=== PATIENT | female | born 1940 | race Hispanic/Latino ===

== ENCOUNTER 2021-12-09 07:25 | Emergency (ER) | payer OTHER ==
[2021-12-09 09:13] LABS: Albumin 2.7 g/dL (3.4-5.0); Protein, Total 9.6 g/dL (6.4-8.2)
[2021-12-09 09:14] LABS: Potassium 3.8 mmol/L (3.5-5.1)
[2021-12-09 09:22] LABS: Absolute Lymphocytes (CBC) 1.1 K/uL (0.7-4.9); Hematocrit 37.1 % (36.0-45.0); Lymphocytes % 20.7 % (15.3-44.8); MCV 85.8 fL (80-100); MPV 8.2 fL (7.6-11.3); RBC Red Blood Cell Count 4.32 M/uL (3.86-4.86)
--- NOTE | 2021-12-09 10:00 | RAD REPORT ---
EXAM DESCRIPTION: CT - Abdomen Angio - 12/09/2021 9:50 am CLINICAL HISTORY: Abdominal pain radiating to the back. Rectal bleeding COMPARISON: Pelvis Angio dated 12/09/2021 TECHNIQUE: CT angiography of the abdominal aorta was performed with MIPs. All CT scans are performed using dose optimization technique as appropriate and may include automated exposure control or mA/KV adjustment according to patient size. FINDINGS: The inferior lung lew are emphysematous. Small hiatal hernia noted. There is mild atheromatous plaquing seen involving the abdominal aorta as well as the origins of the major visceral arteries. Both iliac arteries also demonstrate mild multifocal atherosclerosis. There is no high-grade stenosis or occlusion seen.Cholelithiasis. Postsurgical changes involve the colon with a large right-sided paramidline hernia. No bowel obstruction, free fluid or abscess.No bulky lymphadenopathy. Degenerative changes are present in the spine with diffuse osteopenia. IMPRESSION: Mild to moderate multifocal multisegmental vascular atherosclerosis present.No areas of active extravasation contrast seen. Cholelithiasis. Large right-sided hernias are present.
--- NOTE | 2021-12-09 10:36 | EDPHYS ---
Physician Documentation [facility] Name: Gayla Greene Age: 80 yrs Sex: Female : 1940 Arrival Date: 12/09/2021 Time: 07:26 Bed 17 Private MD: ED Physician Manny Roman HPI: 12/09 07:46 This 80 yrs old Female presents to ER via EMS with complaints of Rectal Bleeding. ms3 07:46 The patient presents to the emergency department with bleeding from the rectum/anus, ms3 that is moderate. Onset: The symptoms/episode began/occurred yesterday. Context: the patient history of colon cancer. Modifying factors: The symptoms are alleviated by nothing, The symptoms are aggravated by nothing. Associate signs and symptoms: Pertinent positives: lower GI bleeding, clots, Pertinent negatives: abdominal pain, vomiting. Historical: - Allergies: 07:45 Aspirin; jl7 - Home Meds: 07:45 furosemide Oral [Active]; Simvastatin Oral [Active]; losartan oral [Active]; jl7 - PMHx: 07:45 Hypertensive disorder; Hypercholesterolemia; Congestive heart failure; jl7 - Immunization history:: Client reports receiving the 2nd dose of the Covid vaccine. - Social history:: Smoking status: Patient denies any tobacco usage or history of. ROS: 07:46 Constitutional: Negative for fever, and chills. Neck: Negative for injury, pain, and ms3 swelling, Cardiovascular: Negative for chest pain, and palpitations. Respiratory: Negative for shortness of breath, cough, wheezing, and pleuritic chest pain, MS/Extremity: Negative for injury and deformity, Skin: Negative for injury, rash, and discoloration, Neuro: Negative for headache, weakness, numbness, tingling. Psych: Negative for depression, anxiety, suicide ideation, homicidal ideation, and hallucinations. 07:46 Abdomen/GI: Positive for rectal bleeding. 07:46 All other systems are negative. Exam: 07:46 Constitutional: This is a well developed, well nourished patient who is awake, alert, ms3 and in no acute distress. Head/Face: Normocephalic, atraumatic. Neck: Trachea midline, no cervical lymphadenopathy. Supple, full range of motion without nuchal rigidity, or vertebral point tenderness. No Meningismus. Chest/axilla: Normal chest wall appearance and motion. Nontender with no deformity. Cardiovascular: Regular rate and rhythm with a normal S1 and S2. No gallops, murmurs, or rubs. Normal PMI, no JVD. No pulse deficits. Respiratory: Lungs have equal breath sounds bilaterally, clear to auscultation and percussion. No rales, rhonchi or wheezes noted. No increased work of breathing, no retractions or nasal flaring. 07:46 Abdomen/GI: Inspection: abdomen appears normal, Right sided ventral hernia, Bowel sounds: normal, Palpation: abdomen is soft and non-tender. Vital Signs: 07:43 BP 158 / 69; Pulse 80; Resp 15; Temp 97.9; Pulse Ox 99% ; Weight 49.9 kg; jl7 08:45 BP 150 / 68; Pulse 76; Pulse Ox 95% on R/A; em6 10:32 BP 145 / 84; Pulse 62; Resp 16; Pulse Ox 98% on R/A; em6 11:55 Pulse 68; Resp 16; Pulse Ox 98% on R/A; em6 13:28 BP 102 / 66; Pulse 52; Resp 18 S; Pulse Ox 98% on R/A; jd3 MDM: 07:34 Patient medically screened. ms3 07:46 Differential diagnosis: Colon cancer vs AVM vs Hemorrhoid. ms3 12:13 Data reviewed: vital signs, nurses notes, lab test result(s), radiologic studies, and ms3 as a result, I will transfer. Counseling: I had a detailed discussion with the patient and/or guardian regarding: the historical points, exam findings, and any diagnostic results supporting the discharge/admit diagnosis, lab results, radiology results, the need to transfer to another facility, for higher level of care, [facility] does not immediately have the required specialist. ED course: Discussed case with Dr Gaona and he accepts patient at [facility]. 12/09 07:45 Order name: CBC with Diff; Complete Time: 10:09 ms3 12/09 07:45 Order name: CMP; Complete Time: 10:09 ms3 12/09 07:45 Order name: CT Abdomen - Angio; Complete Time: 10:09 ms3 12/09 07:45 Order name: CT Pelvis Angio ms3 12/09 10:42 Order name: SARS-COV-2 RT PCR (Document "Date of Onset" if Symptomatic) em1 12/09 07:45 Order name: IV Saline Lock; Complete Time: 08:59 ms3 12/09 07:45 Order name: Labs collected and sent; Complete Time: 08:29 ms3 12/09 09:04 Order name: Labs - recollect needed: blue top and purple top please; Complete Time: em1 09:14 Administered Medications: No medications were administered Disposition Summary: 12/09/21 10:36 Transfer Ordered Reason: Higher level of care ms3 Condition: Stable ms3 Problem: new ms3 Symptoms: are unchanged ms3 Transfer Location: Other Acute Care Facility(12/09/21 12:15) ms3 Accepting Physician: Dr Gaona(12/09/21 14:46) kathleen Diagnosis - rectal bleeding ms3 - transaminitis ms3 - Essential (primary) hypertension ms3 Forms: - Medication Reconciliation Form ms3 - SBAR form ms3 Signatures: Dispatcher [employer] EDJose Nolan em1 Cristina Maria RN RN carrie7 Rey Reynoso RN RN jd3 Manny Roman DO DO ms3 Corrections: (The following items were deleted from the chart) 07:47 07:45 Allergies: No Known Allergies; jl7 jl7 12:15 10:36 . ms3 ms3 12:15 10:36 [facility] ms3 ms3 14:46 12:15 Dr Gaona ms3 jd3
--- NOTE | 2021-12-09 10:36 | ER ---
Nurse's Notes [facility] Name: Gayla Greene Age: 80 yrs Sex: Female : 1940 Arrival Date: 12/09/2021 Time: 07:26 Bed 17 Private MD: Diagnosis: rectal bleeding;transaminitis;Essential (primary) hypertension Presentation: 12/09 07:43 Chief complaint: EMS states: Toned out for rectal bleeding/clots x 1 day, history of jl7 colon cancer, right sided hernia post colostomy, [place] speaking only. Coronavirus screen: At this time, the client does not indicate any symptoms associated with coronavirus-19. Ebola Screen: No symptoms or risks identified at this time. Initial Sepsis Screen: Does the patient meet any 2 criteria? No. Patient's initial sepsis screen is negative. Does the patient have a suspected source of infection? No. Patient's initial sepsis screen is negative. Risk Assessment: Do you want to hurt yourself or someone else? Patient reports no desire to harm self or others. Onset of symptoms was December 08, 2021. Care prior to arrival: None. 07:43 Method Of Arrival: EMS: [facility] 7 07:43 Acuity: TMOY 3 jl7 Triage Assessment: 07:45 General: Appears in no apparent distress. uncomfortable, Behavior is calm, cooperative, jl7 appropriate for age. Pain: Denies pain. Historical: - Allergies: 07:45 Aspirin; jl7 - Home Meds: 07:45 furosemide Oral [Active]; Simvastatin Oral [Active]; losartan oral [Active]; jl7 - PMHx: 07:45 Hypertensive disorder; Hypercholesterolemia; Congestive heart failure; jl7 - Immunization history:: Client reports receiving the 2nd dose of the Covid vaccine. - Social history:: Smoking status: Patient denies any tobacco usage or history of. Screenin:41 Abuse screen: Denies threats or abuse. Nutritional screening: No deficits noted. em6 Tuberculosis screening: No symptoms or risk factors identified. Fall Risk IV access (20 points). Ambulatory Aid- None/Bed Rest/Nurse Assist (0 pts). Gait- Normal/Bed Rest/Wheelchair (0 pts) Mental Status- Oriented to own ability (0 pts). Total Cooper Fall Scale indicates No Risk (0-24 pts). Assessment: 08:30 General: Appears in no apparent distress. comfortable, Behavior is calm, cooperative, em6 appropriate for age. Pain: Complains of pain in right lower quadrant. Neuro: Mejia Agitation-Sedation Scale (RASS): 0 - Alert and Calm Level of Consciousness is awake, alert, obeys commands, Oriented to person, place, time, situation. Cardiovascular: Capillary refill < 3 seconds Patient's skin is warm and dry. Respiratory: Airway is patent Respiratory effort is even, unlabored, Respiratory pattern is regular, symmetrical. GI: Abdomen is round patient reports history of double hernia to the lower right abdomen. large soft bulge noted to the lower right abdomen. Bowel sounds present X 4 quads. Abd is soft X 4 quads Abdomen is tender to palpation in right lower quadrant Reports rectal bleeding, bloody stool. : No signs and/or symptoms were reported regarding the genitourinary system. EENT: No signs and/or symptoms were reported regarding the EENT system. Derm: No signs and/or symptoms reported regarding the dermatologic system. Musculoskeletal: No signs and/or symptoms reported regarding the musculoskeletal system. 10:31 Reassessment: No changes from previously documented assessment. Patient and/or family em6 updated on plan of care and expected duration. Pain level reassessed. Patient is alert, oriented x 3, equal unlabored respirations, skin warm/dry/pink. provider at bed side discussing plan of care. 11:52 Reassessment: No changes from previously documented assessment. Patient and/or family em6 updated on plan of care and expected duration. Pain level reassessed. Patient is alert, oriented x 3, equal unlabored respirations, skin warm/dry/pink. provider notify of family and patient dissatisfaction of rectal exam. Provider at bed side to discuss and re-explain the need of the rectal exam. family/patient reported understanding of the rectal exam. 13:28 Reassessment: Patient appears in no apparent distress at this time. Patient and/or jd3 family updated on plan of care and expected duration. Pain level reassessed. Patient is alert, oriented x 3, equal unlabored respirations, skin warm/dry/pink. resting in bed comfortably. call aguirre in reach. awaiting transfer. 14:45 Reassessment: report given to EMS for transfer. j 15:23 Reassessment: report given to [facility]. jd3 Vital Signs: 07:43 BP 158 / 69; Pulse 80; Resp 15; Temp 97.9; Pulse Ox 99% ; Weight 49.9 kg; jl7 08:45 BP 150 / 68; Pulse 76; Pulse Ox 95% on R/A; em6 10:32 BP 145 / 84; Pulse 62; Resp 16; Pulse Ox 98% on R/A; em6 11:55 Pulse 68; Resp 16; Pulse Ox 98% on R/A; em6 13:28 BP 102 / 66; Pulse 52; Resp 18 S; Pulse Ox 98% on R/A; jd3 ED Course: 07:26 Patient arrived in ED. em1 07:34 Manny Roman DO is Attending Physician. ms3 07:37 Rey Reynoso, RN is Primary Nurse. jd3 07:45 Triage completed. jl7 07:45 Patient has correct armband on for positive identification. Placed in gown. Bed in low mb7 position. Call light in reach. Side rails up X 1. Door closed. Noise minimized. Warm blanket given. 07:45 Arm band placed on right wrist. jl7 08:40 Inserted saline lock: 22 gauge in left forearm, using aseptic technique. placed by em6 ina MILLER. 09:51 CT Abdomen - Angio In Process Unspecified. EDMS 09:51 CT Pelvis Angio In Process Unspecified. 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 jd3 14:46 Patient transferred, IV remains in place. jd3 Administered Medications: No medications were administered Medication: 08:44 VIS not applicable for this client. em6 Outcome: 10:36 ER care complete, transfer ordered by . ms3 14:45 Transferred by ground EMS to other acute care facility: [facility]. Transfer jd3 form completed. X-rays sent w/ patient. 14:45 Condition: stable 14:45 Instructed on the need for transfer. 14:46 Patient left the ED. jd3 Signatures: Dispatcher [employer] Jose Boyce em1 Ina Maria RN RN jl7 Rey Reynoso RN RN jd3 Manny Roman DO DO ms3 Izabel Jean mb7 Emiliana Cervantes RN RN em6 Corrections: (The following items were deleted from the chart) 07:47 07:45 Allergies: No Known Allergies; jl7 jl7 12/10 09:05 12/09 15:10 Reassessment: report given to AHSAN AZUL for transfer jd3 jd3
[2021-12-09 15:05] VITALS: TEMP 97.9
[2021-12-09 15:09] VITALS: O2SAT 98
[2021-12-09 15:11] VITALS: BP 102/66
--- NOTE | 2021-12-12 11:22 | RAD REPORT ---
EXAM DESCRIPTION: CT - Pelvis Angio - 12/09/2021 9:50 am CLINICAL HISTORY: Abdominal pain radiating to the back. Rectal bleeding COMPARISON: Pelvis Angio dated 12/09/2021 TECHNIQUE: CT angiography of the abdominal aorta was performed with MIPs. All CT scans are performed using dose optimization technique as appropriate and may include automated exposure control or mA/KV adjustment according to patient size. FINDINGS: The inferior lung lew are emphysematous. Small hiatal hernia noted. There is mild atheromatous plaquing seen involving the abdominal aorta as well as the origins of the major visceral arteries. Both iliac arteries also demonstrate mild multifocal atherosclerosis. There is no high-grade stenosis or occlusion seen. Cholelithiasis. Postsurgical changes involve the colon with a large right-sided paramidline hernia. No bowel obstruction, free fluid or abscess. No bulky lymphadenopathy. Degenerative changes are present in the spine with diffuse osteopenia. IMPRESSION: Mild to moderate multifocal multisegmental vascular atherosclerosis present. No areas of active extravasation contrast seen. Cholelithiasis. Large right-sided hernias are present.
== END 2021-12-09 14:46 ==
LOC: ER 07:25
DX: K62.5 Hemorrhage of anus and rectum (principal); R74.01 Elevation of levels of liver transaminase levels; I10 Essential (primary) hypertension; I50.9 Heart failure, unspecified; E78.00 Pure hypercholesterolemia, unspecified; Z88.6 Allergy status to analgesic agent; Z20.822 Contact with and (suspected) exposure to COVID-19
CPT/HCPCS: 85025; 36415; 80053; 72191; 74175; U0003; Q9967

== ENCOUNTER 2022-03-02 02:06 | Inpatient (IN) | payer OTHER ==
--- OUTSIDE RECORDS SUMMARY | 2022-03-02 02:11 | XMS REPORT | Continuity of Care Document ---
:1940 Author Organization [facility] t Address [facility] [place] [address] Care Team Providers Name Role Phone No, Pcp [facility] Primary Care Physician Unavailable Jeffry Washburn MD Attending Clinician Keily Anderson MD Attending Clinician KEILY ANDERSON Attending Clinician Unavailable Gerardo Arambula MD Attending Clinician Manny Doran MD Attending Clinician Ruperto Doll CRNA Attending Clinician [phone] JEFFRY WASHBURN Attending Clinician Unavailable Zuleika Hernandez Attending Clinician KEILY ANDERSON Admitting Clinician Unavailable Payers Payer Name Policy Type Policy Number Effective Date Expiration Date S ource Problems Condition Condition Condition Status Onset Resolution Last Treating Co mments Source Name Details Category Date Date Treatment Clinician Date Hematochez Hematochez Disease Active [facility] Gastrointe Gastrointe Disease Active Overview [facility] hemorrhage hemorrhage 00:00: g of this Medical , , 00 note Center unspecifie unspecifie might be d d different gastrointe gastrointe from the stinal stinal original. hemorrhage hemorrhage Added type type automatic ally from request for surgery [id number] FX LUMBAR FX LUMBAR Diagnosis Active 2022-02-16 Memoria SPINE SPINE 09-23 06:42:00 l Active 08:00: Gurwinder 09/23/2021 00 [facility] Allergies, Adverse Reactions, Alerts Allergy Allergy Status Severity Reaction(s) Onset Inactive Treating Comm ents Source Name Type Date Date Clinician Aspirin Propensi Active [facility] adverse 00:00: Medical reaction 00 Center s ASPIRIN Allergy Active [facility] Social History Social Habit Start Date Stop Date Quantity Comments Source History [facility] Non-Med Medical Center History [facility] Housing 2021-12-09 2021-12-[address] [facility] Places Lived 00:00:00 00:00:00 Medical Cent er History [facility] Housing 2021-12-09 2021-12-[address] [facility] Homeless Last Year 00:00:00 00:00:00 Medica l Center History [facility] 2021-12-09 2021-12-[address] [facility] Transport Med 00:00:00 00:00:[address] History [facility] 2021-12-09 2021-12-[address] [facility] Unable to Pay 00:00:00 00:00:[address] Sex Assigned At [address] [facility] 00:[facility]00 00:00:00 Medical Center Medications Ordered Filled Start Stop Current Ordering Indication Dosage Frequency Signature Comments Components Source Medication Medication Date Date Medication? Clinician (SIG) Name Name furosemide Yes 20mg QD Take [address] (LASIX) 20 7-10 by mouth [facility] tablet 14:24: daily. Medica l [address] [place] [address] losartan Yes 100mg QD Take [address] (COZAAR) 7-10 mg by [facility] 100 MG 14:24: mouth Medical tablet 09 daily. Center atorvastati Yes 20mg QD Take [address] [facility] (LIPITOR) 7-10 by mouth Luke s 20 MG 14:24: daily. Medical tablet 09 Center Vital Signs Vital Name Observation Time Observation Value Comments Source Systolic blood 2021-12-11 12:00:00 147 mm[Hg] [facility] Diastolic blood 2021-12-11 12:00:00 68 mm[Hg] [facility] Heart rate 2021-12-11 12:00:00 81 /min [facility] Body temperature 2021-12-11 12:00:00 36.22 Marilee [facility] Respiratory rate 2021-12-11 12:00:00 16 /min [facility] Oxygen saturation in 2021-12-11 12:00:00 97 /min [facility] Arterial blood by Medical Ce nter Pulse oximetry Procedures Procedure Date / Time Performed Performing Clinician Sourc e COLONOSCOPY 2021-12-11 08:31:00 Gerardo Arambula [facility] CBC W/PLT COUNT & AUTO 2021-12-11 04:33:00 [facility] COMPREHENSIVE METABOLIC 2021-12-11 04:33:00 [facility] MAGNESIUM 2021-12-11 04:33:00 [facility] CBC W/PLT COUNT & AUTO 2021-12-11 04:33:00 [facility] CBC W/PLT COUNT & AUTO 2021-12-10 04:39:00 [facility] COMPREHENSIVE METABOLIC 2021-12-10 04:39:00 [facility] MAGNESIUM 2021-12-10 04:39:00 [facility] CBC W/PLT COUNT & AUTO 2021-12-10 04:39:00 [facility] 2021-12-09 20:23[facility]O 2021-12-09 18:52:00 [facility] CBC W/PLT COUNT & AUTO 2021-12-09 18:52:00 [facility] Plan of Care Planned Activity Planned Date Details Comments Source Future Scheduled 2022-02-02 INFLUENZA VACCINE (#1) [facility] 00:00[facility]00 [code = INFLUENZA Medical Ce nter VACCINE (#1)] Future Scheduled 2006-12-[address] [facility] Test 00:00:00 WELLNESS (YEAR 2 or Medical Center FIRST YEAR if no IPPE) [code = MEDICARE ANNUAL WELLNESS (YEAR 2 or FIRST YEAR if no IPPE)] Future Scheduled 2005 PNEUMOCOCCAL 65+ YRS [facility] Test 00:00:00 (1 - PCV) [code = Medical Ce nter PNEUMOCOCCAL 65+ YRS (1 - PCV)] Future Scheduled 1990 SHINGLES VACCINES ([address] [facility] Test 00:00:00 of 2) [code = SHINGLES Medic al Center VACCINES (1 of 2)] Future Scheduled 1959-12-27 DTAP/TDAP/TD VACCINES [facility] 00:00:00 (1 - Tdap) [code = Medical C enter DTAP/TDAP/TD VACCINES (1 - Tdap)] Future Scheduled 1941-06-28 COVID-19 VACCINE (#1) [facility] 00:00:00 [code = COVID-[address] VACCINE (#1)] Future Scheduled 1940 DXA SCAN [code = DXA [facility] Test 00:00:00 SCAN] [facility] Encounters Start End Encounter Admission Attending Care Care Encounter Source Date/Time Date/Time Type Type Clinicians Facility Department ID 2021-12-09 2021-12-11 [facility] Jeffry Washburn [facility] [id number] [facility] 16:04:00 14:24:00 Encounter Keily Anderson [facility] 2021-12-09 2021-12-11 [facility] [id number] [facility] 16:04:00 14:24:00 KEILY 2021-12-11 2021-12-11 Surgery Tyesha [facility] [id number] 08:30:00 09:00:00 [facility] 2021-12-11 2021-12-11 Anesthesia Manny Doran [facility] [id number] 08:31:00 08:49:00 Event Ruperto Doll [facility] 2021-12-09 2021-12-09 Travel [facility] [id number] [facility] 00:[facility] 00:00:00 [facility] 2021-09-28 2021-10-28 OP Therapy nullFlavo [facility] Roger [id number] [facility] 19:37:00 04:59:00 Patients r [facility] 00 l Gurwinder 2021-09-28 2021-10-27 Outpatient Hernandez [id number] 14:37:00 23:59:00 [place]e [id number] Francine [id number] 5.38 Results Test Description Test Time Test Comments Results Result Comments Source COMPREHENSIVE METABOLIC PANEL 2021-12-11 05:48:05 Test Item Value Reference Range Interpretation Comme nts TOTAL PROTEIN (BEAKER) 7.1 gm/dL 6.0-8.5 (test code = 770) ALBUMIN (BEAKER) (test code 2.4 g/dL 3.5-5.0 L = 1145) ALKALINE PHOSPHATASE 469 U/L 30-115 H (BEAKER) (test code = 346) BILIRUBIN TOTAL (BEAKER) 0.8 mg/dL 0.1-1.2 (test code = 377) SODIUM (BEAKER) (test code 142 meq/L 135-148 = 381) POTASSIUM (BEAKER) (test 4.2 meq/L 3.6-5.5 code = 379) CHLORIDE (BEAKER) (test 115 meq/L 98-106 H code = 382) CO2 (BEAKER) (test code = 21 meq/L 20-29 355) BLOOD UREA NITROGEN 8 mg/dL 10-26 L (BEAKER) (test code = 354) CREATININE (BEAKER) (test 0.70 mg/dL 0.50-1.20 code = 358) GLUCOSE RANDOM (BEAKER) 89 mg/dL 70-110 (test code = 652) CALCIUM (BEAKER) (test code 7.9 mg/dL 8.5-10.5 L = 697) AST (SGOT) (BEAKER) (test 72 U/L 5-40 H code = 353) ALT (SGPT) (BEAKER) (test 54 U/L 5-50 H code = 347) EGFR (BEAKER) (test code = 81 mL/min/1.73 sq m ESTIMATED GFR IS NOT 1092) ACCURATE CRE ATININE CLEARANCE IN CT EDICTING GLOMERULAR FILT RATION RATE. ESTIMATED GFR IS NOT APPLICABLE FOR DIALYSIS PATIENTS. Metal Cabinet Finisher ID - [id number] ID - [id number] ID - [id number] ID - [id number] ID - [id number] ID - [id number] ID - [id number] ID - [id number] ID - [id number] ID - [id number] ID - [id number] ID - [id number] ID - [id number] ID - [id number] ID - [id number] ID -[id number] 05:25:43 Test Item Value Reference Range Interpretation Comments MAGNESIUM (BEAKER) (test code = 1.7 mg/dL 1.5-3.0 627) Metal Cabinet Finisher ID - [id number] ID - [id number] ID - [id number] ID - [id number] W/PLT COUNT & AUTO DIFFERENTIAL 2021-12-11 04:58:06 Test Item Value Reference Range Interpretation Comments WHITE BLOOD CELL COUNT (BEAKER) 5.0 K/ L 4.0-10.0 (test code = 775) RED BLOOD CELL COUNT (BEAKER) 3.69 M/ L 4.00-5.00 L (test code = 761) HEMOGLOBIN (BEAKER) (test code = 10.6 GM/DL 12.0-15.5 L 410) HEMATOCRIT (BEAKER) (test code = 33.0 % 36.0-46.0 L 411) MEAN CORPUSCULAR VOLUME (BEAKER) 89.4 fL 82.0-99.0 (test code = 753) MEAN CORPUSCULAR HEMOGLOBIN 28.7 pg 27.0-33.0 (BEAKER) (test code = 751) MEAN CORPUSCULAR HEMOGLOBIN CONC 32.1 GM/DL 32.0-36.0 (BEAKER) (test code = 752) RED CELL DISTRIBUTION WIDTH 16.5 % 12.0-15.0 H (BEAKER) (test code = 412) PLATELET COUNT (BEAKER) (test 148 K/CU MM 150-430 L code = 756) MEAN PLATELET VOLUME (BEAKER) 10.4 fL 6.0-11.5 (test code = 754) NUCLEATED RED BLOOD CELLS 0 /100 WBC 0-0 (BEAKER) (test code = 413) NEUTROPHILS RELATIVE PERCENT 63 % (BEAKER) (test code = 429) LYMPHOCYTES RELATIVE PERCENT 26 % (BEAKER) (test code = 430) MONOCYTES RELATIVE PERCENT 7 % (BEAKER) (test code = 431) EOSINOPHILS RELATIVE PERCENT 3 % (BEAKER) (test code = 432) BASOPHILS RELATIVE PERCENT 0 % (BEAKER) (test code = 437) NEUTROPHILS ABSOLUTE COUNT 3.14 K/ L 1.80-8.00 (BEAKER) (test code = 670) LYMPHOCYTES ABSOLUTE COUNT 1.31 K/ L 1.48-4.50 L (BEAKER) (test code = 414) MONOCYTES ABSOLUTE COUNT (BEAKER) 0.34 K/ L 0.00-1.30 (test code = 415) EOSINOPHILS ABSOLUTE COUNT 0.14 K/ L 0.00-0.50 (BEAKER) (test code = 416) BASOPHILS ABSOLUTE COUNT (BEAKER) 0.02 K/ L 0.00-0.20 (test code = 417) IMMATURE GRANULOCYTES-RELATIVE 0 % 0-0 PERCENT (BEAKER) (test code = 2801) COMPREHENSIVE METABOLIC [id number] 05:12:51 Test Item Value Reference Range Interpretation Comments TOTAL PROTEIN 8.4 gm/dL 6.0-8.5 (BEAKER) (test code = 770) ALBUMIN (BEAKER) 2.8 g/dL 3.5-5.0 L (test code = 1145) ALKALINE PHOSPHATASE 612 U/L 30-115 H (BEAKER) (test code = 346) BILIRUBIN TOTAL 1.0 mg/dL 0.1-1.2 (BEAKER) (test code = 377) SODIUM (BEAKER) (test 139 meq/L 135-148 code = 381) POTASSIUM (BEAKER) 4.1 meq/L 3.6-5.5 (test code = 379) CHLORIDE (BEAKER) 107 meq/L 98-106 H (test code = 382) CO2 (BEAKER) (test 24 meq/L 20-29 code = 355) BLOOD UREA NITROGEN 11 mg/dL 10-26 (BEAKER) (test code = 354) CREATININE (BEAKER) 0.75 mg/dL 0.50-1.20 (test code = 358) GLUCOSE RANDOM 88 mg/dL 70-110 (BEAKER) (test code = 652) CALCIUM (BEAKER) 9.2 mg/dL 8.5-10.5 (test code = 697) AST (SGOT) (BEAKER) 98 U/L 5-40 H (test code = 353) ALT (SGPT) (BEAKER) 74 U/L 5-50 H (test code = 347) EGFR (BEAKER) (test 74 mL/min/1.73 ESTIMA MONY GFR IS code = 1092) sq m NOT ACCURATE CREATININE CLEARANCE IN PREDICTING GLOMERULAR FILTRATION RATE . ESTIMATED GFR I S NOT APPLICABLE FOR DIALYSIS PATIEN TS. Metal Cabinet Finisher ID - LITOOperator ID - LITOOperator ID - LITOOperator ID - LITOOperator ID - LITOOperator ID - LITOOperator ID - LITOOperator ID - LITOOperator ID - LITOOperator ID - LITOOperator ID - LITOOperator ID - LITOOperator ID - LITOOperator ID - LITOOperator ID - LITOOperator ID - [id number] 05:08:47 Test Item Value Reference Range Interpretation Comments MAGNESIUM (BEAKER) (test code = 1.9 mg/dL 1.5-3.0 627) Metal Cabinet Finisher ID - LITOOperator ID - LITOOperator ID - LITOOperator ID - LITOCBC W/PLT COUNT & AUTO [id number] 05:02:13 Test Item Value Reference Range Interpretation Comments WHITE BLOOD CELL COUNT (BEAKER) 4.7 K/ L 4.0-10.0 (test code = 775) RED BLOOD CELL COUNT (BEAKER) 3.81 M/ L 4.00-5.00 L (test code = 761) HEMOGLOBIN (BEAKER) (test code = 11.0 GM/DL 12.0-15.5 L 410) HEMATOCRIT (BEAKER) (test code = 33.2 % 36.0-46.0 L 411) MEAN CORPUSCULAR VOLUME (BEAKER) 87.1 fL 82.0-99.0 (test code = 753) MEAN CORPUSCULAR HEMOGLOBIN 28.9 pg 27.0-33.0 (BEAKER) (test code = 751) MEAN CORPUSCULAR HEMOGLOBIN CONC 33.1 GM/DL 32.0-36.0 (BEAKER) (test code = 752) RED CELL DISTRIBUTION WIDTH 16.5 % 12.0-15.0 H (BEAKER) (test code = 412) PLATELET COUNT (BEAKER) (test 152 K/CU MM 150-430 code = 756) MEAN PLATELET VOLUME (BEAKER) 11.0 fL 6.0-11.5 (test code = 754) NUCLEATED RED BLOOD CELLS 0 /100 WBC 0-0 (BEAKER) (test code = 413) NEUTROPHILS RELATIVE PERCENT 58 % (BEAKER) (test code = 429) LYMPHOCYTES RELATIVE PERCENT 31 % (BEAKER) (test code = 430) MONOCYTES RELATIVE PERCENT 8 % (BEAKER) (test code = 431) EOSINOPHILS RELATIVE PERCENT 3 % (BEAKER) (test code = 432) BASOPHILS RELATIVE PERCENT 1 % (BEAKER) (test code = 437) NEUTROPHILS ABSOLUTE COUNT 2.68 K/ L 1.80-8.00 (BEAKER) (test code = 670) LYMPHOCYTES ABSOLUTE COUNT 1.45 K/ L 1.48-4.50 L (BEAKER) (test code = 414) MONOCYTES ABSOLUTE COUNT (BEAKER) 0.35 K/ L 0.00-1.30 (test code = 415) EOSINOPHILS ABSOLUTE COUNT 0.14 K/ L 0.00-0.50 (BEAKER) (test code = 416) BASOPHILS ABSOLUTE COUNT (BEAKER) 0.03 K/ L 0.00-0.20 (test code = 417) IMMATURE GRANULOCYTES-RELATIVE 0 % 0-0 PERCENT (BEAKER) (test code = 2801) U/S, ABDOMINAL, [id number] 04:42:00Abdomen limited area? Add comment if clarification is needed.->Right upper quadrantReason for exam:->elevated LFTsCHI HEMET [facility]LOBAL [facility]A SP[facility]KS : 1940 Sex: FFINAL REPORT TECHNIQUE: Grayscale ultrasound of the right abdomen. INDICATION: elevated LFTs. COMPARISON: None. FINDINGS: MIDLINE VASCULATURE: The visualized inferior vena cava is patent. Portal vein is patent. Aorta not seen secondary to bowel gas. LIVER: Smooth liver contour. No focal lesions. The main portal vein measures 0.7 cm. BILIARY:Gallbladder: No gallstones or sludge. No gallbladder wall thickening, pericholecystic fluid, or distention. Negative sonographic Almonte sign.Common bile duct measures 0.3 cm, within normal limits. No intrahepatic biliary ductal dilatation. PANCREAS: Incompletely visualized due to overlying bowel gas. PERITONEUM: No free fluid. RIGHT KIDNEY: Normal in size. Mild hydronephrosis. No sonographically evident solid mass lesion. IMPRESSION: 1. Unremarkable appearance of the liver and biliary system. 2. Mild right hydronephrosis. Signed: Flor CedenoMDReport Verified Date/Time: 12/10/2021 04:42:57 CBC W/PLT COUNT & AUTO [id number] 19:03:01 Test Item Value Reference Range Interpretation Comments WHITE BLOOD CELL COUNT (BEAKER) 4.9 K/ L 4.0-10.0 (test code = 775) RED BLOOD CELL COUNT (BEAKER) 4.30 M/ L 4.00-5.00 (test code = 761) HEMOGLOBIN (BEAKER) (test code = 12.2 GM/DL 12.0-15.5 410) HEMATOCRIT (BEAKER) (test code = 37.6 % 36.0-46.0 411) MEAN CORPUSCULAR VOLUME (BEAKER) 87.4 fL 82.0-99.0 (test code = 753) MEAN CORPUSCULAR HEMOGLOBIN 28.4 pg 27.0-33.0 (BEAKER) (test code = 751) MEAN CORPUSCULAR HEMOGLOBIN CONC 32.4 GM/DL 32.0-36.0 (BEAKER) (test code = 752) RED CELL DISTRIBUTION WIDTH 16.4 % 12.0-15.0 H (BEAKER) (test code = 412) PLATELET COUNT (BEAKER) (test 158 K/CU MM 150-430 code = 756) MEAN PLATELET VOLUME (BEAKER) 10.4 fL 6.0-11.5 (test code = 754) NUCLEATED RED BLOOD CELLS 0 /100 WBC 0-0 (BEAKER) (test code = 413) NEUTROPHILS RELATIVE PERCENT 61 % (BEAKER) (test code = 429) LYMPHOCYTES RELATIVE PERCENT 29 % (BEAKER) (test code = 430) MONOCYTES RELATIVE PERCENT 8 % (BEAKER) (test code = 431) EOSINOPHILS RELATIVE PERCENT 2 % (BEAKER) (test code = 432) BASOPHILS RELATIVE PERCENT 1 % (BEAKER) (test code = 437) NEUTROPHILS ABSOLUTE COUNT 3.00 K/ L 1.80-8.00 (BEAKER) (test code = 670) LYMPHOCYTES ABSOLUTE COUNT 1.40 K/ L 1.48-4.50 L (BEAKER) (test code = 414) MONOCYTES ABSOLUTE COUNT (BEAKER) 0.37 K/ L 0.00-1.30 (test code = 415) EOSINOPHILS ABSOLUTE COUNT 0.11 K/ L 0.00-0.50 (BEAKER) (test code = 416) BASOPHILS ABSOLUTE COUNT (BEAKER) 0.03 K/ L 0.00-0.20 (test code = 417) IMMATURE GRANULOCYTES-RELATIVE 0 % 0-0 PERCENT (BEAKER) (test code = 2757)
[2022-03-02 04:41] LABS: Absolute Lymphocytes (CBC) 2.5 K/uL (0.7-4.9); Hematocrit 35.3 % (36.0-45.0); Lymphocytes % 27.6 % (15.3-44.8); MCV 87.6 fL (80-100); RBC Red Blood Cell Count 4.04 M/uL (3.86-4.86)
[2022-03-02 04:59] LABS: ALT/SGPT 91 U/L (12-78); Albumin 2.3 g/dL (3.4-5.0); Alkaline Phosphatase 859 U/L (45-117); BUN Blood Urea Nitrogen 20 mg/dL (7-18); Bicarbonate 25 mmol/L (21-32); Bilirubin Total 1.2 mg/dL (0.2-1.0); Glomerular Filtration Rate 59 ml/min (=/>90); Glucose Level 118 mg/dL (74-106); Lipase 405 U/L (73-393); Sodium Level 134 mmol/L (136-145)
[2022-03-02 05:00] LABS: AST/SGOT ND U/L (15-37); Potassium ND mmol/L (3.5-5.1)
[2022-03-02 05:24] LABS: Protime INR 1.1
--- NOTE | 2022-03-02 06:00 | ER ---
Nurse's Notes [facility] Name: Gayla Greene Age: 81 yrs Sex: Female : 1940 Arrival Date: 03/02/2022 Time: 02:08 Bed 2 Private MD: Diagnosis: Acute blood loss anemia;GI Bleed/ Gastrointestinal hemorrhage, unspecified Presentation: 03/02 02:09 Chief complaint: EMS states: toned out for rectal bleeding. Pt reports having a kd3 colonoscopy recently that just shows unspecified GI hemorrhage. PT daughter says that she has Hemoriod that are aggravated when she eats meat. Coronavirus screen:. Ebola Screen: No symptoms or risks identified at this time. Initial Sepsis Screen: Does the patient meet any 2 criteria? No. Patient's initial sepsis screen is negative. Does the patient have a suspected source of infection? No. Patient's initial sepsis screen is negative. Risk Assessment: Do you want to hurt yourself or someone else? Patient reports no desire to harm self or others. Onset of symptoms was March 02, 2022. 02:09 Method Of Arrival: EMS: [facility] kd3 02:09 Acuity: TOMY 3 kd3 02:29 Coronavirus screen: Vaccine status: Patient reports receiving the 2nd dose of the covid kd3 vaccine. Triage Assessment: 02:14 General: Appears in no apparent distress. Behavior is calm, cooperative. kd3 02:29 Pain: Denies pain. kd3 Historical: - Allergies: 02:12 Aspirin; kd3 - Home Meds: 02:12 Simvastatin Oral [Active]; losartan Oral [Active]; Furosemide Oral [Active]; kd3 - PMHx: 02:12 Congestive heart failure; Hypercholesterolemia; Hypertensive disorder; kd3 - Immunization history:: Adult Immunizations up to date. - Social history:: Smoking status: unknown. Screenin:13 Abuse screen: Denies threats or abuse. Denies injuries from another. Nutritional kd3 screening: No deficits noted. Tuberculosis screening: No symptoms or risk factors identified. Fall Risk None identified. Assessment: 02:08 General: Appears in no apparent distress. Behavior is calm, cooperative. Pain: ha1 Complains of pain in chronic back pain. Neuro: Level of Consciousness is awake, alert, obeys commands, Oriented to person, place, time, situation. Cardiovascular: Patient's skin is warm and dry. Respiratory: Airway is patent Trachea midline Respiratory effort is even, unlabored, Respiratory pattern is regular, symmetrical. GI: Abdomen is round non-distended. GI: Reports rectal bleeding, history of hemorrhoids. also, hernia right lower quadrant of abdomen. : No signs and/or symptoms were reported regarding the genitourinary system. EENT: No deficits noted. No signs and/or symptoms were reported regarding the EENT system. Derm:. 03:14 Reassessment: Patient and/or family updated on plan of care and expected duration. Pain ha1 level reassessed. Patient is alert, oriented x 3, equal unlabored respirations, skin warm/dry/pink. 04:10 Reassessment: Patient and/or family updated on plan of care and expected duration. Pain ha1 level reassessed. Patient is alert, oriented x 3, equal unlabored respirations, skin warm/dry/pink. 05:03 Reassessment: Pt.'s daughter cell phone number ([phone]). ha1 05:05 Reassessment: Patient and/or family updated on plan of care and expected duration. Pain ha1 level reassessed. Patient is alert, oriented x 3, equal unlabored respirations, skin warm/dry/pink. pt. reports having a lot of rectal bleeding. up on assessment one pad with red blood and blood clots. 05:45 Reassessment: Patient and/or family updated on plan of care and expected duration. Pain ha1 level reassessed. going to CT. 07:00 Reassessment: No changes from previously documented assessment. report received from ll1 carry out clerk RN. 07:45 Reassessment: No changes from previously documented assessment. Patient and/or family ll1 updated on plan of care and expected duration. Pain level reassessed. Used Language line receiving associate to inform patient she is being admitted for GI bleed and that I'm starting her on two IV antibiotics. Patient verbalized understanding and is happy she is being admitted. 08:45 Reassessment: No changes from previously documented assessment. Patient and/or family kr3 updated on plan of care and expected duration. Pain level reassessed. 09:45 Reassessment: No changes from previously documented assessment. Patient and/or family kr3 updated on plan of care and expected duration. Pain level reassessed. reported another large blood clot from rectum to ER 10:43 Reassessment: No changes from previously documented assessment. Patient and/or family kr3 updated on plan of care and expected duration. Pain level reassessed. PAUL Quezada at bedside starting midline. 11:29 Reassessment: No changes from previously documented assessment. Patient and/or family kr3 updated on plan of care and expected duration. Pain level reassessed. Vital Signs: 02:08 BP 108 / 63; Pulse 81; Resp 19; Temp 98.3(O); Pulse Ox 98% on R/A; kd3 02:30 Weight 49.9 kg; Height 5 ft. 3 in. (160.02 cm); kd3 03:35 BP 105 / 53; Pulse 64; Resp 15 S; Pulse Ox 100% on R/A; ha1 04:26 BP 114 / 54; Pulse 63; Resp 18 S; Pulse Ox 99% on R/A; ha1 05:45 Pulse 65; Resp 18 S; Pulse Ox 99% on R/A; ha1 06:17 BP 135 / 76; Pulse 72; Resp 18 S; Pulse Ox 99% on R/A; ha1 07:00 BP 105 / 54; Pulse 56; Pulse Ox 99% ; ll1 08:00 BP 92 / 52; Pulse 65; Resp 18; Pulse Ox 99% on R/A; kr3 09:00 BP 103 / 47; Pulse 56; Resp 18; Pulse Ox 100% on R/A; kr3 10:00 BP 107 / 75; Pulse 79; Resp 18; Pulse Ox 98% on R/A; kr3 11:28 BP 117 / 67; Pulse 73; Resp 18; Pulse Ox 100% on R/A; kr3 02:30 Body Mass Index 19.49 (49.90 kg, 160.02 cm) kd3 ED Course: 02:08 Patient arrived in ED. kd3 02:09 Mirna Brown, PAUL is Primary Nurse. kd3 02:12 Triage completed. kd3 02:12 Arm band placed on right wrist. kd3 02:15 Sharad Araiza MD is Attending Physician. sp3 02:30 Patient has correct armband on for positive identification. Bed in low position. Call kd3 light in reach. Side rails up X 1. 02:53 CBC with Diff Sent. kd3 02:53 CMP Sent. kd3 02:53 Lipase Sent. kd3 02:53 PT-INR Sent. kd3 02:54 Inserted saline lock: 24 gauge in left forearm, using aseptic technique. ,using aseptic kl technique. 24 gauge diffusic Blood collected. 05:46 Missed attempt(s): 22 gauge in right antecubital area. US guided . kd3 05:57 CT Abd/Pelvis - IV Contrast Only In Process Unspecified. EDMS 05:58 Bob Pedro MD is Hospitalizing Provider. sophia 06:15 Door closed. Noise minimized. Lights dimmed. Warm blanket given. Repositioned patient. ha1 06:49 Attending Physician role handed off by Sharad Araiza MD sophia 06:49 Favian Swann MD is Attending Physician. sophia 09:05 Cleaned of incontinence. bloody liquid output, no stool seen. 1 small clot. Cleaned, ll1 new brief applied. 09:22 Cleaned of incontinence. bloody liquid output with small clots, cleaned again. New ll1 diaper applied, tolerated well. 09:28 Attending Physician role handed off by Favian Swann MD jr11 09:28 Manny Bryant MD is Attending Physician. jr11 09:30 Juan Blackman MD is Referral Physician. jr11 10:18 Bob Pedro MD is Hospitalizing Provider. jr11 10:47 Inserted saline lock: 20 gauge in right antecubital area, using aseptic technique. ss upper arm, using aseptic technique. ,using aseptic technique. US guided. 11:30 Report given to PAUL Thomas. kr3 11:44 Type and Screen Sent. kr3 11:49 No provider procedures requiring assistance completed. Patient admitted, IV remains in ll1 place. Administered Medications: 09:08 Discontinued: Ciprofloxacin 400 mg 200 ml IVPB once over 60 mins kr3 07:52 Drug: Flagyl (metroNIDAZOLE) 500 mg Volume: 100 ml; Route: IVPB; Rate: 200 ml/hr; ll1 Infused Over: 30 mins; Site: left forearm; 09:04 Drug: Ciprofloxacin 400 mg Volume: 200 ml; Route: IVPB; Infused Over: 60 mins; Site: kr3 left antecubital; Medication: 02:14 VIS not applicable for this client. kd3 Outcome: 05:59 Decision to Hospitalize by Provider. sophia 09:30 Discharge ordered by . gordon 10:18 Decision to Hospitalize by Provider. jr11 10:47 Instructed on the need for admit. ss 11:50 Admitted to Med/surg accompanied by tech, via stretcher, room Rm [id number], with chart. ll1 11:50 Condition: stable 11:56 Patient left the ED. kr3 Signatures: Dispatcher [employer] EDIL Dipti Mandel RN RN Favian Lees MD MD cha Smirch, Shelby RN RN Stephanie Hutchinson RN RN ll1 Sharad Araiza MD MD sp3 Mirna Brown RN RN kd3 Manny Bryant MD MD jr11 Shelbie Gonzales RN RN haLila Sharif RN RN kr3 Corrections: (The following items were deleted from the chart) 10:46 09:45 Reassessment: No changes from previously documented assessment. Patient and/or kr3 family updated on plan of care and expected duration. Pain level reassessed. kr3
--- NOTE | 2022-03-02 06:00 | EDPHYS ---
Physician Documentation [facility] Name: Gayla Greene Age: 81 yrs Sex: Female : 1940 Arrival Date: 03/02/2022 Time: 02:08 Bed 2 Private MD: ED Physician Manny Bryant HPI: 03/02 02:42 This 81 yrs old Female presents to ER via EMS with complaints of BLOOD FROM sp3 RECTUM. 02:42 81-year-old female with a history of prior colon cancer status post partial colectomy, sp3 hemorrhoids in the past, CHF, hyperlipidemia, hypertension presents to the ED with bright red blood per rectum x2 days episodic in nature. Patient is accompanied by daughter who is concerned about the bleeding. There is no reports of melena or dark stools or coffee-ground emesis or emesis in general. Patient has no abdominal pain, nausea, vomiting, diarrhea. On review of systems, there is no headache, fever, neck pain, shortness of breath, chest pain, rash, neuro symptoms, syncope, near syncope, travel history, no sick contacts, any other ROS at this time.. Historical: - Allergies: 02:12 Aspirin; kd3 - Home Meds: 02:12 Simvastatin Oral [Active]; losartan Oral [Active]; Furosemide Oral [Active]; kd3 - PMHx: 02:12 Congestive heart failure; Hypercholesterolemia; Hypertensive disorder; kd3 - Immunization history:: Adult Immunizations up to date. - Social history:: Smoking status: unknown. ROS: 02:44 Constitutional: Negative for fever, chills, and weight loss, Eyes: Negative for injury, sp3 pain, redness, and discharge, ENT: Negative for injury, pain, and discharge, Neck: Negative for injury, pain, and swelling, Cardiovascular: Negative for chest pain, palpitations, and edema, Respiratory: Negative for shortness of breath, cough, wheezing, and pleuritic chest pain, Back: Negative for injury and pain, MS/Extremity: Negative for injury and deformity, Skin: Negative for injury, rash, and discoloration, Neuro: Negative for headache, weakness, numbness, tingling, and seizure, Psych: Negative for depression, anxiety, suicide ideation, homicidal ideation, and hallucinations, Allergy/Immunology: Negative for hives, rash, and allergies, Endocrine: Negative for neck swelling, polydipsia, polyuria, polyphagia, and marked weight changes, Hematologic/Lymphatic: Negative for swollen nodes, abnormal bleeding, and unusual bruising. Exam: 02:44 Constitutional: This is a well developed, well nourished patient who is awake, alert, sp3 and in no acute distress. Head/Face: Normocephalic, atraumatic. Eyes: Pupils equal round and reactive to light, extra-ocular motions intact. Lids and lashes normal. Conjunctiva and sclera are non-icteric and not injected. Cornea within normal limits. Periorbital areas with no swelling, redness, or edema. ENT: Nares patent. No nasal discharge, no septal abnormalities noted. External auditory canals are clear. Oropharynx with no redness, swelling, or masses, exudates, or evidence of obstruction, uvula midline. Mucous membranes moist. Neck: Trachea midline, no thyromegaly or masses palpated, and no cervical lymphadenopathy. Supple, full range of motion without nuchal rigidity, or vertebral point tenderness. No Meningismus. Chest/axilla: Normal chest wall appearance and motion. Nontender with no deformity. No lesions are appreciated. Cardiovascular: Regular rate and rhythm with a normal S1 and S2. No gallops, murmurs, or rubs. Normal PMI, no JVD. No pulse deficits. Respiratory: Lungs have equal breath sounds bilaterally, clear to auscultation and percussion. No rales, rhonchi or wheezes noted. No increased work of breathing, no retractions or nasal flaring. Abdomen/GI: Soft, non-tender, with normal bowel sounds. No distension or tympany. No guarding or rebound. No evidence of tenderness throughout. Skin: Warm, dry with normal turgor. Normal color with no rashes, no lesions, and no evidence of cellulitis. MS/ Extremity: Pulses equal, no cyanosis. Neurovascular intact. Full, normal range of motion. Neuro: Awake and alert, GCS 15, oriented to person, place, time, and situation. Cranial nerves II-XII grossly intact. Motor strength 5/5 in all extremities. Sensory grossly intact. Cerebellar exam normal. Normal gait. Psych: Awake, alert, with orientation to person, place and time. Behavior, mood, and affect are within normal limits. 02:44 : Internal hemorrhoids are present around the rectum with none thrombosed in nature. There is dry bright red blood approximately 3 cc on the toilet paper/pad that was placed there by patient. Abdominal exam is benign. There is no other bleeding sites identified including mouth/gums and nose.. Vital Signs: 02:08 BP 108 / 63; Pulse 81; Resp 19; Temp 98.3(O); Pulse Ox 98% on R/A; kd3 02:30 Weight 49.9 kg; Height 5 ft. 3 in. (160.02 cm); kd3 03:35 BP 105 / 53; Pulse 64; Resp 15 S; Pulse Ox 100% on R/A; ha1 04:26 BP 114 / 54; Pulse 63; Resp 18 S; Pulse Ox 99% on R/A; ha1 05:45 Pulse 65; Resp 18 S; Pulse Ox 99% on R/A; ha1 06:17 BP 135 / 76; Pulse 72; Resp 18 S; Pulse Ox 99% on R/A; ha1 07:00 BP 105 / 54; Pulse 56; Pulse Ox 99% ; ll1 08:00 BP 92 / 52; Pulse 65; Resp 18; Pulse Ox 99% on R/A; kr3 09:00 BP 103 / 47; Pulse 56; Resp 18; Pulse Ox 100% on R/A; kr3 10:00 BP 107 / 75; Pulse 79; Resp 18; Pulse Ox 98% on R/A; kr3 11:28 BP 117 / 67; Pulse 73; Resp 18; Pulse Ox 100% on R/A; kr3 02:30 Body Mass Index 19.49 (49.90 kg, 160.02 cm) kd3 MDM: 02:41 Patient medically screened. sp3 02:45 Data reviewed: vital signs, nurses notes. ED course: 81-year-old female with a sp3 complicated history including colon cancer presents with bright red blood per rectum now resolved and likely from hemorrhoidal source. Patient had a CT scan of the abdomen and pelvis 4 months ago which demonstrated no return of cancer and no other abnormalities. Patient's vital signs are normal and I do not anticipate significant hemoglobin deficits and/or any other laboratory abnormalities. If work-up is negative will discharge patient to PCP and general surgery for hemorrhoidectomy planning and further hemorrhoid management. She is in no acute distress and resting comfortably. I do not believe this is the return of cancer, sepsis, severe anemia requiring transfusion infectious etiology, or any other critical findings at this time.. 05:01 ED course: Pt is having more BRBPR in ED with entire pad soaked with blood. Hgb=11. sp3 Will obs and have GI see pt for possible sigmoid scope vs colonoscopy. . 09:28 ED course: H/H is stable, results of colonoscopy internal hemorrhoid . jr11 09:31 ED course: per both gi and int med, stable for OP follow up, recent colonoscopy results jr11 obtained.. 10:18 ED course: H/H with significant drop, will admit . jr11 03/02 02:18 Order name: CBC with Diff; Complete Time: 04:57 sp3 03/02 02:18 Order name: CMP; Complete Time: 05:05 sp3 03/02 02:18 Order name: Lipase; Complete Time: 05:05 sp3 03/02 02:18 Order name: PT-INR; Complete Time: 05:25 3 03/02 06:46 Order name: SARS RAPID; Complete Time: 09:36 ha1 03/02 09:43 Order name: Hemoglobin; Complete Time: 10:16 ll1 03/02 09:43 Order name: Hematocrit; Complete Time: 10:16 1 03/02 10:32 Order name: Basic Metabolic Panel EDMS 03/02 10:32 Order name: Basic Metabolic Panel EDMS 03/02 10:32 Order name: Basic Metabolic Panel EDMS 03/02 10:32 Order name: Basic Metabolic Panel EDMS 03/02 10:32 Order name: CBC with Automated Diff EDMS 03/02 10:32 Order name: CBC with Automated Diff EDMS 03/02 10:32 Order name: CBC with Automated Diff EDMS 03/02 05:00 Order name: CT Abd/Pelvis - IV Contrast Only sp3 03/02 10:32 Order name: CBC with Automated Diff EDMS 03/02 10:32 Order name: Magnesium EDMS 03/02 10:32 Order name: Magnesium EDMS 03/02 10:32 Order name: Phosphorus EDMS 03/02 10:32 Order name: Phosphorus EDMS 03/02 10:38 Order name: Hematocrit EDMS 03/02 10:38 Order name: Hematocrit EDMS 03/02 10:38 Order name: Hematocrit EDMS 03/02 10:39 Order name: Hemoglobin EDDE 03/02 10:39 Order name: Hemoglobin EDDE 03/02 10:39 Order name: Hemoglobin EDDE 03/02 10:39 Order name: Type and Screen EDDE 03/02 02:18 Order name: IV Saline Lock; Complete Time: 02:53 sp3 03/02 02:18 Order name: Labs collected and sent; Complete Time: 02:53 sp3 03/02 10:32 Order name: CONS Physician Consult EDDE 03/02 10:32 Order name: NPO; Complete Time: 10:46 EDMS Administered Medications: 09:08 Discontinued: Ciprofloxacin 400 mg 200 ml IVPB once over 60 mins kr3 07:52 Drug: Flagyl (metroNIDAZOLE) 500 mg Volume: 100 ml; Route: IVPB; Rate: 200 ml/hr; ll1 Infused Over: 30 mins; Site: left forearm; 09:04 Drug: Ciprofloxacin 400 mg Volume: 200 ml; Route: IVPB; Infused Over: 60 mins; Site: kr3 left antecubital; Disposition Summary: 03/02/22 10:18 Hospitalization Ordered Hospitalization Status: Inpatient Admission(03/02/22 10:18) jr11 Provider: Bob Pedro(03/02/22 10:18) jr11 Location: Telemetry/MedSurg (Inpatient)(03/02/22 10:18) jr11 Condition: Stable(03/02/22 10:18) jr11 Problem: new(03/02/22 10:18) jr11 Symptoms: are unchanged(03/02/22 10:18) jr11 Bed/Room Type: Standard(03/02/22 10:18) 11 Room Assignment: 430(03/02/22 10:49) em1 Diagnosis - Acute blood loss anemia jr11 - GI Bleed/ Gastrointestinal hemorrhage, unspecified(03/02/22 10:18) jr11 Forms: - Medication Reconciliation Form jr11 - SBAR form jr11 Signatures: Dispatcher [employer] [facility] Favian Swann MD MD cha Martinez, Eric em1 Steffen Bowling, VP PRODUCT MARKETING-C VP [employer] MARKET[employer]-Cla1 Stephanie Mandel, RN RN ll1 Sharad Araiza MD MD sp3 Mirna Brown RN RN kd3 Manny Bryant MD MD jr11 Lila Coe, RN RN kr3 Corrections: (The following items were deleted from the chart) 09: 05:59 Observation sophia jr11 09:29 05:59 [facility] jr11 09:29 05:59 Telemetry/MedSurg (observation) sophia jr11 09:29 05:59 [facility] jr11 09:29 05:59 [facility] jr11 09:29 05:59 [facility] jr11 09:29 05:59 [facility] jr11 09: 05:59 [facility] jr11 09:29 05:59 GI Bleed/ Gastrointestinal hemorrhage, unspecified - [facility] jr11 09:29 05:59 Anemia, unspecified [facility] 10:17 09:30 [place] [id number] 10:17 09:30 [address] 10:17 09:30 Anemia, unspecified [address] 10:17 09:30 Unspecified hemorrhoids [place] [id number] 10:17 09:30 GI Bleed/ Gastrointestinal hemorrhage, unspecified [place] [id number] 10:43 10:38 Hemoglobin ordered. EDMS EDMS 10:49 10:18 jr11 em1
[2022-03-02] MEDS ORDERED: METRONIDAZOLE 500mg IVPB 500 MG/100 ML BAG IV ONE (07:30)
[2022-03-02] MEDS ORDERED: CIPROFLOXACIN 400mg IV 400 MG/200 ML BAG IV ONE (07:30)
[2022-03-02 07:57] LABS: SARS-CoV-2 Antigen Rapid Res Negative (Negative)
--- NOTE | 2022-03-02 09:31 | P.CNS ---
Physical Examination Laboratory Data (last 24 hrs) 03/02/22 05:02: PT 12.1, INR 1.10 03/02/22 02:50: Sodium 134 L, Potassium ND, BUN 20 H, Creatinine 0.97, Glucose 118 H, Total Bilirubin 1.2 H, AST ND, ALT 91 H, Alkaline Phosphatase 859 H, Lipase 405 H 03/02/22 02:50: WBC 9.00, Hgb 11.4 L, Hct 35.3 L, Plt Count 161
[2022-03-02 10:05] LABS: Hematocrit 27.9 % (36.0-45.0)
--- NOTE | 2022-03-02 10:33 | P.HP ---
Certification for Inpatient Patient admitted to: Inpatient With expected LOS: >2 Midnights Patient will require the following post-hospital care: None Practitioner: I am a practitioner with admitting privileges, knowledge of patient current condition, hospital course, and medical plan of care. Services: Services provided to patient in accordance with Admission requirements found in Title 42 Section 412.3 of the Code of Federal Regulations Patient History Date of Service: 03/02/22 Reason for admission: Acute GI Bleed History of Present Illness: Ms. Gayla Nash is Serbian-speaking only. The following history was obtained with the assistance of [employer] certified Serbian-Tajik mechanical applications engineer, Ms. Price, (ID# [id number]). Ms. Gayla Nash is a pleasant 81 year old female who has a past medical history of colon cancer s/p partial colectomy, chronic congestive heart failure, hypertension, and hyperlipidemia who presents to the [facility] Emergency Department for hematochezia. She reports that, since 23:00 yesterday evening, she has been experiencing bright red blood per rectum. She denies any abdominal pain, nausea, or vomiting. She denies any obvious inciting or alleviating factors, but she mentions that she believes that red meat may have caused her symptoms. She grades her symptoms as severe. She denies any NSAID or anticoagulant use. She had a previous episode of hematochezia for which she was hospitalized at [facility] from 12/09/2021-12/11/2021. I called the on-call hospitalist and spoke with her. She was able to review her hospital course with me. It appears that she had a colonoscopy on 12/11/2021, which was positive only for internal hemorrhoids. She states that her hemoglobin on discharge was 10.6. On review of systems, she denies any fevers, chills, headaches, dizziness, syncope, weakness, chest pain, palpitations, shortness of breath, wheezing, cough, diarrhea, hematochezia, dysuria, hematuria, myalgia, or any other symptoms. She presented to the Emergency Department for further evaluation. Upon presentation, her vital signs were stable. Her laboratory studies were notable for a hemoglobin trend from 11.[address] abdomen/pelvis is pending. She was admitted to the General Internal Medicine service for further evaluation. Allergies aspirin Adverse Reaction (Verified 03/02/22 10:31) Home medications list reviewed: Yes Home Medications: Atorvastatin Calcium [Lipitor] 20 mg PO BEDTIME 03/02/22 Furosemide [Lasix] 20 mg PO DAILY 03/02/22 Losartan Potassium [Cozaar] 100 mg PO DAILY 03/02/22 - Past Medical/Surgical History -: Colon Cancer -: CHF -: HTN -: HLD -: Partial Colectomy -: Colonoscopy (12/11/2021) - Family History Family History: Reviewed- Non-Contributory - Social History Smoking Status: Never smoker Alcohol use: No CD- Drugs: No Caffeine use: No Review of Systems 10-point ROS is otherwise unremarkable General: Unremarkable Eyes: Unremarkable ENT: Unremarkable Respiratory: Unremarkable Cardiovascular: Unremarkable Gastrointestinal: Constipation, Hematochezia Genitourinary: Unremarkable Musculoskeletal: Unremarkable Integumentary: Unremarkable Neurological: Unremarkable Lymphatics: Unremarkable Physical Examination - Vital Signs Temperature: 98.3 F Blood Pressure: 114/54 Pulse: 65 Respirations: 18 Pulse Ox (%): 99 - Physical Exam General: Alert, In no apparent distress, Oriented x3 HEENT: Atraumatic, PERRLA, Mucous membr. moist/pink, EOMI, Sclerae nonicteric Neck: Supple, JVD not distended Respiratory: Clear to auscultation bilaterally, Normal air movement Cardiovascular: No edema, Regular rate/rhythm, Normal S1 S2, No gallops, No rubs, No murmurs Gastrointestinal: Normal bowel sounds, Soft and benign, Non-distended, No tenderness, No rebound, No guarding, Other (bright red blood noted in stool) Musculoskeletal: No clubbing Integumentary: No rashes Neurological: Normal speech, Cranial nerves 3-12 intact, Normal affect - Studies Laboratory Data (last 24 hrs) 03/02/22 09:56: Hgb 9.4 L D, Hct 27.9 L 03/02/22 05:02: PT 12.1, INR 1.10 03/02/22 02:50: Sodium 134 L, Potassium ND, BUN 20 H, Creatinine 0.97, Glucose 118 H, Total Bilirubin 1.2 H, AST ND, ALT 91 H, Alkaline Phosphatase 859 H, Lipase 405 H 03/02/22 02:50: WBC 9.00, Hgb 11.4 L, Hct 35.3 L, Plt Count 161 Assessment and Plan - Plan # Acute Blood Loss Anemia suspect due to Acute Lower Gastrointestinal Bleed # Recently Diagnosed Internal Hemorrhodids (12/11/2021) # History of Colon Cancer s/p Partial Colectomy Based on history, it appears that she is most likely having a lower gastrointestinal tract bleed. Differential diagnoses include, but are not limited to, malignancy, diverticulosis, and hemorrhoidal. - S/P Colonoscopy at [facility] with Dr. Arambula on 12/11/2021 - revealed internal hemorrhoids - Consulted Gastroenterology and spoke with Dr. Blackman - recommendations appreciated - Type & Screen - q6hr H&H - Was 10.6 on 12/11/2021 @ [place] - Trend here: 11.4 -> 9.4 - Transfuse for Hgb < 7.0 - 2 large bore IVs - Pantoprazole 40 mg IV BID - IV fluids with Lactated Ringers' at 75 mL/hr - NPO # Chronic Compensated Congestive Heart Failure with Unknown Ejection Fraction # Hypertension # Hyperlipidemia - Does not appear to be in acute CHF exacerbation - Hold home meds while NPO # Elevated LFTs - Ordered basic hepatic evaluation with lipid panel, HCV, and RUQ ultrasound - Follow-up with PCP for further evaluation Bob Pedro M.D. Discharge Plan: Home Plan to discharge in: Greater than 2 days - Advance Directives Does patient have a Living Will: No Does patient have a Durable POA for Healthcare: No
[2022-03-02] MEDS ORDERED: SODIUM CHLORIDE 0.9% 10ML INJ IV PRN (10:34)
[2022-03-02] MEDS: Ringers Lactate 1,000 ML IV SCH (12:38)
--- NOTE | 2022-03-02 13:53 | RAD REPORT ---
EXAM DESCRIPTION: US - Liver Only - 03/02/2022 1:44 pm CLINICAL HISTORY: elevated LFTs COMPARISON: Abdomen Pelvis W Contrast dated 03/02/2022 TECHNIQUE: Sonographic evaluation of the right upper quadrant was performed as a dedicated liver ult rasound study. FINDINGS: Liver shows a coarsened, increased echogenicity typically seen with a mild diffuse fatty i nfiltration no focal lesion of the liver identified. No capsule nodularity seen. Doppler assessment s hows no portal vein abnormal flow direction, waveform or velocity value. Patient has a prominent left lobe extending to the left upper quadrant as a normal variant. Overall liver size is approximately 1 5 cm in craniocaudal dimension. IMPRESSION: Mild diffuse fatty infiltration of the liver.
--- NOTE | 2022-03-02 15:01 | RAD REPORT ---
EXAM DESCRIPTION: CT - Abdomen Pelvis W Contrast - 03/02/2022 5:55 am CLINICAL HISTORY: 81 years Female bright red blood per rectum TECHNIQUE: Axial CT imaging of the abdomen and pelvis was performed following the administration of intravenous contrast.. Oral contrast was not administered. Sagittal and coronal reconstructed image s were then performed. The CT study is performed according to ALARA (as low as reasonably achievabl e) or ALARA/IMAGE GENTLY, with automatic adjustment of mA and/or kV according to patient size. Performed on: 03/02/2022 at 6:01 AM. COMPARISON: CTA abdomen and pelvis performed on 12/09/2021 FINDINGS: Lung bases: The lung bases are clear. Liver: The liver is normal in size and configuration. No focal hepatic abnormalities are identified. There is slightly decreased attenuation of the liver which can be associated with fatty infiltration. The hepatic and portal veins are patent. Spleen: The spleen is normal in size, configuration and attenuation. Gallbladder and bile duct: The gallbladder is well-distended and contains gallstones. There is no b iliary ductal dilatation. Pancreas: The pancreas is grossly normal in size and configuration. There is a small bilobed cyst wit hin the region of the neck of the pancreas measuring approximately 1.6 x 0.8 cm in cross-sectional di ameter. This is similar when compared to the prior study. The remainder of the pancreas is grossly un remarkable. Adrenal Glands: The adrenal glands are normal in size and configuration. Kidneys: The kidneys are normal in size and configuration. There is mild stable dilatation of the rig ht renal collecting system. There is no evidence of ureterolithiasis. There is no evidence of nephrol ithiasis. There are small bilateral renal cortical cysts. No follow-up imaging is recommended. Stomach and bowel: The stomach is grossly normal. There is a very small sliding-type hiatal hernia. T here is a right paraumbilical ventral abdominal wall hernia containing portions of the gastric antrum as well as portions of the transverse colon. There are postsurgical changes of a colonic loop within the hernia sac. There is an additional smaller ventral umbilical hernia which contains nondilated sm all bowel loops. There is no evidence of proximal small bowel obstruction. Appendix: The appendix is not clearly identified and may be surgically absent. Free air: There is no evidence of free air. Free fluid: There is no evidence of free fluid. Vasculature: The aorta is normal in caliber. There is tortuosity of the abdominal aorta. There are mo derate atherosclerotic calcifications along the abdominal aorta and iliac arteries. The inferior vena cava is grossly unremarkable. Lymphadenopathy: No pathologic lymphadenopathy is identified. Bladder: The bladder is well distended and smooth in contour. Reproductive: The uterus is grossly within normal limits. Bones: There are chronic changes of the thoracolumbar spine with multiple moderate to severe compress ion fractures throughout the visualized thoracolumbar spine. Soft tissues: No acute soft tissue abnormalities are identified. IMPRESSION: 1. No evidence of acute intra-abdominal or intrapelvic pathology. There are no definit e findings on this examination to explain the patient's reported clinical symptoms. 2. Right paraumbilical ventral abdominal wall hernia containing portions of the gastric antrum as w ell as portions of the transverse colon. There are postsurgical changes of a colonic loop within the hernia sac. There is no evidence of proximal small bowel obstruction. 3. There is an additional smaller ventral umbilical hernia which contains nondilated small bowel lo ops. 4. Cholelithiasis without evidence of biliary ductal dilatation. 5. Small bilobed cyst within the region of the neck of the pancreas measuring approximately 1.6 x 0 .8 cm in cross-sectional diameter. This is similar when compared to the prior study. 6. Mild stable dilatation of the right renal collecting system. There is no evidence of ureterolith iasis. 7. Chronic changes of the thoracolumbar spine with multiple moderate to severe compression fracture s throughout the visualized thoracolumbar spine. 8. Very small sliding-type hiatal hernia. 9. Slightly decreased attenuation of the liver which can be associated with fatty infiltration. Electronically signed by: Christina Akers DO 03/02/2022 6:46 AM CDT Due to temporary technical issues with the PACS/Fluency reporting system, reports are being signed by the in house radiologists without review as a courtesy to insure prompt reporting. The interpreting radiologist is fully responsible for the content of the report.
[2022-03-02 15:13] VITALS: BMI 18.9
[2022-03-02] MEDS ORDERED: PNEUMOCOCCAL VACCINE 0.5 ML IMVAC ONE (16:00)
[2022-03-02] MEDS ORDERED: INFLUENZA VACCINE (for 6+ mo) 0.5 ML DOSE IMVAC ONE (16:00)
[2022-03-02 17:15] LABS: Hematocrit 33.8 % (36.0-45.0)
[2022-03-02] MEDS: PANTOPRAZOLE 40 MG INJ IVP SCH (20:38)
[2022-03-03] MEDS: Ringers Lactate 1,000 ML IV SCH ×2 (02:32→16:02)
[2022-03-03] MEDS ORDERED: ALPRAZOLAM 0.25 MG TABLET PO ONE (05:47)
[2022-03-03 05:53] LABS: Absolute Lymphocytes (CBC) 2.1 K/uL (0.7-4.9); Hematocrit 27.6 % (36.0-45.0); Lymphocytes % 36.3 % (15.3-44.8); MCV 86.9 fL (80-100); MPV 8.8 fL (7.6-11.3); RBC Red Blood Cell Count 3.17 M/uL (3.86-4.86)
[2022-03-03 06:19] LABS: Magnesium 1.8 mg/dL (1.8-2.4); Phosphorus 3.1 mg/dL (2.5-4.9); Potassium 3.9 mmol/L (3.5-5.1)
[2022-03-03] MEDS ORDERED: GOLYTELY 4000 ML PO SCH (09:00)
[2022-03-03] MEDS: PANTOPRAZOLE 40 MG INJ IVP SCH ×2 (09:49→21:03)
--- NOTE | 2022-03-03 13:35 | P.PN ---
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 Overnight, she has has bright red blood per rectum. She reports significant discomfort in the rectum. She denies any abdominal pain, nausea, or vomiting. Review of Systems 10-point ROS is otherwise unremarkable Gastrointestinal: Hematochezia Physical Examination - Vital Signs Temperature: 97.3 F Blood Pressure: 162/65 Pulse: 70 Respirations: 18 Pulse Ox (%): 98 Assessment And Plan - Plan - Physical Exam General: Alert, In no apparent distress, Oriented x3 HEENT: Atraumatic, PERRLA, Mucous membr. moist/pink, EOMI, Sclerae nonicteric Neck: Supple, JVD not distended Respiratory: Clear to auscultation bilaterally, Normal air movement Cardiovascular: No edema, Regular rate/rhythm, Normal S1 S2, No gallops, No rubs, No murmurs Gastrointestinal: Normal bowel sounds, Soft and benign, Non-distended, No tenderness, No rebound, No guarding, Other (bright red blood noted in stool) Musculoskeletal: No clubbing Integumentary: No rashes Neurological: Normal speech, Cranial nerves 3-12 intact, Normal affect # Acute Blood Loss Anemia suspect due to Acute Lower Gastrointestinal Bleed # Recently Diagnosed Internal Hemorrhodids (12/11/2021) # History of Colon Cancer s/p Partial Colectomy Based on history, it appears that she is most likely having a lower gastrointestinal tract bleed. Differential diagnoses include, but are not limited to, malignancy, diverticulosis, and hemorrhoidal. - S/P Colonoscopy at [facility] with Dr. Arambula on 12/11/2021 - revealed internal hemorrhoids - Consulted Gastroenterology and spoke with Dr. Blackman - recommendations appreciated - Plan for colonoscopy today at 14:00 - Type & Screen - q6hr H&H - Was 10.6 on 12/11/2021 @ [place] - Trend here: 11.4 -> 9.4 -> 11.0 -> 9.6 -> 9.1 - Transfuse for Hgb < 7.0 - 2 large bore IVs - Pantoprazole 40 mg IV BID - IV fluids with Lactated Ringers' at 75 mL/hr - NPO # Chronic Compensated Congestive Heart Failure with Unknown Ejection Fraction # Hypertension # Hyperlipidemia - Does not appear to be in acute CHF exacerbation - Hold home meds while NPO # Hepatic Steatosis - Follow-up with PCP for further evaluation - HCV, lipid panel # Multiple Moderate-Severe Compression Fractures - Pain control # Right Paraumbilical Ventral Abdominal Wall Hernia # Small Ventral Umbilical Hernia # Small Sliding Hiatal Hernia # Cholelithiasis # Stable Pancreatic Cyst (1.6 x 0.8 cm) - Stable, no evidence of bowel obstruction by imaging. - Follow-up with PCP/Gen Surg as an outpatient Bob Pedro M.D.
[2022-03-03] MEDS ORDERED: Ringers Lactate 1,000 ML IV ONE (13:49)
[2022-03-03] MEDS ORDERED: LIDOCAINE 1% MPF 2 ML AMPULE ONE (14:14)
[2022-03-03] MEDS ORDERED: propofoL 200 MG/20 ML VIAL IV ONE ×2 (14:14→14:47)
[2022-03-03] MEDS ORDERED: EPINEPHRINE/PF 1 MG/ML AMP ONE (14:28)
[2022-03-03] MEDS ORDERED: EPHEDRINE SULF 50 MG/ML VIAL ONE (14:48)
[2022-03-03 17:38] LABS: Hematocrit 24.1 % (36.0-45.0)
[2022-03-03] MEDS: SUCRALFATE 1GM/10ML UCUP PO SCH (21:05)
[2022-03-03 22:18] LABS: Hematocrit 24.3 % (36.0-45.0)
[2022-03-04 01:27] VITALS: O2SAT 96
[2022-03-04] MEDS: Ringers Lactate 1,000 ML IV SCH ×2 (02:58→21:30)
[2022-03-04 06:35] LABS: Potassium 4.4 mmol/L (3.5-5.1)
[2022-03-04 07:15] LABS: Absolute Lymphocytes (CBC) 1.7 K/uL (0.7-4.9); Hematocrit 22.8 % (36.0-45.0); MCV 87.2 fL (80-100); MPV 8.4 fL (7.6-11.3); RBC Red Blood Cell Count 2.61 M/uL (3.86-4.86)
[2022-03-04] MEDS: SUCRALFATE 1GM/10ML UCUP PO SCH ×2 (09:00→21:24)
[2022-03-04] MEDS: PANTOPRAZOLE 40 MG INJ IVP SCH ×2 (10:01→21:24)
[2022-03-04] MEDS ORDERED: MORPHINE 2 MG/ML SYR IV PRN (10:47)
--- NOTE | 2022-03-04 10:54 | P.PN ---
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 Royal (ID # [id number]), was used for interview. Yesterday, she underwent a colonoscopy and did well. Since the procedure, she has been doing well and has had no recurrent episodes of hematochezia. We di scussed the possibility of a blood transfusion, and she refused blood. Her daughter, Ms. Gomez, was at bedside during this interview. All questions were answered to the best of my ability. Review of Systems 10-point ROS is otherwise unremarkable Gastrointestinal: Hematochezia Musculoskeletal: Back Pain (chronic) Physical Examination - Vital Signs Temperature: 97.6 F Blood Pressure: 158/70 Pulse: 82 Respirations: 18 Pulse Ox (%): 100 Assessment And Plan - Plan - Physical Exam General: Alert, In no apparent distress, Oriented x3 HEENT: Atraumatic, PERRLA, Mucous membr. moist/pink, EOMI, Sclerae nonicteric Neck: Supple, JVD not distended Respiratory: Clear to auscultation bilaterally, Normal air movement Cardiovascular: No edema, Regular rate/rhythm, Normal S1 S2, No gallops, No rub s, No murmurs Gastrointestinal: Normal bowel sounds, Soft and benign, Non-distended, No tenderness, No rebound, No guarding, Other (bright red blood noted in stool) Musculoskeletal: No clubbing Integumentary: No rashes Neurological: Normal speech, Cranial nerves 3-12 intact, Normal affect # Acute Blood Loss Anemia suspect due to Acute Lower Gastrointestinal Bleed # Recently Diagnosed Internal Hemorrhoids (12/11/2021) # History of Colon Cancer s/p Partial Colectomy Based on history, it appears that she is most likely having a lower gastrointestinal tract bleed. Differential diagnoses include, but are not limited to, malignancy, diverticulosis, and hemorrhoidal. - S/P Colonoscopy at [facility] with Dr. Arambula on 12/11/2021 - revealed internal hemorrhoids - Consulted Gastroenterology and spoke with Dr. Blackman - recommendations appreciated - Underwent colonoscopy on 03/03/2022 - per Dr. Blackman, significant rectal vascular malformation, which he was able to cauterize - Recommended colorectal surgery evaluation as an outpatient if hemoglobin remains stable - Will require transfer if H&H continues to drop. - Type & Screen - q6hr H&H - Was 10.6 on 12/11/2021 @ [place] - Trend here: 11.4 -> 9.4 -> 11.0 -> 9.6 -> 9.1 -> 8.3 -> 7.9 -> 7.8 - Transfuse for Hgb < 7.0 - 2 large bore IVs - Pantoprazole 40 mg IV BID - IV fluids with Lactated Ringers' at 75 mL/hr - CLD - advance as tolerated # Chronic Compensated Congestive Heart Failure with Unknown Ejection Fraction # Hypertension # Hyperlipidemia - Does not appear to be in acute CHF exacerbation - Continue home meds # Hepatic Steatosis - Follow-up with PCP for further evaluation - HCV pending - Lipid panel: TC 201 TG 62 LDL 137 HDL 52 # Multiple Moderate-Severe Compression Fractures - Pain control # Right Paraumbilical Ventral Abdominal Wall Hernia # Small Ventral Umbilical Hernia # Small Sliding Hiatal Hernia # Cholelithiasis # Stable Pancreatic Cyst (1.6 x 0.8 cm) - Stable, no evidence of bowel obstruction by imaging. - Follow-up with PCP/Gen Surg as an outpatient Bob Pedro M.D.
[2022-03-04] MEDS ORDERED: INFLUENZA VACCINE (for 6+ mo) 0.5 ML DOSE IMVAC ONE (17:00)
[2022-03-04 17:12] LABS: Hematocrit 24.3 % (36.0-45.0)
[2022-03-05 00:31] LABS: Hematocrit 25.1 % (36.0-45.0)
[2022-03-05] MEDS: Ringers Lactate 1,000 ML IV SCH (05:40)
[2022-03-05 06:35] LABS: Potassium 3.7 mmol/L (3.5-5.1)
[2022-03-05 06:54] LABS: Absolute Lymphocytes (CBC) 1.6 K/uL (0.7-4.9); Hematocrit 22.4 % (36.0-45.0); Lymphocytes % 38.2 % (15.3-44.8); MPV 8.7 fL (7.6-11.3); RBC Red Blood Cell Count 2.55 M/uL (3.86-4.86)
[2022-03-05] MEDS: SUCRALFATE 1GM/10ML UCUP PO SCH ×2 (09:00→21:16)
[2022-03-05] MEDS: PANTOPRAZOLE 40 MG INJ IVP SCH ×2 (10:07→21:16)
[2022-03-05] MEDS ORDERED: INFLUENZA VACCINE (for 6+ mo) 0.5 ML DOSE IMVAC ONE (12:00)
[2022-03-05 16:03] LABS: Hematocrit 22.7 % (36.0-45.0)
--- NOTE | 2022-03-05 19:02 | P.PN ---
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 Mayen (ID # [id number]), was used for interview. No acute events overnight. She reports no recurrent bloody bowel movements and states that she feels well this morning. However, her hemoglobin has dropped to 7.4 on her morning labs. Review of Systems 10-point ROS is otherwise unremarkable Gastrointestinal: Hematochezia (resolved) Physical Examination - Vital Signs Temperature: 97.6 F Blood Pressure: 136/71 Pulse: 65 Respirations: 16 Pulse Ox (%): 98 Assessment And Plan - Plan - Physical Exam General: Alert, In no apparent distress, Oriented x3 HEENT: Atraumatic, PERRLA, Mucous membr. moist/pink, EOMI, Sclerae nonicteric Neck: Supple, JVD not distended Respiratory: Clear to auscultation bilaterally, Normal air movement Cardiovascular: No edema, Regular rate/rhythm, Normal S1 S2, No gallops, No rubs, No murmurs Gastrointestinal: Normal bowel sounds, Soft and benign, Non-distended, No tenderness, No rebound, No guarding, Other (bright red blood noted in stool) Musculoskeletal: No clubbing Integumentary: No rashes Neurological: Normal speech, Cranial nerves 3-12 intact, Normal affect # Acute Blood Loss Anemia suspect due to Acute Lower Gastrointestinal Bleed # Recently Diagnosed Internal Hemorrhoids (12/11/2021) # History of Colon Cancer s/p Partial Colectomy Based on history, it appears that she is most likely having a lower gastrointestinal tract bleed. Differential diagnoses include, but are not limited to, malignancy, diverticulosis, and hemorrhoidal. - S/P Colonoscopy at [facility] with Dr. Arambula on 12/11/2021 - revealed internal hemorrhoids - Consulted Gastroenterology and spoke with Dr. Blackman - recommendations appreciated - Underwent colonoscopy on 03/03/2022 - per Dr. Blackman, significant rectal vascular malformation, which he was able to cauterize - Recommended colorectal surgery evaluation as an outpatient if hemoglobin remains stable - Will require transfer if H&H continues to drop. - Type & Screen - q6hr H&H - Was 10.6 on 12/11/2021 @ [place] - Trend here: 11.4 -> 9.4 -> 11.0 -> 9.6 -> 9.1 -> 8.3 -> 7.9 -> 7.8 -> 8.0 - > 8.2 -> 7.4 - Transfuse for Hgb < 7.0 - 2 large bore IVs - Pantoprazole 40 mg IV BID - LA sucralfate - IV fluids with Lactated Ringers' at 75 mL/hr - CLD - advance as tolerated # Chronic Compensated Congestive Heart Failure with Unknown Ejection Fraction # Hypertension # Hyperlipidemia - Does not appear to be in acute CHF exacerbation - Continue home meds # Hepatic Steatosis - Follow-up with PCP for further evaluation - HCV pending - Lipid panel: TC 201 TG 62 LDL 137 HDL 52 # Multiple Moderate-Severe Compression Fractures - Pain control # Right Paraumbilical Ventral Abdominal Wall Hernia # Small Ventral Umbilical Hernia # Small Sliding Hiatal Hernia # Cholelithiasis # Stable Pancreatic Cyst (1.6 x 0.8 cm) - Stable, no evidence of bowel obstruction by imaging. - Follow-up with PCP/Gen Surg as an outpatient Updates: 03/05/2022 - Spoke with Dr. Blackman - given that Hgb has dropped some compared to yesterday, will monitor in the hospital one more day with serial H&H and transfuse for Hgb <7.0. Bob Pedro M.D.
[2022-03-05 20:41] LABS: Hematocrit 23.9 % (36.0-45.0)
[2022-03-05] MEDS ORDERED: Ringers Lactate 1,000 ML IV SCH (22:51)
[2022-03-06] MEDS: SUCRALFATE 1GM/10ML UCUP PO SCH (08:47)
[2022-03-06] MEDS: PANTOPRAZOLE 40 MG INJ IVP SCH (08:48)
--- NOTE | 2022-03-06 14:07 | P.DS ---
Discharge Date: 03/06/22 Disposition: ROUTINE DISCHARGE Discharge Condition: GOOD Reason for Admission: Acute GI Bleed Brief History of Present Illness: Ms. Gayla Nash is [place]-speaking only. The following history was obtained with the assistance of [employer] certified [place] cable armorer operator, Ms. Ramosa, (ID# [id number]). Ms. Gayla Nash is a pleasant 81 year old female who has a past medical history of colon cancer s/p partial colectomy, chronic congestive heart failure, hypertension, and hyperlipidemia who presents to the [facility] Emergency Department for hematochezia. She reports that, since 23:00 yesterday evening, she has been experiencing bright red blood per rectum. She denies any abdominal pain, nausea, or vomiting. She denies any obvious inciting or alleviating factors, but she mentions that she believes that red meat may have caused her symptoms. She grades her symptoms as severe. She denies any NSAID or anticoagulant use. She had a previous episode of hematochezia for which she was hospitalized at [facility] from 12/09/2021-12/11/2021. I called the on-call hospitalist and spoke with her. She was able to review her hospital course with me. It appears that she had a col onoscopy on 12/11/2021, which was positive only for internal hemorrhoids. She states that her hemoglobin on discharge was 10.6. On review of systems, she denies any fevers, chills, headaches, dizziness, syncope, weakness, chest pain, palpitations, shortness of breath, wheezing, cough, diarrhea, hematochezia, dysuria, hematuria, myalgia, or any other symptoms. She presented to the Emergency Department for further evaluation. Upon presentation, her vital signs were stable. Her laboratory studies were notable for a hemoglobin trend from 11.[address] abdomen/pelvis is pending. She was admitted to the General Internal Medicine service for further evaluation. Hospital Course: Patient has done well during hospitalization. Patient's hemoglobin is stable. This morning patient hemoglobin is greater than 8. Patient will follow-up as an outpatient with colorectal surgery as well as gastroenterology. Outpatient home health with physical therapy and nursing care and repeat hemoglobin in 1 week. At this time, patient is stable for discharge with outpatient follow-up. Vital Signs/Physical Exam: Temp Pulse Resp BP Pulse Ox 97.0 F 64 16 146/74 H 96 03/06/22 12:00 03/06/22 12:00 03/06/22 12:00 03/06/22 12:00 03/06/22 12:00 General: Alert, In no apparent distress, Oriented x3 Laboratory Data at Discharge: WBC 4.20 K/uL (4.3-10.9) L 03/05/22 06:03 Hgb 8.2 g/dL (12.0-15.0) L D 03/05/22 20:23 Hct Cancelled 03/05/22 20:27 Plt Count 152 K/uL (152-406) 03/05/22 06:03 PT 12.1 SECONDS (9.5-12.5) 03/02/22 05:02 INR 1.10 03/02/22 05:02 Sodium 140 mmol/L (136-145) 03/05/22 06:03 Potassium 3.7 mmol/L (3.5-5.1) D 03/05/22 06:03 BUN 8 mg/dL (7-18) 03/05/22 06:03 Creatinine 0.73 mg/dL (0.55-1.3) 03/05/22 06:03 Glucose 94 mg/dL (74-106) 03/05/22 06:03 Phosphorus 3.1 mg/dL (2.5-4.9) 03/03/22 05:41 Magnesium 1.8 mg/dL (1.8-2.4) 03/03/22 05:41 Total Bilirubin 1.2 mg/dL (0.2-1.0) H 03/02/22 02:50 AST ND 03/02/22 02:50 ALT 91 U/L (12-78) H 03/02/22 02:50 Alkaline Phosphatase 859 U/L (45-117) H 03/02/22 02:50 Triglycerides 62 mg/dL (<150) 03/03/22 05:41 Cholesterol 201 mg/dL (<200) H 03/03/22 05:41 HDL Cholesterol 52 mg/dL (40-60) 03/03/22 05:41 Cholesterol/HDL Ratio 3.87 03/03/22 05:41 Lipase 405 U/L (73-393) H 03/02/22 02:50 Home Medications: Atorvastatin Calcium [Lipitor*] 20 mg PO BEDTIME 03/02/22 Furosemide [Lasix] 20 mg PO DAILY 03/02/22 Losartan Potassium [Cozaar] 100 mg PO DAILY 03/02/22 Ensure Clear 200 ml PO BID #60 can 03/06/22 Lactose-Reduced Food [Ensure Clear] 296 ml PO BID #60 bot 03/06/22 Pantoprazole [Protonix Tab] 40 mg PO BID #60 tab 03/06/22 Sucralfate [Carafate*] 20 ml PO BID #1000 ml 03/06/22 New Medications: Sucralfate [Carafate*] 20 ml PO BID #1000 ml Ensure Clear 200 ml PO BID #60 can Lactose-Reduced Food [Ensure Clear] 296 ml PO BID #60 bot Pantoprazole [Protonix Tab] 40 mg PO BID #60 tab Physician Discharge Instructions: -DC IV and DC home -Follow-up with PCP in 1 to 2 weeks -Follow-up with director of strategic partnerships in 1 to 2 weeks -Follow-up with colorectal surgeon in 1 to 2 weeks -Please call Dr. Winkler at [phone] if any questions regarding hospital stay -Please call nursing station at [phone] if any nursing or medication questions -Return to the emergency room if symptoms worsen Diet: Soft diet Activity: Fall precautions Followup: NONE,NONE [Primary Care Provider] - Time spent managing pt's care (in minutes): 35
[2022-03-06 16:58] VITALS: BP 136/77; TEMP 96.8
[2022-03-06] MEDS ORDERED: ENSURE CLEAR 200 ML CAN PO SCH (21:00)
== END 2022-03-06 17:48 | disposition home or self-care (01) | DRG 378 ==
LOC: ER 02:06 → ERHOLD 10:28 → 4TH 11:28
PROVIDERS: ADMIT Internal Medicine; ATTEND Hospitalist
PROC: 0W3P8ZZ Control Bleeding in Gastrointestinal Tract, Via Natural or Artificial Opening Endoscopic (ICD-10-PCS; principal; 2022-03-03 14:00)
DX: K62.5 Hemorrhage of anus and rectum (principal); D62 Acute posthemorrhagic anemia; K86.3 Pseudocyst of pancreas; E78.5 Hyperlipidemia, unspecified; I11.0 Hypertensive heart disease with heart failure; I50.9 Heart failure, unspecified; K43.9 Ventral hernia without obstruction or gangrene; K42.9 Umbilical hernia without obstruction or gangrene; K80.20 Calculus of gallbladder without cholecystitis without obstruction; K44.9 Diaphragmatic hernia without obstruction or gangrene; K76.0 Fatty (change of) liver, not elsewhere classified; T14.8XXD Other injury of unspecified body region, subsequent encounter; R94.5 Abnormal results of liver function studies; Z88.6 Allergy status to analgesic agent; Z90.49 Acquired absence of other specified parts of digestive tract; Z79.899 Other long term (current) drug therapy; Z85.038 Personal history of other malignant neoplasm of large intestine; Z20.822 Contact with and (suspected) exposure to COVID-19
CPT/HCPCS: 36415; 74177; 76705; 80048; 80053; 80061; 83690; 83735; 84100; 85014; 85018; 85025; 85610; 86803; 86850; 86900; 86901; 87811; 99285; C9113; J0171; J0744; J2270; J2704; J7120; Q2035; Q9967

== ENCOUNTER 2022-06-27 19:26 | Inpatient (IN) | payer OTHER ==
--- OUTSIDE RECORDS SUMMARY | 2022-06-27 19:31 | XMS REPORT | Continuity of Care Document ---
:1940 Author Organization [facility] t Address [address] [place] [address] Care Team Providers Name Role Phone No, Pcp [facility] Primary Care Physician Unavailable KEILY ANDERSON Attending Clinician Unavailable Jeffry Gaona MD Attending Clinician Keily Anderson MD Attending Clinician Gerardo Arambula MD Attending Clinician Manny Doran MD Attending Clinician Ruperto Doll CRNA Attending Clinician [phone] Zuleika Hernandez Attending Clinician KEILY ANDERSON Admitting [...] Active Overview [facility] hemorrhage hemorrhage 00:00: g of this Medical , , 00 note Center unspecifie unspecifie might be d d different gastrointe gastrointe from the stinal stinal original. hemorrhage hemorrhage Added type type automatic ally from request for surgery [id number] FX LUMBAR FX LUMBAR Diagnosis Active 2022-02-16 Memoria SPINE SPINE 4-22 06:42:00 l Active 08:00: [place] 09/23/2021 00 [facility] Allergies, Adverse Reactions, Alerts Allergy Allergy Status Severity Reaction(s) Onset Inactive Treating Comm ents Source Name Type Date Date Clinician ASPIRIN [facility]ergy [facility] 00 Center Aspirin Propensi Active [facility] adverse 00:00: Medical reaction 00 Center s Social History Social Habit Start Date Stop Date Quantity Comments Source History [facility] Transport Non-Med Medical Center History [facility] Housing 2021-12-09 2021-12-[address] [facility] Unable to Pay 00:00:00 00:00:[address] History [facility] Housing 2021-12-09 2021-12-[address] [facility] Places Lived 00:00:00 00:00:00 Medical Cent er History [facility] Housing 2021-12-09 2021-12-[address] [facility] Homeless Last Year 00:00:00 00:00:00 Medica l Center History [facility] 2021-12-09 2021-12-[address] [facility] Transport Med 00:00:00 00:00:[address] Sex Assigned At [address] [facility] 00:00:00 00:00:00 Medical Center Medications Ordered Filled Start Stop Current Ordering Indication Dosage Frequency Signature Comments Components Source Medication Medication Date Date Medication? Clinician (SIG) Name Name furosemide Yes 20mg QD Take [address] (LASIX) 20 7-10 by mouth [facility] MG tablet 14:24: daily. Medica l 09 [place] losartan Yes 100mg QD Take [address] (COZAAR) 7-10 mg by [facility] 100 MG 14:24: mouth Medical tablet 09 daily. [place] atorvastati Yes 20mg QD Take [address] [facility] (LIPITOR) 7-10 by mouth Luke s 20 MG 14:24: daily. Medical tablet 09 [place] furosemide Yes 20mg QD Take [address] (LASIX) 20 7-10 by mouth [facility] MG tablet 14:24: daily. Medica l 09 [place] losartan Yes 100mg QD Take [address] (COZAAR) 7-10 mg by [facility] 100 MG 14:24: mouth Medical tablet 09 daily. Center atorvastati Yes 20mg QD Take [address] [facility] (LIPITOR) 7-10 by mouth Luke s 20 MG 14:24: daily. Medical tablet 09 Center Vital Signs Vital Name Observation Time Observation Value Comments Source Systolic blood 2021-12-11 12:00:00 147 mm[Hg] [facility] Diastolic blood 2021-12-11 12:00:00 68 mm[Hg] [facility] Heart rate 2021-12-11 12:00:00 81 /min [facility] Body temperature 2021-12-11 12:00:00 36.22 Marilee [facility] Respiratory rate 2021-12-11 12:00:00 16 /min [facility] Oxygen saturation in 2021-12-11 12:00:00 97 /min [facility] Arterial blood by Medical Ce nter Pulse oximetry Procedures Procedure Date / Time Performed Performing Clinician [facility] e HEPATITIS C ANTIBODY 2022-03-03 05:41:00 [facility] COLONOSCOPY 2021-12-11 08:31:00 Gerardo Arambula [facility] CBC W/PLT COUNT & AUTO 2021-12-11 04:33:00 [facility] COMPREHENSIVE METABOLIC 2021-12-11 04:33:00 [facility] MAGNESIUM 2021-12-11 04:33:00 [facility] AUTO 2021-12-11 04:33:00 [facility] CBC W/PLT COUNT & AUTO 2021-12-10 04:39:00 [facility] COMPREHENSIVE METABOLIC 2021-12-10 04:39:00 [facility] MAGNESIUM 2021-12-10 04:39:00 [facility] CBC W/PLT COUNT & AUTO 2021-12-10 04:39:00 Jorge [facility] US ABDOMEN LIMITED 2021-12-09 20:23:00 Keily Anderson [facility] CBC W/PLT COUNT & AUTO 2021-12-09 18:52:00 Keily Anderson [facility] CBC W/PLT COUNT & AUTO 2021-12-09 18:52:00 Keily Anderson [facility] Plan of Care Planned Activity Planned Date Details Comments Source Future Scheduled 2022-06-[address] [facility] Test 00:00:00 (12+) [code = Medical Center DEPRESSION SCREENING (12+)] Future Scheduled 2022-06-04 FALLS RISK SCREENING [facility] Test 00:00:00 [code = FALLS RISK Medical C enter SCREENING] Future Scheduled 2022-02-02 INFLUENZA VACCINE (#1) [facility] 00:00:00 [code = INFLUENZA Medical Ce nter VACCINE (#1)] Future Scheduled 2022-02-02 INFLUENZA VACCINE (#1) [facility] 00:00:00 [code = INFLUENZA Medical Ce nter VACCINE (#1)] Future Scheduled 2006-12-[address] [facility] Test 00:00:00 WELLNESS (YEAR 2 or Medical Center FIRST YEAR if no IPPE) [code = MEDICARE ANNUAL WELLNESS (YEAR 2 or FIRST YEAR if no IPPE)] Future Scheduled 2006-12-[address] [facility] Test 00:00:00 WELLNESS (YEAR 2 or Medical Center FIRST YEAR if no IPPE) [code = MEDICARE ANNUAL WELLNESS (YEAR 2 or FIRST YEAR if no IPPE)] Future Scheduled 2005 PNEUMOCOCCAL 65+ YRS [facility] Test 00:00:00 (1 - PCV) [code = Medical Ce nter PNEUMOCOCCAL 65+ YRS (1 - PCV)] Future Scheduled 2005 PNEUMOCOCCAL 65+ YRS [facility] Test 00:00:00 (1 - PCV) [code = Medical Ce nter PNEUMOCOCCAL 65+ YRS (1 - PCV)] Future Scheduled 1990 SHINGLES VACCINES ([address] [facility] Test 00:00:00 of 2) [code = SHINGLES Medic al Center VACCINES (1 of 2)] Future Scheduled 1990 SHINGLES VACCINES ([address] [facility] Test 00:00:00 of 2) [code = SHINGLES Medic al Center VACCINES (1 of 2)] Future Scheduled 1959-12-27 DTAP/TDAP/TD VACCINES [facility] Test 00:00:00 (1 - Tdap) [code = Medical C enter DTAP/TDAP/TD VACCINES (1 - Tdap)] Future Scheduled 1959-12-27 DTAP/TDAP/TD VACCINES [facility] Test 00:00:00 (1 - Tdap) [code = Medical C enter DTAP/TDAP/TD VACCINES (1 - Tdap)] Future Scheduled [address] [facility] Test 00:00:00 Counseling and Medical Cente r Screening (12+) [code = Tobacco Cessation Counseling and Screening (12+)] Future Scheduled 1941-06-28 COVID-19 VACCINE (#1) [facility] 00:00:00 [code = COVID-[address] VACCINE (#1)] Future Scheduled 1941-06-28 COVID-19 VACCINE (#1) [facility] Test 00:00:00 [code = COVID-[address] VACCINE (#1)] Future Scheduled 1940 DXA SCAN [code = DXA [facility] Test 00:00:00 SCAN] [facility] Future Scheduled 1940 DXA SCAN [code = DXA [facility] Test 00:00:00 SCAN] [facility] Encounters Start End Encounter Admission Attending Care Care Encounter Source Date/Time Date/Time Type Type Clinicians Facility Department ID 2022-06-21 2022-06-21 Outpatient SFA SFA [id number] [place] 10:01:14 10:01:14 [id number] F Vahe 2022-06-20 2022-06-20 Outpatient SFA SFA [id number] [place] 12:58:59 12:58:59 [id number] F Vahe 2022-06-14 2022-06-14 Outpatient SFA SFA [id number] [place] 15:32:38 15:32:38 [id number] F Vahe 2022-06-08 2022-06-08 Outpatient SFA SFA [id number] [place] 10:03:00 10:03:00 [id number] F Vahe 2022-06-07 2022-06-07 Outpatient SFA SFA [id number] [place] 16:14:24 16:14:24 [id number] F Vahe 2022-04-07 2022-04-07 Outpatient SFA [facility] [id number] Clint 15:10:41 15:10:41 [id number] F Vahe 2022-03-03 2022-03-03 Lab [facility] [id number] 00:00:00 00:00:00 [facility] 2021-12-09 2021-12-11 Inpatient UR JORGE, [facility] [id number] [facility] 16:04:00 14:24:00 [facility] 2021-12-09 2021-12-11 [facility] [id number] [facility]:24[facility]00 [facility]-12[facility]09 2021-12-11 [facility] [id number] [facility] 16[facility]04[facility]00 14:24:00 [facility] 2021-12-11 2021-12-11 Surgery [facility], [facility] [id number] 08:30:00 09:00:00 [facility] 2021-12-11 2021-12-11 Surgery [facility], [facility] [id number] 08:30:00 09:00:00 [facility] 2021-12-11 2021-12-11 [facility] [id number] 08:31:00 08:49:00 Event [facility] 2021-12-11 2021-12-11 [facility] [id number] 08:31:00 08:49:00 Event [facility] 2021-12-09 2021-12-09 Travel [facility] [id number] [facility] 00[facility]00 00:00:00 [facility] 2021-12-09 2021-12-09 Travel [facility] [id number] [facility] 00:[facility] 00:00:00 [facility] 2021-09-28 2021-10-28 OP Therapy nullFlavo SMR Roger [id number] Memoria 19:37:00 04:59:00 [facility] 00 l Gurwinder 2021-09-28 2021-10-28 OP Therapy nullFlavo SMR Roger [id number] Memoria 19:37:00 04:59:00 [facility] 00 l Gurwinder 2021-09-28 2021-10-27 Outpatient Hernandez, [id number] 14:37:00 23:59:00 Destanee [id number] Francine [id number] 5.38 Results Test Description Test Time Test Comments Results Result Comments Source ULLA (ANTI-NUCLEAR AB) WITH REFLEX TITER 2022-06-27 04:22:46 Test Item Value Reference Range Interpretation Comme nts ANTI-NUCLEAR ANTIBODIES POSITIVE NEGATIVE A (test code = 3506) LULA PATTERN (REPORTED SEE BELOW TITER) (test code = 47481) HOMOGENEOUS (test code = 1:320 TITER NEGATIVE H 55792) SPECKLED (test code = NEGATIVE TITER NEGATIVE 876354) DENSE FINE SPECKLED (test NEGATIVE TITER NEGATIVE code = 60098) CENTROMERE (test code = 1:1280 TITER NEGATIVE H 384927) COARSE SPECKLED (test code = NEGATIVE TITER NEGATIVE 837993) DISCRETE NUCLEAR DOTS (test NEGATIVE TITER NEGATIVE code = 343662) NUCLEOLAR (test code = NEGATIVE TITER NEGATIVE 460706) NUCLEAR MEMBRANE (test code NEGATIVE TITER NEGATIVE = 594941) CYTO. RETICULAR (ROHITH) (test PRESENT NEGATIVE A Cytoplasmic mitochondrial code = 626494) fluorescent p attern seen. For appropriate pat ients, consider confirmation wi th mitochondrial M2 antibody EIA . COMMENTS (test code = NONE 927190) METHOD (test code = 34869) (NOTE) NOTE: EFFECTIVE 01/09/2022, METHOD IS TRANS ITIONED TO THE Tactilize S The RoundsA Pongr IFA PLATFORM. THE M ETHOD INCLUDES A SCREENTHRESHOLD OF 1:80, DIGITIZED AND C OMPUTER ALGORITHM-ROULA TEDINTERPRETATIO N OF TITERS AND DIGITAL PATTERNS, AND H Ep-2 CELLLINE SUBSTRATE. DIDIER TIONAL UNUSUAL PATTERNS WILL B E GIVEN ASCOMMENTS. FOR MORE INFORMATION, SE Cristobal [email or web address] INTACT [id number] 12:04:35 Test Item Value Reference Range Interpretation Comments INTACT PTH (test code = 5005) 19 PG/ML 15-65 HEPATITIS PANEL, [id number] 04:03:37 Test Item Value Reference Range Interpretation Comments HEPATITIS A IgM (test NON-REACTIVE NON-REACTIVE code = 05836) HEPATITIS B CORE IgM NON-REACTIVE NON-REACTIVE (test code = 4644) HEPATITIS B SURF AG NON-REACTIVE NON-REACTIVE (test code = 2739) HEPATITIS C ANTIBODY NON-REACTIVE NON-REACTIVE (test code = 4675) INTERPRETATION (NOTE) Hepatitis A HEPATITIS A: (test code sero logy shows no = 2552) evidence of acu te hepatitis A. INTERPRETATION (NOTE) Hepatitis B HEPATITIS B: (test code sero logy shows no = 87173) evidence of acu te hepatitis B and no indication of exposure to hepatitis B vir us in the previous nubia eight months. INTERPRETATION (NOTE) Hepatitis C HEPATITIS C: (test code sero logy shows no = 91425) evidence of exposure to hepatitisC viru s at this time. I t can take up to 12 months after exposure tothe hepatitis C vir us for antibodies to become detectab le in the blood in certain patient s. MITOCHONDRIAL M2 [id number] 14:58:40 Test Item Value Reference Range Interpretation Comments MITOCHONDRIAL M2 AB 141.3 UNITS See_Comment H I NTERPRETIVE (test code = 4634) DATA * Negative . . . . . . . . . . . . . UNITS <=2 0.0 Equivocal . . . . . . . . . . . . U NITS 20.1-24.9 Posit edgardo . . . . . . . . . . . . . UNITS >=25. 0 [Automated mess age] The system [employer] generated this result transmit mony reference range : <=20.0. The reference range was not used to interpret this result as normal/abnormal . VITAMIN D, 25 [id number] 06:59:19 Test Item Value Reference Range Interpretation Comments VITAMIN D, 25 30 NG/ML SEE BELOW EFFECTIVE 06/12/2022, [place] (test code PLEASE NOTE NE W METHODOLOGY = 4958) IS ELECTROCH EMILUMINESCENCE BINDING ASSAY. NOTE: 25-HYDROXYVITAM IN D ASSAY INCLUDES 25-HYD ROXYVITAMIN D2 AND D3. I NTERPRETIVE RANGES PED IATRIC (<17 YEARS) . . . . . . . . . . . NG/ML 20-100ADU LT: INSUFFICIENT . . . . . . . . . . . . . . NG/ML <20 SUBOP TIMAL . . . . . . . . . . . . . . . NG/ML 20-29 OPTIMAL . . . . . . . . . . . . . . . . . NG/ML 30-100 [id number] 03:06:54 Test Item Value Reference Range Interpretation Comments PHOSPHORUS (test code = 2227) 3.1 MG/DL 2.5-4.5 LIPID [id number] 03:04:01 Test Item Value Reference Range Interpretation Comments CHOLESTEROL (test 208 MG/DL <200 H code = 2210) TRIGLYCERIDES (test 57 MG/DL <150 code = 2232) HDL CHOLESTEROL (test 67 MG/DL >39 code = 2220) CALC LDL CHOL (test 127 MG/DL <100 H NOTE: C ALCULATED LDL code = 2237) IS BASED ON KATHLEEN-TEMPLE METHOD WHICHINCLUDES ADJUSTABLE TRIGLYCERIDE:VL DL CHOLESTEROL RAT IO.THIS FACTOR VARIES B Y MEASURED TRIGLY CERIDE AND NON-HDLCHOL ESTEROL CONCENTRATIONS WITH INCREASED CALCU LATED LDL SEENIN HIGH ER TRIGLYCERIDE OR LOWER NON-HDL SPECIME NS. FOR MOREINFORMATION , SEE CLIENT ANNOUNCE MENT AT [email or web address] RATIO LDL/HDL 1.90 RATIO <3.22 UNLESS O THERWISE (test code = 2238) INDICATED , ALL TESTING PERFORMED [facility], [place]. [address] [place] [address] [facility] DIRECTOR: JO LYNCH M.D. CLIA NUMBER [id number] CAP ACCREDITATION N O. [id number] ALKALINE PHOSPHATASE [id number] 14:24:06 Test Item Value Reference Range Interpretation Comments ALKALINE PHOSPHATASE 817 U/L 40-120 H (test code = 35767) ALK PHOS, LIVER 1% 66.6 % 27.8-76.3 (test code = 35278) ALK PHOS, LIVER 1 ABS 544.1 U/L 10.9-91.6 H (test code = 06634) ALK PHOS, LIVER 2% 23.1 % 0.0-8.0 H (test code = 23096) ALK PHOS, LIVER 2 ABS 188.7 U/L 0.0-9.6 H (test code = 84803) ALK PHOS, BONE % (test 10.3 % 19.1-67.7 L code = 66205) ALK PHOS, BONE ABS 84.2 U/L 7.6-81.2 H (test code = 94058) ALK PHOS, INTESTINE % 0.0 % 0.0-20.6 (test code = 44298) ALK PHOS, INTESTINE 0.0 U/L 0.0-24.7 ABS (test code = 670708) ALK PHOS, PLACENTAL % 0.0 % See_Comment [Auto mated message] (test code = 350045) The sys tem which generated this result transmitted ref erence range: 0.0 . Th e reference range was not used to int erpret this result as normal/abnormal . ALK PHOS, PLACENTAL 0.0 U/L See_Comment TESTING PERFORMED AT [facility] (test code = SONIC REFER ENCE 912449) [employer], [employer] . [address] [place] [address], [address], [place] [address] CLIA NO: [id number] [Automated mess age] The system [employer] h generated this result transmitted ref erence range: 0.0. The reference range was not used to int erpret this result as normal/abnormal . [id number] 06:32:46 Test Item Value Reference Range Interpretation Comments FERRITIN (test code = 2075) 73 NG/ML 13-200 VITAMIN B 12 AND FOLIC [id number] 06:32:46 Test Item Value Reference Range Interpretation Comments VITAMIN B-12 (test 666 PG/ML 200-950 code = 2840) FOLIC ACID (test 19.8 UG/L SEE BELOW INTE RPRETIVE code = 2695) RANGES DE FICIENCY . . . . . . . . . . . . . . . UG/L <4.0 PO SSIBLE DEFICIENCY. . . . . . . . . . . UG/L 4.0- 5.9 SUFFICIENT . . . . . . . . . . . . . . . UG/L >=6.0 UNLESS OT HERWISE INDICATED, ALL TESTING PERFORMED [facility], [employer]. [address] [place], [place] [address] [place] [address] DIRECTOR: JO LYNCH M.D. CLIA NUMBER [id number] CAP ACCREDITATION N O. [id number] COMPREHENSIVE METABOLIC [id number] 02:55:00 Test Item Value Reference Range Interpretation Comments GLUCOSE (test code = 82 MG/DL 70-99 2216) BUN (test code = 18 MG/DL 8-23 2207) CREATININE (test 0.74 MG/DL 0.60-1.30 code = 2214) eGFR (2020 CKD-EPI) 81 ML/MIN/1.73 >60 (test code = 66155) CALC BUN/CREAT (test 24 RATIO 6-28 code = 2235) SODIUM (test code = 134 MEQ/L 486-675 8500) POTASSIUM (test code 4.2 MEQ/L 3.5-5.4 = 8) CHLORIDE (test code 97 MEQ/L 95-107 = 2215) CARBON DIOXIDE (test 22 MEQ/L 19-31 code = 2206) CALCIUM (test code = 9.0 MG/DL 8.5-10.5 2208) PROTEIN, TOTAL (test 8.7 G/DL 6.1-8.3 H code = 2229) ALBUMIN (test code = 3.2 G/DL 3.5-5.2 L 2200) CALC GLOBULIN (test 5.5 G/DL 1.9-3.7 H code = 2240) CALC A/G RATIO (test 0.6 RATIO 1.0-2.6 L code = 2234) BILIRUBIN, TOTAL 0.9 MG/DL See_Comment [Automated message] (test code = 2207) The syste m which generated this result transmit mony reference range : <=1.2. The refe rence range was not u sed to interpret th is result as normal/abnormal . ALKALINE PHOSPHATASE 819 U/L 40-142 H (test code = 2203) AST (test code = 170 U/L 9-40 H 2217) ALT (test code = 84 U/L 5-40 H 2218) IRON BINDING CAPACITY AND IRON AND % [id number] 02:55:00 Test Item Value Reference Range Interpretation Comments IRON, SERUM (test code = 2222) 45 UG/DL 37-145 UNSATURATED IBC (test code = 98312) 309 UG/DL 112-347 CALC TOTAL IBC (test code = 2076) 354 UG/DL 250-450 CALC % IRON SAT (test code = 2078) 13 % 20-50 L [id number] 02:54:33 Test Item Value Reference Range Interpretation Comments TRANSFERRIN (test code = 4936) 294 MG/DL 200-360 [id number] 02:54:33 Test Item Value Reference Range Interpretation Comments GGT (test code = 221) 1117 U/L <40 H CBC W/AUTO DIFF WITH [id number] 02:35:50 Test Item Value Reference Range Interpretation Comments WBC (test code = 5.7 K/UL 3.5-11.0 1001) RBC (test code = 4.07 M/UL 3.80-5.40 1002) HEMOGLOBIN (test code 11.0 G/DL 11.5-15.5 L = 1003) HEMATOCRIT (test code 34.7 % 34.0-45.0 = 1004) MCV (test code = 85.3 fL 80.0-99.0 1005) MCH (test code = 27.0 PG 25.0-33.0 1006) MCHC (test code = 31.7 G/DL 31.0-36.0 1007) RDW (test code = 22.2 % 11.5-15.0 H 1038) NEUTROPHILS (test 64.8 % code = 1008) LYMPHOCYTES (test 26.1 % code = 1010) MONOCYTES (test code 7.5 % = 1011) EOSINOPHILS (test 0.9 % code = 1012) BASOPHILS (test code 0.5 % = 1013) IMMATURE GRANULOCYTES 0.2 % (test code = 1036) NUCLEATED RBCS (test 0.0 /100 WBC'S See_Comment [Aut omated code = 1065) message] The sy stem which generated this result transmitted reference range : 0.0. The refere nce range was not u sed to interpret th is result as normal/abnormal . PLATELET COUNT (test 146 K/UL 130-400 code = 1015) ABSOLUTE NEUTROPHILS 3.69 K/UL 1.50-7.50 (test code = 1066) ABSOLUTE LYMPHOCYTES 1.49 K/UL 1.00-4.00 (test code = 1067) ABSOLUTE MONOCYTES 0.43 K/UL 0.20-1.00 (test code = 1068) ABSOLUTE EOSINOPHILS 0.05 K/UL 0.00-0.50 (test code = 1040) ABSOLUTE BASOPHILS 0.03 K/UL 0.00-0.20 (test code = 1069) ABS IMMATURE 0.01 K/UL 0.00-0.10 GRANULOCYTES (test code = 1020) ABS NUCLEATED RBCS 0.00 K/UL 0.00-0.11 (test code = 78043) Hepatitis C [id number] 14:46:10 Test Item Value Reference Range Interpretation Comments Hepatitis C Ab (test code Nonreactive Nonreactive = 18064-4) JADEN (test code = JADEN) Vegetable Farmer ID - TOM Lab Interpretation (test Normal code = 82182-8) [facility] [id number] 14:46:10 Test Item Value Reference Range Interpretation Comments HEPATITIS C ANTIBODY (BEAKER) Nonreactive Nonreactive (test code = 367) Vegetable Farmer [facility] [id number] 05:48:05 Test Item Value Reference Range Interpretation Comments TOTAL PROTEIN 7.1 gm/dL 6.0-8.5 (BEAKER) (test code = 770) ALBUMIN (BEAKER) 2.4 g/dL 3.5-5.0 L (test code = 1145) ALKALINE PHOSPHATASE 469 U/L 30-115 H (BEAKER) (test code = 346) BILIRUBIN TOTAL 0.8 mg/dL 0.1-1.2 (BEAKER) (test code = 377) SODIUM (BEAKER) (test 142 meq/L 135-148 code = 381) POTASSIUM (BEAKER) 4.2 meq/L 3.6-5.5 (test code = 379) CHLORIDE (BEAKER) 115 meq/L 98-106 H (test code = 382) CO2 (BEAKER) (test 21 meq/L 20-29 code = 355) BLOOD UREA NITROGEN 8 mg/dL 10-26 L (BEAKER) (test code = 354) CREATININE (BEAKER) 0.70 mg/dL 0.50-1.20 (test code = 358) GLUCOSE RANDOM 89 mg/dL 70-110 (BEAKER) (test code = 652) CALCIUM (BEAKER) 7.9 mg/dL 8.5-10.5 L (test code = 697) AST (SGOT) (BEAKER) 72 U/L 5-40 H (test code = 353) ALT (SGPT) (BEAKER) 54 U/L 5-50 H (test code = 347) EGFR (BEAKER) (test 81 mL/min/1.73 ESTIMA MONY GFR IS code = 1092) sq m NOT ACCURATE CREATININE CLEARANCE IN PREDICTING GLOMERULAR FILTRATION RATE . ESTIMATED GFR I S NOT APPLICABLE FOR DIALYSIS PATIEN TS. Vegetable Farmer ID - [id number] ID - [id number] ID - [id number] ID - [id number] ID - [id number] ID - [id number] ID - [id number] ID - [id number] ID - [id number] ID - [id number] ID - [id number] ID - [id number] ID - [id number] ID - [id number] ID - [id number] ID -[id number] 05:25:43 Test Item Value Reference Range Interpretation Comments MAGNESIUM (BEAKER) (test code = 1.7 mg/dL 1.5-3.0 627) Vegetable Farmer ID - [id number] ID - [id number] ID - [id number] ID - [id number] W/PLT COUNT & AUTO DIFFERENTIAL 2021-12-11 04:58:06 [...] (BEAKER) (test code = 2801) COMPREHENSIVE METABOLIC [id number] 05:12:51 Test Item Value Reference Range Interpretation [...] S NOT APPLICABLE FOR DIALYSIS PATIEN TS. Vegetable Farmer ID - LITOOperator ID - LITOOperator ID - LITOOperator ID - LITOOperator ID - LITOOperator ID - LITOOperator ID - LITOOperator ID - LITOOperator ID - LITOOperator ID - LITOOperator ID - LITOOperator ID - LITOOperator ID - LITOOperator ID - LITOOperator ID - LITOOperator ID - [id number] 05:08:47 Test Item Value Reference Range Interpretation Comments MAGNESIUM (BEAKER) (test code = 1.9 mg/dL 1.5-3.0 627) Vegetable Farmer ID - LITOOperator ID - LITOOperator ID - LITOOperator ID - LITOCBC W/PLT COUNT & AUTO [id number] 05:02:13 Test Item Value Reference Range Interpretation [...] (BEAKER) (test code = 2801) U/S, ABDOMINAL, [id number] 04:42:00Abdomen limited area? Add comment if clarification is needed.->Right upper quadrantReason for exam:->elevated LFTsCHI [facility]AKERS[facility] : 1940 Sex: FFINAL REPORT [...] 12/10/2021 04:42:57 CBC W/PLT COUNT & AUTO [id number] 19:03:01 Test Item Value Reference Range Interpretation [...] 417) IMMATURE GRANULOCYTES-RELATIVE 0 % 0-0 PERCENT (SUZETTE) (test code = 2801)
[2022-06-27] MEDS ORDERED: MORPHINE 2 MG/ML SYR ONE (23:08)
[2022-06-27] MEDS ORDERED: NA CHLORIDE 0.9% 1,000 ML ONE (23:08)
[2022-06-27] MEDS ORDERED: ONDANSETRON 4 MG/2 ML VIAL ONE (23:08)
[2022-06-27 23:11] LABS: Absolute Lymphocytes (CBC) 1.2 K/uL (0.7-4.9); Hematocrit 38.4 % (36.0-45.0); Lymphocytes % 13.1 % (15.3-44.8); MPV 9.2 fL (7.6-11.3); RBC Red Blood Cell Count 4.41 M/uL (3.86-4.86)
[2022-06-27 23:27] LABS: Albumin 3.1 g/dL (3.4-5.0); Bilirubin Total 0.9 mg/dL (0.2-1.0); Potassium 3.8 mmol/L (3.5-5.1); Protein, Total 9.8 g/dL (6.4-8.2)
[2022-06-28 00:10] LABS: Anisocytosis 1+; Blood Morphology Comment NOTED (NOT SEEN); Platelet Estimate ADEQ; White Blood Cell Scan OK (OK)
--- NOTE | 2022-06-28 00:36 | EDPHYS ---
Physician Documentation [facility] Name: Gayla Greene Age: 81 yrs Sex: Female : 1940 Arrival Date: 06/27/2022 Time: 19:31 Bed 23 Private MD: ED Physician Livan Kline HPI: 06/27 21:04 This 81 yrs old Female presents to ER via Wheelchair with complaints of rn Abdominal Pain, Constipation, Nausea, Diarrhea. 21:04 The patient presents to the emergency department with nausea, vomiting, diarrhea, rn abdominal pain. Onset: The symptoms/episode began/occurred 2 day(s) ago. Possible causes: unknown. The symptoms are aggravated by nothing. The symptoms are alleviated by nothing. Associated signs and symptoms: Pertinent positives: abdominal pain, diarrhea, nausea, vomiting, Pertinent negatives: fever, GI bleeding. Severity of symptoms: At their worst the symptoms were moderate in the emergency department the symptoms are unchanged. The patient has experienced similar episodes in the past. The patient has not recently seen a physician. Historical: - Allergies: 20:26 Aspirin; pf1 - PMHx: 20:26 Congestive heart failure; Hypercholesterolemia; Hypertensive disorder; pf1 06/28 01:53 colon cancer; bb - Immunization history:: Adult Immunizations unknown. - Family history:: not pertinent. - Social history:: Smoking status: Patient denies any tobacco usage or history of. ROS: 06/27 21:04 Constitutional: Negative for fever, chills, and weight loss, Eyes: Negative for injury, rn pain, redness, and discharge, Cardiovascular: Negative for chest pain, palpitations, and edema, Respiratory: Negative for shortness of breath, cough, wheezing, and pleuritic chest pain, Abdomen/GI: + abd pain and vomiting/diarrhea MS/Extremity: Negative for injury and deformity, Skin: Negative for injury, rash, and discoloration, Neuro: Negative for headache, numbness, tingling, and seizure. Exam: 21:04 Constitutional: This is a well developed, well nourished patient who is awake, alert, rn actively vomiting into emesis bag Head/Face: Normocephalic, atraumatic. Cardiovascular: Regular rate and rhythm. No pulse deficits. Respiratory: No increased work of breathing, no retractions or nasal flaring. Abdomen/GI: soft, + mild lower abd tenderness, no rebound, + lower abd hernia x 2 without focal tenderness or skin changes Skin: Warm, dry MS/ Extremity: Pulses equal, no cyanosis. Neuro: Awake and alert, GCS 15 Vital Signs: 20:15 BP 173 / 79; Pulse 78; Resp 18; Temp 97.7; Pulse Ox 99% ; Weight 49.44 kg; Height 5 ft. pf1 3 in. (160.02 cm); Pain 7/10; 23:25 BP 163 / 73; Pulse 69; Resp 20; Temp 97.5; Pulse Ox 98% ; bb 06/28 01:17 BP 143 / 68; Pulse 60; Resp 16 S; Temp 97.5(O); Pulse Ox 100% on R/A; bb 06/27 20:15 Body Mass Index 19.31 (49.44 kg, 160.02 cm) pf1 MDM: 06/27 19:44 Patient medically screened. rn 06/28 00:30 Differential diagnosis: Nonspecific abd pain, cholecystitis, pancreatitis, rn diverticulitis, viral gastroenteritis, gastroenteritis, incarcerated hernia. Counseling: I had a detailed discussion with the patient and/or guardian regarding: the historical points, exam findings, and any diagnostic results supporting the discharge/admit diagnosis, lab results, radiology results, the need for further work-up and treatment in the hospital. ED course: Pt with incarcerated hernia and resultant SBO, after morphine and zofran, was able to temporarily reduce hernia, but comes back out, no peritoneal signs, no vomiting. Paged Dr. Okeefe for discussion and consultation. Will admit to hospitalist service for further care. . 00:33 Data reviewed: vital signs, nurses notes, lab test result(s), radiologic studies, CT rn scan, ultrasound, and as a result, I will admit patient. Management of patient was discussed with the following: Hospitalist: Discussed case with hospitalist, passed on information from Dr. Okeefe regarding empiric abx, NPO, pain medication, fluids, repeat abd xray in morning, and NG tube if continues to vomit.. 00:36 ED course: [facility] physician in [place] has been trending abnormal LFTs, rn thought to be secondary to statin and changed medication. Notified Dr. Okeefe of cholelithiasis and slightly elevated lipase. 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 06/27 20:22 Order name: CBC with Diff; Complete Time: 00:13 rn 06/27 20:22 Order name: CMP; Complete Time: 23:31 rn 06/27 20:22 Order name: Lipase; Complete Time: 23:31 rn 06/27 23:16 Order name: CBC Smear Scan; Complete Time: 00:13 EDMS 06/28 00:18 Order name: CREATININE WHOLE BLOOD; Complete Time: 00:32 EDMS 06/28 01:12 Order name: SARS RAPID sb4 06/27 20:22 Order name: CT Abd/Pelvis - IV Contrast Only rn 06/27 20:22 Order name: IV Saline Lock; Complete Time: 23:01 rn 06/27 23:32 Order name: US Abdomen Limited rn 06/28 01:40 Order name: SARS-COV-2 Antigen Rapid EDMS 06/27 20:22 Order name: Labs collected and sent; Complete Time: 23:01 rn 06/28 00:36 Order name: NPO; Complete Time: 00:55 rn Administered Medications: 06/27 23:05 Drug: NS 0.9% 1000 ml Route: IV; Rate: 1 bolus; Site: right upper arm; 06/28 00:00 Follow up: IV Status: Completed infusion; IV Intake: 950ml 06/27 23:05 Drug: Zofran (Ondansetron) 4 mg Route: IVP; Site: right upper arm; 06/28 00:00 Follow up: Response: No adverse reaction 00:55 Follow up: Response: No adverse reaction 06/27 23:05 Drug: morphine 2 mg Route: IVP; Infused Over: 4 mins; Site: right upper arm; 06/28 00:00 Follow up: Response: No adverse reaction; Pain is decreased 01:16 Drug: Zosyn (piperacillin-tazobactam) 3.375 grams Route: IVPB; Infused Over: 60 mins; Site: right upper arm; :45 Follow up: IV Status: Completed infusion; IV Intake: 100ml Disposition Summary: 06/28/22 00:35 Hospitalization Ordered Hospitalization Status: Inpatient Admission rn Provider: Radha Winkler rn [facility] rn Condition: Stable rn Problem: new rn Symptoms: have improved rn Bed/Room Type: Standard rn Room Assignment: 413(06/28/22 01:42) cg Diagnosis - Other and unspecified ventral hernia with obstruction, without gangrene rn - Other intestinal obstruction rn Forms: - Medication Reconciliation Form rn - SBAR form rn Signatures: Dispatcher [employer] EDAlessandra Azul RN RN bb Nieto, Roman, MD MD rn Garcia, Cindy, RN RN cg finley, Pamala, RN RN pf1 Corrections: (The following items were deleted from the chart) 06/27 23:57 21:04 Constitutional: This is a well developed, well nourished patient who is awake, rn alert, actively vomiting into emesis bag Head/Face: Normocephalic, atraumatic. Cardiovascular: Regular rate and rhythm. No pulse deficits. Respiratory: No increased work of breathing, no retractions or nasal flaring. Abdomen/GI: soft, + mild lower abd tenderness, no rebound, + lower abd hernia Skin: Warm, dry MS/ Extremity: Pulses equal, no cyanosis. Neuro: Awake and alert, GCS 15 rn 06/28 01:42 00:35 rn cg
--- NOTE | 2022-06-28 00:36 | ER ---
Nurse's Notes [facility] Name: Gayla Greene Age: 81 yrs Sex: Female : 1940 Arrival Date: 06/27/2022 Time: 19:31 Bed 23 Private MD: Diagnosis: Other and unspecified ventral hernia with obstruction, without gangrene;Other intestinal obstruction Presentation: 06/27 20:15 Chief complaint: Patient states: abdominal pain of with nausea, vomiting and pf1 constipation,onset 1600 today. Patient stated vomited x 3 episodes and constipation. patient stated LBM was today. Patient has hx of colon CA and has completed chemo therapy. Coronavirus screen: Vaccine status: Patient reports being unvaccinated. Client denies travel out of the [place] in the last 14 days. Client presents with at least one sign or symptom that may indicate coronavirus-19. Standard/surgical mask placed on the client. Ebola Screen: Patient negative for fever greater than or equal to 101.5 degrees Fahrenheit, and additional compatible Ebola Virus Disease symptoms. Initial Sepsis Screen: Does the patient meet any 2 criteria? No. Patient's initial sepsis screen is negative. Does the patient have a suspected source of infection? No. Patient's initial sepsis screen is negative. Risk Assessment: Do you want to hurt yourself or someone else? Patient reports no desire to harm self or others. Onset of symptoms was June 27, 2022. 20:15 Method Of Arrival: Wheelchair pf1 20:15 Acuity: TOMY 3 pf1 Historical: - Allergies: 20:26 Aspirin; pf1 - PMHx: 20:26 Congestive heart failure; Hypercholesterolemia; Hypertensive disorder; pf1 06/28 01:53 colon cancer; bb - Immunization history:: Adult Immunizations unknown. - Family history:: not pertinent. - Social history:: Smoking status: Patient denies any tobacco usage or history of. Screenin/24 20:30 [facility] ED Fall Risk Assessment (Adult) History of falling in the last 3 months, bb including since admission No falls in past 3 months (0 pts). Abuse screen: Denies threats or abuse. Nutritional screening: No deficits noted. Tuberculosis screening: No symptoms or risk factors identified. Assessment: 20:30 General: Appears in no apparent distress. slender, Behavior is listless. Pain: bb Complains of pain in abdomen. Neuro: Level of Consciousness is awake, obeys commands, listless, Oriented to person, place, situation. Cardiovascular: Capillary refill < 3 seconds Patient's skin is warm and dry. Respiratory: Respiratory effort is unlabored. GI: Abdomen is distended, Abd is soft X 4 quads. Derm: Skin is pink, warm \T\ dry. Musculoskeletal: Circulation, motion, and sensation intact. 22:50 Reassessment: pt resting quietly awaiting ultrasound placement of IV, family at bedside.bb 23:04 Reassessment: CT notified pt ready for exam. bb 06/28 01:16 Reassessment: Patient is alert, oriented x 3, equal unlabored respirations, skin bb warm/dry/pink. pt resting quietly awaiting admission IV site intact, patent, fluids infusing. 01:54 Reassessment: report called to Jose D MILLER for room 413. bb Vital Signs: 06/27 20:15 BP 173 / 79; Pulse 78; Resp 18; Temp 97.7; Pulse Ox 99% ; Weight 49.44 kg; Height 5 ft. pf1 3 in. (160.02 cm); Pain 7/10; 23:25 BP 163 / 73; Pulse 69; Resp 20; Temp 97.5; Pulse Ox 98% ; bb 06/28 01:17 BP 143 / 68; Pulse 60; Resp 16 S; Temp 97.5(O); Pulse Ox 100% on R/A; bb 06/27 20:15 Body Mass Index 19.31 (49.44 kg, 160.02 cm) pf1 ED Course: 06/27 19:31 Patient arrived in ED. ja2 19:44 Livan Kline MD is Attending Physician. rn 20:26 Triage completed. pf1 20:30 Patient has correct armband on for positive identification. Bed in low position. Call bb light in reach. Side rails up X 1. Adult w/ patient. Warm blanket given. 23:00 Initial lab(s) drawn, by me, sent to lab. Accessed peripheral vein via ultrasound, bb utilizing dynamic ultrasound technique Powerglide midline 20g 8cm to right upper arm using hospital protocol with good blood return and flushes easily pt tolerated well. 23:03 Alessandra Sexton, PAUL is Primary Nurse. bb 23:56 CT Abd/Pelvis - IV Contrast Only In Process Unspecified. EDMS 06/28 00:02 US Abdomen Limited In Process Unspecified. EDMS 00:35 Radha Winkler MD is Hospitalizing Provider. rn 01:17 No provider procedures requiring assistance completed. Patient admitted, IV remains in bb place. 01:17 COVID swab sent to lab. bb 01:18 SARS RAPID Sent. bb Administered Medications: 06/27 23:05 Drug: NS 0.9% 1000 ml Route: IV; Rate: 1 bolus; Site: right upper arm; bb 06/28 00:00 Follow up: IV Status: Completed infusion; IV Intake: 950ml bb 06/27 23:05 Drug: Zofran (Ondansetron) 4 mg Route: IVP; Site: right upper arm; bb 06/28 00:00 Follow up: Response: No adverse reaction bb 00:55 Follow up: Response: No adverse reaction bb 06/27 23:05 Drug: morphine 2 mg Route: IVP; Infused Over: 4 mins; Site: right upper arm; bb 06/28 00:00 Follow up: Response: No adverse reaction; Pain is decreased bb 01:16 Drug: Zosyn (piperacillin-tazobactam) 3.375 grams Route: IVPB; Infused Over: 60 mins; bb Site: right upper arm; 01:45 Follow up: IV Status: Completed infusion; IV Intake: 100ml bb Medication: 06/27 20:30 VIS not applicable for this client. bb Intake: 06/28 00:00 IV: 950ml; Total: 950ml. bb :45 IV: 100ml; Total: 1050ml. bb Outcome: 00:35 Decision to Hospitalize by Provider. rn 01:17 Instructed on the need for admit. bb 01:54 Admitted to Tele accompanied by tech, via stretcher, room 413. bb 01:54 Condition: stable 02:21 Patient left the ED. jb4 Signatures: Dispatcher [employer] EDMS Alessandra Sexton RN RN bb Livan Kline MD MD rn Bryson, James, RN RN jb4 [place] Pamala, RN RN pf1
[2022-06-28] MEDS ORDERED: NA CHLORIDE 0.9% 100 ML ONE (00:54)
[2022-06-28] MEDS ORDERED: PIPERACIL/TAZO 3.375 GM VIAL IV ONE (00:55)
--- NOTE | 2022-06-28 01:12 | P.HP ---
Certification for Inpatient Patient admitted to: Inpatient With expected LOS: >2 Midnights Patient will require the following post-hospital care: None Practitioner: I am a practitioner with admitting privileges, knowledge of patient current condition, hospital course, and medical plan of care. Services: Services provided to patient in accordance with Admission requirements found in Title 42 Section 412.3 of the Code of Federal Regulations Patient History Date of Service: 06/28/22 Reason for admission: SBO History of Present Illness: Patient is an 81 year old female with past medical history of colon cancer s/p chemotherapy and partial colectomy, colostomy & reversal, chronic CHF, hypertension, and hyperlipidemia who presented to the emergency department with complaints of abdominal pain, nausea, vomiting, and constipation. Labs were significant for AST 102, ALT 83, alk phos 729, lipase 471. CT showed "Mid-distal small bowel obstruction with suspected transition point within a right lateral ventral hernia, at a small bowel anastomosis site, just proximal to the ileocecal valve. Associated mesenteric edema and free fluid suggests early veno us/vascular compromise. No findings to suggest overt bowel ischemia at this time." Hernia was temporarily reduced by ER provider but it came back out. Dr. Okeefe was contacted and has agreed to consult. She was given zosyn, IV fluids, pain medications, and antiemetics in the emergency department. Patient is admitted for further management. Allergies aspirin Adverse Reaction (Verified 03/02/22 10:31) Home medications list reviewed: Yes Home Medications: Atorvastatin Calcium [Lipitor*] 20 mg PO BEDTIME 03/02/22 Furosemide [Lasix] 20 mg PO DAILY 03/02/22 Losartan Potassium [Cozaar] 100 mg PO DAILY 03/02/22 Ensure Clear 200 ml PO BID #60 can 03/06/22 Lactose-Reduced Food [Ensure Clear] 296 ml PO BID #60 bot 03/06/22 Pantoprazole [Protonix Tab] 40 mg PO BID #60 tab 03/06/22 Sucralfate [Carafate*] 20 ml PO BID #1000 ml 03/06/22 - Past Medical/Surgical History Diabetic: No -: Colon Cancer -: CHF -: HTN -: HLD -: Partial Colectomy -: Colostomy and reversal Psychosocial/ Personal History: Patient is from [place]. - Family History Family History: Reviewed- Non-Contributory - Social History Smoking Status: Never smoker Alcohol use: No CD- Drugs: No Caffeine use: No Place of Residence: Home Review of Systems Gastrointestinal: Nausea, Vomiting, Abdominal Pain, Constipation Physical Examination - Vital Signs Temperature: 97.5 F Blood Pressure: 163/73 Pulse: 69 Respirations: 20 Pulse Ox (%): 98 - Physical Exam General: Alert, In no apparent distress HEENT: Atraumatic, PERRLA, EOMI, Sclerae nonicteric Neck: Supple, 2+ carotid pulse no bruit, No LAD, Without JVD or thyroid abnormality Respiratory: Clear to auscultation bilaterally, Normal air movement Cardiovascular: Regular rate/rhythm, Normal S1 S2 Gastrointestinal: Non-distended, Tenderness Musculoskeletal: No tenderness Integumentary: No rashes Neurological: Normal speech, Normal strength at 5/5 x4 extr, Normal tone, Normal affect - Studies Laboratory Data (last 24 hrs) 06/27/22 23:02: Sodium 137, Potassium 3.8, BUN 21 H, Creatinine 0.88, Glucose 179 H, Total Bilirubin 0.9, AST 102 H, ALT 83 H, Alkaline Phosphatase 729 H, Lipase 471 H 06/27/22 23:02: WBC 9.20, Hgb 12.7, Hct 38.4, Plt Count 153 Assessment and Plan - Problems (Diagnosis) (1) Ventral hernia with obstruction and without gangrene Current Visit: Yes Status: Acute (2) Hypertension Current Visit: Yes Status: Chronic Qualifiers: Hypertension type: primary hypertension Qualified Code(s): I10 - Essential (primary) hypertension (3) Congestive heart failure Current Visit: Yes Status: Chronic Qualifiers: Heart failure type: diastolic Heart failure chronicity: chronic Qualified Code(s): I50.32 - Chronic diastolic (congestive) heart failure (4) Cholelithiasis Current Visit: Yes Status: Acute Qualifiers: Cholelithiasis location: gallbladder Cholecystitis presence: without cholecystitis Biliary obstruction: without biliary obstruction Qualified Code(s): K80.20 - Calculus of gallbladder without cholecystitis without obstruction - Plan SBO secondary to incarcerated ventral hernia: NPO, IV fluids, zosyn, PRN pain meds/antiemetics, and general surgery consult. Vomiting controlled with zofran, will hold off on NG tube for now. Repeat KUB ordered for later in the day. Cholelithiasis with elevated LFTs: Abdominal US showed Equivocal small stones versus sludge noted within the gallbladder neck with no sonographic findings to suggest acute cholecystitis. No RUQ tenderness. Daughter states patient has known elevation in LFTs that are being followed by PCP. They believe it is secondary to statin use. Will continue to trend here. Elevated lipase: Pancreatitis unlikely. Lipase was elevated on prior admission. CT reads " Bilobed pancreatic body cyst measuring up to 2 cm in size, not significantly changed compared to prior exams. Unchanged dilatation of the extrahepatic and central pancreatic ducts." Will check daily lipase. Chronic CHF: unknown EF. no signs of exacerbation at this time. Will continue with gentle IV hydration and monitor for signs of fluid overload. Hypertension/Hyperlipidemia: Stable. Reconcile and continue home medications once patient is tolerating PO. Discharge Plan: Home Plan to discharge in: Greater than 2 days - Advance Directives Does patient have a Living Will: No Does patient have a Durable POA for Healthcare: No - Code Status/Comfort Care Code Status Assessed: Yes Code Status: Full Code Physician Review: Patient Assessed, Agree with Above Assessment and Plan Critical Care: No Time Spent Managing Pts Care (In Minutes): 50
[2022-06-28 01:40] LABS: SARS-CoV-2 Antigen Rapid Res Negative (Negative)
[2022-06-28] MEDS ORDERED: MORPHINE 2 MG/ML SYR IV PRN (02:02)
[2022-06-28] MEDS ORDERED: ONDANSETRON 4 MG/2 ML VIAL IV PRN (02:02)
[2022-06-28] MEDS: Ringers Lactate 1,000 ML IV SCH ×2 (03:49→18:15)
[2022-06-28 04:24] VITALS: O2SAT 98; BMI 19.3
[2022-06-28] MEDS ORDERED: INFLUENZA VACCINE (for 6+ mo) 0.5 ML DOSE IMVAC ONE (08:00)
[2022-06-28] MEDS ORDERED: PNEUMOCOCCAL VACCINE 0.5 ML IMVAC ONE (08:00)
--- NOTE | 2022-06-28 09:32 | P.CNS ---
Date of Consult: 06/28/22 Reason for consult: Small bowel obstruction History of present illness: Patient is a 81-year-old female who presents to the emergency room with acute onset of abdominal pain, nausea and vomiting yesterday evening. Patient's last bowel movement was yesterday afternoon. Patient's last flatus was after CAT scan done last night. Patient states that she has colon cancer and underwent a colectomy approximately 12 to 13 years ago followed by a colostomy. Patient was treated with chemotherapy. Patient underwent reversal of colostomy as well. Patient is from [place]. Patient denies any sore throat, runny nose, cough, headaches, dizziness, chest pain, fever or chills. Patient denies any abdominal pain currently. Patient denies any nausea or vomiting currently. Review of systems: Unremarkable Past medical history: Colon cancer, CHF, hypertension and hyperlipidemia Past surgical history: Colectomy with colostomy and reversal of colostomy Allergies: Aspirin Social history: Patient does not smoke or drink alcohol Family history: Noncontributory Vital signs: Stable, afebrile Physical exam: Awake, alert and oriented x3 Head and neck exam: No neck masses, no JVD, throat clear neck supple Chest: Clear Heart: S1-S2 Abdomen: Soft, nondistended, positive bowel sound, nontender. Patient has a large incarcerated hernia right of midline that is easily reducible. Hernia is not tense, distended or tender. There is no erythema in this area. Extremity: Neurovascularly intact, nontender Neuro: Nonfocal Diagnostic data: CT of the abdomen pelvis showed a small bowel obstruction with transition point in the fascial defect with evidence of congestion. No evidence of free air, pneumatosis and direct evidence of vascular compromise. Laboratory data reviewed. White count was normal with slight left shift. There is no evidence of acidosis. There was however, elevation of the BUN indicating probable dehydration. Patient also has elevated liver function testsAST, ALT, alk phos as well as lipase. Family states that patient is being worked up for statin as an outpatient as etiology of elevated liver function test. Ultrasound shows sludge or very small stone with no another biliary tree abnormality. Assessment: Small bowel obstructionlikely incomplete as patient is passing gas. Cholelithiasis with elevated liver function testpatient is asymptomatic in the right upper quadrant. Elevation may be due to statin drugs. I will discussed with the hospitalist regarding whether we need to have a MRCP ordered. Plan/recommendation: N.p.o., NG tube if the patient vomits, IV fluids, empiric IV antibiotics and we will repeat abdominal x-ray this morning. Should this be equivocal small bowel series may be needed to rule out small bowel obstruction. I will discussed the case with the hospitalist. At this time, patient does not require acute surgical intervention. We will follow the patient closely. CC:
--- NOTE | 2022-06-28 09:42 | RAD REPORT ---
EXAM DESCRIPTION: RAD - Abdomen W Erect - 06/28/2022 9:31 am CLINICAL HISTORY: Abdominal pain FINDINGS: Free air is not seen beneath the diaphragm. Mild to moderate right and mild left hydronephrosis with hydroureter. Bladder is mildly distended wit h contrast. Overall no significant change in the small bowel obstruction. Right lateral abdominal hernia again de monstrated containing bowel
[2022-06-28] MEDS: PIPER TAZO 3.375 GM in NA CHLORIDE 0.9% 100 ML IV SCH ×2 (10:44→18:15)
--- NOTE | 2022-06-28 13:47 | RAD REPORT ---
EXAM DESCRIPTION: MRICholangiogram06/28/2022 10:35 am CLINICAL HISTORY: Abdominal pain elevated liver function test enzymes COMPARISON: June 27 CT and ultrasound TECHNIQUE: Magnetic resonance cholangiogram was performed.3D MIP reconstruction performed. Additiona l axial and coronal magnetic resonance imaging of abdomen obtained. FINDINGS: Examination is suboptimal secondary to respiratory motion artifact. A tiny gallstone is present. Gallbladder wall is not thickened. Intrahepatic biliary tree normal caliber. The evaluation of the common bile duct and pancreatic duct is suboptimal. Pancreatic cystic mass is again demonstrated. IMPRESSION: Cholelithiasis without evidence of cholecystitis Pancreatic cystic mass is unchanged. When the patient's condition permits either a followup MRCP or MRI abdomen contrast could be obtained for further evaluation
--- NOTE | 2022-06-28 14:51 | RAD REPORT ---
EXAM DESCRIPTION: CT - Abdomen Pelvis W Contrast - 06/28/2022 6:39 am CLINICAL HISTORY: The patient is 81 years old and is Female; abd pain, possible impaction BR MAIN TECHNIQUE: Axial computed tomography images of the abdomen and pelvis with intravenous contrast. S agittal and coronal reformatted images were created and reviewed. This CT exam was performed using one or more of the following dose reduction techniques: automated exposure control, adjustment of t he mA and/or kV according to patient size, and/or use of iterative reconstruction technique. COMPARISON: 03/02/2022 CT abdomen pelvis with contrast FINDINGS: LUNG BASES: Unremarkable. No mass. No consolidation. MEDIASTINUM: Small hiatal hernia with circumferential thickening in the distal esophagus, nonspeci fic but possibly reflecting esophagitis. ABDOMEN: LIVER: No focal hepatic parenchymal abnormality. GALLBLADDER AND BILE DUCTS: Focal calcification noted within the gallbladder wall, unchanged from reference exam, with no CT findings to suggest acute cholecystitis. Unchanged dilatation of the extrahepatic and central pancreatic ducts. PANCREAS: Bilobed pancreatic body cyst measuring up to 2 cm in size, not significantly changed com pared to prior exams. SPLEEN: Unremarkable. No splenomegaly. ADRENALS: Unremarkable. No mass. KIDNEYS AND URETERS: Redemonstrated prominence of the right renal pelvis and bilateral ureters, no t definitely changed from reference exam, without other findings to suggest urinary bladder outlet ob struction. Simple bilateral renal cysts. No dedicated imaging follow-up recommended for this particular finding. STOMACH AND BOWEL: Mid-distal small bowel obstruction with suspected transition point within a rig ht lateral ventral hernia (axial images 42-45; coronal images 36-48), at a small bowel anastomosis si te, just proximal to the ileocecal valve. Associated mesenteric edema and free fluid suggests early v enous/vascular compromise. Redemonstrated large right-sided and midline ventral wall hernias containing multiple loops of bowel as well as the gastric antrum and pylorus. Multiple bowel anastomoses noted in the most lateral rightward ventral wall hernia. No overt pneumatosis identified on this time. No portal or mesenteric venous gas. No other o vert findings to suggest bowel ischemia. PELVIS: APPENDIX: No findings to suggest acute appendicitis. BLADDER: See above. REPRODUCTIVE: Unremarkable as visualized. ABDOMEN and PELVIS: INTRAPERITONEAL SPACE: See above. BONES/JOINTS: Extensive multilevel spondylosis with vertebra plana compression deformities of the T11, L1, and L4 vertebra, with severe canal narrowing at the L3-4 level, unchanged from prior exams. No acute osseous abnormality SOFT TISSUES: See above. VASCULATURE: Densely calcified atherosclerosis of the tortuous abdominal aorta and bilateral iliof emoral vasculature without aneurysmal dilatation. LYMPH NODES: Multiple prominent periceliac and portacaval lymph nodes, nonspecific but unchanged fro m prior exams. IMPRESSION: 1. Mid-distal small bowel obstruction with suspected transition point within a right l ateral ventral hernia (axial images 42-45; coronal images 36-48), at a small bowel anastomosis site, just proximal to the ileocecal valve. Associated mesenteric edema and free fluid suggests early venou s/vascular compromise. Dr. Burns discussed these critical findings with Dr. Kline via telephone at approximately 01:16 hours EST on 06/28/2022. 2. No findings to suggest overt bowel ischemia at this time. 3. Small hiatal hernia with circumferential thickening in the distal esophagus, nonspecific but pos sibly reflecting esophagitis. 4. Redemonstrated right-sided and midline ventral wall hernias containing multiple loops of bowel a s well as the gastric antrum and pylorus, as described above. 5. Extensive multilevel spondylosis with vertebra plana compression deformities of the T11, L1, and L4 vertebra, with severe canal narrowing at the L3-4 level, unchanged from prior exams. 6. Redemonstrated prominence of the right renal pelvis and bilateral ureters, not significantly sophia nged from reference exam, without other findings to suggest urinary bladder outlet obstruction. Consi david further characterization of the lumbar spine with lumbar spine MRI to evaluate for nerve root imp ingement given multilevel canal and neuroforaminal narrowing and vertebral fractures. 7. Bilobed pancreatic body cyst measuring up to 2 cm in size, not significantly changed compared to prior exams. Unchanged dilatation of the extrahepatic and central pancreatic ducts. Consider furth er characterization with MRCP and pancreatic mass protocol MRI. Otherwise, recommend pancreas-protoco l abdominal CT or MR in 2 years to evaluate for stability. Electronically signed by: Frantz Burns MD 06/28/2022 12:37 AM COARSE WIRE DRAWER Due to temporary technical issues with the PACS/Fluency reporting system, reports are being signed by the in house radiologists without review as a courtesy to insure prompt reporting. The interpreting radiologist is fully responsible for the content of the report.
--- NOTE | 2022-06-28 14:53 | RAD REPORT ---
EXAM DESCRIPTION: US - Abdomen Exam Limited - 06/28/2022 12:01 am CLINICAL HISTORY: The patient is 81 years old and is Female; ABD PAIN REPORTEDLY NEGATIVE SONOG RAPHIC HERNANDEZ SIGN TECHNIQUE: Real-time ultrasound of the right upper quadrant with image documentation. COMPARISON: 06/27/2022 and 12/09/2021 CT abdomen pelvis with contrast FINDINGS: LIVER: Unremarkable as visualized. GALLBLADDER: Possible small stones versus sludge noted within the gallbladder neck with no pericho lecystic free fluid. No significant gallbladder wall thickening. 0.5 cm polyp noted along the gallbladder wall, nonspecific. No dedicated imaging follow-up r ecommended for this particular finding. COMMON BILE DUCT: Common bile duct measures up to 0.6 cm in diameter. IMPRESSION: Equivocal small stones versus sludge noted within the gallbladder neck with no sonograph ic findings to suggest acute cholecystitis. Electronically signed by: Frantz Burns MD 06/28/2022 12:41 AM SLEEP SCIENTIST Due to temporary technical issues with the PACS/Fluency reporting system, reports are being signed by the in house radiologists without review as a courtesy to insure prompt reporting. The interpreting radiologist is fully responsible for the content of the report.
[2022-06-28] MEDS ORDERED: POTASSIUM 25 MEQ EFFERV TAB PO ONE (21:00)
[2022-06-28] MEDS ORDERED: LOPERAMIDE HCL 2 MG CAPSULE PO STA (21:41)
[2022-06-29] MEDS: PIPER TAZO 3.375 GM in NA CHLORIDE 0.9% 100 ML IV SCH ×3 (00:56→16:55)
--- NOTE | 2022-06-29 01:44 | P.PN ---
Subjective Date of Service: 06/28/22 chart has been reviewed. spoke with surgery and Gastroenterology. GI recommended MRCP. This has been completed. Pancreatic cystic mass noted. Possible malignancy. No obstructive lesion noted. Repeat abdominal film shows improvement of small bowel obstruction. Patient is clinically feeling better. She is Citizen Of [place]-speaking only. Will continue with current treatment plan and started on clear liquid diet. Advance as tolerated in the morning if no nausea or vomiting. Hopefully, we can plan to discharge over the next 48 hours. Review of Systems 10-point ROS is otherwise unremarkable Physical Examination - Vital Signs Temperature: 97.1 F Blood Pressure: 142/65 Pulse: 57 Respirations: 20 Pulse Ox (%): 96 - Physical Exam General: Alert, In no apparent distress, Oriented x3 Respiratory: Clear to auscultation bilaterally, Normal air movement Cardiovascular: Regular rate/rhythm, Normal S1 S2, No murmurs Gastrointestinal: Normal bowel sounds, Soft and benign, Non-distended, No tenderness, No rebound, No guarding Musculoskeletal: No clubbing, No swelling, No tenderness Neurological: Sensation intact, Cranial nerves 3-12 intact - Studies Medications List Reviewed: Yes Assessment & Plan - Problems (Diagnosis) (1) Ventral hernia Current Visit: Yes Status: Acute (2) Cystic mass of pancreas Current Visit: Yes Status: Acute (3) Cholelithiasis Current Visit: Yes Status: Acute Qualifiers: Cholelithiasis location: gallbladder Cholecystitis presence: without cholecystitis Biliary obstruction: without biliary obstruction Qualified Code(s): K80.20 - Calculus of gallbladder without cholecystitis without obstruction (4) Congestive heart failure Current Visit: Yes Status: Chronic Qualifiers: Heart failure type: diastolic Heart failure chronicity: chronic Qualified Code(s): I50.32 - Chronic diastolic (congestive) heart failure (5) Hypertension Current Visit: Yes Status: Chronic Qualifiers: Hypertension type: primary hypertension Qualified Code(s): I10 - Essential (primary) hypertension - Plan -management per surgery -Started on clear liquid diet and advance as tolerated -IV hydration and IV antibiotics -strict blood pressure and blood sugar control -monitor electrolytes and blood count closely -will discuss with surgery and GI regarding management of pancreatic mass; outpatient follow-up for further evaluation -pain control Discharge Plan: Home Plan to discharge in: Greater than 2 days - Advance Directives Does patient have a Living Will: No Does patient have a Durable POA for Healthcare: No - Code Status/Comfort Care Code Status: Full Code Physician Review: Patient Assessed, Agree with Above Assessment and Plan Critical Care: No Time Spent Managing PTS Care (In Minutes): 35
[2022-06-29 05:31] LABS: Absolute Lymphocytes (CBC) 1.7 K/uL (0.7-4.9); Hematocrit 34.2 % (36.0-45.0); Lymphocytes % 33.6 % (15.3-44.8); MCV 88.2 fL (80-100); MPV 8.9 fL (7.6-11.3); RBC Red Blood Cell Count 3.88 M/uL (3.86-4.86)
[2022-06-29 05:47] LABS: Albumin 2.3 g/dL (3.4-5.0); Bilirubin Total 0.6 mg/dL (0.2-1.0); Phosphorus 3.1 mg/dL (2.5-4.9); Potassium 4.6 mmol/L (3.5-5.1); Protein, Total 7.7 g/dL (6.4-8.2)
[2022-06-29] MEDS: Ringers Lactate 1,000 ML IV SCH ×2 (06:20→17:03)
[2022-06-29 11:46] LABS: C.diff Antigen/Toxin Ag neg : Tox neg (NEG : NEG)
--- NOTE | 2022-06-29 12:04 | PN ---
Date of Progress Note: 06/29/2022 Subjective: Patient is awake, alert. No complaint. Tolerating clear liquids. Had multiple bowel m ovements yesterday and passing gas. There was diarrhea present and C diff is pending. Objective: Vital Signs: Stable. Afebrile. Abdomen: Soft, nondistended. Positive bowel sounds. Nontender. Laboratory Data: White count is normal. There is no left shift. Chemistry reviewed. Please note, patient had an MRCP, which did not show any duct problem, but it was a limited study. There is a nunes creatic cyst; however, that does not explain the elevated LFTs, probably may be secondary to statins and can be worked up as an outpatient. Assessment: Small-bowel obstruction, resolving. Cholelithiasis is asymptomatic. Elevated liver fun ction tests, likely secondary to medication. Pancreatic cyst has not changed since the previous scan in January. Recommendations: Advance diet as tolerated. Check C diff. Test once patient tolerates diet and ruddy rrhea slows down. Patient is cleared from surgery for discharge. /MODL Voice ID: [id number] Report ID: [id number]
[2022-06-29] MEDS ORDERED: LOPERAMIDE HCL 2 MG CAPSULE PO ONE ×2 (15:05→15:10)
[2022-06-29] MEDS ORDERED: METHYLPREDNISOLONE 125 MG INJ IV ONE (17:27)
[2022-06-30] MEDS: PIPER TAZO 3.375 GM in NA CHLORIDE 0.9% 100 ML IV SCH ×2 (00:46→08:55)
[2022-06-30] MEDS: Ringers Lactate 1,000 ML IV SCH (05:33)
[2022-06-30 07:53] LABS: Albumin 2.3 g/dL (3.4-5.0); Bilirubin Total 0.6 mg/dL (0.2-1.0); Potassium 4.4 mmol/L (3.5-5.1); Protein, Total 8.2 g/dL (6.4-8.2)
[2022-06-30] MEDS ORDERED: NA CHLORIDE 0.9% 0 ML ONE (07:57)
[2022-06-30] MEDS ORDERED: PIPERACIL/TAZO 3.375 GM VIAL IV ONE (07:58)
[2022-06-30 09:00] LABS: Hematocrit 38.1 % (36.0-45.0); Lymphocytes % 19.7 % (15.3-44.8); MCV 88.1 fL (80-100); MPV 8.9 fL (7.6-11.3); RBC Red Blood Cell Count 4.32 M/uL (3.86-4.86)
[2022-06-30 13:04] LABS: Platelet Estimate DECR; White Blood Cell Scan OK (OK)
[2022-06-30 13:05] LABS: ACANTHOCYTE FEW; Anisocytosis 2+; Blood Morphology Comment NOTED (NOT SEEN); Poikilocytosis 1+
--- NOTE | 2022-06-30 13:51 | P.PN ---
Subjective Patient doing better; symptoms are improved. Still with some diarrhea but better; Cdiff negative Review of Systems 10-point ROS is otherwise unremarkable Physical Examination - Vital Signs reviewed - Physical Exam General: Alert, In no apparent distress, Oriented x3 Respiratory: Clear to auscultation bilaterally, Normal air movement Cardiovascular: Regular rate/rhythm, Normal S1 S2, No murmurs Gastrointestinal: Normal bowel sounds, Soft and benign, Non-distended, No tenderness, No rebound, No guarding Musculoskeletal: No clubbing, No swelling, No tenderness Neurological: Sensation intact, Cranial nerves 3-12 intact Assessment & Plan - Problems (Diagnosis) (1) Ventral hernia Current Visit: Yes Status: Acute (2) Cystic mass of pancreas Current Visit: Yes Status: Acute (3) Cholelithiasis Current Visit: Yes Status: Acute Qualifiers: Cholelithiasis location: gallbladder Cholecystitis presence: without cholecystitis Biliary obstruction: without biliary obstruction Qualified Code(s): K80.20 - Calculus of gallbladder without cholecystitis without obstruction (4) Congestive heart failure Current Visit: Yes Status: Chronic Qualifiers: Heart failure type: diastolic Heart failure chronicity: chronic Qualified Code(s): I50.32 - Chronic diastolic (congestive) heart failure (5) Hypertension Current Visit: Yes Status: Chronic Qualifiers: Hypertension type: primary hypertension Qualified Code(s): I10 - Essential (primary) hypertension - Plan -Continue with advancing diet -management per surgery -Started on clear liquid diet -Continue with IV hydration and IV antibiotics -strict blood pressure and blood sugar control -monitor electrolytes and blood count closely -will discuss with surgery and GI regarding management of pancreatic mass; outpatient follow-up for further evaluation -pain control Discharge Plan: Home Plan to discharge in: Greater than 2 days - Advance Directives Does patient have a Living Will: No Does patient have a Durable POA for Healthcare: No - Code Status/Comfort Care Code Status: Full Code Physician Review: Patient Assessed, Agree with Above Assessment and Plan Critical Care: No Time Spent Managing PTS Care (In Minutes): 35
[2022-06-30 16:17] VITALS: BP 153/67; TEMP 96.8
== END 2022-06-30 16:51 | disposition home or self-care (01) | DRG 394 ==
LOC: ER 19:26 → ERHOLD 06-28 01:02 → 4TH 06-28 01:54
PROVIDERS: ADMIT Hospitalist; ATTEND Hospitalist
DX: K43.6 Other and unspecified ventral hernia with obstruction, without gangrene (principal); I50.32 Chronic diastolic (congestive) heart failure; K86.2 Cyst of pancreas; I11.0 Hypertensive heart disease with heart failure; E78.5 Hyperlipidemia, unspecified; K59.00 Constipation, unspecified; K80.20 Calculus of gallbladder without cholecystitis without obstruction; R79.89 Other specified abnormal findings of blood chemistry; Z88.6 Allergy status to analgesic agent; Z79.82 Long term (current) use of aspirin; Z90.49 Acquired absence of other specified parts of digestive tract; Z79.899 Other long term (current) drug therapy; Z85.038 Personal history of other malignant neoplasm of large intestine; Z20.822 Contact with and (suspected) exposure to COVID-19
CPT/HCPCS: 36415; 74019; 74177; 74181; 76705; 80053; 82565; 83690; 83735; 84100; 85025; 86255; 86301; 87324; 87811; 96361; 96365; 96375; 99285; J2270; J2405; J2543; J2930; J7030; J7120; Q9967

== ENCOUNTER → 2023-07-18 | Emergency (ER) | payer OTHER ==
[~2023-07-18] MED LIST: MORPHINE 2 MG/ML SYR ONE; NA CHLORIDE 0.9% 100 ML ONE; PIPERACIL/TAZO 3.375 GM VIAL IV ONE
[2023-07-18 11:12] LABS: Absolute Lymphocytes (CBC) 0.8 K/uL (0.7-4.9); Hematocrit 43.3 % (36.0-45.0); Lymphocytes % 21.8 % (15.3-44.8); MCV 93.7 fL (80-100); Platelets 130 thou/uL (152-406); RBC Red Blood Cell Count 4.62 M/uL (3.86-4.86)
[2023-07-18 11:15] LABS: Protime INR 1.04
[2023-07-18 11:30] LABS: Bilirubin Total 0.6 mg/dL (0.2-1.0); Protein, Total 8.8 g/dL (6.4-8.2)
--- NOTE | 2023-07-18 12:42 | RAD REPORT ---
EXAM DESCRIPTION: CT - Abdomen Pelvis W Contrast - 07/18/2023 11:18 am CLINICAL HISTORY: rectal bleeding COMPARISON: Abdomen Pelvis W Contrast dated 06/27/2022; Abdomen Pelvis W Contrast dated 03/02/2022 ; Abdomen W/Wo Contrast dated 03/22/2023; Cholangiogram dated 06/28/2022 TECHNIQUE: Thin cut axial CT imaging of the abdomen and pelvis was performed following intravenous a dministration of 100 mL Isovue 300. Multiplanar reformats were generated and reviewed. All CT scans are performed using dose optimization technique as appropriate and may include automated exposure control or mA/KV adjustment according to patient size. FINDINGS: No suspicious findings in the lung bases. The liver, spleen, and adrenal glands show no suspicious findings. Small cystic lesions in the region of the pancreatic head, stable. Gallbladder and biliary tree are also without suspicious finding. Symmetric renal function is seen with no hydronephrosis or suspicious renal mass. No dilated bowel loops. Segment of luminal narrowing and mucosal thickening and hyperenhancement invo lving small bowel of in the pelvis, with a more proximal dilated segment of small bowel with fecaliza tion. Mucosal hyperenhancement in the region of the anal canal as well. . No free air, free fluid or inflammatory stranding. Large right paramidline hernia and a smaller umbilical hernia, containing seg ments of large bowel. No suspicious mass or bulky lymphadenopathy. The urinary bladder is without sig nificant finding. No suspicious bony findings. Stable multiple compression fracture deformities of the lumbar spine. IMPRESSION: Segment of luminal narrowing and mucosal thickening, involving small bowel in the pelvis , with a more proximal dilated segment. This raises concern for a segment of stricture, possibly in t he setting of inflammatory bowel disease. Nonspecific mucosal hyperenhancement in the region of the anal canal, may reflect inflammatory change s as well. Other stable findings as above.
--- NOTE | 2023-07-18 13:20 | EDPHYS ---
Physician Documentation [facility] Name: Gayla Greene Age: 82 yrs Sex: Female : 1940 Arrival Date: 07/18/2023 Time: 10:41 Bed 8 Private MD: ED Physician Livan Kline HPI: 07/18 10:47 This 82 yrs old Female presents to ER via EMS with complaints of rectal rn bleeding. 10:47 The patient presents to the emergency department with rectal bleeding, a moderate rn amount, bright red blood with bowel movement, in a single episode. Onset: The symptoms/episode began/occurred this morning. Abdominal pain: none is appreciated. Modifying factors: The symptoms are alleviated by nothing, the symptoms are aggravated by nothing. Severity of symptoms: At their worst the symptoms were moderate in the emergency department the symptoms are unchanged. The patient has experienced a previous episode. The patient has not recently seen a physician. Patient reports moderate amount of bright red blood per rectum this morning. Denies focal abdominal pain. States this happened once before, seen Dr. Blackman, colonoscopy was performed 2 years ago and showed polyp which was removed at that time. No recent procedure or surgery. Patient with history of cirrhosis as well as chronic abdominal hernia that she has been evaluated for and deemed too high risk for repair. Daughter reports chills for the last 3 days but no fever. No vomiting. Decreased appetite. Daughter also reports history of colitis.. Historical: - Allergies: 10:45 Aspirin; mb9 - PMHx: 10:45 abdominal hernia (Unknown); cirrhosis of liver; Congestive heart failure; colon cancer; mb9 Hypercholesterolemia; Osteopenia; Hypertensive disorder; - Immunization history:: Adult Immunizations up to date. - Social history:: Smoking status: Patient denies any tobacco usage or history of. - Family history:: not pertinent. - Hospitalizations: : No recent hospitalization is reported. ROS: 10:47 Constitutional: Negative for fever, chills, and weight loss, Cardiovascular: Negative rn for chest pain, palpitations, and edema, Respiratory: Negative for shortness of breath, cough, wheezing, and pleuritic chest pain, Abdomen/GI: Positive for decreased appetite, constipation recently and rectal bleeding Back: Negative for injury and pain, MS/Extremity: Negative for injury and deformity, Skin: Negative for injury, rash, and discoloration, Neuro: Negative for headache, numbness, tingling, and seizure, Exam: 10:47 Constitutional: Thin female, no acute distress, hard of hearing Head/Face: rn Normocephalic, atraumatic. ENT: Dry mucous membranes Cardiovascular: Regular rate and rhythm. No pulse deficits. Respiratory: No increased work of breathing, no retractions or nasal flaring. Abdomen/GI: Soft, nontender. Large ventral hernia without focal tenderness or skin changes MS/ Extremity: Pulses equal, no cyanosis. Neuro: Awake and alert, GCS 15 Vital Signs: 10:45 BP 181 / 80; Pulse 62; Resp 18; Temp 98; Pulse Ox 100% ; Weight 63.5 kg; Height 4 ft. mb9 11 in. ; Pain 0/10; 11:23 BP 171 / 66; Pulse 61; Resp 16; Pulse Ox 100% on R/A; mb9 12:11 BP 151 / 65; Pulse 55; Resp 16; Pulse Ox 100% ; mb9 14:21 BP 160 / 65; Pulse 64; Resp 18; Pulse Ox 100% on R/A; mb9 15:26 BP 169 / 74; Pulse 57; Resp 16; Pulse Ox 99% on R/A; mb9 16:13 BP 160 / 91; Pulse 60; Resp 17; Pulse Ox 99% on R/A; mb9 10:45 Body Mass Index 28.28 (63.50 kg, 149.86 cm) mb9 10:45 Pain Scale: Adult mb9 MDM: 10:44 Patient medically screened. rn 13:17 Differential diagnosis: hemorrhoids, Internal hemorrhoids, proctitis, colitis, rn enteritis. Data reviewed: vital signs, nurses notes, lab test result(s), radiologic studies, CT scan, and as a result, I will admit patient. Consideration of Admission/Observation Patient was admitted/placed on observation. Escalation of care including admission/observation considered. Care significantly affected by the following chronic conditions: Liver Disease. Counseling: I had a detailed discussion with the patient and/or guardian regarding the historical points, exam findings, and any diagnostic results supporting the discharge/admit diagnosis, lab results, radiology results, the need for further work-up and treatment in the hospital. 14:29 ED course: Hospitalist service consulted with Dr. Blackman who in turn consulted with rn Dr. Okeefe. They have determined that this is a complicated case or has the potential of becoming complicated and requires transfer for higher level of care and colorectal consultation. 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 Transfer initiated. 15:05 ED course: Consulting physician, Dr. Simmons, requests more information and to find out rn where original surgery took place. Spoke with another family member, was in [place].. 15:23 ED course: I have been on the phone multiple times now with [facility] rn and Dr. Simmons, she is requesting more information which was supplied, wants even more information regarding previous procedure done more than a year ago. I spoke with Dr. Blackman and he is willing to discuss case with colorectal surgeon for more specific details regarding most recent colonoscopy and his concern and reason for transfer. I will have them discussed case instead of me being the middle man once again. 15:40 ED course: Dr. Blackman spoke with colorectal surgeon who now states need to speak with rn general surgery. . 15:42 ED course: Spoke with general surgeon, who states will accept patient since our doctors rn are not comfortable with patient, but will have to speak with hospitalist now. Awaiting call back from hospitalist. . 17:39 ED course: Pt accepted for transfer by hospitalist, Dr. Palm. . rn 07/18 10:45 Order name: CBC with Diff; Complete Time: 12:30 rn 07/18 10:45 Order name: CMP; Complete Time: 12:30 rn 07/18 10:45 Order name: Lipase; Complete Time: 12:30 rn 07/18 10:45 Order name: Protime (+inr); Complete Time: 12:30 rn 07/18 10:45 Order name: Ptt, Activated; Complete Time: 12:30 rn 07/18 10:45 Order name: Type And Screen; Complete Time: 12:30 rn 07/18 10:45 Order name: CT Abd/Pelvis - IV Contrast Only; Complete Time: 12:47 rn 07/18 10:45 Order name: IV Saline Lock; Complete Time: 11:00 rn 07/18 10:45 Order name: Labs collected and sent; Complete Time: 11:00 rn Administered Medications: 13:30 Drug: Piperacillin-Tazobactam IVPB 3.375 grams IVPB once over 60 mins; (mix in NS 100 mb9 mL) Route: IVPB; Infused Over: 60 mins; Site: right forearm; 14:55 Follow up: Response: No adverse reaction; IV Status: Completed infusion mb9 17:23 Drug: morphine IVP or IV 1 mg IVP once over 2 mins Route: IVP; Infused Over: 2 mins; mb9 Site: right forearm; 17:23 Follow up: Response: No adverse reaction mb9 Disposition Summary: 07/18/23 13:20 Hospitalization Ordered Notes: Hospitalization Status: Observation rn Provider: Licha Cunningham [facility]n [facility] rn Condition: Stable rn Problem: new rn Symptoms: are unchanged rn Bed/Room Type: Standard rn Room Assignment: rn Diagnosis - Rectal bleeding rn - Proctitis rn Forms: - Medication Reconciliation Form rn - SBAR form rn - Leadership Thank You Letter rn Signatures: Dispatcher [employer] Livan Espinal MD MD rn Breneman, Mary Beth, RN RN 9
--- NOTE | 2023-07-18 13:20 | ER ---
Nurse's Notes [facility] Name: Gayla Greene Age: 82 yrs Sex: Female : 1940 Arrival Date: 07/18/2023 Time: 10:41 Bed 8 Private MD: Diagnosis: Rectal bleeding;Proctitis Presentation: 07/18 10:45 Chief complaint: EMS states: "Pt started having bright red blood from rectum, mb9 approximately 250 cc, that started this morning. Pt states she also has back pain.". Coronavirus screen: Vaccine status: Patient reports receiving the 2nd dose of the covid vaccine. Ebola Screen: No symptoms or risks identified at this time. Initial Sepsis Screen: Does the patient meet any 2 criteria? No. Patient's initial sepsis screen is negative. Does the patient have a suspected source of infection? No. Patient's initial sepsis screen is negative. Risk Assessment: Do you want to hurt yourself or someone else? Patient reports no desire to harm self or others. Onset of symptoms was July 18, 2023. 10:45 Method Of Arrival: EMS: [facility] mb9 10:45 Acuity: TOMY 2 mb9 Triage Assessment: 10:47 General: Appears in no apparent distress. Behavior is calm, cooperative. Pain: mb9 Complains of pain in back. EENT: No signs and/or symptoms were reported regarding the EENT system. Neuro: Mejia Agitation-Sedation Scale (RASS): 0 - Alert and Calm Level of Consciousness is awake, alert, obeys commands, Oriented to person, place, time, situation, Appropriate for age. Cardiovascular: Heart tones S1 S2 present Patient's skin is warm and dry. Rhythm is regular. Respiratory: Airway is patent Respiratory effort is even, unlabored, Respiratory pattern is regular, symmetrical, Breath sounds are clear bilaterally. GI: Abdomen is round distended, Bowel sounds present X 4 quads. Abd is non tender X 4 quads. GI: Reports rectal bleeding. : No signs and/or symptoms were reported regarding the genitourinary system. Derm: Skin is pink, warm \\T\\ dry. Musculoskeletal: Range of motion: intact in all extremities. Historical: - Allergies: 10:45 Aspirin; mb9 - PMHx: 10:45 abdominal hernia (Unknown); cirrhosis of liver; Congestive heart failure; colon cancer; mb9 Hypercholesterolemia; Osteopenia; Hypertensive disorder; - Immunization history:: Adult Immunizations up to date. - Social history:: Smoking status: Patient denies any tobacco usage or history of. - Family history:: not pertinent. - Hospitalizations: : No recent hospitalization is reported. Screenin:48 [facility] ED Fall Risk Assessment (Adult) History of falling in the last 3 months, mb9 including since admission No falls in past 3 months (0 pts) Confusion or Disorientation No (0 pts) Intoxicated or Sedated No (0 pts) Impaired Gait No (0 pts) Mobility Assist Device Used No (0 pt) Altered Elimination No (0 pt) Score/Fall Risk Level 0 - 2 = Low Risk Oriented to surroundings, Maintained a safe environment, Educated pt \\T\\ family on fall prevention, incl call for assistance when getting out of bed. Abuse screen: Denies threats or abuse. Nutritional screening: No deficits noted. Tuberculosis screening: No symptoms or risk factors identified. Assessment: 10:49 Reassessment: see triage assessment. mb9 12:12 Reassessment: No changes from previously documented assessment. Patient and/or family mb9 updated on plan of care and expected duration. Pain level reassessed. Patient is alert, oriented x 3, equal unlabored respirations, skin warm/dry/pink. 12:59 Reassessment: pts brief changed. Pt stool is loose and has bright red blood. mb9 13:25 Reassessment: No changes from previously documented assessment. Patient and/or family mb9 updated on plan of care and expected duration. Pain level reassessed. Patient is alert, oriented x 3, equal unlabored respirations, skin warm/dry/pink. 14:21 Reassessment: No changes from previously documented assessment. Patient and/or family mb9 updated on plan of care and expected duration. Pain level reassessed. Patient is alert, oriented x 3, equal unlabored respirations, skin warm/dry/pink. 15:26 Reassessment: No changes from previously documented assessment. Patient and/or family mb9 updated on plan of care and expected duration. Pain level reassessed. Patient is alert, oriented x 3, equal unlabored respirations, skin warm/dry/pink. Vital Signs: 10:45 BP 181 / 80; Pulse 62; Resp 18; Temp 98; Pulse Ox 100% ; Weight 63.5 kg; Height 4 ft. mb9 11 in. ; Pain 0/10; 11:23 BP 171 / 66; Pulse 61; Resp 16; Pulse Ox 100% on R/A; mb9 12:11 BP 151 / 65; Pulse 55; Resp 16; Pulse Ox 100% ; mb9 14:21 BP 160 / 65; Pulse 64; Resp 18; Pulse Ox 100% on R/A; mb9 15:26 BP 169 / 74; Pulse 57; Resp 16; Pulse Ox 99% on R/A; mb9 16:13 BP 160 / 91; Pulse 60; Resp 17; Pulse Ox 99% on R/A; mb9 10:45 Body Mass Index 28.28 (63.50 kg, 149.86 cm) mb9 10:45 Pain Scale: Adult mb9 ED Course: 10:44 Patient arrived in ED. rn 10:44 Livan Kline MD is Attending Physician. rn 10:45 Arm band placed on. mb9 10:47 Triage completed. mb9 10:47 Izabel Jean, PAUL is Primary Nurse. mb9 10:48 Placed in gown. Bed in low position. Call light in reach. Side rails up X 1. Client mb9 placed on continuous cardiac and pulse oximetry monitoring. NIBP monitoring applied. monitoring analyst on. 11:00 CBC with Diff Sent. mb9 11:00 CMP Sent. mb9 11:00 Lipase Sent. mb9 11:00 Type And Screen Sent. mb9 11:00 Protime (+inr) Sent. mb9 11:00 Ptt, Activated Sent. mb9 11:00 Inserted saline lock: 22 gauge in right forearm, using aseptic technique. mb9 11:00 No provider procedures requiring assistance completed. mb9 11:20 CT Abd/Pelvis - IV Contrast Only In Process Unspecified. EDMS 13:19 Licha Cunningham MD is Hospitalizing Provider. rn 16:12 Patient transferred, IV remains in place. mb9 Administered Medications: 13:30 Drug: Piperacillin-Tazobactam IVPB 3.375 grams IVPB once over 60 mins; (mix in NS 100 mb9 mL) Route: IVPB; Infused Over: 60 mins; Site: right forearm; 14:55 Follow up: Response: No adverse reaction; IV Status: Completed infusion mb9 17:23 Drug: morphine IVP or IV 1 mg IVP once over 2 mins Route: IVP; Infused Over: 2 mins; mb9 Site: right forearm; 17:23 Follow up: Response: No adverse reaction mb9 Medication: 11:24 VIS not applicable for this client. mb9 Outcome: 13:20 Decision to Hospitalize by Provider. rn 16:17 Transferred to [facility], Transfer form completed. mb9 16:17 Transferred Note: Report given to transferring nurse PAUL Powell 16:17 Condition: stable 16:17 Instructed on the need for transfer, 17:23 Patient left the ED. mb9 Signatures: Dispatcher [employer] EDLivan Mota MD MD rn Breneman, Mary Beth, RN RN mb9
[2023-07-18 17:41] VITALS: BP 160/91; TEMP 98; O2SAT 99
== END ==
LOC: ER 10:41
DX: K62.89 Other specified diseases of anus and rectum (principal); I10 Essential (primary) hypertension; K74.60 Unspecified cirrhosis of liver; I50.9 Heart failure, unspecified; E78.00 Pure hypercholesterolemia, unspecified; Z85.038 Personal history of other malignant neoplasm of large intestine; Z88.6 Allergy status to analgesic agent
CPT/HCPCS: 85025; 36415; 86900; 86850; 85610; 86901; 85730; 83690; 80053; 74177; Q9967; J2543; J2270

== ENCOUNTER 2024-03-10 22:44 | Inpatient (IN) | payer OTHER ==
[2024-03-10] MEDS ORDERED: PANTOPRAZOLE 40 MG INJ ONE (23:12)
[2024-03-10] MEDS ORDERED: NA CHLORIDE 0.9% 1,000 ML ONE (23:13)
[2024-03-10 23:39] LABS: Absolute Eosinophils 0.1 K/uL (0-0.5); Absolute Lymphocytes (CBC) 0.8 K/uL (0.7-4.9); Absolute Monocytes 0.2 K/uL (0.1-1.3); Absolute Neutrophil 3.5 K/uL (1.8-8.0); Basophils % 0.8 % (0-1.3); Eosinophils % 2.2 % (0-4.4); Hematocrit 40.5 % (36.0-45.0); Hemoglobin 13.8 g/dL (12.0-15.0); MCH 32.8 pg (27.0-35.0); MCHC 34.1 g/dL (32.0-36.0); MCV 96.1 fL (80-100); MPV 9.2 fL (7.6-11.3); Platelets 122 thou/uL (152-406); RBC Red Blood Cell Count 4.22 M/uL (3.86-4.86); Red Cell Distribution Width 16.7 % (12.1-15.2)
[2024-03-10 23:54] LABS: Albumin/Globulin Ratio 0.6 (1.1-1.8); Anion Gap 8.5 mEq/L (5.0-15.0); Globulin 4.8 g/dL (2.3-3.5); Protein, Total 7.8 g/dL (6.4-8.2)
[2024-03-10 23:55] LABS: Potassium 3.5 mEq/L (3.5-5.1)
[2024-03-11 01:06] LABS: Specific Gravity 1.008 (1.005-1.030); Sqamous Epithelial None Seen /HPF (None Seen); Urine Bacteria <20 /HPF (<20); Urine Bilirubin NEGATIVE (Negative); Urine Blood 1+ (Negative); Urine Clarity Clear (Clear); Urine Color Colorless (Yellow); Urine Culture Reflex Order NOT NEEDED; Urine Glucose NEGATIVE (Negative); Urine Ketones NEGATIVE (Negative); Urine Microscopic Reflex YN ORDER UMIC; Urine Mucus Slight /HPF (None Seen); Urine Nitrite NEGATIVE (Negative); Urine Protein NEGATIVE (Negative); Urine RBC None Seen /HPF (None Seen); Urine Urobilinogen Normal (Normal); Urine WBC <5 /HPF (<5)
--- NOTE | 2024-03-11 02:02 | RAD REPORT ---
EXAM: CT Abdomen and Pelvis With Intravenous Contrast CLINICAL HISTORY: Abd pain. TECHNIQUE: Axial computed tomography images of the abdomen and pelvis with intravenous contrast. Sagittal and coronal reformatted images were created and reviewed. This CT exam was performed using one or more of the following dose reduction techniques: automated exposure control, adjustment of the mA a nd/or kV according to patient size, and/or use of iterative reconstruction technique. COMPARISON: CT Abdomen Pelvis 11/05/2023. FINDINGS: Lung bases: Unremarkable. No mass. No consolidation. Heart: Coronary artery calcification. ABDOMEN: Liver: Unremarkable. No mass. Gallbladder and bile ducts: Unremarkable. No calcified stones. No ductal dilation. Pancreas: Mild to moderate pancreatic parenchymal atrophy. Proximal to mid pancreatic ductal dilati on with small scattered cysts which may be related to side branch ductal IPMN again demonstrated. Spleen: Unremarkable. No splenomegaly. Adrenals: Unremarkable. No mass. Kidneys and ureters: Unremarkable. Normal renal cortical enhancement. Mild to moderate bilateral hydroureteronephrosis, right greater than left slightly more pronounced on the current study. Stomach and bowel: Large widemouthed right ventral abdominal wall hernia containing the proximal la rge bowel and a small bowel anastomosis. The herniated large bowel appears moderately thickened. There is an additional small right paracentral infraumbilical hernia containing small bowel. Anasto mosis at the descending transverse colon junction. No bowel obstruction. PELVIS: Appendix: The appendix is not definitively visualized. No findings to suggest acute appendicitis. Bladder: The urinary bladder is distended. Reproductive: Atrophic uterus. ABDOMEN and PELVIS: Intraperitoneal space: Unremarkable. No free air. No significant fluid collection. Bones/joints: Osseous structures are osteopenic. Remote T11, L1, L3, L4 and L5 compression fracture s with near vertebra plana at T11 and L1 again demonstrated. No acute fracture. No dislocation. Soft tissues: See above. Vasculature: Severe atherosclerotic disease. No abdominal aortic aneurysm. Lymph nodes: Unremarkable. No enlarged lymph nodes. IMPRESSION: 1. Large widemouthed right ventral abdominal wall hernia containing the proximal large bowel and a small bowel anastomosis. The herniated large bowel appears moderately thickened suggestive of nonspecific colitis. The possibility of incarceration cannot be entirely excluded on the basis of thi s examination. No bowel obstruction. 2. Mild to moderate bilateral hydroureteronephrosis, right greater than left slightly more pronounc ed on the current study, which may be related to urinary bladder distention, vesicoureteral reflux or distal ureteral stricture. 3. Other findings as above. Electronically signed by: Мария Galvan MD 03/11/2024 01:50 AM CDT Due to temporary technical issues with the PACS/[employer] reporting system, reports are being nadiya d by the in-house radiologist without review as a courtesy to ensure prompt reporting the interpreting radiologist is fully responsible for the content of the report. Transcribed Date/Time: 03/11/2024 6:48 AM
--- NOTE | 2024-03-11 02:03 | EDPHYS ---
Physician Documentation [facility] Name: Gayla Greene Age: 83 yrs Sex: Female : 1940 Arrival Date: 03/10/2024 Time: 22:44 Bed 5 Private MD: ED Physician Buzz Hernandez HPI: 03/10 22:53 This 83 yrs old Female presents to ER via Unassigned with complaints of kb Abdominal Cramping, Rectal Bleeding. 03/11 00:02 Pt is an 83 year old female who presents for abd pain and rectal bleeding that started kb this afternoon. Daughter states this has happened several times in the past and she normally waits for a couple of days before bringing her in, but then her hemoglobin is low so she wanted to bring her in for evaluation earlier this time. Denies nausea, vomiting, fever. Historical: - Allergies: 03/10 23:47 Aspirin; br2 - PMHx: 23:47 abdominal hernia (Unknown); colon cancer; Hypercholesterolemia; Hypertensive disorder; br2 - Immunization history:: Adult Immunizations not up to date. - Infectious Disease History:: Denies. - Social history:: Smoking status: Patient denies any tobacco usage or history of. ROS: 03/11 00:02 Constitutional: As per HPI kb Exam: 00:02 Constitutional: This is a well developed, well nourished patient who is awake, alert, kb and in no acute distress. Head/Face: Normocephalic, atraumatic. ENT: Moist Mucous membranes Cardiovascular: Regular rate Respiratory: Respirations even and unlabored. No increased work of breathing. Talking in full sentences Skin: Warm, dry with normal turgor. Normal color. MS/ Extremity: Pulses equal, no cyanosis. Neurovascular intact. Full, normal range of motion. Neuro: Awake and alert, GCS 15, oriented to person, place, time, and situation. Moves all extremities. Normal gait. 00:02 Abdomen/GI: Inspection: large hernia, daughter states this is normal for patient. States she has been seen by a surgeon but told she should not have surgery due to her age. No skin discoloration or localized tenderness, Bowel sounds: normal, Palpation: soft, in all quadrants, mild abdominal tenderness, in all quadrants, Vital Signs: 03/10 23:00 BP 134 / 59; Pulse 48; Resp 18; Temp 97.2(TE); Pulse Ox 92% on R/A; Weight 42.64 kg; br2 Height 5 ft. 2 in. ; 03/11 00:06 BP 129 / 67; Pulse 46; Resp 18 S; Pulse Ox 100% on R/A; br2 01:00 BP 130 / 68; Pulse 54; Resp 18 S; Pulse Ox 100% on R/A; br2 01:00 BP 123 / 98; Pulse 63; Resp 18; Pulse Ox 94% ; br2 02:00 BP 132 / 63; Pulse 47; Resp 18 S; Pulse Ox 98% on R/A; br2 03:00 BP 143 / 62; Pulse 47; Resp 20 S; Pulse Ox 94% on R/A; br2 04:49 BP 116 / 82; Pulse 90; Resp 18 S; Pulse Ox 100% on R/A; br2 03/10 23:00 Body Mass Index 17.19 (42.64 kg, 157.48 cm) br2 MDM: 03/10 23:00 Patient medically screened. kb 03/11 00:05 Data reviewed: vital signs, nurses notes. kb 02:01 Differential diagnosis: bowel obstruction, GI Bleed, non-specific abd pain. kb Consideration of Admission/Observation Patient was admitted/placed on observation. Escalation of care including admission/observation considered. Management of patient was discussed with the following: Hospitalist: Dr Roland accepts pt for admission. Historians other than the Patient: Daughter/Son: daughter. Counseling: I had a detailed discussion with the patient and/or guardian regarding the historical points, exam findings, and any diagnostic results supporting the discharge/admit diagnosis, lab results, radiology results, the need for further work-up and treatment in the hospital. 03/10 23:01 Order name: CBC with Diff; Complete Time: 23:48 kb 03/10 23:01 Order name: CMP; Complete Time: 23:55 kb 03/10 23:01 Order name: Lipase; Complete Time: 23:55 kb 03/10 23:01 Order name: Urinalysis w/ reflexes; Complete Time: 01:19 kb 03/10 23:09 Order name: Type And Screen; Complete Time: 01:04 kb 03/11 04:11 Order name: CBC with Automated Diff EDMS 03/11 04:11 Order name: CBC with Automated Diff EDMS 03/11 04:11 Order name: Comprehensive Metabolic Panel EDMS 03/11 04:11 Order name: Comprehensive Metabolic Panel EDMS 03/11 04:12 Order name: Lactate w/ 2H reflex if indic. EDMS 03/11 04:15 Order name: CBC with Automated Diff EDMS 03/10 23:01 Order name: CT Abd/Pelvis - IV Contrast Only kb 03/10 23:01 Order name: IV Saline Lock; Complete Time: 23:24 kb 03/10 23:01 Order name: Labs collected and sent; Complete Time: 23:24 kb Administered Medications: 03/10 23:54 Drug: NS 0.9% IV 1000 ml IV at 1 bolus Per protocol; 1000 mL bolus Route: IV; Rate: 1 br2 bolus; Site: right forearm; 03/11 05:16 Follow up: IV Status: Completed infusion; IV Intake: 1000ml br2 03/10 23:54 Drug: Pantoprazole IVP 40 mg IVP once Route: IVP; Site: right forearm; br2 03/11 00:06 Follow up: Response: No adverse reaction br2 02:16 Follow up: Response: No adverse reaction br2 02:00 Drug: Geodon IM 10 mg IM once Route: IM; Site: right vastus lateralis; br2 05:41 Follow up: Response: No adverse reaction br2 02:30 Drug: Haloperidol IVP 5 mg IVP once Route: IVP; Site: right forearm; br2 05:41 Follow up: Response: No adverse reaction br2 Disposition: 02:45 Co-signature as Attending Physician, Buzz Hernandez MD I reviewed the patient's care rt provided by Advanced Practice Provider \T\ agree w/ the diagnosis \T\ care plan. I personally saw the pt \T\ performed a substantive portion of the visit, incldng all aspects of the (History/Exam/Medical Decision Making). Patient became agitated, Roberto Steiner ordered. Disposition Summary: 03/11/24 02:02 Hospitalization Ordered Notes: Hospitalization Status: Observation kb Provider: Volodymyr Roland Location: Telemetry/MedSurg (observation) kb Condition: Stable kb Problem: new kb Symptoms: are unchanged kb Bed/Room Type: Standard Room Assignment: 228(03/11/24 04:22) rv1 Diagnosis - GI Bleed/ Gastrointestinal hemorrhage, unspecified kb - Ventral hernia without obstruction or gangrene kb Forms: - Medication Reconciliation Form kb - SBAR form kb - Leadership Thank You Letter kb Signatures: Dispatcher [employer] EDMS Brianne Forrester, HAND SIZER-C HAND SIZER-Buzz Marte MD MD rt Villegas, Rebecca rv1 Susana Bob, RN RN br2 Corrections: (The following items were deleted from the chart) 03/10 23: 23:01 CBC+H.LAB.BRZ ordered. EDMS EDMS : 23:01 COMPREHENSIVE METABOLIC PANEL+C.LAB.BRZ ordered. EDMS EDMS 23: 23:01 LIPASE+C.LAB.BRZ ordered. EDMS EDMS : 23:01 Urinalysis+U.LAB.BRZ ordered. EDMS EDMS 03/11 04:22 02:02 kb rv1
--- NOTE | 2024-03-11 02:03 | ER ---
Nurse's Notes [facility] Name: Gayla Greene Age: 83 yrs Sex: Female : 1940 Arrival Date: 03/10/2024 Time: 22:44 Bed 5 Private MD: Diagnosis: GI Bleed/ Gastrointestinal hemorrhage, unspecified;Ventral hernia without obstruction or gangrene Presentation: 03/10 23:00 Chief complaint: Patient states: PT BROUGHT TO ER BY HER DAUGHTER DUE TO RECTAL br2 BLEEDING, BRIGHT RED BLOOD. PT HAD 2 EPISODES TODAY. Coronavirus screen: Vaccine status: Patient reports being unvaccinated. Ebola Screen: Patient negative for fever greater than or equal to 101.5 degrees Fahrenheit, and additional compatible Ebola Virus Disease symptoms Patient denies exposure to infectious person. Patient denies travel to an Ebola-affected area in the 21 days before illness onset. Initial Sepsis Screen: Does the patient meet any 2 criteria? No. Patient's initial sepsis screen is negative. Does the patient have a suspected source of infection? No. Patient's initial sepsis screen is negative. Risk Assessment: Do you want to hurt yourself or someone else? Patient reports no desire to harm self or others. Onset of symptoms was March 10, 2024. 23:00 Method Of Arrival: Wheelchair br2 23:00 Method Of Arrival: Wheelchair br2 23:00 Acuity: TOMY 3 br2 Triage Assessment: 23:00 General: Appears in no apparent distress. slender, Behavior is calm, quiet. Pain: br2 Denies pain. GI: Abdomen is distended, Rectal exam: Bleeding noted, Abd is soft Abd is non tender Reports rectal bleeding. Historical: - Allergies: 23:47 Aspirin; br2 - PMHx: 23:47 abdominal hernia (Unknown); colon cancer; Hypercholesterolemia; Hypertensive disorder; br2 - Immunization history:: Adult Immunizations not up to date. - Infectious Disease History:: Denies. - Social history:: Smoking status: Patient denies any tobacco usage or history of. Screenin:00 [facility] ED Fall Risk Assessment (Adult) History of falling in the last 3 months, br2 including since admission No falls in past 3 months (0 pts) Confusion or Disorientation No (0 pts) Intoxicated or Sedated No (0 pts) Impaired Gait No (0 pts) Mobility Assist Device Used No (0 pt) Altered Elimination No (0 pt) Score/Fall Risk Level 0 - 2 = Low Risk Oriented to surroundings, Maintained a safe environment. Abuse screen: Denies threats or abuse. Denies injuries from another. Nutritional screening: No deficits noted. Tuberculosis screening: No symptoms or risk factors identified. Assessment: 23:00 Reassessment: SEE TRIAGE ASSESSMENT. br2 23:00 GI: Bowel sounds present X 4 quads. br2 03/11 01:30 Reassessment: Patient and/or family updated on plan of care and expected duration. Pain br2 level reassessed. Patient is alert, oriented x 3, equal unlabored respirations, skin warm/dry/pink. 01:30 Reassessment: PT DOESN'T WANT TO STAY IN THE BED. PT KEEPS TRYING TO GET OUT OF BED. br2 02:00 Reassessment: PT OUT OF BED..HOLDING ON TO THE SINK AND DOESN'T WANT TO GET BACK INTO br2 THE BED. PT SWINGING AT NURSING STAFF TO LEAVE HER ALONE. PT CONTINUES TO PULL ON IV. PT'S DAUGHTER NOTIFIED AND STATES SHE IS ON HER WAY [phone]. 02:30 Reassessment: PT'S DAUGHTER HAS ARRIVED AND IS AT BEDSIDE. SHE STATES THAT SHE WILL br2 STAY WITH PATIENT. PT STILL WANTING TO GET OUT OF THE BED. 04:51 Reassessment: Patient and/or family updated on plan of care and expected duration. Pain br2 level reassessed. Patient is alert, oriented x 3, equal unlabored respirations, skin warm/dry/pink. DAUGTER AT BEDSIDE. PATIENT STILL TRYING TO GET OUT OF BED. Vital Signs: 03/10 23:00 BP 134 / 59; Pulse 48; Resp 18; Temp 97.2(TE); Pulse Ox 92% on R/A; Weight 42.64 kg; br2 Height 5 ft. 2 in. ; 03/11 00:06 BP 129 / 67; Pulse 46; Resp 18 S; Pulse Ox 100% on R/A; br2 01:00 BP 130 / 68; Pulse 54; Resp 18 S; Pulse Ox 100% on R/A; br2 01:00 BP 123 / 98; Pulse 63; Resp 18; Pulse Ox 94% ; br2 02:00 BP 132 / 63; Pulse 47; Resp 18 S; Pulse Ox 98% on R/A; br2 03:00 BP 143 / 62; Pulse 47; Resp 20 S; Pulse Ox 94% on R/A; br2 04:49 BP 116 / 82; Pulse 90; Resp 18 S; Pulse Ox 100% on R/A; br2 03/10 23:00 Body Mass Index 17.19 (42.64 kg, 157.48 cm) br2 ED Course: 03/10 22:48 Patient arrived in ED. gm2 22:53 Brianne Forrester FNP-C is PHCP. kb 22:53 Buzz Hernandez MD is Attending Physician. kb 23:00 Arm band placed on right wrist. br2 23:00 Patient has correct armband on for positive identification. Placed in gown. Bed in low br2 position. Call light in reach. Side rails up X 1. Adult w/ patient. Provided Education on: PLAN OF CARE. 23:15 Inserted saline lock: 20 gauge in right forearm, using aseptic technique. br2 23:24 Lipase Sent. al5 23:24 CMP Sent. al5 23:24 CBC with Diff Sent. al5 23:24 Type And Screen Sent. al5 23:42 Susana Bob, RN is Primary Nurse. br2 23:46 Triage completed. br2 23:54 Type And Screen Sent. br2 23:54 CMP Sent. br2 23:54 Lipase Sent. br2 03/11 00:36 CT Abd/Pelvis - IV Contrast Only In Process Unspecified. EDMS 02:02 Volodymyr Roland MD is Hospitalizing Provider. kb 05:16 No provider procedures requiring assistance completed. Patient admitted, IV remains in br2 place. Administered Medications: 03/10 23:54 Drug: NS 0.9% IV 1000 ml IV at 1 bolus Per protocol; 1000 mL bolus Route: IV; Rate: 1 br2 bolus; Site: right forearm; 03/11 05:16 Follow up: IV Status: Completed infusion; IV Intake: 1000ml br2 03/10 23:54 Drug: Pantoprazole IVP 40 mg IVP once Route: IVP; Site: right forearm; br2 03/11 00:06 Follow up: Response: No adverse reaction br2 02:16 Follow up: Response: No adverse reaction br2 02:00 Drug: Geodon IM 10 mg IM once Route: IM; Site: right vastus lateralis; br2 05:41 Follow up: Response: No adverse reaction br2 02:30 Drug: Haloperidol IVP 5 mg IVP once Route: IVP; Site: right forearm; br2 05:41 Follow up: Response: No adverse reaction br2 Medication: 05:17 VIS not applicable for this client. br2 Intake: 05:16 IV: 1000ml; Total: 1000ml. br2 Outcome: 02:02 Decision to Hospitalize by Provider. kb 05:16 Admitted to Med/surg accompanied by nurse, family with patient, via stretcher, br2 05:16 Condition: stable 05:16 Instructed on the need for admit, 05:40 Patient left the ED. br2 Signatures: Dispatcher [employer] EDMS Brianne Forrester, TELEGRAPH MESSENGER-C TELEGRAPH MESSENGER-Amanda Olguin gm2 Kat Espinosa RN RN al5 Susana Bob RN RN br2 Corrections: (The following items were deleted from the chart) 04:30 03:00 Geodon IM 10 mg IM in right vastus lateralis br2 br2 04:30 03:01 Response: No adverse reaction br2 br2
[2024-03-11] MEDS ORDERED: ZIPRASIDONE MESYLA 20 MG/VIAL IM ONE ×2 (02:04→02:08)
[2024-03-11] MEDS ORDERED: WATER FOR INJ,STERILE 10 ML ONE ×2 (02:05→02:09)
[2024-03-11] MEDS ORDERED: HALOPERIDOL LACT 5 MG/ML INJ ONE (02:19)
--- NOTE | 2024-03-11 04:06 | P.HP ---
Certification for Inpatient Patient admitted to: Inpatient With expected LOS: >2 Midnights Practitioner: I am a practitioner with admitting privileges, knowledge of patient current condition, hospital course, and medical plan of care. Services: Services provided to patient in accordance with Admission requirements found in Title 42 Section 412.3 of the Code of Federal Regulations Patient History Date of Service: 03/11/24 Reason for admission: rectal bleeding History of Present Illness: 83-year-old female with past medical history of colitis, colon cancer, hypertension presented to the ER with complaints of rectal bleeding. Onset was this afternoon. Family reported that she has history of GI bleeding and reports that she does get colitis. She stated in 2009 she had a colostomy in [place] and reported history of colon cancer. When evaluated in the ER the mother was noted to have some delirium. Much of the history was from family. But denied abdominal pain nausea or diarrhea. And states that she has regular bowel movements usually Large widemouth right ventral abdominal wall hernia containing proximal large bowel and small bowel anastomosis appears moderately thickened suggestive of nonspecific colitis, mild to moderate bilateral hydroureteronephrosis Allergies aspirin Adverse Reaction (Verified 03/02/22 10:31) Home Medications: Atorvastatin Calcium [Lipitor*] 20 mg PO BEDTIME 03/02/22 Furosemide [Lasix] 20 mg PO DAILY 03/02/22 Losartan Potassium [Cozaar] 100 mg PO DAILY 03/02/22 Ensure Clear 200 ml PO BID #60 can 03/06/22 Lactose-Reduced Food [Ensure Clear] 296 ml PO BID #60 bot 03/06/22 Pantoprazole [Protonix Tab*] 40 mg PO BID #60 tab 03/06/22 Sucralfate [Carafate*] 20 ml PO BID #1000 ml 03/06/22 Ondansetron [Zofran] 4 mg PO Q4H PRN #30 tab 07/02/22 - Past Medical/Surgical History Diabetic: No -: Colon Cancer -: CHF -: HTN -: HLD -: Partial Colectomy -: Colostomy and reversal Psychosocial/ Personal History: Patient is from [place]. - Social History Alcohol use: No CD- Drugs: No Caffeine use: No Review of Systems 10-point ROS is otherwise unremarkable Gastrointestinal: Other Physical Examination - Physical Exam General: Alert, Confused HEENT: Atraumatic, Normocephalic Respiratory: Clear to auscultation bilaterally, Normal air movement Cardiovascular: Regular rate/rhythm, Normal S1 S2 Gastrointestinal: Soft and benign, Other (ventral hernia, midline scar) Musculoskeletal: Other - Studies Laboratory Data (last 24 hrs) 03/10/24 03/10/24 23:20 23:20 WBC 4.70 Hgb 13.8 Hct 40.5 Plt Count 122 L Sodium 136 Potassium 3.5 BUN 13 Creatinine 0.70 Glucose 108 H Total Bilirubin 1.0 AST 122 H ALT 72 H Alkaline Phosphatase 318 H Lipase 73 Assessment and Plan - Problems (Diagnosis) (1) Rectal bleeding Current Visit: Yes Status: Acute (2) Altered mental status Current Visit: Yes Status: Acute (3) Ventral hernia Current Visit: No Status: Acute - Plan 83-year-old female with past medical history of colitis, colon cancer, hypertension presented to the ER with complaints of rectal bleeding. #rectal bleeding #history of colon ca #abnormal CT abdomen pelvis #ventral hernia --admit to med surg with telemetry --IVF, serial H/H --check lactic acid --surgery consult in AM --defer starting antibiotics pending evaluation #hydronephrosis --nunn placed in ED, good urine output #Delerium --? --daughter at bedside, she is redirectable #HTN --hold oral antihypertensives for now DVT:SCDs - Advance Directives Does patient have a Living Will: No Does patient have a Durable POA for Healthcare: No
[2024-03-11] MEDS: NA CHLORIDE 0.9% 1,000 ML IV SCH (05:00)
[2024-03-11 06:24] LABS: Absolute Eosinophils 0.1 K/uL (0-0.5); Absolute Lymphocytes (CBC) 0.8 K/uL (0.7-4.9); Absolute Monocytes 0.3 K/uL (0.1-1.3); Basophils % 0.6 % (0-1.3); Eosinophils % 2.5 % (0-4.4); Hematocrit 36.8 % (36.0-45.0); Hemoglobin 12.7 g/dL (12.0-15.0); Lymphocytes % 19.6 % (15.3-44.8); MCH 33.3 pg (27.0-35.0); MCHC 34.6 g/dL (32.0-36.0); MCV 96.3 fL (80-100); MPV 9.4 fL (7.6-11.3); Monocytes % 6.3 % (3.3-12.3); Nucleated Red Blood Cells % 0.2 % (0-0); Platelets 78 thou/uL (152-406); RBC Red Blood Cell Count 3.82 M/uL (3.86-4.86); Red Cell Distribution Width 16.5 % (12.1-15.2)
[2024-03-11 06:41] VITALS: BMI 15.1
[2024-03-11 07:07] LABS: Blood Morphology Comment NOT SEEN (NOT SEEN); Platelet Estimate DECR; White Blood Cell Scan OK (OK)
[2024-03-11] MEDS: CIPROFLOXACIN 400mg IV 400 MG/200 ML BAG IV SCH (11:00)
[2024-03-11 11:33] LABS: Hematocrit 34.9 % (36.0-45.0); Hemoglobin 11.7 g/dL (12.0-15.0); MCH 32.2 pg (27.0-35.0); MCHC 33.4 g/dL (32.0-36.0); MCV 96.2 fL (80-100); MPV 9.7 fL (7.6-11.3); Platelets 78 thou/uL (152-406); RBC Red Blood Cell Count 3.62 M/uL (3.86-4.86); Red Cell Distribution Width 16.3 % (12.1-15.2)
[2024-03-11 11:51] LABS: Albumin 2.7 g/dL (3.4-5.0); Albumin/Globulin Ratio 0.7 (1.1-1.8); Anion Gap 8.2 mEq/L (5.0-15.0); Bilirubin Total 0.6 mg/dL (0.2-1.0); Potassium 3.2 mEq/L (3.5-5.1); Protein, Total 6.7 g/dL (6.4-8.2)
[2024-03-11] MEDS: METRONIDAZOLE 500mg IVPB 500 MG/100 ML BAG IV SCH (12:23)
[2024-03-11] MEDS: LEVOFLOXACIN 750MG/D5W 150 ML IV SCH (14:12)
--- NOTE | 2024-03-11 15:59 | P.PN ---
Date of Service: 03/11/24 Patient seen and examined on rounds this morning. Cachectic appearance Remain somewhat somnolent this morning, received Haldol and Geodon overnight She was arousable, denies any pain, but is confused Per documentation and patient; she has had transient self resolving bloody stool CT with colitis GI and general surgery consulted
--- NOTE | 2024-03-11 16:03 | CON ---
Reason: Rectal bleeding. History Of Present Illness: The patient is an -vdxy-jhz female who is unable to provide re view of systems because she had delirium, was given medications, which has made her not respond to ve rbal commands. However, she came to the emergency room with rectal bleeding that started yesterday. Family reported that she had history of GI bleeding and she has a history of colitis. She reportedl y had a colostomy with reversal for colon cancer approximately 14 years ago in [place]. There is no history of any nausea or vomiting. No abdominal pain. Regular bowel movements, just blood noted yesterday and she was brought to the ER. No history of chest pain, fever, or chills, sore throat, r unny nose, cough, headaches, or dizziness. Review of Systems: Otherwise unremarkable. Past Medical History: Significant for CHF, colon cancer, hypertension, hyperlipidemia. Past Surgical History: Colectomy with colostomy and reversal. Allergies: ASPIRIN. THE PATIENT DOES NOT SMOKE OR DRINK. Family History: Noncontributory. Physical Examination: Vital Signs: At this point, stable. She is afebrile. General: She is lying in bed, in no distress, not responding. Head and Neck: No masses. Chest: Clear. Heart: S1, S2. Abdomen: A very large ventral hernia with bowel palpable. Soft, nondistended. Positive bowel sound s. Nontender. No peritonitis. Extremities: Adequately perfused, nontender. Neuro: Nonfocal. Rectal: The patient had maroon bloody stool. No bright red blood per rectum was seen. No masses. No external hemorrhoids were seen. Hard stool was noted in the rectal vault. Laboratory Data: Reviewed. H and H are 12.7 and 36.8, white count is 4.2. Electrolytes reviewed. AST and ALT are slightly elevated as is the alkaline phosphatase. Total bilirubin is normal. CT of the abdomen and pelvis reviewed with the radiologist. CT of the abdomen and pelvis shows a large wid e-mouth right ventral abdominal wall hernia containing large bowel and small bowel anastomosis. Ther e is no bowel obstruction. However, there is some thickening of the large bowel, which suggests nons pecific colitis. Fkfi-bv-sdmxujsq bilateral hydroureternephrosis right greater the left, more pronou nced on the current study, which may be related to urinary bladder distention and the flow in the SMA and the YULIYA were somewhat compromised, 70% in the YULIYA and 50% in the SMA, but there was flow beyond the stenosis. No evidence of ischemic colitis. Assessment: An -hfsk-ayg female with multiple medical problems with history of rectal blee ding and colitis. Recommendations: At this time, treatment should be symptomatic with fluids, monitoring the blood cou nt, getting a GI consultation, antibiotics for the colitis. When she is able to tolerate diet and GI sees the patient and she does not need any endoscopy, the patient can be discharged home. With rega rd to the hernia, patient is very high risk for surgical repair. She has no abdominal wall. She wou ld need a team of surgeons and the risks at this time outweigh the benefits in my opinion plus given the colitis, I would address that situation first before even entertaining the thought of any surgica l intervention on this very complex patient. Plan of care was discussed with Dr. Kline. JUAN/MICHELLE Voice ID: [id number] Report ID: [id number]
[2024-03-11 17:54] VITALS: O2SAT 99
[2024-03-11 21:19] LABS: Hematocrit 37.2 % (36.0-45.0); Hemoglobin 12.7 g/dL (12.0-15.0); MCH 32.9 pg (27.0-35.0); MCHC 34.1 g/dL (32.0-36.0); MCV 96.6 fL (80-100); MPV 9.1 fL (7.6-11.3); Platelets 74 thou/uL (152-406); RBC Red Blood Cell Count 3.85 M/uL (3.86-4.86); Red Cell Distribution Width 16.5 % (12.1-15.2)
[2024-03-11] MEDS: QUETIAPINE 25 MG TAB PO SCH (22:33)
[2024-03-12 07:56] LABS: Absolute Eosinophils 0.1 K/uL (0-0.5); Absolute Lymphocytes (CBC) 0.9 K/uL (0.7-4.9); Absolute Monocytes 0.5 K/uL (0.1-1.3); Absolute Neutrophil 2.3 K/uL (1.8-8.0); Basophils % 0.8 % (0-1.3); Eosinophils % 2.4 % (0-4.4); Hematocrit 34.9 % (36.0-45.0); Hemoglobin 11.7 g/dL (12.0-15.0); Lymphocytes % 24.3 % (15.3-44.8); MCH 32.3 pg (27.0-35.0); MCHC 33.5 g/dL (32.0-36.0); MCV 96.5 fL (80-100); MPV 9.9 fL (7.6-11.3); Monocytes % 11.9 % (3.3-12.3); Neutrophils % 60.6 % (41.7-73.7); Nucleated Red Blood Cells % 0.4 % (0-0); Platelets 78 thou/uL (152-406); RBC Red Blood Cell Count 3.62 M/uL (3.86-4.86); Red Cell Distribution Width 17.1 % (12.1-15.2)
[2024-03-12 08:13] LABS: Albumin 2.3 g/dL (3.4-5.0); Albumin/Globulin Ratio 0.6 (1.1-1.8); Bilirubin Total 0.4 mg/dL (0.2-1.0); Globulin 3.8 g/dL (2.3-3.5); Protein, Total 6.1 g/dL (6.4-8.2)
[2024-03-12 09:04] LABS: Blood Morphology Comment NOT SEEN (NOT SEEN); Platelet Estimate ADEQ; White Blood Cell Scan DIFF (OK)
--- NOTE | 2024-03-12 11:53 | P.DS ---
Admission Date: 03/11/24 Discharge Date: 03/12/24 Disposition: ROUTINE DISCHARGE Discharge Condition: GOOD Reason for Admission: rectal bleeding Consultations: GI - Dr. Blackman General surgery - Dr. Okeefe Brief History of Present Illness: 83yo F, PMH: colitis, colon cancer, hypertension Patient presented to the ER with complaints of rectal bleeding. Onset was this afternoon. Family reported that she has history of GI bleeding and reports that she does get colitis. She stated in 2009 she had a colostomy in [place] and reported history of colon cancer. When evaluated in the ER the mother was noted to have some delirium. Much of the history was from family. But denied abdominal pain nausea or diarrhea. And states that she has regular bowel movements usually. CT noted Large widemouth right ventral abdominal wall hernia containing proximal large bowel and small bowel anastomosis appears moderately thickened suggestive of nonspecific colitis, mild to moderate bilateral hydroureteronephrosis Hospital Course: Problem List: Rectal bleeding Large ventral Hernia Hypertension Hyperlipidemia Chronic CHF Hx colon cancer s/p partial colectomy Hx colitis Physician discharge instructions: Patient presented to ED after transient episode of bloody stool. CT abdomen on admission noted a large widemouthed right ventral abdominal wall hernia in addition to nonspecific colitis within the herniated bowel. She reported history of GI bleeds/colitis in the past; Had colonoscopy done in 2021 after presenting with rectal bleeding that noted significant rectal vascular malformations, internal hemorrhoids. Dr. Blackman, GI was consulted and recommended medical management. Patient received empiric levaquin/flagyl in addition to IV fluids and had improvement of her symptoms. Patient is to complete 6 more days of Ciprofloxacin and flagyl on discharge. Patient was feeling better, bloody stool was minimal/resolved, and was deemed stable for discharge. Hgb remained stable in 11.7-12s throughout hospitalization. She was able to tolerate soft food diet on day of discharge without issues. Bleeding source is most likely internal hemorrhoid vs the vascular malformations/ulcers previously seen. Recommend following up with GI for further discussion and repea colonoscopy to further evaluate. Daughter reported having an appointment scheduled tomorrow with Dr. Blackman. Avoid foods high in fiber for next 5-7 days. In regards to the large hernia seen on initial CT, Dr. Okeefe felt patient would be too high of a risk for surgical repair here and felt risks outweighed the benefits at this time. Recommended to re-evaluate hernia once this acute episode resolves. Medications: Ciprofloxacin and Flagyl for 6 more days. Miralax daily to help maintain soft stools. Stool softener (docusate) daily Follow up: PCP 3-5 days GI in 2-4 weeks Please call to schedule / confirm appointments Physical Exam: GEN: Alert, NAD HEENT: Normal conjunctiva, sclera anicteric, CV: Regular rate and rhythm, no edema Pulm: Nonlabored respirations on room air, clear bilaterally ABD: soft, nontender, nondistended Integumentary: No rashes Neuro: Normal speech, normal affect Vital Signs/Physical Exam: Temp Pulse Resp BP Pulse Ox 96.8 F 49 L 16 152/68 H 94 03/12/24 08:00 03/12/24 08:00 03/12/24 08:00 03/12/24 08:00 03/12/24 08:00 Laboratory Data at Discharge: WBC 3.80 thou/uL (4.3-10.9) L 03/12/24 07:47 Hgb 11.7 g/dL (12.0-15.0) L 03/12/24 07:47 Hct 34.9 % (36.0-45.0) L 03/12/24 07:47 Plt Count 78 thou/uL (152-406) L 03/12/24 07:47 Sodium 143 mEq/L (136-145) 03/12/24 07:47 Potassium 4.0 mEq/L (3.5-5.1) D 03/12/24 07:47 BUN 8 mg/dL (7-18) 03/12/24 07:47 Creatinine 0.58 mg/dL (0.55-1.02) 03/12/24 07:47 Glucose 77 mg/dL (74-106) 03/12/24 07:47 Total Bilirubin 0.4 mg/dL (0.2-1.0) 03/12/24 07:47 AST 64 U/L (15-37) H 03/12/24 07:47 ALT 51 U/L (13-56) 03/12/24 07:47 Alkaline Phosphatase 227 U/L (45-117) H 03/12/24 07:47 Lipase 73 U/L (13-75) 03/10/24 23:20 Home Medications: Furosemide [Lasix] 20 mg PO DAILY 03/02/22 Amlodipine Besylate 1 tab PO DAILY 03/11/24 Ezetimibe [Zetia*] 10 mg PO DAILY 03/11/24 Ciprofloxacin HCl [Cipro 500 MG Tablet] 500 mg PO BID 6 Days #12 tab 03/12/24 Docusate [Colace Cap] 100 mg PO DAILY 30 Days #30 cap 03/12/24 Metronidazole 500 mg PO Q8H 6 Days #24 tab 03/12/24 Polyethylene Glycol 3350 [Miralax] 17 gm PO DAILY 30 Days #30 packet 03/12/24 New Medications: Ciprofloxacin HCl [Cipro 500 MG Tablet] 500 mg PO BID 6 Days #12 tab Docusate [Colace Cap] 100 mg PO DAILY 30 Days #30 cap Metronidazole 500 mg PO Q8H 6 Days #24 tab Polyethylene Glycol 3350 [Miralax] 17 gm PO DAILY 30 Days #30 packet Physician Discharge Instructions: Physician discharge instructions: Patient presented to ED after transient episode of bloody stool. CT abdomen on admission noted a large widemouthed right ventral abdominal wall hernia in addition to nonspecific colitis within the herniated bowel. She reported history of GI bleeds/colitis in the past; Had colonoscopy done in 2021 after presenting with rectal bleeding that noted significant rectal vascular malformations, internal hemorrhoids. Dr. Blackman, GI was consulted and recommended medical management. Patient received empiric levaquin/flagyl in addition to IV fluids and had improvement of her symptoms. Patient is to complete 6 more days of Ciprofloxacin and flagyl on discharge. Patient was feeling better, bloody stool was minimal/resolved, and was deemed stable for discharge. Hgb remained stable in 11.7-12s throughout hospitalizat ion. She was able to tolerate soft food diet on day of discharge without issues. Bleeding source is most likely internal hemorrhoid vs the vascular malformations/ulcers previously seen. Recommend following up with GI for further discussion and repea colonoscopy to further evaluate. Daughter reported having an appointment scheduled tomorrow with Dr. Blackman. Avoid foods high in fiber for next 5-7 days. In regards to the large hernia seen on initial CT, Dr. Okeefe felt patient would be too high of a risk for surgical repair here and felt risks outweighed the benefits at this time. Recommended to re-evaluate hernia once this acute episode resolves. Medications: Ciprofloxacin and Flagyl for 6 more days. Miralax daily to help maintain soft stools. Stool softener (docusate) daily Follow up: PCP 3-5 days GI in 2-4 weeks Please call to schedule / confirm appointments Followup: Adore WYLIEOT [Primary Care Provider] -
[2024-03-12 16:06] VITALS: BP 120/77; TEMP 97.6
== END 2024-03-12 19:55 | disposition home or self-care (01) | DRG 378 ==
LOC: ER 22:44 → ERHOLD 03-11 04:06 → 2ND 03-11 05:13
PROVIDERS: ADMIT Nurse Practitioner; ATTEND Hospitalist
DX: K62.5 Hemorrhage of anus and rectum (principal); F05 Delirium due to known physiological condition; N13.30 Unspecified hydronephrosis; Z68.1 Body mass index [BMI] 19.9 or less, adult; R64 Cachexia; K43.9 Ventral hernia without obstruction or gangrene; K52.9 Noninfective gastroenteritis and colitis, unspecified; E78.00 Pure hypercholesterolemia, unspecified; I11.0 Hypertensive heart disease with heart failure; I50.9 Heart failure, unspecified; Z88.6 Allergy status to analgesic agent; Z90.49 Acquired absence of other specified parts of digestive tract; Z85.038 Personal history of other malignant neoplasm of large intestine
CPT/HCPCS: 36415; 74177; 80053; 81001; 83605; 83690; 85025; 85027; 86850; 86900; 86901; 96361; 96372; 96374; 96375; 99285; J1630; J2470; J3486; J7030; Q9967

== ENCOUNTER 2024-05-11 12:06 | Inpatient (IN) | payer OTHER ==
[2024-05-11 13:33] LABS: Absolute Basophils 0.1 K/uL (0-0.5); Absolute Eosinophils 0.2 K/uL (0-0.5); Absolute Lymphocytes (CBC) 0.6 K/uL (0.7-4.9); Absolute Monocytes 0.5 K/uL (0.1-1.3); Absolute Neutrophil 5.2 K/uL (1.8-8.0); Basophils % 1.1 % (0-1.3); Eosinophils % 2.3 % (0-4.4); Hematocrit 26.3 % (36.0-45.0); Hemoglobin 8.1 g/dL (12.0-15.0); Lymphocytes % 9.3 % (15.3-44.8); MCH 30.2 pg (27.0-35.0); MCHC 30.9 g/dL (32.0-36.0); MCV 97.7 fL (80-100); MPV 7.3 fL (7.6-11.3); Monocytes % 7.6 % (3.3-12.3); Neutrophils % 79.7 % (41.7-73.7); Platelets 318 thou/uL (152-406); RBC Red Blood Cell Count 2.69 M/uL (3.86-4.86); Red Cell Distribution Width 22.8 % (12.1-15.2)
[2024-05-11 13:35] LABS: Blood Morphology Comment NOTED (NOT SEEN); Platelet Estimate ADEQ; White Blood Cell Scan OK (OK)
[2024-05-11 13:36] LABS: Anisocytosis 2+
[2024-05-11 13:56] LABS: Specific Gravity 1.024 (1.005-1.030); Sqamous Epithelial <5 /HPF (None Seen); Transitional Epithelial <5 /HPF (None Seen); Urine Bacteria >50 /HPF (<20); Urine Bilirubin NEGATIVE (Negative); Urine Blood 2+ (Negative); Urine Clarity Extremely Turbid (Clear); Urine Color Yellow (Yellow); Urine Culture Reflex Order REFLEXED; Urine Glucose NEGATIVE (Negative); Urine Ketones NEGATIVE (Negative); Urine Microscopic Reflex YN ORDER UMIC; Urine Mucus Slight /HPF (None Seen); Urine Nitrite 2+ (Negative); Urine Protein 1+ (Negative); Urine RBC 21-50 /HPF (None Seen); Urine Urobilinogen Normal (Normal); Urine WBC >50 /HPF (<5); Urine WBC Clump Many /HPF (None Seen); Urine Yeast (Budding) Moderate /HPF (None Seen); Urine pH 5.5 (5.0-7.0)
[2024-05-11 14:01] LABS: ALT/SGPT 57 U/L (13-56); AST/SGOT 100 U/L (15-37); Albumin 1.4 g/dL (3.4-5.0); Albumin/Globulin Ratio 0.3 (1.1-1.8); BUN Blood Urea Nitrogen 15 mg/dL (7-18); Bicarbonate 24 mEq/L (21-32); Bilirubin Total 0.8 mg/dL (0.2-1.0); Globulin 4.4 g/dL (2.3-3.5); Glomerular Filtration Rate 90 ml/min (=/>90); Glucose Level 129 mg/dL (74-106); Lipase 30 U/L (13-75); Protein, Total 5.8 g/dL (6.4-8.2); Sodium Level 140 mEq/L (136-145)
[2024-05-11 14:04] LABS: Alkaline Phosphatase > 1000 U/L (45-117); Troponin High Sensitivity 85.2 pg/mL (<58.9)
--- NOTE | 2024-05-11 14:49 | RAD REPORT ---
EXAMINATION: CT ABDOMEN AND PELVIS WITH CONTRAST CLINICAL INDICATION: Female, 83 years old.ABD PAIN TECHNIQUE: CT abdomen and pelvis was performed, after the administration of IV contrast, [facility]. Axial, sagittal and coronal reconstructions were obtained. One or more of the following dose reduction techniques were used: Automated exposure control, adjustment of the mA and/o r kV according to patient size, and/or iterative reconstruction. Unless otherwise specified, incidental findings do not require dedicated imaging follow-up. [id number]. COMPARISON: 03/23/2024, 2023 FINDINGS: LOWER CHEST: Moderate to large right and moderate left pleural effusion with underlying atelectasis. Coronary artery calcifications. LIVER: Nodular liver contour. No focal mass. GALLBLADDER/BILE DUCT: Cholelithiasis?. No evidence of acute cholecystitis. PANCREAS: Atrophic. Small cystic pancreatic head and neck lesions are unchanged. SPLEEN: Normal size. No focal lesion. ADRENALS: Normal; no mass. KIDNEYS AND URETERS: Bilateral renal lesions which are either benign in appearance or too small to ac curately characterize but statistically benign. Chronic right-sided hydronephrosis. GASTROINTESTINAL TRACT: Stomach is non-dilated. Small bowel has normal course and caliber. No colonic wall thickening or pericolonic inflammatory changes. PERITONEUM: Large volume of ascites. Right lateral abdominal wall hernias containing bowel. There is one which is a large widemouth. A second hernia has a narrower mouth. Large colonic stool burden, particularly at the ascending and proximal transverse colon. Portions of the small bowel are moderate ly distended. No high-grade bowel disruption identified. There may be partial obstructions as a result of the hernias. LYMPH NODES: No lymphadenopathy. ABDOMINAL AORTA AND OTHER VESSELS: Normal caliber aorta and IVC. Severe atherosclerosis URINARY BLADDER: Decompressed from a Suero catheter. REPRODUCTIVE ORGANS: No pathologic process MUSCULOSKELETAL: Intramedullary marcia and cephalomedullary screw for a left intertrochanteric hip fract ure. Remote appearing lower thoracic and lumbar compression fractures. ADDITIONAL FINDINGS: None. IMPRESSION: 1. Pronounced anasarca with new moderate right greater than left pleural effusions, moderate ascites, and pronounced body wall edema. 2. Several bowel containing right lateral ventral hernias without high-grade obstruction however ther e could be a partial obstruction as some of the small bowel is borderline dilated upstream from the hernias. 3. Large volume of stool in the proximal colon. 4. Unchanged moderate right hydronephrosis. Left hydronephrosis has improved.
--- NOTE | 2024-05-11 15:11 | ER ---
Nurse's Notes [facility] Name: Gayla Greene Age: 83 yrs Sex: Female : 1940 Arrival Date: 05/11/2024 Time: 12:06 Bed 15 Private MD: Diagnosis: Partial small bowel obstruction, NSTEMI, ascites, liver cirrhosis, UTI Presentation: 05/11 12:21 Chief complaint: EMS states: [facility] toned out EMS for abdominal pain and rs5 nausea that started this morning. Pt has history of hernias, staff at [facility] instructed to send pt to ER per MD orders for abdominal pain. Recently diagnosed with Cdiff, is currently taking abx. Coronavirus screen: At this time, the client does not indicate any symptoms associated with coronavirus-19. Ebola Screen: No symptoms or risks identified at this time. Initial Sepsis Screen: Does the patient meet any 2 criteria? Temp <36.0*C (96.8*F)) or > 38.3*C (100.9*F). Yes Does the patient have a suspected source of infection? No. Patient's initial sepsis screen is negative. Risk Assessment: Do you want to hurt yourself or someone else? Patient reports no desire to harm self or others. Onset of symptoms was May 11, 2024. 12:21 Method Of Arrival: EMS: [facility] rs5 12:21 Acuity: TOMY 3 rs5 Historical: - Allergies: 12:25 Aspirin; rs5 - PMHx: 12:25 abdominal hernia (Unknown); cirrhosis of liver; colon cancer; Congestive heart failure; rs5 Hypercholesterolemia; Hypertensive disorder; Osteopenia; - PSHx: 12:25 hernia repair (Osteopenia); rs5 - Immunization history:: Adult Immunizations up to date. - Infectious Disease History:: CDIFF, . - Social history:: Smoking status: Patient denies any tobacco usage or history of. Screenin:25 [facility] ED Fall Risk Assessment (Adult) History of falling in the last 3 months, rs5 including since admission Yes- single mechanical fall (1 pt) Confusion or Disorientation No (0 pts) Intoxicated or Sedated No (0 pts) Impaired Gait Yes (1 pt) Mobility Assist Device Used Yes (1 pt) Altered Elimination Yes (1 pt) Score/Fall Risk Level 3 or more points = High Risk Oriented to surroundings, Maintained a safe environment, Educated pt \\T\\ family on fall prevention, incl call for assistance when getting out of bed, Assessed \\T\\ reinforced patient's understanding of fall precautions, Provided non-skid footwear. Abuse screen: Denies threats or abuse. Nutritional screening: No deficits noted. Tuberculosis screening: No symptoms or risk factors identified. Assessment: 12:22 General: Appears uncomfortable, Behavior is calm, cooperative. Pain: Complains of pain rs5 in abdomen Pain currently is 7 out of 10 on a pain scale. Quality of pain is described as aching, Is continuous. Neuro: Level of Consciousness is awake, alert, obeys commands, Oriented to person, place, time, situation. Cardiovascular: Patient's skin is warm and dry. Respiratory: Airway is patent Respiratory effort is even, unlabored, Respiratory pattern is regular, symmetrical. GI: Abdomen is round distended, : to gravity drainage Urine is cloudy. EENT: No signs and/or symptoms were reported regarding the EENT system. Derm: Skin is intact, Skin is pink, warm \\T\\ dry. Musculoskeletal: Range of motion: limited in left arm. 12:22 Reassessment: pt states "I fell and broke my left arm a few weeks ago, that's why I rs5 have this sling" left arm in sling. 12:38 Reassessment: Patient and/or family updated on plan of care and expected duration. Pain rs5 level reassessed. Patient is alert, oriented x 3, equal unlabored respirations, skin warm/dry/pink. 14:55 Reassessment: to bedside, pt states "I think I soiled myself". rs5 15:01 Reassessment: to bedside with tech for brief change, brief removed, pt cleansed. Stage rs5 2 pressure injury noted to sacrum, provider notified. to bedside for wound care \\T\\[id number], and new brief applied, pt tolerated well. 16:10 Reassessment: Patient and/or family updated on plan of care and expected duration. Pain rs5 level reassessed. Patient is alert, oriented x 3, equal unlabored respirations, skin warm/dry/pink. 17:10 Reassessment:. Reassessment: to bedside, pt states "I think my diaper is dirty again". rs5 17:15 Reassessment: to bedside, brief removed, pt cleansed, new brief applied, pt tolerated rs5 well. Vital Signs: 12:21 BP 107 / 61; Pulse 84; Resp 19; Temp 99.9(O); Pulse Ox 95% on R/A; rs5 14:10 BP 117 / 61; Pulse 71; Resp 16; Pulse Ox 98% on R/A; rs5 15:01 BP 127 / 66; Pulse 80; Resp 17; Temp 98(O); Pulse Ox 97% on R/A; rs5 17:22 BP 131 / 75; Pulse 81; Resp 16; Pulse Ox 97% on R/A; rs5 18:01 BP 122 / 71; Pulse 77; Resp 17; Temp 98(O); Pulse Ox 98% ; rs5 ED Course: 12:20 Patient arrived in ED. rs5 12:20 Sharad Araiza MD is Attending Physician. sp3 12:25 Triage completed. rs5 12:25 Patient has correct armband on for positive identification. Placed in gown. Bed in low rs5 position. Call light in reach. Side rails up X2. 12:25 No provider procedures requiring assistance completed. rs5 12:35 Jose Francisco Nunez, RN is Primary Nurse. rs5 14:33 CT Abd/Pelvis - IV Contrast Only In Process Unspecified. EDMS 15:10 Monico Bush is Hospitalizing Provider. sp3 16:45 Provided Education on: need for admit. rs5 17:22 Patient admitted, IV remains in place. rs5 Administered Medications: 15:20 Drug: Cefepime IVPB 1 grams IVPB at 200 ml/hr once over 30 mins; (mix in NS 100 mL) rs5 Route: IVPB; Rate: 200 ml/hr; Infused Over: 30 mins; Site: right upper arm; 15:51 Follow up: Response: No adverse reaction; IV Status: Completed infusion; IV Intake: rs5 100ml Medication: 19:46 VIS not applicable for this client. rs5 Intake: 15:51 IV: 100ml; Total: 100ml. rs5 Outcome: 15:10 Decision to Hospitalize by Provider. sp3 17:20 Admitted to ER Hold. Please see [facility] for further documentation. rs5 17:20 Condition: stable 17:20 Instructed on the need for admit, Demonstrated understanding of instructions, 20:12 Patient left the ED. bm8 Signatures: Dispatcher [employer] Sahrad Royal MD MD sp3 Jose Francisco Nunez, RN RN rs5 Chi Mahajan RN RN bm8 Corrections: (The following items were deleted from the chart) 12:35 12:21 BP 107 / 61; Pulse 84bpm; Resp 79bpm; Pulse Ox 95% RA; Temp 99.9F Oral; rs5 rs5 19:42 18:22 Reassessment: Patient and/or family updated on plan of care and expected rs5 duration. Pain level reassessed. Patient is alert, oriented x 3, equal unlabored respirations, skin warm/dry/pink. rs5 19:44 15:01 Reassessment: to bedside with tech for brief change, brief removed, pt cleansed rs5 and new brief applied, pt tolerated well. rs5 19:47 16:45 Patient admitted, IV remains in place. rs5 rs5 19:47 16:45 Admitted to ER Hold. [facility]. rs5 rs5 19:47 16:45 Condition: stable rs5 rs5 19:47 16:45 Instructed on the need for admit, Demonstrated understanding of instructions, rs5 rs5 19:48 18:40 BP 122 / 71; Pulse 77bpm; Resp 17bpm; Pulse Ox 98%; Temp 98F Oral; rs5 rs5
--- NOTE | 2024-05-11 15:11 | EDPHYS ---
Physician Documentation [facility] Name: Gayla Greene Age: 83 yrs Sex: Female : 1940 Arrival Date: 05/11/2024 Time: 12:06 Bed 15 Private MD: ED Physician Sharad Araiza HPI: 05/11 12:58 This 83 yrs old Female presents to ER via EMS with complaints of Doctor sp3 Referral, Abdominal Pain. 12:58 83-year-old female sent from [place] for chief complaint abdominal pain and "possible sp3 hernia". Patient was seen by physical physician and referred here for workup. Patient is at nursing facility after recovery from [facility] for orthopedic surgery on shoulder and right hip. Patient also has C. difficile colitis and is on appropriate medication. Patient denies headache, chest pain, shortness of breath, fever or any other signs or symptoms on ROS at this time.. Historical: - Allergies: 12:25 Aspirin; rs5 - PMHx: 12:25 abdominal hernia (Unknown); cirrhosis of liver; colon cancer; Congestive heart failure; rs5 Hypercholesterolemia; Hypertensive disorder; Osteopenia; - PSHx: 12:25 hernia repair (Osteopenia); rs5 - Immunization history:: Adult Immunizations up to date. - Infectious Disease History:: CDIFF, . - Social history:: Smoking status: Patient denies any tobacco usage or history of. ROS: 12:59 Constitutional: Negative for fever, chills, and weight loss, Eyes: Negative for injury, sp3 pain, redness, and discharge, ENT: Negative for injury, pain, and discharge, Neck: Negative for injury, pain, and swelling, Cardiovascular: Negative for chest pain, palpitations, and edema, Respiratory: Negative for shortness of breath, cough, wheezing, and pleuritic chest pain, Back: Negative for injury and pain, MS/Extremity: Negative for injury and deformity, Skin: Negative for injury, rash, and discoloration, Neuro: Negative for headache, weakness, numbness, tingling, and seizure, Psych: Negative for depression, anxiety, suicide ideation, homicidal ideation, and hallucinations, Allergy/Immunology: Negative for hives, rash, and allergies, Endocrine: Negative for neck swelling, polydipsia, polyuria, polyphagia, and marked weight changes, Hematologic/Lymphatic: Negative for swollen nodes, abnormal bleeding, and unusual bruising, 12:59 All other systems are negative, Exam: 13:00 Constitutional: This is a well developed, well nourished patient who is awake, alert, sp3 and in no acute distress. Head/Face: Normocephalic, atraumatic. Eyes: Pupils equal round and reactive to light, extra-ocular motions intact. Lids and lashes normal. Conjunctiva and sclera are non-icteric and not injected. Cornea within normal limits. Periorbital areas with no swelling, redness, or edema. Neck: Trachea midline, no thyromegaly or masses palpated, and no cervical lymphadenopathy. Supple, full range of motion without nuchal rigidity, or vertebral point tenderness. No Meningismus. Chest/axilla: Normal chest wall appearance and motion. Nontender with no deformity. No lesions are appreciated. Cardiovascular: Regular rate and rhythm with a normal S1 and S2. No gallops, murmurs, or rubs. Normal PMI, no JVD. No pulse deficits. Respiratory: Lungs have equal breath sounds bilaterally, clear to auscultation and percussion. No rales, rhonchi or wheezes noted. No increased work of breathing, no retractions or nasal flaring. Back: No spinal tenderness. No costovertebral tenderness. Full range of motion. 13:00 Abdomen/GI: Mild abdominal distention and pain to palpation entire lower abdominal region. No peritoneal signs. Vital signs are normal., 14:28 ECG was reviewed by the Attending Physician. EKG demonstrates normal sinus rhythm at 82 sp3 bpm with normal intervals, normal QRS, normal axis, nonspecific diffuse ST/T changes without evidence of acute ischemia. Vital Signs: 12:21 BP 107 / 61; Pulse 84; Resp 19; Temp 99.9(O); Pulse Ox 95% on R/A; rs5 14:10 BP 117 / 61; Pulse 71; Resp 16; Pulse Ox 98% on R/A; rs5 15:01 BP 127 / 66; Pulse 80; Resp 17; Temp 98(O); Pulse Ox 97% on R/A; rs5 17:22 BP 131 / 75; Pulse 81; Resp 16; Pulse Ox 97% on R/A; rs5 18:01 BP 122 / 71; Pulse 77; Resp 17; Temp 98(O); Pulse Ox 98% ; rs5 MDM: 12:22 Medical Screening Exam initiated sp3 13:01 Data reviewed: vital signs, nurses notes, lab test result(s), EKG, radiologic studies. [facility] ED course: 83-year-old female with PMH above now with abdominal pain [facility] visiting [facility]. Differential diagnosis includes bowel obstruction, other colitis or appendicitis, UTI/pyelonephritis spectrum, ileus, ventral hernia, other hernia, among others. Workup include CT scan of the abdomen pelvis with IV contrast, general labs, UA and general supportive care. Disposition pending workup and patient course.. 15:09 ED course: Patient with partial SBO, ascites, UTI and elevated Trope. Will admit to [facility] hospitalist medicine.. 05/11 12:37 Order name: CBC with Diff; Complete Time: 14:50 sp3 05/11 12:37 Order name: CMP; Complete Time: 14:50 3 05/11 12:37 Order name: Lipase; Complete Time: 14:50 3 05/11 12:37 Order name: Urinalysis w/ reflexes; Complete Time: 14:50 sp3 05/11 12:37 Order name: Troponin High Sensitivity; Complete Time: 14:50 sp3 05/11 12:37 Order name: Lactate w/ 2H reflex if indic.; Complete Time: 14:50 sp3 05/11 13:36 Order name: CBC Smear Scan; Complete Time: 14:50 EDMS 05/11 14:01 Order name: Urine Culture EDKS 05/11 15:11 Order name: PT-INR 4 05/11 15:11 Order name: Ptt, Activated mb4 05/11 16:00 Order name: CBC with Automated Diff EDKS 05/11 16:00 Order name: CBC with Automated Diff EDKS 05/11 16:00 Order name: Comprehensive Metabolic Panel EDKS 05/11 16:00 Order name: Comprehensive Metabolic Panel EDKS 05/11 12:37 Order name: CT Abd/Pelvis - IV Contrast Only; Complete Time: 14:50 sp3 05/11 16:16 Order name: Social Service Consult EDKS 05/11 12:37 Order name: IV Saline Lock; Complete Time: 13:48 sp3 05/11 12:37 Order name: Labs collected and sent; Complete Time: 13:48 sp3 05/11 12:37 Order name: EKG - Nurse/Tech; Complete Time: 13:48 sp3 Administered Medications: 15:20 Drug: Cefepime IVPB 1 grams IVPB at 200 ml/hr once over 30 mins; (mix in NS 100 mL) rs5 Route: IVPB; Rate: 200 ml/hr; Infused Over: 30 mins; Site: right upper arm; 15:51 Follow up: Response: No adverse reaction; IV Status: Completed infusion; IV Intake: rs5 100ml Disposition Summary: 05/11/24 15:10 Hospitalization Ordered Notes: Hospitalization Status: Inpatient Admission sp3 Provider: Monico Bush sp3 Location: Telemetry/MedSurg (Inpatient) sp3 Condition: Stable sp3 Problem: an acute exacerbation sp3 Symptoms: have worsened sp3 Bed/Room Type: Standard sp3 Room Assignment: 229(05/11/24 19:08) sp Diagnosis - Partial small bowel obstruction, NSTEMI, ascites, liver cirrhosis, UTI sp3 Forms: - Medication Reconciliation Form sp3 - SBAR form sp3 - Leadership Thank You Letter sp3 Signatures: Dispatcher [employer] EDMS Evie Barnes Setul, MD MD sp3 Jose Francisco Nunez, RN RN rs5 Corrections: (The following items were deleted from the chart) 12:38 12:38 Abdomen Pelvis W Con+CT.RAD.BRZ ordered. EDMS EDMS 19:08 15:10 sp3 sp
[2024-05-11] MEDS ORDERED: CEFAZOLIN SODIUM 1 GM/VIAL ONE (15:21)
[2024-05-11] MEDS ORDERED: NA CHLORIDE 0.9% 100 ML ONE (15:21)
[2024-05-11] MEDS ORDERED: ALBUTEROL 2.5 MG/3 ML NEB SOL NEB PRN (15:47)
[2024-05-11 15:55] LABS: PT Prothrombin Time 12.7 SECONDS (9.4-12.5); PTT, Activated Partial Thromb 28.8 SECONDS (24.3-36.9); Protime INR 1.14
[2024-05-11] MEDS: D5 0.45 NS 1,000 ML IV SCH (16:00)
--- NOTE | 2024-05-11 16:01 | P.HP ---
Certification for Inpatient Patient admitted to: Inpatient With expected LOS: >2 Midnights Patient will require the following post-hospital care: Hospice Practitioner: I am a practitioner with admitting privileges, knowledge of patient current condition, hospital course, and medical plan of care. Services: Services provided to patient in accordance with Admission requirements found in Title 42 Section 412.3 of the Code of Federal Regulations Patient History Date of Service: 05/11/24 Reason for admission: abdominal pain History of Present Illness: Ms. Negin Greene is an 83-year-old female who was seen at this facility in March of this year with a past medical history of CVA, colitis, colon cancer, colectomy with reanastomosis, hypertension, congestive heart failure, moderate bilateral hydroureteronephrosis, . In the interim, at some point, she fell and has a left femur fracture and a left 2 part humeral fracture and was admitted to [facility] on 05/09/2024 with an additional diagnosis of C. difficile colitis. She was sent per EMS to the ED for complaint of abdominal pain. Labs in ED significant for a hemoglobin hematocrit of 8.1/26.3, platelets 318. Creatinine and electrolytes essentially normal, AST 100, ALT 57, alk phos greater than thousand, T. bili 0.8. Second significant hypoalbuminemia at 1.4, troponin 85.2, lactate negative at 1.7, urine with greater than 50 urine white blood cells, 2+ nitrites, and greater than [address] abdomen and pelvis with contrast impression "1. Pronounced anasarca with new moderate right greater than left pleural effusions, moderate ascites, and pronounced body wall edema. 2. Several bowel containing right lateral ventral hernias without high-grade obstruction however there could be a partial obstruction as some of the small bowel is borderline dilated upstream from the hernias. 3. Large volume of stool in the proximal colon. 4. Unchanged moderate right hydronephrosis. Left hydronephrosis has improved." At bedside patient is obtunded, jaundiced, with anasarca, tenderness to the abdomen which is generalized. Left arm in sling, pillows beneath bilateral knees, ecchymosis to chin. She is poorly responsive but opens her eyes to gentle palpation, oriented to name. [facility] contacted for more patient information and infor xavier on daughter listed as patient's contact. They have no record of her name or number. There is a consult to [facility] hospice but it is unclear whether this has been discussed with family. We will admit her for serial assessments and continued treatment of C. difficile with contact isolations while awaiting family. Of note on the 03/2024 admission, a surgical consult was obtained for hernia repair and the patient's advanced age and condition precluded any surgery as the risks are higher than the benefit. Allergies ibuprofen [From Advil] Allergy (Verified 03/11/24 07:31) unknown aspirin Adverse Reaction (Verified 03/11/24 07:31) unknown Home medications list reviewed: Yes Home Medications: Furosemide [Lasix] 20 mg PO DAILY 03/02/22 Amlodipine Besylate 1 tab PO DAILY 03/11/24 Ezetimibe [Zetia*] 10 mg PO DAILY 03/11/24 Ciprofloxacin HCl [Cipro 500 MG Tablet] 500 mg PO BID 6 Days #12 tab 03/12/24 Docusate [Colace Cap] 100 mg PO DAILY 30 Days #30 cap 03/12/24 Metronidazole 500 mg PO Q8H 6 Days #24 tab 03/12/24 Polyethylene Glycol 3350 [Miralax] 17 gm PO DAILY 30 Days #30 packet 03/12/24 - Past Medical/Surgical History Has patient received pneumonia vaccine in the past: No Diabetic: No -: Colon Cancer -: CHF -: HTN -: HLD -: Colitis -: CVA -: Partial Colectomy -: Colostomy and reversal Psychosocial/ Personal History: Patient is from [place]. - Social History Smoking Status: Unknown if ever smoked Alcohol use: No CD- Drugs: No Caffeine use: No Place of Residence: [facility] (Admitted 05/09/2024) Review of Systems 10-point ROS is otherwise unremarkable General: Weakness, Malaise Eyes: Unremarkable ENT: Unremarkable Respiratory: Unremarkable Cardiovascular: Unremarkable Gastrointestinal: Abdominal Pain Genitourinary: Other (Chronic Suero) Musculoskeletal: Other (Fracture to left humerus and left femur) Integumentary: Unremarkable Neurological: Confusion, Other (Poorly responsive) Lymphatics: As per HPI Physical Examination - Vital Signs Temperature: 99.9 F Blood Pressure: 119/56 Pulse: 74 Respirations: 16 Pulse Ox (%): 98 - Physical Exam General: Mild distress, Other (Obtunded) HEENT: Other (Ecchymosis to chin) Neck: Supple Respiratory: Diminished, Crackles/rales Cardiovascular: No edema, Other (Anasarca) Capillary refill: <2 Seconds Gastrointestinal: Distended, Ascites, Tenderness, Guarding Musculoskeletal: Other (Left upper and lower extremity fracture) Integumentary: Other (Jaundiced, thin, edematous) Neurological: Other (Bedbound), Abnormal tone, Abnormal affect Lymphatics: No axilla or inguinal lymphadenopathy Urinary: Suero catheter External genitalia: Deferred Rectal: Deferred - Studies Laboratory Data (last 24 hrs) 05/11/24 05/11/24 13:21 13:21 WBC 6.50 Hgb 8.1 L Hct 26.3 L Plt Count 318 Sodium 140 Potassium 4.0 BUN 15 Creatinine 0.58 Glucose 129 H Total Bilirubin 0.8 AST 100 H ALT 57 H Alkaline Phosphatase > 1000 H Lipase 30 Assessment and Plan - Plan Obtunded/AMS Patient with lactulose on her med list but unable to verify if patient has been taking Ammonia level Ascites with pleural effusion with hydronephrosis Thoracentesis as needed for diagnostic and therapeutic evaluation Ventral hernias with abdominal pain Paracentesis as needed Surgical consult 2 months ago revealed greater risk than benefit Will discuss with family C. difficile colitis Continue oral vancomycin contact precaution Chronic Suero placement May need to replace Intake and output Skin protection measures Please document pressure sores Keep clean and well protected Frequent turning Fracture of left humerus and left femur status post fall Maintain splint Pain control SCDs for prophylaxis Terminal condition Discussed hospice with family If hospice declines, Thora and paracentesis for diagnostic and therapeutic evaluation VTE/GI prophylaxis - Advance Directives Does patient have a Living Will: No Does patient have a Durable POA for Healthcare: No
[2024-05-11] MEDS: VANCOMYCIN HCL 125 MG CAPSULE PO SCH (17:00)
[2024-05-11] MEDS: FENTANYL CITR 100 MCG/2 ML IV PRN (18:40)
[2024-05-11] MEDS: ONDANSETRON 4 MG/2 ML VIAL IV PRN (18:40)
[2024-05-11] MEDS ORDERED: D5 0.45 NS 1,000 ML IV ONE (18:43)
[2024-05-11] MEDS ORDERED: FENTANYL CITR 100 MCG/2 ML ONE (18:43)
[2024-05-11] MEDS ORDERED: ONDANSETRON 4 MG/2 ML VIAL ONE (18:44)
[2024-05-12 07:12] LABS: Albumin 1.4 g/dL (3.4-5.0); Albumin/Globulin Ratio 0.3 (1.1-1.8); Anion Gap 5.9 mEq/L (5.0-15.0); Bilirubin Total 0.9 mg/dL (0.2-1.0); Globulin 4.2 g/dL (2.3-3.5); Potassium 3.9 mEq/L (3.5-5.1); Protein, Total 5.6 g/dL (6.4-8.2)
[2024-05-12] MEDS: PNEUMOCOCCAL VACCINE 0.5 ML IMVAC ONE (08:00)
[2024-05-12] MEDS: ALBUMIN HUMAN 25% 12.5 GM, FUROSEMIDE 100 MG in NA CHLORIDE 0.9% 40 ML IV SCH (12:53)
[2024-05-13 08:06] VITALS: BMI 18.3
[2024-05-13] MEDS: ALBUMIN HUMAN 25% 12.5 GM, FUROSEMIDE 100 MG in NA CHLORIDE 0.9% 40 ML IV SCH (08:55)
[2024-05-13] MEDS ORDERED: SODIUM CHLORIDE 0.9% 10ML INJ IV PRN (13:42)
[2024-05-13] MEDS ORDERED: ALBUTEROL 2.5 MG/3 ML NEB SOL NEB PRN (13:48)
[2024-05-13] MEDS: SIMETHICONE 80 MG CHEWABLE TAB PO PRN (13:59)
[2024-05-13] MEDS: PANTOPRAZOLE 40 MG INJ IVP SCH (13:59)
[2024-05-13] MEDS ORDERED: LACTULOSE 20 GM/30 ML UCUP PO PRN (14:44)
--- NOTE | 2024-05-13 20:32 | P.PN ---
Date of Service: 05/13/24 Subjective Moderate to severe ascites, on Lasix albumin drip Review of Systems 10-point ROS is otherwise unremarkable Physical Examination - Vital Signs Reviewed - Physical Exam General: Mild distress, confused, responds to verbal, emaciated HEENT: Other (Ecchymosis to chin) Neck: Supple Respiratory: Diminished, Crackles/rales Cardiovascular: No edema, Other (Anasarca) Capillary refill: <2 Seconds Gastrointestinal: Distended, Ascites, Tenderness, Guarding Musculoskeletal: Other (Left upper and lower extremity fracture) Integumentary: Other (Jaundiced, thin, edematous) Neurological: Other (Bedbound), Abnormal tone, Abnormal affect Lymphatics: No axilla or inguinal lymphadenopathy Urinary: Suero catheter . Assessment and Plan - Plan Hepatic encephalopathy Patient with lactulose on her med list but unable to verify if patient has been taking Ammonia level Ascites with pleural effusion with hydronephrosis Thoracentesis as needed for diagnostic and therapeutic evaluation Ventral hernias with abdominal pain Paracentesis as needed Surgical consult 2 months ago revealed greater risk than benefit Will discuss with family C. difficile colitis Continue oral vancomycin contact precaution Constipation Lactulose added Chronic indwelling Suero catheter May need to replace Intake and output Skin protection measures Please document pressure sores Keep clean and well protected Frequent turning Fracture of left humerus and left femur status post fall Maintain splint Pain control SCDs for prophylaxis Terminal condition family refuses hospice request discharge planning to residential facility Discussed hospice with family If hospice declines, Thora and paracentesis for diagnostic and therapeutic evaluation VTE/GI prophylaxis - Advance Directives Does patient have a Living Will: No Does patient have a Durable POA for Healthcare: No Time with patient 35 minutes <Charleen Dickinson - Last Filed: 05/13/24 20:27> Patient was seen and examined. Events of the last 24 hours have been noted. Spoke with with ANT regarding patient's clinical picture after evaluating and examining the patient independently. I performed a substantial part of the MDM during this patient's care today. I personally made or approved the documented management plan and acknowledge its risk of complications. I agree with the findings and documentation provided in the ANT's notes. <Radha Winkler - Last Filed: 05/19/24 15:01>
[2024-05-13] MEDS: JUVEN PACKET PO SCH (21:00)
[2024-05-13] MEDS: ENSURE HIGH PROTEIN 237 ML CAN PO SCH (21:00)
[2024-05-14 06:15] LABS: Hematocrit 39.5 % (36.0-45.0); Hemoglobin 12.1 g/dL (12.0-15.0); MCH 29.6 pg (27.0-35.0); MCHC 30.6 g/dL (32.0-36.0); MCV 96.9 fL (80-100); Platelets 188 thou/uL (152-406); RBC Red Blood Cell Count 4.08 M/uL (3.86-4.86); Red Cell Distribution Width 22.9 % (12.1-15.2)
[2024-05-14 06:29] LABS: PT Prothrombin Time 13.5 SECONDS (9.4-12.5); Protime INR 1.21
[2024-05-14 06:46] LABS: Albumin 1.8 g/dL (3.4-5.0); Albumin/Globulin Ratio 0.4 (1.1-1.8); Anion Gap 7.3 mEq/L (5.0-15.0); Bilirubin Total 1.1 mg/dL (0.2-1.0); Globulin 4.1 g/dL (2.3-3.5); Potassium 3.3 mEq/L (3.5-5.1); Protein, Total 5.9 g/dL (6.4-8.2)
[2024-05-14] MEDS: POTASSIUM CL SA 10 MEQ TAB PO ONE (08:42)
--- NOTE | 2024-05-14 08:42 | P.PN ---
Date of Service: 05/14/24 Subjective family meeting today with Dr Winkler, ascites improving Review of Systems 10-point ROS is otherwise unremarkable Physical Examination - Vital Signs Reviewed - Physical Exam General: awake, alert, responds to verbal, emaciated Respiratory: Diminished, Crackles/rales Cardiovascular: No edema, Other (Anasarca) Capillary refill: <2 Seconds Gastrointestinal: Distended, Ascites, Tenderness, Guarding Musculoskeletal: Other (Left upper and lower extremity fracture) Integumentary: Other (Jaundiced, thin, edematous) Neurological: Other (Bedbound), Abnormal tone, Abnormal affect Lymphatics: No axilla or inguinal lymphadenopathy Urinary: Nunn catheter . Assessment and Plan - Plan Assessment Severe protein calorie malnutrition lasix albumin drip protein calorie supplements Skin protection measures Frequent turning Chronic indwelling Nunn catheter hydronephrosis nunn cath, replace weekly Ascites with pleural effusion Thoracentesis as needed for diagnostic and therapeutic evaluation Ventral hernias with abdominal pain Paracentesis as needed Surgical consult 2 months ago revealed greater risk than benefit Will discuss with family C. difficile colitis Continue oral vancomycin contact precaution Constipation Lactulose added Fracture of left humerus and left femur status post fall Maintain splint Pain control SCDs for prophylaxis Terminal condition family refuses hospice request discharge planning to senior care facility Discussed hospice with family If hospice declines, Thora and paracentesis for diagnostic and therapeutic evaluation VTE/GI prophylaxis - Advance Directives Does patient have a Living Will: No Does patient have a Durable POA for Healthcare: No Time with patient 35 minutes
[2024-05-14] MEDS: ALBUMIN HUMAN 25% 100 ML IV ONE (09:05)
[2024-05-15 07:36] LABS: Hematocrit 29.7 % (36.0-45.0); Hemoglobin 9.8 g/dL (12.0-15.0); MCH 32.1 pg (27.0-35.0); MCHC 32.9 g/dL (32.0-36.0); MCV 97.4 fL (80-100); MPV 6.9 fL (7.6-11.3); Platelets 206 thou/uL (152-406); RBC Red Blood Cell Count 3.05 M/uL (3.86-4.86); Red Cell Distribution Width 22.3 % (12.1-15.2)
[2024-05-15 07:37] LABS: Protime INR 1.26
[2024-05-15 07:52] LABS: Albumin 1.9 g/dL (3.4-5.0); Albumin/Globulin Ratio 0.5 (1.1-1.8); Anion Gap 5.8 mEq/L (5.0-15.0); Bilirubin Total 1.1 mg/dL (0.2-1.0); Potassium 3.8 mEq/L (3.5-5.1); Protein, Total 5.9 g/dL (6.4-8.2)
[2024-05-15 10:37] LABS: White Blood Cell Scan OK (OK)
[2024-05-15 10:38] LABS: Anisocytosis 2+; Blood Morphology Comment NOTED (NOT SEEN); Platelet Estimate ADEQ
[2024-05-15] MEDS: PANTOPRAZOLE 40MG TABLET PO ONE (18:08)
[2024-05-16 05:46] LABS: Absolute Basophils 0.1 K/uL (0-0.5); Absolute Eosinophils 0.2 K/uL (0-0.5); Absolute Lymphocytes (CBC) 0.6 K/uL (0.7-4.9); Absolute Monocytes 0.6 K/uL (0.1-1.3); Absolute Neutrophil 5.7 K/uL (1.8-8.0); Basophils % 0.8 % (0-1.3); Eosinophils % 2.9 % (0-4.4); Hematocrit 28.7 % (36.0-45.0); Hemoglobin 9.2 g/dL (12.0-15.0); Lymphocytes % 8.7 % (15.3-44.8); MCH 31.5 pg (27.0-35.0); MCHC 32.2 g/dL (32.0-36.0); MCV 97.8 fL (80-100); MPV 7.2 fL (7.6-11.3); Monocytes % 8.9 % (3.3-12.3); Neutrophils % 78.7 % (41.7-73.7); Platelets 175 thou/uL (152-406); RBC Red Blood Cell Count 2.93 M/uL (3.86-4.86); Red Cell Distribution Width 22.6 % (12.1-15.2)
[2024-05-16 06:09] LABS: Albumin 1.8 g/dL (3.4-5.0); Anion Gap 7.2 mEq/L (5.0-15.0); Phosphorus 1.9 mg/dL (2.5-4.9); Potassium 4.2 mEq/L (3.5-5.1)
[2024-05-16] MEDS: PANTOPRAZOLE 40MG TABLET PO SCH (09:21)
[2024-05-16] MEDS: ALBUMIN HUMAN 25% 12.5 GM, FUROSEMIDE 100 MG in NA CHLORIDE 0.9% 40 ML IV SCH (09:21)
[2024-05-16] MEDS: FENTANYL CITR 100 MCG/2 ML IV PRN (09:22)
[2024-05-16] MEDS: POTASS/SODIUM PHOSPHATE 1 PKT POWD.PACK PO SCH (09:23)
[2024-05-16 15:31] LABS: Anion Gap 8.8 mEq/L (5.0-15.0); Magnesium 1.7 mg/dL (1.6-2.4); Potassium 3.8 mEq/L (3.5-5.1)
--- NOTE | 2024-05-16 16:08 | EKG ---
Test Date: 2024-05-11 Test Time: 13:33:03 Core Filer: EMILY MEASUREMENT RESULTS: Intervals: Rate: 82 VA: QRSD: 70 QT: 362 QTc: 422 Bruner: P: VA: QRS: 13 T: 42 INTERPRETIVE STATEMENTS: Accelerated Junctional rhythm Low voltage QRS Nonspecific T wave abnormality Abnormal ECG No previous ECG available for comparison Electronically Signed On 05-16-24 15:57:36 CHILD CARE SPECIALIST by Brett Strickland
[2024-05-16] MEDS: PIPER TAZO 3.375 GM in NA CHLORIDE 0.9% 100 ML IV SCH (17:36)
[2024-05-16] MEDS: ACETAMINOPHEN 650MG/RECT SUPP PR PRN (20:31)
[2024-05-17] MEDS: ACETAMINOPHEN 500 MG TAB PO PRN (01:24)
[2024-05-17 06:29] LABS: Absolute Basophils 0.1 K/uL (0-0.5); Absolute Eosinophils 0.1 K/uL (0-0.5); Absolute Lymphocytes (CBC) 0.5 K/uL (0.7-4.9); Absolute Monocytes 0.8 K/uL (0.1-1.3); Basophils % 0.7 % (0-1.3); Eosinophils % 1.5 % (0-4.4); Hematocrit 25.9 % (36.0-45.0); Hemoglobin 8.3 g/dL (12.0-15.0); Lymphocytes % 6.3 % (15.3-44.8); MCH 31.3 pg (27.0-35.0); MCHC 32.2 g/dL (32.0-36.0); MCV 97.3 fL (80-100); MPV 7.5 fL (7.6-11.3); Monocytes % 9.1 % (3.3-12.3); Neutrophils % 82.4 % (41.7-73.7); Platelets 137 thou/uL (152-406); RBC Red Blood Cell Count 2.66 M/uL (3.86-4.86); Red Cell Distribution Width 22.1 % (12.1-15.2)
[2024-05-17 07:03] LABS: Albumin 1.7 g/dL (3.4-5.0); Albumin/Globulin Ratio 0.4 (1.1-1.8); Anion Gap 9.2 mEq/L (5.0-15.0); Globulin 3.8 g/dL (2.3-3.5); Magnesium 1.7 mg/dL (1.6-2.4); Phosphorus 2.5 mg/dL (2.5-4.9); Potassium 3.2 mEq/L (3.5-5.1); Protein, Total 5.5 g/dL (6.4-8.2)
[2024-05-17 07:54] LABS: Platelet Estimate DECR; White Blood Cell Scan OK (OK)
[2024-05-17 07:56] LABS: Anisocytosis 2+; Blood Morphology Comment NOTED (NOT SEEN)
[2024-05-17] MEDS ORDERED: NA CHLORIDE 0.9% 250 ML IV SCH (08:00)
[2024-05-17] MEDS: POTASS/SODIUM PHOSPHATE 1 PKT POWD.PACK PO SCH (08:02)
[2024-05-17] MEDS: MAGNESIUM SULFATE 1 gm IVPB 1 GM/100 ML BAG IV ONE (08:02)
[2024-05-17] MEDS: POTASSIUM 25 MEQ EFFERV TAB PO ONE (08:02)
[2024-05-17] MEDS: NA CHLORIDE 0.9% 100 ML ONE (09:30)
[2024-05-17] MEDS: CEFTRIAXONE 1,000 MG in NA CHLORIDE 0.9% 50 ML IVPB SCH (09:58)
--- NOTE | 2024-05-17 10:51 | RAD REPORT ---
EXAMINATION: US BILATERAL LOWER EXTREMITY VENOUS DOPPLER CLINICAL INDICATION: DVT TECHNIQUE: Complete bilateral duplex sonography of the BILATERAL lower extremity veins was performed. The examination included compression for vein patency, color Doppler imaging and flow augmentation in response to distal compression of the distal external iliac, common femoral, femoral, popliteal, t ibial, and great and small saphenous veins. COMPARISON: No prior exam. FINDINGS: Duplex sonography testing of the veins of the BILATERAL lower extremity was performed. Color flow jessica ging shows all veins to be compressible with [id number] color filling. Pulsatile and phasic flow is present within all lower extremity deep and superficial veins examined. IMPRESSION: There is no deep vein or superficial vein thrombosis.
[2024-05-17 12:10] LABS: Hematocrit 29.4 % (36.0-45.0); Hemoglobin 9.3 g/dL (12.0-15.0)
[2024-05-17] MEDS ORDERED: SIMETHICONE 80 MG CHEWABLE TAB PO PRN (22:44)
[2024-05-18] MEDS: DIPHENHYDRAMINE 50 MG/ML VIAL IV ONE (04:00)
[2024-05-18] MEDS: ACETAMINOPHEN 500 MG TAB PO ONE (05:00)
[2024-05-18 06:47] LABS: Absolute Eosinophils 0.4 K/uL (0-0.5); Absolute Lymphocytes (CBC) 0.6 K/uL (0.7-4.9); Absolute Monocytes 0.6 K/uL (0.1-1.3); Absolute Neutrophil 4.3 K/uL (1.8-8.0); Basophils % 0.8 % (0-1.3); Eosinophils % 6.1 % (0-4.4); Hematocrit 25.5 % (36.0-45.0); Hemoglobin 8.4 g/dL (12.0-15.0); Lymphocytes % 9.7 % (15.3-44.8); MCH 31.8 pg (27.0-35.0); MCHC 32.9 g/dL (32.0-36.0); MCV 96.6 fL (80-100); MPV 7.7 fL (7.6-11.3); Monocytes % 10.6 % (3.3-12.3); Neutrophils % 72.8 % (41.7-73.7); Nucleated Red Blood Cells % 0.1 % (0-0); Platelets 135 thou/uL (152-406); RBC Red Blood Cell Count 2.64 M/uL (3.86-4.86); Red Cell Distribution Width 22.2 % (12.1-15.2)
[2024-05-18 07:05] LABS: Albumin 1.7 g/dL (3.4-5.0); Anion Gap 9.1 mEq/L (5.0-15.0); Phosphorus 2.9 mg/dL (2.5-4.9)
[2024-05-18 07:06] LABS: Potassium 4.1 mEq/L (3.5-5.1)
--- NOTE | 2024-05-18 16:04 | P.PN ---
Date of Service: 05/17/24 Subjective ascites improving, daughter at bedside Review of Systems 10-point ROS is otherwise unremarkable Physical Examination - Vital Signs Reviewed - Physical Exam General: awake, alert, responds to verbal, emaciated, frail Respiratory: Diminished, unlabored Cardiovascular: No edema, Other (Anasarca) Capillary refill: <2 Seconds Gastrointestinal: Distended, Ascites, Tenderness, Guarding Musculoskeletal: Other (Left upper and lower extremity fracture) Integumentary: Other (Jaundiced, thin, edematous) Neurological: Other (Bedbound), Abnormal tone, Abnormal affect Lymphatics: No axilla or inguinal lymphadenopathy Urinary: Nunn catheter . Assessment and Plan - Plan Assessment Severe protein calorie malnutrition lasix albumin drip protein calorie supplements Skin protection measures Frequent turning Chronic indwelling Nunn catheter hydronephrosis nunn cath, replace weekly Ascites with pleural effusion Thoracentesis as needed for diagnostic and therapeutic evaluation Ventral hernias with abdominal pain Paracentesis as needed Surgical consult 2 months ago revealed greater risk than benefit Will discuss with family C. difficile colitis Continue oral vancomycin contact precaution Constipation Lactulose added Fracture of left humerus and left femur status post fall Maintain splint Pain control SCDs for prophylaxis Terminal condition family refuses hospice request discharge planning to snf facility Discussed hospice with family If hospice declines, Thora and paracentesis for diagnostic and therapeutic e valuation VTE/GI prophylaxis - Advance Directives Does patient have a Living Will: No Does patient have a Durable POA for Healthcare: No Time with patient 25 minutes <Charleen Dickinson - Last Filed: 05/18/24 15:59> Patient was seen and examined. Events of the last 24 hours have been noted. Spoke with with ANT regarding patient's clinical picture after evaluating and examining the patient independently. I performed a substantial part of the MDM during this patient's care today. I personally made or approved the documented management plan and acknowledge its risk of complications. I agree with the findings and documentation provided in the ANT's notes. <Radha Winkler - Last Filed: 05/19/24 15:21>
--- NOTE | 2024-05-18 16:09 | P.PN ---
Date of Service: 05/16/24 Subjective pain controlled with prn analgesia Review of Systems 10-point ROS is otherwise unremarkable Physical Examination - Vital Signs Reviewed - Physical Exam General: awake, alert, no acute distress noted Respiratory: Diminished, equal unlabored Cardiovascular: No edema, Other Capillary refill: <2 Seconds Gastrointestinal: Distended, Ascites, abominal Tenderness Musculoskeletal: Other (Left upper and lower extremity fracture) Integumentary: Other (Jaundiced, thin, edematous) Neurological: Other (Bedbound), Abnormal tone, Abnormal affect Lymphatics: No axilla or inguinal lymphadenopathy Urinary: Nunn catheter . Assessment and Plan - Plan Assessment Severe protein calorie malnutrition lasix albumin drip protein calorie supplements Skin protection measures Frequent turning Chronic indwelling Nunn catheter hydronephrosis nunn cath, replace weekly Ascites with pleural effusion Thoracentesis as needed for diagnostic and therapeutic evaluation Ventral hernias with abdominal pain Paracentesis as needed Surgical consult 2 months ago revealed greater risk than benefit Will discuss with family C. difficile colitis Continue oral vancomycin contact precaution Constipation Lactulose added Fracture of left humerus and left femur status post fall Maintain splint Pain control SCDs for prophylaxis Terminal condition family refuses hospice request discharge planning to intermediate facility Discussed hospice with family If hospice declines, Thora and paracentesis for diagnostic and therapeutic evaluation VTE/GI prophylaxis - Advance Directives Does patient have a Living Will: No Does patient have a Durable POA for Healthcare: No Time with patient 25 minutes <Charleen Dickinson - Last Filed: 05/18/24 16:10> Patient was seen and examined. Events of the last 24 hours have been noted. Spoke with with ANT regarding patient's clinical picture after evaluating and examining the patient independently. I performed a substantial part of the MDM during this patient's care today. I personally made or approved the documented management plan and acknowledge its risk of complications. I agree with the findings and documentation provided in the ANT's notes. <Radha Winkler - Last Filed: 05/19/24 15:01>
--- NOTE | 2024-05-18 16:15 | P.PN ---
Date of Service: 05/15/24 Subjective reports fever overnight, abdominal tenderness Review of Systems 10-point ROS is otherwise unremarkable Physical Examination - Vital Signs Reviewed - Physical Exam General: awake, alert, afebrile, cachectic Respiratory: Diminished, equal unlabored Cardiovascular: No edema, Other Gastrointestinal: Distended, Ascites, abdominal Tenderness Musculoskeletal: Other (Left upper and lower extremity fracture) Integumentary: Other, thin, edematous) Neurological: Other (Bedbound), Abnormal tone, Abnormal affect Lymphatics: No axilla or inguinal lymphadenopathy Urinary: Nunn catheter . Assessment and Plan - Plan Assessment Severe protein calorie malnutrition lasix albumin drip protein calorie supplements Skin protection measures Frequent turning Chronic indwelling Nunn catheter hydronephrosis nunn cath, replace weekly Ascites with pleural effusion Thoracentesis as needed for diagnostic and therapeutic evaluation Ventral hernias with abdominal pain Paracentesis as needed Surgical consult 2 months ago revealed greater risk than benefit Will discuss with family C. difficile colitis Continue oral vancomycin contact precaution Constipation Lactulose added Fracture of left humerus and left femur status post fall Maintain splint Pain control SCDs for prophylaxis Terminal condition family refuses hospice request discharge planning to group home facility Discussed hospice with family If hospice declines, Thora and paracentesis for diagnostic and therapeutic evaluation VTE/GI prophylaxis - Advance Directives Does patient have a Living Will: No Does patient have a Durable POA for Healthcare: No Time with patient 25 minutes
--- NOTE | 2024-05-18 16:17 | P.PN ---
Date of Service: 05/14/24 Subjective reports fever overnight, abdominal tenderness Review of Systems 10-point ROS is otherwise unremarkable Physical Examination - Vital Signs Reviewed - Physical Exam General: awake, alert, afebrile, cachectic Respiratory: Diminished, equal unlabored Cardiovascular: No edema, Other Gastrointestinal: Distended, Ascites, abdominal Tenderness Musculoskeletal: Other (Left upper and lower extremity fracture) Integumentary: Other, thin, edematous) Neurological: Other (Bedbound), Abnormal tone, Abnormal affect Lymphatics: No axilla or inguinal lymphadenopathy Urinary: Nunn catheter . Assessment and Plan - Plan Assessment Severe protein calorie malnutrition lasix albumin drip protein calorie supplements Skin protection measures Frequent turning acute cystitis Chronic indwelling Nunn catheter hydronephrosis nunn cath, replace weekly started Po bactrim Ascites with pleural effusion Thoracentesis as needed for diagnostic and therapeutic evaluation Ventral hernias with abdominal pain Paracentesis as needed Surgical consult 2 months ago revealed greater risk than benefit Will discuss with family C. difficile colitis Continue oral vancomycin contact precaution Constipation Lactulose added Fracture of left humerus and left femur status post fall Maintain splint Pain control SCDs for prophylaxis Terminal condition family refuses hospice request discharge planning to senior care facility Discussed hospice with family If hospice declines, Thora and paracentesis for diagnostic and therapeutic evaluation VTE/GI prophylaxis - Advance Directives Does patient have a Living Will: No Does patient have a Durable POA for Healthcare: No Time with patient 25 minutes <Charleen Dickinson - Last Filed: 05/18/24 16:24> Patient was seen and examined. Events of the last 24 hours have been noted. Spoke with with ANT regarding patient's clinical picture after evaluating and examining the patient independently. I performed a substantial part of the MDM during this patient's care today. I personally made or approved the documented management plan and acknowledge its risk of complications. I agree with the findings and documentation provided in the ANT's notes. <Radha Winkler - Last Filed: 05/19/24 15:01>
--- NOTE | 2024-05-18 16:30 | P.PN ---
Date of Service: 05/14/24 Subjective reports abdominal pain, has noted ascites Review of Systems 10-point ROS is otherwise unremarkable Physical Examination - Vital Signs Reviewed - Physical Exam General: awake, alert, afebrile, cachectic Respiratory: Diminished, equal unlabored Cardiovascular: No edema, Other Gastrointestinal: Distended, Ascites, abdominal Tenderness Musculoskeletal: Other (Left upper and lower extremity fracture) Integumentary: Other, thin, edematous) Neurological: Other (Bedbound), responds to verbal Urinary: Nunn catheter . Assessment and Plan - Plan Assessment Severe protein calorie malnutrition lasix albumin drip protein calorie supplements Skin protection measures Frequent turning acute cystitis Chronic indwelling Nunn catheter hydronephrosis nunn cath, replace weekly started Po bactrim Ascites with pleural effusion Thoracentesis as needed for diagnostic and therapeutic evaluation Ventral hernias with abdominal pain Paracentesis as needed Surgical consult 2 months ago revealed greater risk than benefit Will discuss with family C. difficile colitis Continue oral vancomycin contact precaution Constipation Lactulose added Fracture of left humerus and left femur status post fall Maintain splint Pain control SCDs for prophylaxis B)LE dopplers IMPRESSION: There is no deep vein or superficial vein thrombosis. Terminal condition family refuses hospice request discharge planning to [facility] Discussed hospice with family If hospice declines, Thora and paracentesis for diagnostic and therapeutic evaluation VTE/GI prophylaxis - Advance Directives Does patient have a Living Will: No Does patient have a Durable POA for Healthcare: No Time with patient 25 minutes <Charleen Dickinson - Last Filed: 05/18/24 16:30> Patient was seen and examined. Events of the last 24 hours have been noted. Spoke with with ANT regarding patient's clinical picture after evaluating and examining the patient independently. I performed a substantial part of the MDM during this patient's care today. I personally made or approved the documented management plan and acknowledge its risk of complications. I agree with the findings and documentation provided in the ANT's notes. <Radha Winkler - Last Filed: 05/19/24 15:01>
[2024-05-18] MEDS: SMZ./TMP. 800/160 MG TABLET PO SCH (21:31)
[2024-05-18] MEDS ORDERED: LORAZEPAM 0.5 MG TABLET PO PRN (22:37)
[2024-05-18] MEDS: MELATONIN 5 MG TABLET PO PRN (23:16)
[2024-05-19 05:52] LABS: Absolute Eosinophils 0.4 K/uL (0-0.5); Absolute Lymphocytes (CBC) 0.6 K/uL (0.7-4.9); Absolute Monocytes 0.6 K/uL (0.1-1.3); Absolute Neutrophil 4.8 K/uL (1.8-8.0); Basophils % 0.6 % (0-1.3); Eosinophils % 6.6 % (0-4.4); Hematocrit 26.5 % (36.0-45.0); Hemoglobin 8.4 g/dL (12.0-15.0); Lymphocytes % 8.7 % (15.3-44.8); MCH 30.8 pg (27.0-35.0); MCHC 31.6 g/dL (32.0-36.0); MCV 97.4 fL (80-100); MPV 7.5 fL (7.6-11.3); Monocytes % 9.9 % (3.3-12.3); Neutrophils % 74.2 % (41.7-73.7); Platelets 145 thou/uL (152-406); RBC Red Blood Cell Count 2.72 M/uL (3.86-4.86); Red Cell Distribution Width 21.6 % (12.1-15.2)
[2024-05-19 06:09] LABS: Albumin 1.7 g/dL (3.4-5.0); Anion Gap 8.8 mEq/L (5.0-15.0); Phosphorus 2.5 mg/dL (2.5-4.9); Potassium 3.8 mEq/L (3.5-5.1)
[2024-05-19] MEDS: POTASSIUM CL SA 10 MEQ TAB PO ONE (06:41)
--- NOTE | 2024-05-19 07:02 | RAD REPORT ---
EXAM: Chest Single View HISTORY: effusion COMPARISON: None recent FINDINGS: LUNGS/PLEURA: Hazy bilateral airspace disease. Probable layering right pleural effusion. MEDIASTINUM: Difficult to assess due to rotation. CARDIAC: Cardiomegaly. UPPER ABDOMEN: No significant abnormality. BONES: Chronic left proximal humerus fracture LINES/TUBES/OTHER: N/A IMPRESSION: Moderate layering right pleural effusion is suspected. A left pleural effusion may be present but the patient's rotation limits evaluation. There may be a background of pulmonary edema though this could also be accentuated by the patient's positioning.
--- NOTE | 2024-05-19 13:51 | P.PN ---
Date of Service: 05/19/24 Subjective Awake, eating breakfast that her daughter is feeding her Discussed hospice vs SNF Continues to perfer SNF Social work working on referral ROS 10 point ROS as noted above, otherwise negative Physical Exam General: awake and alert, conversing, emaciated Respiratory: Diminished, Crackles/rales, on RA Cardiovascular: No edema, Other (Anasarca) Capillary refill: <2 Seconds Gastrointestinal: Distended, Ascites, Tenderness, Guarding Musculoskeletal: Other (Left upper and lower extremity fracture) Integumentary: Other (Jaundiced, thin, edematous), pressure ulcer to buttock Neurological: Other (Bedbound), Abnormal tone, Abnormal affect Lymphatics: No axilla or inguinal lymphadenopathy Urinary: Nunn catheter Vitals Reviewed Problem list Assessment Severe protein calorie malnutrition Chronic indwelling Nunn catheter hydronephrosis acute cystitis with hematuria Ascites with pleural effusion Ventral hernias with abdominal pain C. difficile colitis Constipation Fracture of left humerus and left femur status post fall Assessment and Plan Assessment Severe protein calorie malnutrition lasix albumin drip protein calorie supplements Skin protection measures Frequent turning Chronic indwelling Nunn catheter hydronephrosis acute cystitis with hematuria Continue PO Bactrim nunn cath, replace weekly H/H stable Ascites Right pleural effusion Thoracentesis ordered 05/19 diagnostic and therapeutic evaluation Ventral hernias with abdominal pain Paracentesis as needed Surgical consult 2 months ago revealed greater risk than benefit Will discuss with family C. difficile colitis- Resolving Continue oral vancomycin contact precaution Constipation Lactulose added Fracture of left humerus and left femur status post fall Maintain splint Pain control SCDs for prophylaxis Terminal condition family refuses hospice, request discharge planning to care home facility VTE/GI prophylaxis DVT ppx SCD Code status LOS 2 days <Justina Dukes - Last Filed: 05/19/24 18:14> Severe hypoalbuminemia resulting in ascites and pleural effusion and anasarca can be contributed to presumed protein-losing enteropathic as patient has a minimal proteinuria and urinalysis and no evidence of nephrotic syndrome. Questionable catheter associated UTI with E. coli It could be colonization of bacteria in indwelling Nunn catheter <SHANNON Bush - Last Filed: 05/20/24 06:04>
--- NOTE | 2024-05-19 15:11 | P.PN ---
Date of Service: 05/12/24 Subjective Patient is still very lethargic. Difficult to arouse. Patient not really waking up well. She still with significant fluid overload. Started on aggressive diuresis and along with albumin and Lasix drip. Physical Examination - Vital Signs Reviewed - Physical Exam General: lethargic and difficult to arouse at times Respiratory: basilar crackles bilaterally Cardiovascular: Generalized anasarca in the upper lower extremities Gastrointestinal: Distended, Ascites, abdominal Tenderness Musculoskeletal: generalized weakness with muscular atrophy Integumentary: diffuse anasarca; stage I sacral decubitus Neurological: generalized weakness with lethargy Urinary: Suero catheter . Assessment and Plan - Assessment/Plan Assessment/Plan Severe protein calorie malnutrition Continue with albumin and Lasix drip today; significant amount of urine output; increase nutritional intake with protein supplementation Acute cystitis Chronic indwelling Suero catheter Hydronephrosis continue with oral antibiotic therapy; continue with Suero catheter and strict I's and O's Ascites with pleural effusion will readdress after aggressive diuresing Ventral hernias with abdominal pain patient not a surgical candidate at this time. Continue outpatient follow-up C. difficile colitis Continue oral vancomycin; no diarrhea noted. Continue monitoring contact precaution Fracture of left humerus and left femur status post fall continue with splint placement. -Pain control SCDs for prophylaxis BLE dopplers IMPRESSION: There is no deep vein or superficial vein thrombosis. Patient's family has decided against hospice and they want to try to change to another [facility] to see if patient will get stronger. Needs to increase nutritional input. VTE/GI prophylaxis - Advance Directives Does patient have a Living Will: No Does patient have a Durable POA for Healthcare: No Time with patient 25 minutes <Charleen Dickinson - Last Filed: 05/18/24 16:30> Patient was seen and examined. Events of the last 24 hours have been noted. Spoke with with ANT regarding patient's clinical picture after evaluating and examining the patient independently. I performed a substantial part of the MDM during this patient's care today. I personally made or approved the documented management plan and acknowledge its risk of complications. I agree with the findings and documentation provided in the ANT's notes. <Radha Winkler - Last Filed: 05/19/24 15:01>
--- NOTE | 2024-05-19 15:27 | P.PN ---
Date of Service: 05/18/24 Subjective Pt is an 83-year-old female who comes into the hospital from [facility] very debilitated and malnourished but with diffuse anasarca with ascites and pleural effusions. Patient was pretty much lethargic and not waking up much the 1st couple of days. Removed approximately 15 L of fluid- volume status is improved. She has started to eat better. Albumin is still very low of 1.7. Talk to the family about hospice care and palliative care. The son came in yesterday and wants to see if she can get better. Family does not want to go to the same group home. Working on a different group home placement. If she is strong enough may be able to do thoracentesis and paracentesis this weekIf needed. However, she has been diuresed very aggressively. Will repeat x-ray in a.m... UTI with IV antibiotics for 7 days. Changed over to oral antibiotics. Has stage 2 sacral decubitus.... Family does not want palliative care at this time and they want to try to get [facility] to [facility]. However, they should consider [facility] Physical Examination - Vital Signs Reviewed - Physical Exam General: lethargic and difficult to arouse at times Respiratory: decreased breath sounds at the bases with minimal crackles Cardiovascular: regular rate and rhythm with no murmurs Gastrointestinal: Distended, Ascites, abdominal Tenderness Musculoskeletal: generalized weakness with muscular atrophy Integumentary: diffuse anasarca; stage I sacral decubitus Neurological: generalized weakness with lethargy Urinary: Suero catheter . Assessment and Plan - Assessment/Plan Assessment/Plan Severe protein calorie malnutrition Continue with albumin and Lasix drip today; patient's extremities have decreased in size. Continue with diuresing as tolerated Acute cystitis Chronic indwelling Suero catheter Hydronephrosis continue with oral antibiotic therapy; continue with Suero catheter and strict I's and O's Ascites with pleural effusion will readdress after aggressive diuresing Ventral hernias with abdominal pain patient not a surgical candidate at this time. Continue outpatient follow-up C. difficile colitis Continue oral vancomycin; no diarrhea noted. Continue monitoring contact precaution Fracture of left humerus and left femur status post fall -continue with splint placement. -Pain control SCDs for prophylaxis Patient's family has decided against hospice and they want to try to change to another group home to see if patient will get stronger. Needs to increase nutritional intake VTE/GI prophylaxis - Advance Directives Does patient have a Living Will: No Does patient have a Durable POA for Healthcare: No Time with patient 25 minutes
[2024-05-20 06:34] LABS: Absolute Eosinophils 0.2 K/uL (0-0.5); Absolute Lymphocytes (CBC) 0.6 K/uL (0.7-4.9); Absolute Monocytes 0.7 K/uL (0.1-1.3); Absolute Neutrophil 4.4 K/uL (1.8-8.0); Basophils % 0.8 % (0-1.3); Eosinophils % 3.2 % (0-4.4); Hematocrit 26.5 % (36.0-45.0); Hemoglobin 8.9 g/dL (12.0-15.0); Lymphocytes % 9.9 % (15.3-44.8); MCH 32.4 pg (27.0-35.0); MCHC 33.6 g/dL (32.0-36.0); MCV 96.5 fL (80-100); MPV 7.6 fL (7.6-11.3); Monocytes % 11.5 % (3.3-12.3); Neutrophils % 74.6 % (41.7-73.7); Platelets 181 thou/uL (152-406); RBC Red Blood Cell Count 2.75 M/uL (3.86-4.86); Red Cell Distribution Width 21.6 % (12.1-15.2)
[2024-05-20 06:50] LABS: Phosphorus 2.4 mg/dL (2.5-4.9)
[2024-05-20 08:52] LABS: PT Prothrombin Time 13.4 SECONDS (9.4-12.5); Protime INR 1.2
[2024-05-20] MEDS ORDERED: POTASSIUM PHOS IN 0.9 % NACL 15 MMOL/250 ML BAG IV ONE (09:00)
--- NOTE | 2024-05-20 09:00 | RAD REPORT ---
EXAMINATION: Chest CLINICAL INDICATION: right sided pleural effusion COMPARISON: None. TECHNIQUE: Sonographic grayscale and color flow imaging of the chest. FINDINGS: Sonographic imaging of the right chest was performed for potential thoracentesis. There is mild fluid seen in the right pleural space, however insufficient quantity for percutaneous drainage.
[2024-05-20] MEDS: POTASS/SODIUM PHOSPHATE 1 PKT POWD.PACK PO SCH (11:23)
--- NOTE | 2024-05-20 18:10 | P.PN ---
Date of Service: 05/20/24 Subjective Sleeping, family at the bedside Thoracentesis cancelled due to not enough fluid present and patient positioning awaiting placement, sylwia dewey pending ROS 10 point ROS as noted above, otherwise negative Physical Exam General: Sleeping comfortably, emaciated Respiratory: Diminished R lower lung, on RA Cardiovascular: No edema, Other (Anasarca) Capillary refill: <2 Seconds Gastrointestinal: Distended, Ascites, mild Tenderness Musculoskeletal: Other (Left upper and lower extremity fracture) Integumentary: Other (Jaundiced, thin, edematous), pressure ulcer to buttock Neurological: Other (Bedbound), Abnormal tone, Abnormal affect Lymphatics: No axilla or inguinal lymphadenopathy Urinary: Nunn catheter Vitals Reviewed Problem list Severe hypoalbuminemia 2/2 protein calorie malnutrition Ascites and Right pleural effusion 2/2 severe hypoalbuminemia Chronic indwelling Nunn catheter hydronephrosis acute cystitis with hematuria Ventral hernias with abdominal pain C. difficile colitis-resolving Constipation Fracture of left humerus and left femur status post fall Assessment and Plan Severe hypoalbuminemia 2/2 protein calorie malnutrition Ascites with Right pleural effusion 2/2 severe hypoalbuminemia protein calorie supplements Skin protection measures Frequent turning Thoracentesis ordered 05/19 diagnostic and therapeutic evaluation Chronic indwelling Nunn catheter hydronephrosis acute cystitis with hematuria Continue PO Bactrim nunn cath, replace weekly H/H stable suspect colonization of bacteria of chronic indwelling nunn catheter Ventral hernias with abdominal pain Paracentesis as needed Surgical consult 2 months ago revealed greater risk than benefit Will discuss with family C. difficile colitis- Resolving Continue oral vancomycin contact precaution Constipation Lactulose added Fracture of left humerus and left femur status post fall Maintain splint Pain control SCDs for prophylaxis Terminal condition family refuses hospice, [facility] planning to [facility] DVT ppx SCD Code status LOS 2 days
[2024-05-21 06:02] LABS: Absolute Basophils 0.1 K/uL (0-0.5); Absolute Eosinophils 0.2 K/uL (0-0.5); Absolute Lymphocytes (CBC) 0.6 K/uL (0.7-4.9); Absolute Monocytes 0.5 K/uL (0.1-1.3); Absolute Neutrophil 4.9 K/uL (1.8-8.0); Eosinophils % 3.6 % (0-4.4); Hematocrit 25.8 % (36.0-45.0); Hemoglobin 8.5 g/dL (12.0-15.0); Lymphocytes % 8.8 % (15.3-44.8); MCH 32.1 pg (27.0-35.0); MCHC 33.1 g/dL (32.0-36.0); MPV 7.4 fL (7.6-11.3); Monocytes % 8.7 % (3.3-12.3); Neutrophils % 77.9 % (41.7-73.7); Platelets 173 thou/uL (152-406); RBC Red Blood Cell Count 2.66 M/uL (3.86-4.86); Red Cell Distribution Width 21.3 % (12.1-15.2)
[2024-05-21 07:57] LABS: Anion Gap 6.1 mEq/L (5.0-15.0); Magnesium 2.1 mg/dL (1.6-2.4); Potassium 4.1 mEq/L (3.5-5.1)
[2024-05-21 09:53] LABS: Anisocytosis 1+; Blood Morphology Comment NOTED (NOT SEEN); Platelet Estimate ADEQ; White Blood Cell Scan OK (OK)
--- NOTE | 2024-05-21 17:32 | P.PN ---
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 family at bedside with no question awaiting placement, [facility] auth pending ROS 10 point ROS as noted above, otherwise negative Physical Exam General: Sleeping comfortably, emaciated Respiratory: Diminished R lower lung, on RA Cardiovascular: No edema, Other (Anasarca) Capillary refill: <2 Seconds Gastrointestinal: Distended, Ascites, mild Tenderness Musculoskeletal: Other (Left upper and lower extremity fracture) Integumentary: Other (Jaundiced, thin, edematous), pressure ulcer to buttock Neurological: Other (Bedbound), Abnormal tone, Abnormal affect Lymphatics: No axilla or inguinal lymphadenopathy Urinary: Nunn catheter Vitals Reviewed Problem list Severe hypoalbuminemia 2/2 protein calorie malnutrition Ascites and Right pleural effusion 2/2 severe hypoalbuminemia Chronic indwelling Nunn catheter hydronephrosis acute cystitis with hematuria Ventral hernias with abdominal pain C. difficile colitis-resolving Constipation Fracture of left humerus and left femur status post fall Assessment and Plan Severe hypoalbuminemia 2/2 protein calorie malnutrition Ascites with Right pleural effusion 2/2 severe hypoalbuminemia protein calorie supplements Skin protection measures Frequent turning Thoracentesis ordered 05/19 diagnostic and therapeutic evaluation Chronic indwelling Nunn catheter hydronephrosis acute cystitis with hematuria Continue PO Bactrim nunn cath, replace weekly H/H stable suspect colonization of bacteria of chronic indwelling nunn catheter Ventral hernias with abdominal pain Paracentesis as needed Surgical consult 2 months ago revealed greater risk than benefit Will discuss with family C. difficile colitis- Resolving Continue oral vancomycin contact precaution Constipation Lactulose added Fracture of left humerus and left femur status post fall Maintain splint Pain control SCDs for prophylaxis Terminal condition family refuses hospice, request discharge planning to intermediate facility DVT ppx SCD Code status LOS 2 days
[2024-05-22] MEDS: FENTANYL CITR 100 MCG/2 ML IV PRN (17:49)
--- NOTE | 2024-05-22 19:44 | P.PN ---
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 awaiting placement, markke auth pending ROS 10 point ROS as noted above, otherwise negative Physical Exam General: Sleeping comfortably, emaciated Respiratory: Diminished R lower lung, on RA Cardiovascular: No edema, Other (Anasarca) Capillary refill: <2 Seconds Gastrointestinal: Distended, Ascites, mild Tenderness Musculoskeletal: Other (Left upper and lower extremity fracture), cries with turning Integumentary: Other (Jaundiced, thin, edematous), pressure ulcer to buttock,im proving Neurological: Other (Bedbound), Abnormal tone, Abnormal affect Lymphatics: No axilla or inguinal lymphadenopathy Urinary: Nunn catheter Vitals Reviewed Assessment: Severe hypoalbuminemia 2/2 protein calorie malnutrition Ascites and Right pleural effusion 2/2 severe hypoalbuminemia Chronic indwelling Nunn catheter hydronephrosis acute cystitis with hematuria Ventral hernias with abdominal pain C. difficile colitis-resolving Constipation Fracture of left humerus and left femur status post fall Plan Severe hypoalbuminemia 2/2 protein calorie malnutrition Ascites with Right pleural effusion 2/2 severe hypoalbuminemia protein calorie supplements Skin protection measures Frequent turning Thoracentesis ordered 05/19 diagnostic and therapeutic evaluation - cancelled secondary to lack of fluid volume Chronic indwelling Nunn catheter hydronephrosis acute cystitis with hematuria Continue PO Bactrim x 14d nunn cath, replace weekly H/H stable suspect colonization of bacteria of chronic indwelling nunn catheter Ventral hernias with abdominal pain Paracentesis as needed Surgical consult 2 months ago revealed greater risk than benefit Will discuss with family C. difficile colitis- Resolving oral vancomycin - course completed contact precaution Constipation Lactulose added, loose stools today Fracture of left humerus and left femur status post fall Maintain splint Pain control SCDs for prophylaxis Terminal condition family refuses hospice, request discharge planning to group home facility DVT ppx SCD Code status LOS 2 days
[2024-05-23 07:50] LABS: Absolute Lymphocytes (CBC) 0.3 K/uL (0.7-4.9); Absolute Neutrophil 6.8 K/uL (1.8-8.0); Basophils % 0.1 % (0-1.3); Eosinophils % 0.7 % (0-4.4); Hematocrit 35.9 % (36.0-45.0); Lymphocytes % 4.5 % (15.3-44.8); MCH 31.2 pg (27.0-35.0); MCHC 30.6 g/dL (32.0-36.0); Monocytes % 0.2 % (3.3-12.3); Neutrophils % 94.5 % (41.7-73.7); Platelets 229 thou/uL (152-406); RBC Red Blood Cell Count 3.52 M/uL (3.86-4.86); Red Cell Distribution Width 22.2 % (12.1-15.2)
[2024-05-23 08:09] LABS: Albumin/Globulin Ratio 0.4 (1.1-1.8); Anion Gap 12.1 mEq/L (5.0-15.0); Bilirubin Total 1.6 mg/dL (0.2-1.0); Globulin 5.2 g/dL (2.3-3.5); Potassium 4.1 mEq/L (3.5-5.1); Protein, Total 7.2 g/dL (6.4-8.2)
--- NOTE | 2024-05-23 09:05 | P.PN ---
Date of Service: 05/23/24 Subjective Sleeping awaiting placement - [place] auth pending ROS 10 point ROS as noted above, otherwise negative Physical Exam General: Sleeping comfortably, emaciated but edematous Respiratory: Diminished R lower lung, on RA Cardiovascular: No edema, Other (Anasarca) Capillary refill: <2 Seconds Gastrointestinal: Distended, Ascites, mild Tenderness, hepatomegaly Musculoskeletal: Other (Left upper and lower extremity fracture), cries with turning Integumentary: Other (Jaundiced, thin, edematous), pressure ulcer to buttock, improving. Pictures in chart from 05/18 and 05/22 Neurological: Other (Bedbound), Abnormal tone, Abnormal affect Lymphatics: No axilla or inguinal lymphadenopathy Urinary: Nunn catheter Vitals Reviewed Assessment: Severe hypoalbuminemia 2/2 protein calorie malnutrition Ascites and Right pleural effusion 2/2 severe hypoalbuminemia Chronic indwelling Nunn catheter hydronephrosis acute cystitis with hematuria Ventral hernias with abdominal pain C. difficile colitis-resolving Constipation Fracture of left humerus and left femur status post fall Plan Severe hypoalbuminemia 2/2 protein calorie malnutrition Ascites with Right pleural effusion 2/2 severe hypoalbuminemia protein calorie supplements Skin protection measures Frequent turning/offloading Chronic indwelling Nunn catheter hydronephrosis acute cystitis with hematuria Continue PO Bactrim x 14d nunn cath, replace weekly H/H stable suspect colonization of bacteria of chronic indwelling nunn catheter Ventral hernias with abdominal pain Paracentesis as needed Surgical consult 2 months ago revealed greater risk than benefit Discussed with family on admission and last week C. difficile colitis- Resolving oral vancomycin - course completed contact precaution Constipation Lactulose added, loose stools today 05/22/2024, fecal management system as needed secondary to sacral wound Fracture of left humerus and left femur status post fall Maintain sling Pain control SCDs for prophylaxis Terminal condition family refuses hospice, request discharge planning to [place] Awaiting auth for SNF DVT ppx SCD Code status LOS 2 days
[2024-05-23] MEDS: ACETAMINOPHEN 160 MG/5 ML UCUP PO ONE (09:08)
--- NOTE | 2024-05-23 09:15 | P.PN ---
Late entry: pt with 103 temperature today at 0830. Will order Flu, covid, rsv, blood culture, and obtain CXR. If negative will start IV Vanco and Rocephin and d/c oral bactrim.
--- NOTE | 2024-05-23 10:13 | RAD REPORT ---
EXAMINATION: ONE VIEW CHEST XR CLINICAL INDICATION: fever TECHNIQUE: Frontal chest projection is submitted. Examination is limited by patient positioning and t echnique. COMPARISON: 05/19/2024 FINDINGS: Haziness in the right lung base likely attributable to mild to moderate pleural effusion, mildly less prominent relative to prior study. Emphysematous changes are noted throughout the lung lew. The heart is normal in size. Deformity of the proximal left humerus, chronic. IMPRESSION: Mild improvement in right lung aeration suspected with persistent right pleural effusion noted.
[2024-05-23 11:19] LABS: SARS-CoV-2 Antigen CONTROL BLUE LINE VIS/BG OK
[2024-05-23 11:24] LABS: SARS-CoV-2 Antigen Rapid Res Positive (Negative)
--- NOTE | 2024-05-23 14:10 | P.PN ---
Date of Service: 05/23/24 Late entry: pt with 103 temperature today at 0830. Will order Flu, covid, rsv, blood culture, and obtain CXR. If negative will start IV Vanco and Rocephin and d/c oral bactrim. Will continue Bactrim, Pleural effusion looks decreased, RSV and Flu negative, but pt is CoVid positive. Will place on isolation precautions. Pt may be discha rged to SNF when 48 hours fever free and blood cultures preliminarily negative.
--- NOTE | 2024-05-23 16:35 | P.DS ---
Admission Date: 05/11/24 Discharge Date: 05/25/24 Disposition: TRANSFER TO CORRECTION Discharge Condition: FAIR Reason for Admission: abdominal pain Brief History of Present Illness: Ms. Negin Greene is an 83-year-old female who was seen at this facility in March of this year with a past medical history of CVA, colitis, colon cancer, colectomy with reanastomosis, hypertension, congestive heart failure, moderate bilateral hydroureteronephrosis, . In the interim, at some point, she fell and has a left femur fracture and a left 2 part humeral fracture and was admitted to [facility] on 05/09/2024 with an additional diagnosis of C. difficile colitis. She was sent per EMS to the ED for complaint of abdominal pain. Labs in ED significant for a hemoglobin/hematocrit of 8.1/26.3, platelets 318. Creatinine and electrolytes essentially normal, AST 100, ALT 57, alk phos greater than 1 thousand, T. bili 0.8, significant hypoalbuminemia at 1.4, troponin 85.2, lactate negative at 1.7, urine with greater than 50 urine white blood cells, 2+ nitrites, and greater than [address] abdomen and pelvis with contrast impression "1. Pronounced anasarca with new moderate right greater than left pleural effusions, moderate ascites, and pronounced body wall edema. 2. Several bowel containing right lateral ventral hernias without high-grade obstruction however there could be a partial obstruction as some of the small bowel is borderline dilated upstream from the hernias. 3. Large volume of stool in the proximal colon. 4. Unchanged moderate right hydronephrosis. Left hydronephrosis has improved." At bedside patient is obtunded, jaundiced, with anasarca, tenderness to the abdomen which is generalized. Left arm in sling, pillows beneath bilateral knees, ecchymosis to chin. She is poorly responsive but opens her eyes to gentle palpation, oriented to name. [facility] contacted for more patient information and information on daughter listed as patient's contact. They have no record of her name or number. There is a consult to [facility] hospice but it is unclear whether this has been discussed with family. We will admit her for serial assessments and continued treatment of C. difficile with contact isolations while awaiting family. Of note on the 03/2024 admission, a surgical consult was obtained for hernia repair and the patient's advanced age and condition precluded any surgery as the risks are higher than the benefit. Hospital Course: Ms. Negin Greene was C diff positive and completed oral vancomycin treatment. Colonization of jail indwelling catheter We have been treating the urinary infection with Bactrim. We will continue this for a course length of 14 days. Sacral wound Wound continues to improve with po antibiotics and offloading measures. CoVid Patient started with 103 fever on the morning of 05/23/24. Blood culture obtained with a negative preliminary reading 05/25/24, CXR performed that showed an improvement in the right pleural effiusion, and viral swabs positive for CoVid. Patient otherwise not symptomatic. Authorization for SNF obtained and I discussed with social work supervisor pending course. She discussed with SNF and pt is clear to be transferred to [facility], room 31. Clinical and PASSR faxed to: [address] [address] P:[phone]/F:[phone] Vital Signs/Physical Exam: Temp Pulse Resp BP Pulse Ox 98.6 F 98 H 21 H 112/55 L 97 05/23/24 12:00 05/23/24 12:00 05/23/24 12:00 05/23/24 12:00 05/23/24 12:00 General: Alert, In no apparent distress, Cachectic HEENT: Atraumatic, Normocephalic Neck: Supple Respiratory: Normal air movement Capillary refill: <2 Seconds Gastrointestinal: Other (large ventral hernia), Distended, Hepatosplenomegaly Musculoskeletal: No clubbing Integumentary: Pressure ulcer, Other (sacral) Neurological: Normal speech, Abnormal tone, Abnormal affect Lymphatics: No axilla or inguinal lymphadenopathy External genitalia: Deferred Rectal: Deferred Laboratory Data at Discharge: WBC 7.20 thou/uL (4.3-10.9) 05/23/24 07:36 Hgb 11.0 g/dL (12.0-15.0) L 05/23/24 07:36 Hct 35.9 % (36.0-45.0) L 05/23/24 07:36 Plt Count 229 thou/uL (152-406) 05/23/24 07:36 PT 13.4 SECONDS (9.4-12.5) H 05/20/24 08:36 INR 1.20 05/20/24 08:36 APTT 28.8 SECONDS (24.3-36.9) 05/11/24 15:40 Sodium 131 mEq/L (136-145) L 05/23/24 07:36 Potassium 4.1 mEq/L (3.5-5.1) 05/23/24 07:36 BUN 24 mg/dL (7-18) H 05/23/24 07:36 Creatinine 0.68 mg/dL (0.55-1.02) 05/23/24 07:36 Glucose 120 mg/dL (74-106) H 05/23/24 07:36 Phosphorus 3.0 mg/dL (2.5-4.9) 05/21/24 07:31 Magnesium 2.0 mg/dL (1.6-2.4) 05/23/24 07:36 Total Bilirubin 1.6 mg/dL (0.2-1.0) H 05/23/24 07:36 AST 167 U/L (15-37) H 05/23/24 07:36 ALT 101 U/L (13-56) H 05/23/24 07:36 Alkaline Phosphatase 1391 U/L (45-117) H 05/23/24 07:36 Lipase 30 U/L (13-75) 05/11/24 13:21 Home Medications: Acetaminophen [Tylenol] 650 mg PO Q6H PRN 05/11/24 Acetaminophen with Codeine [Acetaminophen-Cod #3 Tablet] 30 mg PO Q6H PRN 05/11/24 Atorvastatin Calcium [Lipitor*] 20 mg PO DAILY 05/11/24 Famotidine [Pepcid AC] 20 mg PO BID 05/11/24 Gabapentin [Neurontin*] 100 mg PO BEDTIME 05/11/24 Lactobacillus Acidophilus [Acidophilus] 1 each PO DAILY 05/11/24 Lactulose 20 gm PO BID 05/11/24 Potassium Phos,Q-Rasig-H-Basic [Xorfdi-Njgb-Q] 280 mg PO BID 05/11/24 Zinc Oxide [Zinc Oxide 20%] 1 syeda TOP BID PRN 05/11/24 methocarbamoL [Methocarbamol] 500 mg PO Q6H 05/11/24 Albuterol Neb [Proventil 0.083% Neb Soln] 2.5 mg NEB [id number] PRN #2 box 05/25/24 Ensure High Protein 237 ml PO BID #28 can 05/25/24 Matthew [Matthew*] 1 pkt PO BID #28 pkt 05/25/24 Loperamide [Imodium*] 2 mg PO Q6H PRN #30 cap 05/25/24 Smz./Tmp. [Bactrim Ds 800 MG/160 MG*] 1 tab PO BID #15 tab 05/25/24 New Medications: Smz./Tmp. [Bactrim Ds 800 MG/160 MG*] 1 tab PO BID #15 tab Ensure High Protein 237 ml PO BID #28 can Loperamide [Imodium*] 2 mg PO Q6H PRN #30 cap PRN Reason: Diarrhea Matthew [Matthew*] 1 pkt PO BID #28 pkt Albuterol Neb [Proventil 0.083% Neb Soln] 2.5 mg NEB [id number] PRN #2 box PRN Reason: Shortness Of Breath Diet: mince/mois Activity: frequent turning, offloading Followup: Nancy Valderrama MD [Primary Care Provider] -
--- NOTE | 2024-05-24 08:46 | P.PN ---
Date of Service: 05/24/24 Subjective awaiting placement, [place] auth pending, asking for coffee Pt was febrile yesterday. CoVid +, awaiting prelim blood cultures and fever free state x 24h prior to transfer to SNF ROS 10 point ROS as noted above, otherwise negative Physical Exam General: alert, emaciated Respiratory: Diminished R lower lung, on RA Cardiovascular: RRR Capillary refill: <2 Seconds Gastrointestinal: Distended, Ascites, mild Tenderness right upper quad Musculoskeletal: Other (Left upper and lower extremity fracture), cries with turning Integumentary: Other (Jaundiced, thin, edematous), pressure ulcer to buttock, improving Neurological: Other (Bedbound), Abnormal tone, Abnormal affect Lymphatics: No axilla or inguinal lymphadenopathy Urinary: Nunn catheter (changed weekly) Vitals Reviewed Assessment: Severe hypoalbuminemia 2/2 protein calorie malnutrition Ascites and Right pleural effusion 2/2 severe hypoalbuminemia Chronic indwelling Nunn catheter hydronephrosis acute cystitis with hematuria Ventral hernias with abdominal pain C. difficile colitis-resolving Constipation Fracture of left humerus and left femur status post fall Plan Severe hypoalbuminemia 2/2 protein calorie malnutrition Ascites with Right pleural effusion 2/2 severe hypoalbuminemia protein calorie supplements Skin protection measures Frequent turning Thoracentesis ordered 05/19 diagnostic and therapeutic evaluation - cancelled secondary to lack of fluid volume Chronic indwelling Nunn catheter hydronephrosis acute cystitis with hematuria Continue PO Bactrim x 14d nunn cath, replace weekly H/H stable suspect colonization of bacteria of chronic indwelling nunn catheter Ventral hernias with abdominal pain Paracentesis as needed Surgical consult 2 months ago revealed greater risk than benefit Will discuss with family C. difficile colitis- Resolving oral vancomycin - course completed contact precaution Constipation soft stool Fracture of left humerus and left femur status post fall Maintain splint Pain control SCDs for prophylaxis CoVid + observe, fever management RSV and Flu negative Blood cultures drawn 05/23/24 - await prelim - if negative - discharge to SNF Terminal condition family refuses hospice, request discharge planning to halfway facility DVT ppx SCD Code status LOS 2 days
[2024-05-24] MEDS: LOPERAMIDE HCL 2 MG CAPSULE PO PRN (20:46)
--- NOTE | 2024-05-25 07:54 | P.PN ---
Date of Service: 05/25/24 Subjective awaiting placement, [place] auth pending Pt was febrile yesterday. CoVid +, prelim blood cultures negative, fever free state x 24h ROS 10 point ROS as noted above, otherwise negative Physical Exam General: alert, emaciated Respiratory: Diminished R lower lung, on RA Cardiovascular: RRR Capillary refill: <2 Seconds Gastrointestinal: Distended, Ascites, mild Tenderness right upper quad Musculoskeletal: Other (Left upper and lower extremity fracture), cries with turning Integumentary: Other (Jaundiced, thin, edematous), pressure ulcer to buttock, improving Neurological: Other (Bedbound), Abnormal tone, Abnormal affect Lymphatics: No axilla or inguinal lymphadenopathy Urinary: Nunn catheter (changed weekly) Vitals Reviewed Assessment: Severe hypoalbuminemia 2/2 protein calorie malnutrition Ascites and Right pleural effusion 2/2 severe hypoalbuminemia Chronic indwelling Nunn catheter hydronephrosis acute cystitis with hematuria Ventral hernias with abdominal pain C. difficile colitis-resolving Constipation Fracture of left humerus and left femur status post fall Plan Severe hypoalbuminemia 2/2 protein calorie malnutrition Ascites with Right pleural effusion 2/2 severe hypoalbuminemia protein calorie supplements Skin protection measures Frequent turning Thoracentesis ordered 05/19 diagnostic and therapeutic evaluation - cancelled secondary to lack of fluid volume Chronic indwelling Nunn catheter hydronephrosis acute cystitis with hematuria Continue PO Bactrim x 14d nunn cath, replace weekly H/H stable suspect colonization of bacteria of chronic indwelling nunn catheter Ventral hernias with abdominal pain Paracentesis as needed Surgical consult 2 months ago revealed greater risk than benefit Will discuss with family C. difficile colitis- Resolving oral vancomycin - course completed contact precaution Constipation soft stool Fracture of left humerus and left femur status post fall Maintain splint Pain control SCDs for prophylaxis CoVid + observe, fever management RSV and Flu negative Blood cultures drawn 05/23/24 - await prelim - if negative - discharge to SNF Terminal condition family refuses hospice, request discharge planning to fpc facility Discharge to SNF DVT ppx SCD Code status LOS 2 days
[2024-05-25 12:53] VITALS: O2SAT 96
[2024-05-25 16:43] VITALS: BP 104/56; TEMP 97.6
== END 2024-05-25 18:43 | DRG 371 ==
LOC: ER 12:06 → ERHOLD 15:47 → 2ND 19:26
PROVIDERS: ADMIT Internal Medicine; ATTEND Internal Medicine
PROC: 0T9B70Z Drainage of Bladder with Drainage Device, Via Natural or Artificial Opening (ICD-10-PCS; principal; 2024-05-11)
DX: A04.72 Enterocolitis due to Clostridium difficile, not specified as recurrent (principal); E43 Unspecified severe protein-calorie malnutrition; U07.1 COVID-19; I21.4 Non-ST elevation (NSTEMI) myocardial infarction; K43.6 Other and unspecified ventral hernia with obstruction, without gangrene; R18.8 Other ascites; N13.6 Pyonephrosis; Z68.1 Body mass index [BMI] 19.9 or less, adult; J91.8 Pleural effusion in other conditions classified elsewhere; R64 Cachexia; E88.09 Other disorders of plasma-protein metabolism, not elsewhere classified; K76.82 Hepatic encephalopathy; K59.00 Constipation, unspecified; E78.00 Pure hypercholesterolemia, unspecified; I10 Essential (primary) hypertension; K74.60 Unspecified cirrhosis of liver; L89.309 Pressure ulcer of unspecified buttock, unspecified stage; S42.302D Unspecified fracture of shaft of humerus, left arm, subsequent encounter for fracture with routine healing; S72.92XD Unspecified fracture of left femur, subsequent encounter for closed fracture with routine healing; B96.20 Unspecified Escherichia coli [E. coli] as the cause of diseases classified elsewhere; Z66 Do not resuscitate; Z88.6 Allergy status to analgesic agent; Z74.01 Bed confinement status; Z86.73 Personal history of transient ischemic attack (TIA), and cerebral infarction without residual deficits; Z90.49 Acquired absence of other specified parts of digestive tract; Z79.899 Other long term (current) drug therapy; Z85.038 Personal history of other malignant neoplasm of large intestine
CPT/HCPCS: 36415; 71045; 74177; 76604; 80048; 80053; 80069; 81001; 82140; 82947; 83605; 83690; 83735; 83880; 84100; 84132; 84145; 84484; 85014; 85018; 85025; 85027; 85610; 85730; 86850; 86860; 86870; 86880; 86900; 86901; 86905; 86920; 86922; 86972; 87040; 87077; 87086; 87088; 87186; 87804; 87807; 87811; 93005; 93970; 94760; 96365; 97110; 97112; 97161; 97530; 99285; J0690; J1200; J2405; J2470; J2543; J3010; J3475; J7613; J7799; P9047; Q9967

== ENCOUNTER 2024-06-01 09:20 | Emergency (ER) | payer OTHER ==
[2024-06-01] MEDS ORDERED: FENTANYL CITR 100 MCG/2 ML ONE ×2 (10:44→15:09)
[2024-06-01 10:51] LABS: Absolute Eosinophils 0.2 K/uL (0-0.5); Absolute Lymphocytes (CBC) 0.6 K/uL (0.7-4.9); Absolute Monocytes 0.3 K/uL (0.1-1.3); Absolute Neutrophil 10.2 K/uL (1.8-8.0); Basophils % 0.4 % (0-1.3); Eosinophils % 1.8 % (0-4.4); Hematocrit 33.2 % (36.0-45.0); Hemoglobin 10.4 g/dL (12.0-15.0); Lymphocytes % 5.2 % (15.3-44.8); MCH 30.9 pg (27.0-35.0); MCHC 31.2 g/dL (32.0-36.0); MPV 7.1 fL (7.6-11.3); Monocytes % 2.9 % (3.3-12.3); Neutrophils % 89.7 % (41.7-73.7); Platelets 279 thou/uL (152-406); RBC Red Blood Cell Count 3.35 M/uL (3.86-4.86)
[2024-06-01 11:13] LABS: Albumin 1.7 g/dL (3.4-5.0); Albumin/Globulin Ratio 0.3 (1.1-1.8); Anion Gap 10.1 mEq/L (5.0-15.0); Bilirubin Direct 0.5 mg/dL (0-0.2); Bilirubin Indirect, Calculated 0.4 mg/dL (0.2-0.8); Bilirubin Total 0.9 mg/dL (0.2-1.0); Globulin 5.1 g/dL (2.3-3.5); Potassium 4.1 mEq/L (3.5-5.1); Protein, Total 6.8 g/dL (6.4-8.2)
[2024-06-01 11:18] LABS: Sqamous Epithelial <5 /HPF (None Seen); Transitional Epithelial <5 /HPF (None Seen); Urine Bacteria 20-50 /HPF (<20); Urine Bilirubin NEGATIVE (Negative); Urine Blood 1+ (Negative); Urine Clarity Extremely Turbid (Clear); Urine Color Yellow (Yellow); Urine Culture Reflex Order REFLEXED; Urine Glucose NEGATIVE (Negative); Urine Ketones NEGATIVE (Negative); Urine Microscopic Reflex YN ORDER UMIC; Urine Mucus Slight /HPF (None Seen); Urine Nitrite NEGATIVE (Negative); Urine Protein NEGATIVE (Negative); Urine RBC 21-50 /HPF (None Seen); Urine Urobilinogen Normal (Normal); Urine WBC 20-50 /HPF (<5); Urine Yeast (Budding) Many /HPF (None Seen)
[2024-06-01 11:22] LABS: PT Prothrombin Time 13.5 SECONDS (9.4-12.5); PTT, Activated Partial Thromb 30.2 SECONDS (24.3-36.9); Protime INR 1.21
[2024-06-01 11:23] LABS: Barbiturates NEGATIVE (NEGATIVE); Benzodiazepines NEGATIVE (NEGATIVE); Cocaine NEGATIVE (NEGATIVE); METHAMPHETAM NEGATIVE (NEGATIVE); Methadone NEGATIVE (NEGATIVE); Opiates NEGATIVE (NEGATIVE); Phencyclidine NEGATIVE (NEGATIVE); THC Cannibis NEGATIVE (NEGATIVE)
[2024-06-01 11:57] LABS: Anisocytosis 1+; Blood Morphology Comment NOTED (NOT SEEN); Platelet Estimate ADEQ; White Blood Cell Scan OK (OK)
--- NOTE | 2024-06-01 12:51 | RAD REPORT ---
EXAMINATION: CT ABDOMEN AND PELVIS WITH CONTRAST CLINICAL INDICATION: Female, 83 years old.back pain, UTI;Abd pain TECHNIQUE: CT abdomen and pelvis was performed, after the administration of IV contrast, as per [facility] protocol. Axial, sagittal and coronal reconstructions were obtained. One or more of the following dose reduction techniques were used: Automated exposure control, adjustment of the mA and/o r kV according to patient size, and/or iterative reconstruction. Unless otherwise specified, incidental findings do not require dedicated imaging follow-up. [id number]. COMPARISON: 05/11/2024 FINDINGS: LOWER CHEST: Moderate to large right and small left pleural effusion. There is likely associated atel ectasis.No significant pericardial effusion. Multivessel coronary artery calcifications. UPPER GI: No significant abnormality. LIVER: No significant focal abnormality. GALLBLADDER/BILE DUCTS: Cholelithiasis without CT evidence of acute cholecystitis.?Mild extrahepatic biliary duct dilatation is likely within normal limits given the patient's age. PANCREAS: Atrophy, but otherwise unremarkable. SPLEEN: Mild splenomegaly. ADRENALS: No adrenal masses. KIDNEYS AND URETERS: No hydronephrosis.Low density and/or too small to characterize renal lesions whi ch are statistically benign. ABDOMINAL AORTA AND OTHER VESSELS: Moderate atherosclerotic changes without aortic aneurysm. PERITONEUM: Free fluid is present. Gas and fluid containing collection in the pelvis arising from the anterior wall of the rectum. LYMPH NODES: No pathologic lymphadenopathy. ABDOMINAL WALL: Anasarca. Right lateral ventral hernia containing large portions of the bowel. Large volume of stool in the colon. SMALL BOWEL/COLON: Suspected fistula from the lower third of the rectum to the vagina. URINARY BLADDER: The bladder is decompressed around a Suero catheter. REPRODUCTIVE ORGANS: Uterus surgically absent. Colovaginal fistula. MUSCULOSKELETAL: Lower thoracic and lumbar compression fractures which are unchanged. Moderate to sev ere degenerative disc disease. Left hip ORIF. No new acute osseous abnormality identified. Remote rib fractures. ADDITIONAL FINDINGS: None. IMPRESSION: 1. 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 2. Anasarca including ascites. 3. Additional incidental findings as noted above.
--- NOTE | 2024-06-01 13:10 | ER ---
Nurse's Notes [facility] Name: Gayla Greene Age: 83 yrs Sex: Female : 1940 Arrival Date: 06/01/2024 Time: 09:20 Bed 15 Private MD: Diagnosis: Low back pain-chronic;UTI/ Urinary tract infection, site not specified Presentation: 06/01 09:32 Chief complaint: USP RNJose states that patient has chronic low back ss pain, which is usually relieved with Tylenol and Methocarbamol, but it is not helping today. Coronavirus screen: Client denies travel out of the [place] in the last 14 days. Ebola Screen: Patient denies exposure to infectious person. Patient denies travel to an Ebola-affected area in the 21 days before illness onset. Initial Sepsis Screen: Does the patient meet any 2 criteria? No. Patient's initial sepsis screen is negative. Does the patient have a suspected source of infection? No. Patient's initial sepsis screen is negative. Risk Assessment: Do you want to hurt yourself or someone else? Patient reports no desire to harm self or others. Note Today is reportedly last required day of isolation for CDIFF and COVID. Onset of symptoms was June 01, 2024. 09:32 Method Of Arrival: EMS: [facility] 09:32 Acuity: TOMY 3 ss Historical: - Allergies: 09:34 Aspirin; ss - PMHx: 09:34 abdominal hernia (Unknown); cirrhosis of liver; colon cancer; Congestive heart failure; ss Hypercholesterolemia; Hypertensive disorder; Osteopenia; - PSHx: 09:34 hernia repair (en); ss - Immunization history:: Adult Immunizations up to date. - Infectious Disease History:: Denies. - Social history:: Smoking status: . Screenin:37 [facility] ED Fall Risk Assessment (Adult) History of falling in the last 3 months, hb including since admission No falls in past 3 months (0 pts) Confusion or Disorientation Yes (5 pts) Intoxicated or Sedated No (0 pts) Impaired Gait Yes (1 pt) Mobility Assist Device Used Yes (1 pt) Altered Elimination Yes (1 pt) Score/Fall Risk Level 3 or more points = High Risk Oriented to surroundings, Maintained a safe environment, Educated pt \T\ family on fall prevention, incl call for assistance when getting out of bed. Abuse screen: Denies threats or abuse. Denies injuries from another. Nutritional screening: No deficits noted. Tuberculosis screening: No symptoms or risk factors identified. Assessment: 11:00 Reassessment: Patient appears in no apparent distress at this time. No changes from hb previously documented assessment. 13:50 Reassessment: Suero catheter noted to be dislodged, replaced with 16F, tolerated well. hb 14:02 Reassessment: Report celled to Compa MILLER at [facility], awaiting transport hb at this time. Vital Signs: 09:32 BP 129 / 66; Pulse 81; Resp 18; Temp 97.6; Pulse Ox 100% on R/A; Pain 10/10; ss 09:32 Pain Scale: Adult ss ED Course: 09:24 Patient arrived in ED. sb4 09:24 Mercy White PA-C is PHCP. sb4 09:24 Livan Kline MD is Attending Physician. sb4 09:34 Triage completed. ss 09:34 Arm band placed on right wrist. ss 10:41 AMMONIA Sent. ss 10:42 Acetaminophen Sent. ss 10:42 Basic Metabolic Panel Sent. ss 10:42 CBC with Diff Sent. ss 10:42 Hepatic Function Sent. ss 10:42 PT-INR Sent. ss 10:42 Ptt, Activated Sent. ss 10:42 Accessed peripheral vein via ultrasound, utilizing dynamic ultrasound technique using ss 20G Nexia IV catheter ,sterile technique, per hospital protocol. Clean \T\ dry. Dressing intact. Good blood return. Flushes easily. 11:02 Urine Drug Screen Sent. hb 11:02 Urinalysis w/ reflexes Sent. hb 12:37 Patient has correct armband on for positive identification. Bed in low position. Call hb light in reach. Provided Education on: use of call light . 12:39 CT Abd/Pelvis - IV Contrast Only In Process Unspecified. EDMS 13:35 Cleaned of incontinence. Linen changed. hb 14:00 Cleaned of incontinence. Linen changed. hb 14:00 Suero cath inserted, using sterile technique, 16 Fr., by wy, balloon inflated, to hb gravity drainage. 14:28 Dressings: Adaptic X 1; coccyx. hb 14:31 No provider procedures requiring assistance completed. IV discontinued, intact, hb bleeding controlled, No redness/swelling at site. Pressure dressing applied. Administered Medications: 10:55 Drug: fentaNYL (PF) IVP 25 mcg IVP once Route: IVP; Site: right upper arm; hb 11:00 Follow up: Response: No adverse reaction hb 15:12 Drug: fentaNYL (PF) IVP 25 mcg IVP once Route: IVP; Site: right upper arm; hb 15:12 Follow up: Response: Medication administered at discharge. hb Medication: 14:31 VIS not applicable for this client. hb Outcome: 13:10 Discharge ordered by MD. [email or web address] 14:31 Discharged to long-term. Report called to Compa MILLERobstetrician and gynaecologist form completed. hb 14:31 Condition: stable 14:31 Discharge instructions given to patient, family, Instructed on discharge instructions, follow up and referral plans. medication usage, wound care, Demonstrated understanding of instructions, follow-up care, medications, wound care, Prescriptions given X 2, 15:15 Patient left the ED. Addendum: 06/04/2024 14:13 Addendum: Culture Results: Positive urine culture. No further action required. Bacteria j l7 sensitive to prescribed antibiotic. Signatures: Dispatcher [employer] EDMA Pilar Zamora RN RN ss Aruna Amos RN RN Cristina Maria RN RN Mercy Churchill PA-C PA-C sb4 Corrections: (The following items were deleted from the chart) 06/01 14:31 14:28 Reassessment: hb hb
--- NOTE | 2024-06-01 13:10 | EDPHYS ---
Physician Documentation [facility] Name: Gayla Greene Age: 83 yrs Sex: Female : 1940 Arrival Date: 06/01/2024 Time: 09:20 Bed 15 Private MD: ED Physician Livan Kline HPI: 06/01 09:41 This 83 yrs old Female presents to ER via EMS with complaints of Back Pain. sb4 09:45 patient has multiple chronic compression vertebral fractures in which she takes tylenol sb4 and robaxin daily. daughter was visiting this morning and stated that she was in more pain than usual and wanted her send to the ED for evaluation. patient is bahraini speaking only and is uncooperative limiting H\T\P. patient is very frail and chronically ill appearing- has a left sling in place as well as a nunn catheter draining yellow urine. Historical: - Allergies: 09:34 Aspirin; ss - PMHx: 09:34 abdominal hernia (Unknown); cirrhosis of liver; colon cancer; Congestive heart failure; ss Hypercholesterolemia; Hypertensive disorder; Osteopenia; - PSHx: 09:34 hernia repair (en); ss - Immunization history:: Adult Immunizations up to date. - Infectious Disease History:: Denies. - Social history:: Smoking status: . ROS: 09:46 Unable to obtain ROS due to altered mental status, patient being uncooperative, sb4 Exam: 09:46 Respiratory: No increased work of breathing, no retractions or nasal flaring. sb4 09:46 Constitutional: The patient appears agitated, emaciated, frail, restless, uncomfortable, unkempt, 13:43 : a nunn is noted, urine is clear, yellow, sb4 13:43 Skin: sacral pressure ulcer, un-stageable . 13:43 Neuro: Mentation: no acute changes, per family, Vital Signs: 09:32 BP 129 / 66; Pulse 81; Resp 18; Temp 97.6; Pulse Ox 100% on R/A; Pain 10/10; ss 09:32 Pain Scale: Adult ss MDM: 09:24 Medical Screening Exam initiated sb4 13:43 Data reviewed: vital signs, nurses notes, EMS record, long term records, lab test sb4 result(s), radiologic studies, and as a result, I will discharge patient. Historians other than the Patient: Daughter/Son: daughter. Counseling: I had a detailed discussion with the patient and/or guardian regarding the historical points, exam findings, and any diagnostic results supporting the discharge/admit diagnosis, lab results, radiology results, to return to the emergency department if symptoms worsen or persist or if there are any questions or concerns that arise at home. Special discussion: I discussed with the patient/guardian in detail that at this point there is no indication for admission to the hospital. It is understood, however, that if the symptoms persist or worsen the patient needs to return immediately for re-evaluation. ED course: Daughter is unhappy with the care that patient is receiving at [facility]. She wants her to be sent to a different facility. I explained to her that we are unable to manage that in the emergency department. I will provide her with the case management phone number here as she worked with them prior to get her arranged at [facility]. I discussed with daughter that she is not having any emergent problem at this time. I did recommend hospice or pain management for better pain control. Additionally, I did discuss with daughter regarding her poor prognosis with all of her chronic health problems but she does not want to pursue hospice at this time. She wants to get her healthy enough to bring her back to [place]. 06/01 09:25 Order name: Acetaminophen; Complete Time: 11:26 sb4 06/01 09:25 Order name: Basic Metabolic Panel; Complete Time: 11:26 sb4 06/01 09:25 Order name: CBC with Diff; Complete Time: 11:58 sb4 06/01 09:25 Order name: Hepatic Function; Complete Time: 11:26 sb4 06/01 09:25 Order name: PT-INR; Complete Time: 11:26 sb4 06/01 09:25 Order name: Ptt, Activated; Complete Time: 11:26 sb4 06/01 09:25 Order name: Urinalysis w/ reflexes; Complete Time: 11:19 sb4 06/01 09:25 Order name: Urine Drug Screen; Complete Time: 11:26 sb4 06/01 09:25 Order name: AMMONIA; Complete Time: 11:07 sb4 06/01 11:21 Order name: Urine Culture EDMS 06/01 11:57 Order name: CBC Smear Scan; Complete Time: 11:58 EDMS 06/01 11:20 Order name: CT Abd/Pelvis - IV Contrast Only; Complete Time: 12:54 sb4 06/01 09:25 Order name: IV Saline Lock; Complete Time: 10:41 sb4 06/01 09:25 Order name: Labs collected and sent; Complete Time: 10:41 sb4 06/01 10:56 Order name: Labs - recollect needed: recollect the blue top/ hemolyzed per Kasandra; eb Complete Time: 11:09 Administered Medications: 10:55 Drug: fentaNYL (PF) IVP 25 mcg IVP once Route: IVP; Site: right upper arm; hb 11:00 Follow up: Response: No adverse reaction hb 15:12 Drug: fentaNYL (PF) IVP 25 mcg IVP once Route: IVP; Site: right upper arm; hb 15:12 Follow up: Response: Medication administered at discharge. hb Disposition: 13:46 Chart complete. sb4 19:33 Co-signature as Attending Physician, Livan Kline MD I reviewed the patient's care rn provided by the Advanced Practice Provider and agree with the diagnosis and treatment plan. Disposition Summary: 06/01/24 13:10 Discharge Ordered Notes: Location: Home sb4 Problem: an ongoing problem sb4 Symptoms: have improved sb4 Condition: Stable sb4 Diagnosis - Low back pain - chronic sb4 - UTI/ Urinary tract infection, site not specified sb4 Followup: sb4 - With: Private Physician - When: As needed - Reason: Recheck today's complaints, Re-evaluation by your physician Discharge Instructions: - Discharge Summary Sheet sb4 - Chronic Back Pain sb4 - Indwelling Urinary Catheter Care, Adult sb4 Forms: - Antibiotic Education sb4 - Patient Portal Instructions sb4 - Leadership Thank You Letter sb4 Prescriptions: - acetaminophen 650 mg Oral tablet, extended release - take 2 tablet ORAL route every 8 hours as needed for pain; 30 tablet; Refills: sb4 0, Product Selection Permitted - Cipro 500 mg Oral Tablet - take 1 tablet ORAL route every 12 hours for 7 days; 14 tablet; Refills: 0, sb4 Product Selection Permitted Signatures: Dispatcher [employer] Livan Espinal MD MD rn Blanchard, Shelby, RN RN Aruna Amos RN RN Hanna Rutledge Sophia, PA-C PA-C sb4 Corrections: (The following items were deleted from the chart) 09:46 09:45 patient has multiple chronic compression vertebral fractures in which she takes sb4 tylenol and robaxin daily. daughter was visiting this morning and stated that she was in more pain than usual and wanted her send to the ED for evaluation. patient is bahraini speaking only and is uncooperative limiting H\T\P. sb4 13:44 09:46 Constitutional: The patient appears agitated, emaciated, frail, restless, sb4 uncomfortable, unkempt, sb4
[2024-06-01 15:25] VITALS: BP 129/66; TEMP 97.6; O2SAT 100
== END 2024-06-01 15:15 | disposition home or self-care (01) ==
LOC: ER 09:20
DX: N39.0 Urinary tract infection, site not specified (principal)
CPT/HCPCS: 87088; 85025; 81001; 87086; 80048; 36415; 82140; 85610; 80076; 85730; 87077; 87186; 80307; 74177; 51702; 96374; 99285; 80143; Q9967; J3010 ×2

== ENCOUNTER 2024-06-12 15:52 | Inpatient (IN) | payer OTHER ==
[2024-06-12 17:23] LABS: Absolute Basophils 0.1 K/uL (0-0.5); Absolute Eosinophils 0.4 K/uL (0-0.5); Absolute Lymphocytes (CBC) 0.5 K/uL (0.7-4.9); Absolute Monocytes 0.5 K/uL (0.1-1.3); Absolute Neutrophil 6.2 K/uL (1.8-8.0); Basophils % 0.8 % (0-1.3); Eosinophils % 5.4 % (0-4.4); Hematocrit 33.7 % (36.0-45.0); Hemoglobin 10.8 g/dL (12.0-15.0); Lymphocytes % 7.1 % (15.3-44.8); MCH 30.9 pg (27.0-35.0); MCHC 32.1 g/dL (32.0-36.0); MCV 96.4 fL (80-100); MPV 7.2 fL (7.6-11.3); Monocytes % 6.2 % (3.3-12.3); Neutrophils % 80.5 % (41.7-73.7); Nucleated Red Blood Cells % 0.1 % (0-0); Platelets 285 thou/uL (152-406); RBC Red Blood Cell Count 3.49 M/uL (3.86-4.86); Red Cell Distribution Width 18.2 % (12.1-15.2)
[2024-06-12 17:30] LABS: Albumin 1.6 g/dL (3.4-5.0); Albumin/Globulin Ratio 0.3 (1.1-1.8); Anion Gap 8.2 mEq/L (5.0-15.0); Bilirubin Total 0.5 mg/dL (0.2-1.0); Potassium 4.2 mEq/L (3.5-5.1); Protein, Total 6.6 g/dL (6.4-8.2)
--- NOTE | 2024-06-12 17:56 | RAD REPORT ---
EXAMINATION: ONE VIEW CHEST XR CLINICAL INDICATION: COUGH TECHNIQUE: Frontal chest projection is submitted. Examination is limited by patient positioning and t echnique. COMPARISON: 05/23/2024 FINDINGS: Moderate opacification of the right lung, moderately worse relative to prior study. This probably rep resents a combination of infiltrate and right pleural fluid. Left lung is emphysematous. Heart is moderately enlarged. Chronically moderately displaced fracture proximal left humerus. Significant ost eopenia.
--- NOTE | 2024-06-12 18:08 | EDPHYS ---
Physician Documentation [facility] Name: Gayla Greene Age: 83 yrs Sex: Female : 1940 Arrival Date: 06/12/2024 Time: 15:52 Bed 20 Private MD: ED Physician Livan Kline HPI: 06/12 16:38 This 83 yrs old Female presents to ER via EMS with complaints of cough. rn 16:38 The patient or guardian reports cough. Onset: The symptoms/episode began/occurred 1 rn week(s) ago. Severity of symptoms: At their worst the symptoms were mild, in the emergency department the symptoms are unchanged. Modifying factors: The symptoms are alleviated by nothing, the symptoms are aggravated by nothing. The patient has experienced similar episodes in the past. Patient brought in by EMS from [facility] for evaluation of pneumonia. Patient has been coughing with nonproductive cough for 1 week, reports mild shortness of breath. [facility] obtained an x-ray today that shows right lower lobe infiltrate. Patient has recurrent pneumonia, bedbound.. Historical: - Allergies: 16:03 Aspirin; ap3 - PMHx: 16:03 abdominal hernia (Unknown); cirrhosis of liver; colon cancer; Congestive heart failure; ap3 Hypercholesterolemia; Hypertensive disorder; Osteopenia; - PSHx: 16:03 hernia repair; ap3 - Immunization history:: Adult Immunizations unknown. - Infectious Disease History:: Denies. - Social history:: Smoking status: unknown. - Family history:: not pertinent. - Hospitalizations: : No recent hospitalization is reported. ROS: 16:38 Constitutional: Negative for fever, chills, and weight loss, Cardiovascular: Negative rn for chest pain, palpitations, and edema, Respiratory: Positive for cough and mild shortness of breath Abdomen/GI: Negative for abdominal pain, nausea, vomiting, diarrhea, and constipation, MS/Extremity: Negative for injury and deformity, Neuro: Negative for headache, weakness, numbness, tingling, and seizure, Exam: 16:38 Constitutional: This is a well developed, well nourished patient who is awake, alert, rn and in no acute distress. Cardiovascular: Regular rate and rhythm . No pulse deficits. Respiratory: Mild tachypnea. Diminished breath sounds at bases. Abdomen/GI: Soft, non-tender Neuro: Awake and alert, GCS 15 16:44 ECG was reviewed by the Attending Physician. rn Vital Signs: 15:57 BP 128 / 56; Pulse 75; Resp 15; Temp 97.8(A); Pulse Ox 94% on R/A; ap3 18:00 BP 123 / 66; Pulse 78; Resp 10; Pulse Ox 99% ; ko1 22:05 BP 128 / 78; Pulse 75; Resp 18; Pulse Ox 95% ; br2 MDM: 15:57 Medical Screening Exam initiated rn 18:06 Differential Diagnosis: Bronchitis Viral Syndrome Pneumonia Other pleural effusion, rn pneumonia, CHF. Data reviewed: vital signs, nurses notes, lab test result(s), EKG, radiologic studies, plain films, and as a result, I will admit patient. Consideration of Admission/Observation Patient was admitted/placed on observation. Escalation of care including admission/observation considered. Care significantly affected by the following chronic conditions: Congestive Heart Failure, Liver Disease. Counseling: I had a detailed discussion with the patient and/or guardian regarding the historical points, exam findings, and any diagnostic results supporting the discharge/admit diagnosis, lab results, radiology results, the need for further work-up and treatment in the hospital. ED course: X-ray images here show infiltrate right lower lobe along with her chronic pleural effusion. Patient likely combination of congestive heart failure/pulmonary edema with pneumonia. Normal lactate. Will admit to hospitalist service for antibiotics and further treatment of pneumonia. 06/12 15:57 Order name: Blood Culture Adult (2) rn 06/12 15:57 Order name: CBC with Diff; Complete Time: 17:29 rn 06/12 15:57 Order name: CMP; Complete Time: 17:30 rn 06/12 15:57 Order name: Lactate w/ 2H reflex if indic.; Complete Time: 17:36 rn 06/12 15:57 Order name: Protime (+inr); Complete Time: 22:08 rn 06/12 15:57 Order name: Ptt, Activated; Complete Time: 22:08 rn 06/12 18:52 Order name: Flu; Complete Time: 22:08 ap3 06/12 18:52 Order name: SARS RAPID; Complete Time: 22:08 ap3 06/12 18:52 Order name: RSV; Complete Time: 22:08 ap3 06/12 22:04 Order name: Urinalysis w/ reflexes EDMS 06/12 22:04 Order name: CBC with Automated Diff EDMS 06/12 22:04 Order name: CBC with Automated Diff EDMS 06/12 22:04 Order name: Comprehensive Metabolic Panel EDMS 06/12 22:04 Order name: Comprehensive Metabolic Panel EDMS 06/12 15:57 Order name: Chest Single View XRAY; Complete Time: 17:58 rn 06/12 18:52 Order name: Chest Abdomen Pelvis W Con CT; Complete Time: 22:08 ap3 06/12 15:57 Order name: Accucheck; Complete Time: 18:13 rn 06/12 15:57 Order name: Cardiac monitoring; Complete Time: 16:04 rn 06/12 15:57 Order name: EKG - Nurse/Tech; Complete Time: 16:24 rn 06/12 15:57 Order name: IV Saline Lock - Large Bore; Complete Time: 17:08 rn 06/12 15:57 Order name: Labs collected and sent; Complete Time: 17:08 rn 06/12 15:57 Order name: O2 Per Protocol; Complete Time: 16:04 rn 06/12 15:57 Order name: O2 Sat Monitoring; Complete Time: 16:04 rn 06/12 15:57 Order name: Vital Signs; Complete Time: 16:04 rn 06/12 17:17 Order name: Labs - recollect needed: recollect blue top please; Complete Time: 17:41 em1 EC:44 Rate is 72 beats/min. QRS [place] is Normal. QRS interval is normal. QT interval is rn normal. No Q waves. T waves are Normal. T waves are Inverted in leads V4, V5, V6. Clinical impression: NSR w/ Non-specific ST/T Changes. Administered Medications: 17:45 CANCELLED (Duplicate Order): [id number] mg 150 ml IVPB once over 90 mins rn 18:15 Drug: Rocephin IV 1 grams IV at calculated rate once; Given slow IV push per pharmacy ko1 instructions Route: IV; Rate: calculated rate; Site: left antecubital; 18:30 Follow up: Response: No adverse reaction; IV Status: Completed infusion; IV Intake: [id number] 18:25 Drug: Zithromax IVPB 500 mg IVPB once over 1 hrs; mix in 250 mL NS Route: IVPB; Infused ko1 Over: 1 hrs; Site: left antecubital; 18:41 Follow up: IV Status: Infusion continued upon admission ko1 Disposition Summary: 06/12/24 18:07 Hospitalization Ordered Notes: Hospitalization Status: Inpatient Admission rn Provider: Volodymyr Roland rn Location: Telemetry/MedSurg (Inpatient) rn Condition: Stable rn Problem: new rn Symptoms: are unchanged rn Bed/Room Type: Standard rn Room Assignment: 218(06/12/24 22:39) [facility] Diagnosis - Pneumonia, unspecified organism rn - Pleural effusion, not elsewhere classified rn - Unspecified combined systolic (congestive) and diastolic (congestive) heart failure rn Forms: - Medication Reconciliation Form rn - SBAR form rn - Leadership Thank You Letter rn Signatures: Dispatcher [employer] EDMS Livan Kline MD MD rn Martinez, Eric em1 Kat Quinn RN PAUL [email or web address] Davida Prince RN RN ko1 Elliott Anderson MD MD sp4 Leah Clay [facility] Corrections: (The following items were deleted from the chart) 15:58 15:58 BLOOD CULTURE*+BA.LAB.BRZ ordered. EDMS EDMS 15:58 15:58 CBC+H.LAB.BRZ ordered. EDMS EDMS 15:58 15:58 COMPREHENSIVE METABOLIC PANEL+C.LAB.BRZ ordered. EDMS EDMS 15:58 15:58 LACTATE+C.LAB.BRZ ordered. EDMS EDMS 15:58 15:58 PROTIME (+INR)+COAG.LAB.BRZ ordered. EDMS EDMS 15:58 15:58 PTT, ACTIVATED+COAG.LAB.BRZ ordered. EDMS EDMS 15:58 15:58 Chest Single View+RAD.RAD.BRZ ordered. EDMS EDMS 17:45 17:44 levofloxacin IVPB 750 mg 150 ml IVPB once over 90 mins ordered. rn rn 18:53 18:53 Influenza Screen (A \T\ B)+BA.LAB.BRZ ordered. EDMS EDMS 18:53 18:53 SARS-COV-2 Antigen Rapid+I.LAB.BRZ ordered. EDMS EDMS 18:53 18:53 Respiratory Syncytial Virus Ag+BA.LAB.BRZ ordered. EDMS EDMS 18:53 18:53 Chest Abdomen Pelvis W Con+CT.RAD.BRZ ordered. EDMS EDMS 21:16 21:04 Chest Abdomen Pelvis W Con+CT.RAD.BRZ ordered. EDMS EDMS 22:39 18:07 rn kmf
--- NOTE | 2024-06-12 18:08 | ER ---
Nurse's Notes [facility] Name: Gayla Greene Age: 83 yrs Sex: Female : 1940 Arrival Date: 06/12/2024 Time: 15:52 Bed 20 Private MD: Diagnosis: Pneumonia, unspecified organism;Pleural effusion, not elsewhere classified;Unspecified combined systolic (congestive) and diastolic (congestive) heart failure Presentation: 06/12 16:00 Chief complaint: EMS states: they were called to the [facility] for a patient who had ap3 been complaining of "chest heaviness for a few days". Coronavirus screen: Client presents with at least one sign or symptom that may indicate coronavirus-19. Ebola Screen: No symptoms or risks identified at this time. Initial Sepsis Screen: Does the patient meet any 2 criteria? No. Patient's initial sepsis screen is negative. Does the patient have a suspected source of infection? No. Patient's initial sepsis screen is negative. Risk Assessment: Do you want to hurt yourself or someone else? Patient reports no desire to harm self or others. Onset of symptoms is unknown. 16:00 Method Of Arrival: EMS: [facility] ap3 16:00 Acuity: TOMY 3 ap3 Triage Assessment: 16:03 General: Appears comfortable, Behavior is calm. Neuro: Level of Consciousness is awake, ap3 alert. Cardiovascular: Patient's skin is warm and dry. Respiratory: Airway is patent Respiratory effort is even, unlabored, Respiratory pattern is regular, symmetrical. : Suero in place to gravity drainage. Historical: - Allergies: 16:03 Aspirin; ap3 - PMHx: 16:03 abdominal hernia (Unknown); cirrhosis of liver; colon cancer; Congestive heart failure; ap3 Hypercholesterolemia; Hypertensive disorder; Osteopenia; - PSHx: 16:03 hernia repair; ap3 - Immunization history:: Adult Immunizations unknown. - Infectious Disease History:: Denies. - Social history:: Smoking status: unknown. - Family history:: not pertinent. - Hospitalizations: : No recent hospitalization is reported. Screenin:00 [facility] ED Fall Risk Assessment (Adult) History of falling in the last 3 months, ko1 including since admission No falls in past 3 months (0 pts) Confusion or Disorientation No (0 pts) Intoxicated or Sedated No (0 pts) Impaired Gait Yes (1 pt) Mobility Assist Device Used Yes (1 pt) Altered Elimination Yes (1 pt) Score/Fall Risk Level 3 or more points = High Risk Oriented to surroundings, Maintained a safe environment, Educated pt \\T\\ family on fall prevention, incl call for assistance when getting out of bed, Assessed \\T\\ reinforced patient's understanding of fall precautions, Hourly rounding (assess needs \\T\\ fall precautionary measures) done, Used ambulatory aids as needed (educated on \\T\\ assisted with), Implemented a Fall Risk Plan of Care, Apply high fall risk patient identification: yellow non skid footwear/ fall signage, Remained w/in arm's length of patient and in sight while toileting, Offered frequent toileting (1:1 observation), Remained with patient while ambulating, Utilized family, sitter, or virtual sole conditioner as indicated. Abuse screen: Denies threats or abuse. Denies injuries from another. Nutritional screening: No deficits noted. Tuberculosis screening: No symptoms or risk factors identified. Assessment: 17:00 General: Appears ill, Behavior is calm. Pain: Complains of pain in chest. Neuro: No ko1 deficits noted. Cardiovascular: Reports chest pain. Respiratory: No deficits noted. GI: No deficits noted. No signs and/or symptoms were reported involving the gastrointestinal system. : No deficits noted. No signs and/or symptoms were reported regarding the genitourinary system. EENT: No deficits noted. No signs and/or symptoms were reported regarding the EENT system. Derm: No deficits noted. No signs and/or symptoms reported regarding the dermatologic system. Musculoskeletal: No deficits noted. No signs and/or symptoms reported regarding the musculoskeletal system. 19:20 Reassessment: Patient and/or family updated on plan of care and expected duration. Pain br2 level reassessed. Patient is alert, oriented x 3, equal unlabored respirations, skin warm/dry/pink. General: Appears in no apparent distress. comfortable, Behavior is calm. Vital Signs: 15:57 BP 128 / 56; Pulse 75; Resp 15; Temp 97.8(A); Pulse Ox 94% on R/A; ap3 18:00 BP 123 / 66; Pulse 78; Resp 10; Pulse Ox 99% ; ko1 22:05 BP 128 / 78; Pulse 75; Resp 18; Pulse Ox 95% ; br2 ED Course: 15:56 Patient arrived in ED. ap3 15:57 Livan Kline MD is Attending Physician. rn 16:01 Davida Prince RN is Primary Nurse. ko1 16:03 Triage completed. ap3 16:04 Client placed on continuous cardiac and pulse oximetry monitoring. NIBP monitoring ap3 applied. automatic door mechanic on. Pulse ox on. NIBP on. 17:08 Blood Culture Adult (2) Sent. ss 17:08 CBC with Diff Sent. ss 17:08 CMP Sent. ss 17:08 Lactate w/ 2H reflex if indic. Sent. ss 17:08 Protime (+inr) Sent. ss 17:08 Ptt, Activated Sent. ss 17:08 Inserted saline lock: 22 gauge in left antecubital area, using aseptic technique. Blood ss collected. Flushed with 10 mL NS. 17:52 Chest Single View XRAY In Process Unspecified. EDMS 18:00 Patient has correct armband on for positive identification. Allergy band placed. Fall ko1 risk band placed. Placed in gown. Bed in low position. Call light in reach. Side rails up X2. Provided Education on: labs, tests. Door closed. Noise minimized. Lights dimmed. 18:00 No provider procedures requiring assistance completed. ko1 18:06 Volodymyr Roland MD is Hospitalizing Provider. rn 18:40 Arm band placed on right wrist. Patient placed in an exam room, on a stretcher, Patient ko1 notified of wait time. 18:40 Patient admitted, IV remains in place. ko1 21:17 Chest Abdomen Pelvis W Con CT In Process Unspecified. EDMS 22:14 Report received from PAUL RODRIGUEZ. br2 Administered Medications: 17:45 CANCELLED (Duplicate Order): mg 150 ml IVPB once over 90 mins rn 18:15 Drug: Rocephin IV 1 grams IV at calculated rate once; Given slow IV push per pharmacy ko1 instructions Route: IV; Rate: calculated rate; Site: left antecubital; 18:30 Follow up: Response: No adverse reaction; IV Status: Completed infusion; IV Intake: [id number] 18:25 Drug: Zithromax IVPB 500 mg IVPB once over 1 hrs; mix in 250 mL NS Route: IVPB; Infused ko1 Over: 1 hrs; Site: left antecubital; 18:41 Follow up: IV Status: Infusion continued upon admission ko1 Medication: 18:00 VIS not applicable for this client. ko1 Intake: 18:30 IV: 10ml; Total: 10ml. ko1 Outcome: 18:07 Decision to Hospitalize by Provider. rn 18:40 Condition: stable ko1 18:40 Instructed on the need for admit, 23:40 Admitted to Med/surg accompanied by nurse, via stretcher, room 218, br2 23:40 Patient left the ED. br2 Signatures: Dispatcher [employer] EDMS Livan Kline MD MD rn Blanchard, Shelby, RN RN ss Kat Quinn RN RN ap3 Davida Prince RN RN ko1 Susana Bob RN RN br2 Corrections: (The following items were deleted from the chart) 18:38 17:00 BP 123 / 66; Pulse 78bpm; Resp 10bpm; Pulse Ox 99%; ko1 ko1
[2024-06-12] MEDS ORDERED: AZITHROMYCIN 500 MG INJ IVPB ONE (18:14)
[2024-06-12] MEDS ORDERED: CEFTRIAXONE 1000 MG/VIAL ONE (18:14)
[2024-06-12] MEDS ORDERED: NA CHLORIDE 0.9% 250 ML ONE (18:15)
[2024-06-12 19:37] LABS: PT Prothrombin Time 13.5 SECONDS (9.4-12.5); Protime INR 1.21
[2024-06-12 19:54] LABS: PTT, Activated Partial Thromb 26.4 SECONDS (24.3-36.9)
[2024-06-12 19:55] LABS: SARS-CoV-2 Antigen CONTROL BLUE LINE VIS/BG OK
[2024-06-12 19:56] LABS: SARS-CoV-2 Antigen Rapid Res Positive (Negative)
--- NOTE | 2024-06-12 21:26 | RAD REPORT ---
EXAM: CT CHEST, ABDOMEN AND PELVIS WITH CONTRAST CLINICAL INDICATION: PLEURAL EFFUSION, RECTOVAGINAL FISTULA TECHNIQUE: CT chest, abdomen and pelvis was performed, following the administration of contrast, as p er department protocol. Axial, sagittal and coronal reconstructions were obtained. One or more of the following dose reduction techniques were used: Automated exposure control, adjustment of the mA a nd/or kV according to patient size, and/or iterative reconstruction. Unless otherwise specified, incidental findings do not require dedicated imaging follow-up. COMPARISON: No prior exam. FINDINGS: LUNGS: Mild to moderate atelectasis in the right lung base. PLEURA: Small left and moderate to large right pleural effusion. MEDIASTINUM AND LYMPH NODES: No mediastinal mass or fluid collection. Normal size mediastinal, hilar, and axillary lymph nodes. OSSEOUS STRUCTURES AND CHEST WALL: Intact. LIVER: Normal in size and contour. No focal lesion or biliary dilatation. Grossly unremarkable gallbl adder. PANCREAS: No mass, ductal dilation, or kristine-pancreatic fluid. SPLEEN: Normal size. No focal lesion. ADRENALS: Normal; no mass. KIDNEYS: Normal size and contour. No hydronephrosis. URINARY BLADDER: Normal contour. GASTROINTESTINAL TRACT: No bowel obstruction, free air, significant free fluid or abscess. Several moderate to large ventral hernias are present, moderate amount of colon within the hernia. Moderate stool is present within the colon. APPENDIX: Appendix surgically absent. LYMPH NODES: No lymphadenopathy. MUSCULOSKELETAL: Multiple significant wedge compression fractures affect the thoracic and lumbar leve ls. OTHER: Mild ascites is present. Changes of rectovaginal fistula noted. IMPRESSION: Moderate to large right pleural effusion and small left pleural effusion. Mild ascites. Multiple large ventral hernias.: Involvement is primarily present within the hernia sacs. A small barber unt of small intestine is also present. A bowel obstruction is seen. There is significant retained stool within the colon loops in the hernia sac. Multiple presumed chronic osteoporotic wedge compression fractures.
--- NOTE | 2024-06-12 21:50 | P.HP ---
Certification for Inpatient Patient admitted to: Inpatient With expected LOS: >2 Midnights Practitioner: I am a practitioner with admitting privileges, knowledge of patient current condition, hospital course, and medical plan of care. Services: Services provided to patient in accordance with Admission requirements found in Title 42 Section 412.3 of the Code of Federal Regulations Patient History Date of Service: 06/12/24 Reason for admission: cough, sob History of Present Illness: 83-year-old female who was last seen in this facility May 11, 2024 with a history of CVA, colitis, C. difficile, colon cancer, colectomy, CHF, history of hydroureteronephrosis, COVID presents complaints of cough and shortness of breath. Patient is a poor historian. Patient was noted to have a positive COVID-19 screen. Also a moderate to large pleural effusion. She was brought in from [facility] for evaluation for pneumonia. She does have history of recurrent pneumonia. Allergies ibuprofen [From Advil] Allergy (Verified 03/11/24 07:31) unknown aspirin Adverse Reaction (Verified 03/11/24 07:31) unknown Home Medications: Acetaminophen [Tylenol] 650 mg PO Q6H PRN 05/11/24 Acetaminophen with Codeine [Acetaminophen-Cod #3 Tablet] 30 mg PO Q6H PRN 05/11/24 Atorvastatin Calcium [Lipitor*] 20 mg PO DAILY 05/11/24 Famotidine [Pepcid AC] 20 mg PO BID 05/11/24 Gabapentin [Neurontin*] 100 mg PO BEDTIME 05/11/24 Lactobacillus Acidophilus [Acidophilus] 1 each PO DAILY 05/11/24 Lactulose 20 gm PO BID 05/11/24 Potassium Phos,P-Zncss-T-Basic [Nqgwao-Cwjh-L] 280 mg PO BID 05/11/24 Zinc Oxide [Zinc Oxide 20%] 1 syeda TOP BID PRN 05/11/24 methocarbamoL [Methocarbamol] 500 mg PO Q6H 05/11/24 Albuterol Neb [Proventil 0.083% Neb Soln] 2.5 mg NEB [id number] PRN #2 box 05/25/24 Ensure High Protein 237 ml PO BID #28 can 05/25/24 Matthew [Matthew*] 1 pkt PO BID #28 pkt 05/25/24 Loperamide [Imodium*] 2 mg PO Q6H PRN #30 cap 05/25/24 Smz./Tmp. [Bactrim Ds 800 MG/160 MG*] 1 tab PO BID #15 tab 05/25/24 - Past Medical/Surgical History Diabetic: No -: Colon Cancer -: CHF -: HTN -: HLD -: Colitis -: CVA -: Partial Colectomy -: Colostomy and reversal Psychosocial/ Personal History: Patient is from [place]. - Social History Alcohol use: No CD- Drugs: No Caffeine use: No Review of Systems 10-point ROS is otherwise unremarkable Physical Examination - Physical Exam General: Cooperative, Cachectic HEENT: Atraumatic, Normocephalic Respiratory: Diminished Cardiovascular: Regular rate/rhythm Gastrointestinal: Soft and benign Musculoskeletal: Other - Studies Laboratory Data (last 24 hrs) 06/12/24 06/12/24 06/12/24 17:35 16:58 16:58 WBC 7.70 Hgb 10.8 L Hct 33.7 L Plt Count 285 PT 13.5 H INR 1.21 APTT 26.4 Sodium 134 L Potassium 4.2 BUN 10 Creatinine 0.38 L Glucose 119 H Total Bilirubin 0.5 AST 68 H ALT 34 Alkaline Phosphatase 997 H Microbiology Data (last 24 hrs): 06/12/24 19:27 Nasopharnyx Respiratory Syncytial Virus Ag Scrn - Final 06/12/24 19:27 Nasopharnyx Influenza Type A Antigen Screen - Final 06/12/24 19:27 Nasopharnyx Influenza Type B Antigen Screen - Final Assessment and Plan - Problems (Diagnosis) (1) Pleural effusion Current Visit: Yes Status: Acute (2) COVID Current Visit: Yes Status: Acute (3) Ventral hernia Current Visit: No Status: Acute (4) Congestive heart failure Current Visit: No Status: Chronic Qualifiers: (5) Hypertension Current Visit: No Status: Chronic Qualifiers: - Plan 83-year-old female presents from [facility] with complaints of cough and shortness of breath #pleural effusion -IV lasix -may need radiology consult for thoracentesis in AM #Pneumonia -add azithromycin and rocephin #covid 19 -recent diagnosis -not on O2, #elevated alkaline phosphatase -check fractionated alk phos -ct abdomen pelvis done #history of CHF -await med rec #left humerus fracture -chronic, not good surgical candidate - Advance Directives Does patient have a Living Will: No Does patient have a Durable POA for Healthcare: Yes
[2024-06-12] MEDS ORDERED: ALBUTEROL 2.5 MG/3 ML NEB SOL NEB PRN ×2 (21:58→22:14)
[2024-06-12] MEDS ORDERED: MAGNESIUM HYDROXIDE 8% 30 ML PO PRN (21:58)
[2024-06-12] MEDS ORDERED: CEFTRIAXONE 1,000 MG in NA CHLORIDE 0.9% 50 ML IVPB SCH (22:00)
[2024-06-12] MEDS ORDERED: AZITHROMYCIN 1 GM PACKET PO SCH (23:00)
[2024-06-13] MEDS: FUROSEMIDE 20 MG/ 2ML VIAL ONE (00:13)
[2024-06-13] MEDS: FUROSEMIDE 20 MG/ 2ML VIAL IV SCH ×2 (00:20→22:09)
[2024-06-13] MEDS: MORPHINE 2 MG/ML SYR IV ONE (00:45)
[2024-06-13 01:10] LABS: Specific Gravity > 1.030 (1.005-1.030); Sqamous Epithelial <5 /HPF (None Seen); Urine Bacteria <20 /HPF (<20); Urine Bilirubin NEGATIVE (Negative); Urine Blood 1+ (Negative); Urine Clarity Extremely Turbid (Clear); Urine Color Light-Yellow (Yellow); Urine Crystals Unidentified Few /HPF (None Seen); Urine Culture Reflex Order REFLEXED; Urine Glucose NEGATIVE (Negative); Urine Ketones NEGATIVE (Negative); Urine Microscopic Reflex YN ORDER UMIC; Urine Mucus Slight /HPF (None Seen); Urine Nitrite NEGATIVE (Negative); Urine Protein NEGATIVE (Negative); Urine Urobilinogen Normal (Normal); Urine WBC >50 /HPF (<5); Urine WBC Clump Few /HPF (None Seen); Urine Yeast (Budding) Many /HPF (None Seen); Urine pH 5.5 (5.0-7.0)
[2024-06-13 06:03] LABS: Absolute Basophils 0.1 K/uL (0-0.5); Absolute Eosinophils 0.2 K/uL (0-0.5); Absolute Lymphocytes (CBC) 0.6 K/uL (0.7-4.9); Absolute Monocytes 0.6 K/uL (0.1-1.3); Absolute Neutrophil 7.2 K/uL (1.8-8.0); Basophils % 0.8 % (0-1.3); Eosinophils % 2.8 % (0-4.4); Hemoglobin 11.2 g/dL (12.0-15.0); Lymphocytes % 6.6 % (15.3-44.8); MCH 30.9 pg (27.0-35.0); MCHC 32.8 g/dL (32.0-36.0); MCV 94.2 fL (80-100); MPV 6.6 fL (7.6-11.3); Monocytes % 6.7 % (3.3-12.3); Neutrophils % 83.1 % (41.7-73.7); Platelets 305 thou/uL (152-406); RBC Red Blood Cell Count 3.61 M/uL (3.86-4.86); Red Cell Distribution Width 18.3 % (12.1-15.2)
[2024-06-13 06:25] LABS: Albumin 1.6 g/dL (3.4-5.0); Albumin/Globulin Ratio 0.3 (1.1-1.8); Anion Gap 9.6 mEq/L (5.0-15.0); Bilirubin Total 0.6 mg/dL (0.2-1.0); Globulin 4.9 g/dL (2.3-3.5); Potassium 3.6 mEq/L (3.5-5.1); Protein, Total 6.5 g/dL (6.4-8.2)
[2024-06-13] MEDS: CEFTRIAXONE 1,000 MG in NA CHLORIDE 0.9% 50 ML IVPB SCH (09:00)
[2024-06-13] MEDS: ENOXAPARIN 40 MG/0.4 ML SQ SCH (09:00)
[2024-06-13] MEDS: AZITHROMYCIN IV 500 MG in NA CHLORIDE 0.9% 250 ML IVPB SCH (10:00)
[2024-06-13] MEDS: PIPER TAZO 3.375 GM in NA CHLORIDE 0.9% 100 ML IV SCH (13:00)
--- NOTE | 2024-06-13 17:00 | P.PN ---
Subjective Date of Service: 06/13/24 Chief Complaint: cough, sob Patient is Kyrgyz-speaking. She report no changes in her shortness of breath. No recorded fever. Physical Examination - Vital Signs Temperature: 98.1 F Blood Pressure: 117/56 Pulse: 86 Respirations: 14 Pulse Ox (%): 92 - Studies Laboratory Data (last 24 hrs) 06/12/24 06/12/24 06/12/24 17:35 16:58 16:58 WBC 7.70 Hgb 10.8 L Hct 33.7 L Plt Count 285 PT 13.5 H INR 1.21 APTT 26.4 Sodium 134 L Potassium 4.2 BUN 10 Creatinine 0.38 L Glucose 119 H Total Bilirubin 0.5 AST 68 H ALT 34 Alkaline Phosphatase 997 H Microbiology Data (last 24 hrs): 06/12/24 19:27 Nasopharnyx Respiratory Syncytial Virus Ag Scrn - Final 06/12/24 19:27 Nasopharnyx Influenza Type A Antigen Screen - Final 06/12/24 19:27 Nasopharnyx Influenza Type B Antigen Screen - Final Assessment And Plan - Plan Physical examination General: Alert and oriented x3, NAD, HEENT: Anicteric sclera Neck: Supple, no elevated JVD Heart: Heart sounds 1 and 2 normal, regular rhythm, normal rate, no pedal edema Lungs: Diminished breath sound bilaterally, worse on the right, no rhonchi or crackles. Abdomen: Soft, nondistended, nontender, normal bowel sounds. Extremities: No tenderness, no deformity Skin: Normal skin turgor, no rash, no nodules or ulcers. Neuro: No focal motor deficit. Normal speech. Psychiatry: Normal mood, no agitation. Assessment and plan Right Pleural effusion Acute on chronic diastolic heart failure Continue IV lasix US guided thoracentesis ordered. Follow-up pleural fluid biochemistry and cell count and cytology. Pneumonia Healthcare associated pneumonia. Antibiotics changed to IV Zosyn. Covid 19 Recent diagnosis Patient is stable on room air Monitor. Elevated alkaline phosphatase Follow fractionated alk phos Liver is unremarkable on the CT abdomen. History left humerus fracture Analgesics as needed. DVT prophylaxis: Lovenox Advanced directive: Full code
[2024-06-13] MEDS ORDERED: ALBUTEROL 2.5 MG/3 ML NEB SOL NEB PRN (17:14)
[2024-06-13] MEDS ORDERED: AZITHROMYCIN 1 GM PACKET PO SCH (18:00)
[2024-06-13] MEDS: JUVEN PACKET PO SCH (21:00)
[2024-06-13] MEDS: ENSURE ENLIVE 237 ML CAN PO SCH (21:00)
[2024-06-13] MEDS: Mupirocin NASAL 2 APPL/1 GM TUBE NAS SCH (22:08)
[2024-06-13] MEDS: ACETAMINOPHEN 500 MG TAB PO PRN (22:40)
[2024-06-13] MEDS: MELATONIN 5 MG TABLET PO PRN (22:41)
[2024-06-14 04:50] LABS: Absolute Basophils 0.1 K/uL (0-0.5); Absolute Eosinophils 0.3 K/uL (0-0.5); Absolute Lymphocytes (CBC) 0.7 K/uL (0.7-4.9); Absolute Monocytes 0.6 K/uL (0.1-1.3); Absolute Neutrophil 6.4 K/uL (1.8-8.0); Basophils % 0.6 % (0-1.3); Eosinophils % 3.7 % (0-4.4); Hematocrit 28.1 % (36.0-45.0); Hemoglobin 9.4 g/dL (12.0-15.0); Lymphocytes % 8.6 % (15.3-44.8); MCH 31.1 pg (27.0-35.0); MCHC 33.3 g/dL (32.0-36.0); MCV 93.3 fL (80-100); MPV 6.7 fL (7.6-11.3); Monocytes % 7.2 % (3.3-12.3); Neutrophils % 79.9 % (41.7-73.7); Platelets 247 thou/uL (152-406); RBC Red Blood Cell Count 3.01 M/uL (3.86-4.86); Red Cell Distribution Width 18.2 % (12.1-15.2)
[2024-06-14 05:15] LABS: Anion Gap 8.4 mEq/L (5.0-15.0); Potassium 3.4 mEq/L (3.5-5.1)
[2024-06-14] MEDS ORDERED: ACETAMINOPHEN 500 MG TAB PO PRN ×2 (10:21→10:22)
[2024-06-14] MEDS: ACETAMINOPHEN 325 MG TABLET PO PRN (10:39)
[2024-06-14] MEDS: HYDROCODONE/APAP 5/325 MG TAB PO PRN (12:22)
--- NOTE | 2024-06-14 17:15 | P.PN ---
Subjective Date of Service: 06/14/24 Chief Complaint: cough, sob Patient is complaining of generalized joint pains which is chronic. She is stable on 2 L oxygen by nasal cannula. No issues overnight. Physical Examination - Vital Signs Temperature: 98.8 F Blood Pressure: 134/73 Pulse: 88 Respirations: 18 Pulse Ox (%): 96 Assessment And Plan - Plan Physical examination General: Alert and oriented x3, NAD, HEENT: Anicteric sclera Neck: Supple, no elevated JVD Heart: Heart sounds 1 and 2 normal, regular rhythm, normal rate, no pedal edema Lungs: Diminished breath sound bilaterally, worse on the right, no rhonchi or crackles. Abdomen: Soft, nondistended, nontender, normal bowel sounds. Extremities: No tenderness, no deformity Skin: Normal skin turgor, no rash, no nodules or ulcers. Neuro: No focal motor deficit. Normal speech. Psychiatry: Normal mood, no agitation. Assessment and plan Right Pleural effusion Acute on chronic diastolic heart failure Continue IV lasix. Repeat chest x-ray in a.m. US guided thoracentesis ordered. Follow-up pleural fluid biochemistry and cell count and cytology. Pneumonia Healthcare associated pneumonia. Continue IV Zosyn. Covid 19 Recent diagnosis Patient is stable on 2 L oxygen by nasal. Monitor. Elevated alkaline phosphatase Fractionated alk phos is pending. Liver is unremarkable on the CT abdomen. History left humerus fracture Analgesics as needed. DVT prophylaxis: Lovenox Advanced directive: Full code
[2024-06-15] MEDS: MORPHINE 2 MG/ML SYR IV PRN (05:03)
[2024-06-15] MEDS: FLUCONAZOLE 100 MG TAB PO SCH (09:04)
--- NOTE | 2024-06-15 13:59 | P.PN ---
Subjective Date of Service: 06/15/24 Chief Complaint: cough, sob Patient is complaining of generalized joint pains which is chronic. She is stable on 2 L oxygen by nasal cannula. No issues overnight. Physical Examination - Vital Signs Temperature: 98.2 F Blood Pressure: 119/65 Pulse: 90 Respirations: 16 Pulse Ox (%): 94 Assessment And Plan - Plan Physical examination General: Alert and oriented x 2, NAD, HEENT: Anicteric sclera Neck: No elevated JVD Heart: Heart sounds 1 and 2 normal, regular rhythm, normal rate, no pedal edema Lungs: Diminished breath sound bilaterally, worse on the right, no rhonchi or crackles. Abdomen: Soft, nondistended, nontender, normal bowel sounds. Extremities: No tenderness, no deformity Skin: Normal skin turgor, no rash, no nodules or ulcers. Neuro: No focal motor deficit. Normal speech. Psychiatry: Normal mood, no agitation. Assessment and plan Right Pleural effusion Acute on chronic diastolic heart failure Continue IV lasix. US guided thoracentesis ordered. Follow-up pleural fluid biochemistry and cell count and cytology. Pneumonia Healthcare associated pneumonia. Continue IV Zosyn. Covid 19 Recent diagnosis Patient is stable on 2 L oxygen by nasal. Monitor. Elevated alkaline phosphatase Fractionated alk phos is pending. Liver is unremarkable on the CT abdomen. Monitor LFT. History left humerus fracture Analgesics as needed. DVT prophylaxis: Lovenox Advanced directive: Full code
[2024-06-15] MEDS: HOME MED 1 EA UNK (Protein Supplement [Promod] 946 ML Liquid) PO SCH (21:00)
[2024-06-15] MEDS: LACTULOSE 20 GM/30 ML UCUP PO SCH (22:05)
[2024-06-15] MEDS: FAMOTIDINE 20 MG TAB PO SCH (22:07)
[2024-06-15] MEDS: GABAPENTIN 100 MG CAP PO SCH (22:07)
[2024-06-15] MEDS: ASCORBIC ACID 500 MG TABLET PO SCH (22:08)
[2024-06-16 05:36] LABS: Albumin 1.7 g/dL (3.4-5.0); Albumin/Globulin Ratio 0.4 (1.1-1.8); Anion Gap 9.2 mEq/L (5.0-15.0); Bilirubin Total 0.7 mg/dL (0.2-1.0); Globulin 4.7 g/dL (2.3-3.5); Potassium 3.2 mEq/L (3.5-5.1); Protein, Total 6.4 g/dL (6.4-8.2)
[2024-06-16] MEDS: ZINC CITRATE PO SCH (09:00)
[2024-06-16] MEDS: LACTOBACILLUS/ACIDOPHILUS TAB PO SCH (09:02)
[2024-06-16] MEDS: MULTIVITAMIN TAB PO SCH (09:02)
--- NOTE | 2024-06-16 10:55 | EKG ---
Test Date: 2024-06-12 Test Time: 16:22:45 X Ray Technologist: RAGHU MEASUREMENT RESULTS: Intervals: Rate: 72 [place]: QRSD: 68 QT: 396 QTc: 433 [place]: P: [place]: QRS: 23 T: 241 INTERPRETIVE STATEMENTS: Accelerated Junctional rhythm Low voltage QRS Septal infarct, age undetermined T wave abnormality, consider inferolateral ischemia Abnormal ECG Compared to ECG 05/11/2024 13:33:03 Myocardial infarct finding now present Possible ischemia now present T-wave abnormality still present Electronically Signed On 06-16-24 10:51:03 BROKE HANDLER by Brett Strickland
--- NOTE | 2024-06-16 12:12 | RAD REPORT ---
EXAMChest CLINICAL HISTORY: Pleural effusion. TECHNIQUE: Sonographic evaluation of the right pleural space performed FINDINGS: A moderate right pleural effusion is present. IMPRESSION: A moderate right pleural effusion is present. Due to difficulty with patient positioning an ultrasoun d-guided thoracentesis could not be performed.
--- NOTE | 2024-06-16 16:19 | P.PN ---
Subjective Date of Service: 06/16/24 Chief Complaint: cough, sob No major changes from yesterday. She is stable on 2 L oxygen by nasal cannula. No issues overnight. Patient denied any pain during my examination this morning. Physical Examination - Vital Signs Temperature: 98 F Blood Pressure: 112/58 Pulse: 85 Respirations: 16 Pulse Ox (%): 92 Assessment And Plan - Plan Physical examination General: Alert and oriented x 2, NAD, HEENT: Anicteric sclera Neck: No elevated JVD Heart: Heart sounds 1 and 2 normal, regular rhythm, normal rate. Lungs: Diminished breath sound bilaterally, worse on the right, no rhonchi or crackles. Abdomen: Soft, nondistended, nontender, normal bowel sounds. Extremities: No tenderness, no deformity Skin: Normal skin turgor, no rash, no nodules or ulcers. Neuro: No focal motor deficit. Normal speech. Psychiatry: Normal mood, no agitation. Assessment and plan Right Pleural effusion Acute on chronic diastolic heart failure Repeat imaging shows right moderate pleural effusion According to report, US guided thoracentesis could not be performed due to patient positioning. Patient is currently tolerating room air Pleural fluid may be responding to IV lasix. Continue IV Lasix and repeat chest x-ray. Pneumonia Healthcare associated pneumonia. Continue IV Zosyn. Covid 19 Recent diagnosis Patient weaned off O2 to room air which she is tolerating. Elevated alkaline phosphatase Follow-up fractionated alkaline phosphatase. Liver is unremarkable on the CT abdomen. Monitor LFT. History left humerus fracture Analgesics as needed. Severe protein calorie malnutrition Dietitian input appreciated. Nutritional supplementation. DVT prophylaxis: Lovenox Advanced directive: Full code Disposition: It appears patient and her daughter are homeless and were lodging in a hotel prior to patient's admission to [facility]. Social service exploring disposition options.
[2024-06-17 06:26] LABS: Absolute Basophils 0.1 K/uL (0-0.5); Absolute Eosinophils 0.8 K/uL (0-0.5); Absolute Lymphocytes (CBC) 0.9 K/uL (0.7-4.9); Absolute Monocytes 0.5 K/uL (0.1-1.3); Absolute Neutrophil 6.1 K/uL (1.8-8.0); Basophils % 0.9 % (0-1.3); Eosinophils % 9.5 % (0-4.4); Hematocrit 30.4 % (36.0-45.0); Hemoglobin 10.1 g/dL (12.0-15.0); Lymphocytes % 10.3 % (15.3-44.8); MCH 30.9 pg (27.0-35.0); MCHC 33.3 g/dL (32.0-36.0); MPV 8.1 fL (7.6-11.3); Monocytes % 5.9 % (3.3-12.3); Neutrophils % 73.4 % (41.7-73.7); Platelets 246 thou/uL (152-406); RBC Red Blood Cell Count 3.26 M/uL (3.86-4.86); Red Cell Distribution Width 17.9 % (12.1-15.2)
[2024-06-17 06:29] LABS: Potassium 3.8 mEq/L (3.5-5.1)
[2024-06-17 06:31] LABS: Anion Gap 7.8 mEq/L (5.0-15.0)
--- NOTE | 2024-06-17 12:56 | RAD REPORT ---
Procedure: Chest Single View HISTORY: Cough COMPARISON: June 16, 2023 FINDINGS: Allowing for differences in positioning no significant change in the moderate right pleural effusion. Right basilar atelectasis. Small left pleural effusion The heart is normal size Nonunion of a left neck fracture
--- NOTE | 2024-06-17 13:25 | P.PN ---
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 Patient is currently tolerating room air continue IV lasix 40 mg BID repeat CXR today Pneumonia CXR (06/12): Moderate opacification of the right lung, moderately worse relative to prior study. This probably represents a combination of infiltrate and right pleural fluid CT chest (06/12): Moderate to large right pleural effusion and small left pleural effusion. Mild ascites Blood cx (06/12): NGTD urine cx (06/13): 3+ yeast Continue IV Zosyn (06/13-) continue diflucan (06/15-) continue probiotic Recent Covid 19 tested positive for covid on 06/12 Patient weaned off O2. Tolerating RA Stage 2 sacral decubitus ulcer local wound care, pressure offloading measures. Frequent turning. 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 Encourage supplemental nutrition PT/OT VTE: Lovenox Code: Full Dispo: Home, 2-3 days no SNF days available Time Spent Managing Pts Care (In Minutes): 55
[2024-06-17 18:25] LABS: Alk Phos Iso-Placenta 0 % (<=0); Total Alkaline Phosphatase 903 U/L (37-153)
[2024-06-18 07:46] LABS: Albumin 1.6 g/dL (3.4-5.0); Albumin/Globulin Ratio 0.3 (1.1-1.8); Anion Gap 6.1 mEq/L (5.0-15.0); Bilirubin Total 0.6 mg/dL (0.2-1.0); Globulin 4.8 g/dL (2.3-3.5); Magnesium 1.8 mg/dL (1.6-2.4); Phosphorus 2.6 mg/dL (2.5-4.9); Potassium 3.1 mEq/L (3.5-5.1); Protein, Total 6.4 g/dL (6.4-8.2)
[2024-06-18] MEDS ORDERED: KETAMINE HCL IN 0.9 % NACL 50 MG/5 ML SYRINGE IV ONE (09:31)
[2024-06-18] MEDS ORDERED: MIDAZOLAM HCL 2 MG/2 ML INJ ONE (09:31)
[2024-06-18] MEDS ORDERED: FENTANYL CITR 100 MCG/2 ML ONE (09:33)
[2024-06-18] MEDS: NA CHLORIDE 0.9% 1,000 ML ONE (10:05)
[2024-06-18] MEDS: COLLAGENASE 30 GM OINTMENT TOP ONE (10:45)
--- NOTE | 2024-06-18 10:52 | P.BOP ---
Preoperative diagnosis: necrotic stage 3 pressure ulcer sacrum Postoperative diagnosis: same Primary procedure: Excisional subQ debridment necrotic stage 3 pressure ulcer sacrum 9x6x1.5cm Estimated blood loss: <10cc Specimen: none Findings: necrotic tissue Anesthesia: General Complications: None Drain(s): Other (santyl packing) Transferred to: Recovery Room Condition: Good
--- NOTE | 2024-06-18 11:32 | CON ---
Date of Consultation: 06/18/2024 Diagnosis: Necrotic sacral pressure ulcer. History Of Present Illness: This is a case of an 83-year-old patient admitted to the hospital for mu ltiple problems, history of CVA, history also recent COVID several days ago. During the workup, meredith ent found to have also a decubitus ulcer with some smelling coming through it and necrotic tissue and a surgical consult was obtained for debridement. She does not give much information. Trying to geronimo k to her in Maltese and Bangladeshi. She is not fully aware. She even tells me she has no ulcers in the back. Since we have information from the family and the primary doctor, we looked at the back and i ndeed we found the ulcer. Allergies: IBUPROFEN AND ASPIRIN. Medications: Include Tylenol with codeine, Neurontin, albuterol, Imodium, chronic Bactrim. Past Medical History: Colon cancer, congestive heart failure, hypertension, colitis, CVAs. Past Surgical History: Include partial colectomies and also colostomy reversal. Once again, most of the information is obtained from the patient's daughter. Social History: She does not smoke. She does not drink alcohol. Review of Systems: Very limited. See as above. Unable to be obtained clear. Family History: Noncontributory. Physical Examination: Vital Signs: Reviewed. General: The patient is awake, alert. Pupils anicteric. Neck: Supple. Chest: Bilateral breath sounds. No shortness of breath. No chest pain. Abdomen: Soft and depressible. No guarding or rebound. Extremities: Good capillary refill. Integumentary: Shows a stage III ulcer in the sacrum with fibrin present, some necrotic tissue prese nt and foul smelling. Physical exam is limited and the patient does not want to be on her side for m ore than a few seconds. Extremity good capillary refill. Neuro: Oriented x3. Laboratory Data: Blood work shows WBC count of 8.3 with hemoglobin of 10.1, and platelets of 246. I NR is 1.21. Potassium is 3.1 and creatinine is 0.58. Assessment: This is an 83-year-old patient with a sacral decubitus ulcer and needs debridement. She needs some sedation. She does not tolerate that at bedside, so we going to discuss the case with An esthesia to see if there is anything we can do, at least give her some sedation to be able to the pro cedure. The benefits, alternatives, and risks were explained to the patient and daughter, which incl ude, but not limited to infection, bleeding, damage to adjacent structures, anesthesia complications, nonhealing wound, [place], and even . They also understand the importance of nutrition and off-load ing. They also understand she will require wound care long-term. MANDO/MICHELLE Voice ID: [id number] Report ID: [id number]
--- NOTE | 2024-06-18 11:53 | P.PN ---
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 repeat CXR 06/17: moderate R pleural effusion without significant changes. Small Left pleural effusion Patient is currently tolerating room air continue IV lasix 40 mg BID Pneumonia CXR (06/12): Moderate opacification of the right lung, moderately worse relative to prior study. This probably represents a combination of infiltrate and right pleural fluid CT chest (06/12): Moderate to large right pleural effusion and small left pleural effusion. Mild ascites Blood cx (06/12): NGTD urine cx (06/13): 3+ yeast Continue IV Zosyn (06/13-) continue diflucan (06/15-) continue probiotic Necrotic Stage 3 sacral decubitus ulcer, s/p I&D (06/18) Dr. Cervantes, General surgery consulted s/p I&D (06/18); found to have necrotic tissue present continue local wound care with santyl packing, wound vac. pressure offloading measures. Frequent turning Recent Covid 19 tested positive for covid on 06/12 Patient weaned off O2. 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 Encourage supplemental nutrition PT/OT VTE: Lovenox held for surgery Code: Full Dispo: Home, 2-3 days no SNF days available Time Spent Managing Pts Care (In Minutes): 55
--- NOTE | 2024-06-18 12:00 | OP ---
Date of Procedure: 06/18/2024 Surgeon: Simón Cervantes MD Preoperative Diagnosis: Necrotic stage III pressure ulcer on the sacrum. Postoperative Diagnosis: Necrotic stage III pressure ulcer on the sacrum. Procedure: Excisional subcutaneous debridement necrotic stage III pressure ulcer on the sacrum 9 x 6 x 1.5 cm. Estimated Blood Loss: Less than 10 cc. Specimen: None. Findings: Necrotic tissue. Anesthesia: Sedation plus local. Packing: Santyl wet-to-dry. Indications: This is a case of an 83-year-old patient with above diagnosis. Fully explained the nee d of debridement of that area of which benefits, alternatives, and risks include, but not limited to, infection, bleeding, damage to adjacent structures, anesthesia complication, nonhealing wound, [place], a nd even . They also understand this may not relieve any symptoms. She might need more than one surgical intervention. We explained the same to the patient's daughter. The importance of complian ce, offloading, and nutrition were fully discussed. The area of concern marked by me and the patient in the holding room. Description Of Procedure: Patient was brought to the operating room, placed in supine position. Ane sthesia was induced without complication. The patient was placed in lateral decubitus position with proper protection. The back area was prepped and draped in sterile fashion. A time-out was called. Local anesthesia was applied followed by sharp debridement of a knife down to subcutaneous tissue. Area was irrigated. Necrotic tissue was removed and then we proceeded to irrigate the area with at l east 5 L of pulse lavage irrigation. The patient tolerated the procedure well. The area was covered with Santyl after hemostasis was obtained and then wet-to-dry. The patient tolerated the procedure well. Patient sent to Recovery in stable condition. HM/MODL Voice ID: [id number] Report ID: [id number]
[2024-06-19 05:53] LABS: Hematocrit 29.2 % (36.0-45.0); Hemoglobin 9.7 g/dL (12.0-15.0); MCH 30.8 pg (27.0-35.0); MCHC 33.1 g/dL (32.0-36.0); MPV 7.8 fL (7.6-11.3); Platelets 225 thou/uL (152-406); RBC Red Blood Cell Count 3.14 M/uL (3.86-4.86); Red Cell Distribution Width 18.3 % (12.1-15.2)
[2024-06-19 06:39] LABS: Albumin 1.7 g/dL (3.4-5.0); Albumin/Globulin Ratio 0.3 (1.1-1.8); Anion Gap 7.1 mEq/L (5.0-15.0); Bilirubin Total 0.6 mg/dL (0.2-1.0); Globulin 4.9 g/dL (2.3-3.5); Magnesium 1.8 mg/dL (1.6-2.4); Potassium 3.1 mEq/L (3.5-5.1); Protein, Total 6.6 g/dL (6.4-8.2)
[2024-06-19] MEDS: FUROSEMIDE 40 MG TABLET PO SCH (09:57)
--- NOTE | 2024-06-19 11:42 | P.PN ---
Date of Service: 06/19/24 Subjective: ~3 episodes of loose stool yesterday otherwise doing okay breathing okay on room air afebrile ROS: 10 point ROS as noted above, otherwise negative Physical Exam: GEN: Alert, cachectic CV: Regular rate and rhythm, b/l edema Pulm: Nonlabored respirations on room air, diminished bilaterally R > L ABD: soft, nontender, nondistended Integumentary: sacrum with dressing in place Neuro: Normal speech, normal affect, RUE weakness at shoulder, community development officer ok, RLE mild weakness Problem List: Right Pleural effusion Acute on chronic diastolic heart failure Pneumonia Necrotic Stage 3 sacral decubitus ulcer, s/p I&D (06/18) Recent Covid 19 Severe protein calorie malnutrition h/o c diff infxn h/o left humerus fracture h/o left intertrochanteric femur fracture s/p surgery 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 repeat CXR 06/17: moderate R pleural effusion without significant changes. Small Left pleural effusion Patient is currently tolerating room air continue IV lasix; decreased to 40 mg daily 06/19 Pneumonia CXR (06/12): Moderate opacification of the right lung, moderately worse relative to prior study. This probably represents a combination of infiltrate and right pleural fluid CT chest (06/12): Moderate to large right pleural effusion and small left pleural effusion. Mild ascites Blood cx (06/12): NGTD Continue IV Zosyn (06/13-) continue probiotic hx recurrent UTIs urine culture previously grew Enterobacter Cloaecae 06/01, similar to urine cx 05/11. Patient previously treated with Cipro x1 week, Bactrim x2 weeks respectively urine cx (06/13): 3+ yeast continue diflucan to cover yeast (06/15-) Necrotic Stage 3 sacral decubitus ulcer, s/p I&D (06/18) Dr. Cervantes, General surgery consulted s/p I&D (06/18); found to have necrotic tissue present continue local wound care with santyl packing, wound vac. pressure offloading measures. Frequent turning Recent Covid 19 tested positive for covid on 06/12 She also reports testing positive for covid last month (05/23/2024) Patient weaned off O2. 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 Encourage supplemental nutrition PT/OT VTE: Lovenox Code: Full Dispo: Home, 2-3 days no SNF days available Time Spent Managing Pts Care (In Minutes): 55
[2024-06-20 05:23] LABS: Albumin 1.7 g/dL (3.4-5.0); Albumin/Globulin Ratio 0.3 (1.1-1.8); Anion Gap 8.6 mEq/L (5.0-15.0); Bilirubin Total 0.6 mg/dL (0.2-1.0); Globulin 5.1 g/dL (2.3-3.5); Magnesium 1.9 mg/dL (1.6-2.4); Potassium 3.6 mEq/L (3.5-5.1); Protein, Total 6.8 g/dL (6.4-8.2)
--- NOTE | 2024-06-20 11:47 | P.PN ---
Date of Service: 06/20/24 Subjective: no events overnight breathing okay on room air afebrile ROS: 10 point ROS as noted above, otherwise negative Physical Exam: GEN: Alert CV: Regular rate and rhythm, b/l edema Pulm: Nonlabored respirations on room air, diminished bilaterally R > L ABD: soft, nontender, nondistended Integumentary: sacrum with dressing in place Problem List: Right Pleural effusion Acute on chronic diastolic heart failure Pneumonia Necrotic Stage 3 sacral decubitus ulcer, s/p I&D (06/18) Recent Covid 19 Severe protein calorie malnutrition h/o c diff infxn h/o left humerus fracture h/o left intertrochanteric femur fracture s/p surgery 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 repeat CXR 06/17: moderate R pleural effusion without significant changes. Small Left pleural effusion Patient is currently tolerating room air continue IV lasix; decreased to 40 mg daily 06/19 Pneumonia CXR (06/12): Moderate opacification of the right lung, moderately worse relative to prior study. This probably represents a combination of infiltrate and right pleural fluid CT chest (06/12): Moderate to large right pleural effusion and small left pleural effusion. Mild ascites Blood cx (06/12): NGTD Continue IV Zosyn (06/13-) continue probiotic hx recurrent UTIs urine culture previously grew Enterobacter Cloaecae 06/01, similar to urine cx 05/11. Patient previously treated with Cipro x1 week, Bactrim x2 weeks respectively urine cx (06/13): 3+ yeast s/p 5 days of diflucan (06/15-06/20) Necrotic Stage 3 sacral decubitus ulcer, s/p I&D (06/18) Dr. Cervantes, General surgery consulted s/p I&D (06/18); found to have necrotic tissue present continue local wound care with santyl packing, wound vac. pressure offloading measures. Frequent turning Recent Covid 19 tested positive for covid on 06/12 She also reports testing positive for covid last month (05/23/2024) Patient weaned off O2. 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 Encourage supplemental nutrition PT/OT VTE: Lovenox Code: Full Dispo: Home, 2-3 days no SNF days available Time Spent Managing Pts Care (In Minutes): 55
[2024-06-20] MEDS: ENSURE ENLIVE 237 ML CAN PO SCH (20:36)
[2024-06-21 06:02] LABS: Hematocrit 29.1 % (36.0-45.0); Hemoglobin 9.9 g/dL (12.0-15.0); MCH 31.8 pg (27.0-35.0); MCHC 33.9 g/dL (32.0-36.0); MCV 93.8 fL (80-100); MPV 8.3 fL (7.6-11.3); Platelets 242 thou/uL (152-406); Red Cell Distribution Width 18.4 % (12.1-15.2)
[2024-06-21 06:28] LABS: Anion Gap 9.4 mEq/L (5.0-15.0); Magnesium 2.2 mg/dL (1.6-2.4); Potassium 3.4 mEq/L (3.5-5.1)
[2024-06-21] MEDS: COLLAGENASE 30 GM OINTMENT TOP SCH (09:00)
[2024-06-21] MEDS: PIPERACIL/TAZO 3.375 GM VIAL IV ONE (13:01)
[2024-06-22 01:44] LABS: Absolute Basophils 0.1 K/uL (0-0.5); Absolute Eosinophils 0.4 K/uL (0-0.5); Absolute Lymphocytes (CBC) 0.5 K/uL (0.7-4.9); Absolute Monocytes 0.4 K/uL (0.1-1.3); Absolute Neutrophil 6.1 K/uL (1.8-8.0); Basophils % 0.9 % (0-1.3); Eosinophils % 5.8 % (0-4.4); Hematocrit 33.3 % (36.0-45.0); Hemoglobin 10.9 g/dL (12.0-15.0); Lymphocytes % 6.8 % (15.3-44.8); MCHC 32.8 g/dL (32.0-36.0); MCV 94.7 fL (80-100); MPV 7.8 fL (7.6-11.3); Monocytes % 5.6 % (3.3-12.3); Neutrophils % 80.9 % (41.7-73.7); Nucleated Red Blood Cells % 0.1 % (0-0); Platelets 274 thou/uL (152-406); RBC Red Blood Cell Count 3.52 M/uL (3.86-4.86); Red Cell Distribution Width 18.6 % (12.1-15.2)
[2024-06-22 02:20] LABS: Albumin 1.7 g/dL (3.4-5.0); Albumin/Globulin Ratio 0.3 (1.1-1.8); Anion Gap 9.7 mEq/L (5.0-15.0); Bilirubin Total 0.7 mg/dL (0.2-1.0); Globulin 5.4 g/dL (2.3-3.5); Potassium 3.7 mEq/L (3.5-5.1); Protein, Total 7.1 g/dL (6.4-8.2)
[2024-06-22 05:49] LABS: Albumin 1.8 g/dL (3.4-5.0); Albumin/Globulin Ratio 0.3 (1.1-1.8); Anion Gap 7.8 mEq/L (5.0-15.0); Bilirubin Total 0.7 mg/dL (0.2-1.0); Globulin 5.3 g/dL (2.3-3.5); Magnesium 2.3 mg/dL (1.6-2.4); Potassium 3.8 mEq/L (3.5-5.1); Protein, Total 7.1 g/dL (6.4-8.2)
--- NOTE | 2024-06-22 11:52 | P.PN ---
Date of Service: 06/22/24 Subjective: denies any new / worsening problems breathing okay on room air afebrile ROS: 10 point ROS as noted above, otherwise negative Physical Exam: GEN: Alert CV: Regular rate and rhythm, b/l edema Pulm: Nonlabored respirations on room air, diminished bilaterally R > L ABD: soft, nontender, nondistended Integumentary: sacrum with dressing in place Problem List: Right Pleural effusion Acute on chronic diastolic heart failure Pneumonia Necrotic Stage 3 sacral decubitus ulcer, s/p I&D (06/18) Recent Covid 19 Severe protein calorie malnutrition h/o c diff infxn h/o left humerus fracture h/o left intertrochanteric femur fracture s/p surgery 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 repeat CXR 06/17: moderate R pleural effusion without significant changes. Small Left pleural effusion Patient is currently tolerating room air continue IV lasix; decreased to 40 mg daily 06/19 Pneumonia CXR (06/12): Moderate opacification of the right lung, moderately worse relative to prior study. This probably represents a combination of infiltrate and right pleural fluid CT chest (06/12): Moderate to large right pleural effusion and small left pleural effusion. Mild ascites Blood cx (06/12): NGTD Patient completed ~10 days of IV zosyn (06/13-06/22) continue probiotic hx recurrent UTIs urine culture previously grew Enterobacter Cloaecae 06/01, similar to urine cx 05/11. Patient previously treated with Cipro x1 week, Bactrim x2 weeks respectively urine cx (06/13): 3+ yeast s/p 5 days of diflucan (06/15-06/20) Necrotic Stage 3 sacral decubitus ulcer, s/p I&D (06/18) Dr. Cervantes, General surgery consulted s/p I&D (06/18); found to have necrotic tissue present continue local wound care with santyl packing, wound vac. pressure offloading measures. Frequent turning Recent Covid 19 tested positive for covid on 06/12 She also reports testing positive for covid last month (05/23/2024) Patient weaned off O2. 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 Encourage supplemental nutrition PT/OT VTE: Lovenox Code: Full Dispo: Home, 2-3 days no SNF days available Time Spent Managing Pts Care (In Minutes): 55
[2024-06-23 04:31] LABS: Absolute Basophils 0.1 K/uL (0-0.5); Absolute Eosinophils 0.4 K/uL (0-0.5); Absolute Lymphocytes (CBC) 0.7 K/uL (0.7-4.9); Absolute Monocytes 0.6 K/uL (0.1-1.3); Absolute Neutrophil 7.3 K/uL (1.8-8.0); Basophils % 1.1 % (0-1.3); Eosinophils % 4.5 % (0-4.4); Hematocrit 34.2 % (36.0-45.0); Hemoglobin 11.3 g/dL (12.0-15.0); Lymphocytes % 7.6 % (15.3-44.8); MCH 31.3 pg (27.0-35.0); MCV 94.8 fL (80-100); Monocytes % 6.3 % (3.3-12.3); Neutrophils % 80.5 % (41.7-73.7); Platelets 352 thou/uL (152-406); RBC Red Blood Cell Count 3.61 M/uL (3.86-4.86); Red Cell Distribution Width 19.8 % (12.1-15.2)
[2024-06-23 04:48] LABS: Magnesium 2.2 mg/dL (1.6-2.4)
[2024-06-23 05:13] VITALS: BMI 16.9
--- NOTE | 2024-06-23 10:25 | P.PN ---
Date of Service: 06/23/24 Subjective: no events overnight breathing okay pain with re-positioning Family to come by later today ROS: 10 point ROS as noted above, otherwise negative Physical Exam: GEN: Alert CV: Regular rate and rhythm, b/l edema Pulm: Nonlabored respirations on room air, diminished bilaterally R > L ABD: soft, nontender, nondistended Integumentary: sacrum with dressing in place Problem List: Right Pleural effusion Acute on chronic diastolic heart failure Pneumonia Necrotic Stage 3 sacral decubitus ulcer, s/p I&D (06/18) Recent Covid 19 Severe protein calorie malnutrition h/o c diff infxn h/o left humerus fracture h/o left intertrochanteric femur fracture s/p surgery 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 repeat CXR 06/17: moderate R pleural effusion without significant changes. Small Left pleural effusion Patient is currently tolerating room air continue lasix decreased to 40 mg daily 06/19 Pneumonia CXR (06/12): Moderate opacification of the right lung, moderately worse relative to prior study. This probably represents a combination of infiltrate and right pleural fluid CT chest (06/12): Moderate to large right pleural effusion and small left pleural effusion. Mild ascites Blood cx (06/12): NGTD Patient completed ~10 days of IV zosyn (06/13-06/22) continue probiotic repeat CXR in AM hx recurrent UTIs urine culture previously grew Enterobacter Cloaecae 06/01, similar to urine cx 05/11. Patient previously treated with Cipro x1 week, Bactrim x2 weeks respectively urine cx (06/13): 3+ yeast s/p 5 days of diflucan (06/15-06/20) Necrotic Stage 3 sacral decubitus ulcer, s/p I&D (06/18) Dr. Cervantes, General surgery consulted s/p I&D (06/18); found to have necrotic tissue present continue local wound care with santyl packing if unable to arrange for wound vac. pressure offloading measures. Frequent turning pain control Recent Covid 19 tested positive for covid on 1/9 She also reports testing positive for covid last month (05/23/2024) Patient weaned off O2. 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 Encourage supplemental nutrition PT/OT VTE: Lovenox Code: Full Dispo: Home, 2 days no SNF days available family wanting to take patient to [place] where son lives. However unsure how they will arrange it. Currently without a home Time Spent Managing Pts Care (In Minutes): 55
[2024-06-23] MEDS: HYDROCODONE/APAP 5/325 MG TAB PO PRN (11:50)
--- NOTE | 2024-06-24 08:20 | RAD REPORT ---
EXAMINATION: ONE VIEW CHEST XR CLINICAL INDICATION: Female, 83 years old.,f/u effusion/opacities TECHNIQUE: Frontal chest projection is submitted. Examination is limited by patient positioning and t echnique. COMPARISON: 06/17/2024 FINDINGS: Decreased size of right pleural effusion, now moderate. Hazy underlying right basilar opacification. Background chronic interstitial changes and hyperlucency suggesting COPD. No pneumothorax.. The heart is normal in size. Mediastinal contours are unremarkable. IMPRESSION: Decreasing size of right basilar pleural-parenchymal opacity, suggesting improving effusion. Underlyi ng pneumonia should be considered.
--- NOTE | 2024-06-24 17:06 | P.PN ---
Subjective Date of Service: 06/24/24 Chief Complaint: cough, sob Nursing staff report patient has been having diarrhea. Patient is tolerating pured diet. She is tolerating room air. Physical Examination - Vital Signs Temperature: 97.5 F Blood Pressure: 142/85 Pulse: 65 Respirations: 20 Pulse Ox (%): 100 Assessment And Plan - Plan Physical Exam: GEN: Awake, NAD, cachectic. 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 repeat CXR 06/17: moderate R pleural effusion without significant changes. Small Left pleural effusion Patient is stable on room and appears asymptomatic. continue current dose Lasix Pneumonia CXR (06/12): Moderate opacification of the right lung, moderately worse relative to prior study. This probably represents a combination of infiltrate and right pleural fluid Blood cx (06/12): NGTD Patient completed ~10 days of IV zosyn (06/13-06/22) hx recurrent UTIs urine culture previously grew Enterobacter Cloaecae 06/01, similar to urine cx 05/11. Patient previously treated with Cipro x1 week, Bactrim x2 weeks respectively urine cx (06/13): 3+ yeast s/p 5 days of diflucan (06/15-06/20) Necrotic Stage 3 sacral decubitus ulcer, s/p I&D (06/18) Dr. Cervantes, General surgery evaluated patient s/p I&D (06/18); found to have necrotic tissue present continue local wound care with santyl packing. pressure offloading measures. Frequent turning Analgesics as needed. Recent Covid 19 Stable tested positive for covid on 06/12 She also reports testing positive for covid last month (05/23/2024) Patient is tolerating room air. 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 Encourage supplemental nutrition Pured diet. PT/OT VTE: Lovenox Code: Full Dispo: Home. Family wanting to take patient to [place] where son lives. However unsure how they will arrange it. financial services agent following.
[2024-06-25] MEDS: MORPHINE 2 MG/ML SYR IV ONE (18:18)
--- NOTE | 2024-06-25 18:26 | P.PN ---
Subjective Date of Service: 06/25/24 Chief Complaint: cough, sob Nursing staff report patient fell from the bed to the floor. Patient is tolerating pured diet. Physical Examination - Vital Signs Temperature: 98 F Blood Pressure: 117/59 Pulse: 80 Respirations: 16 Pulse Ox (%): 98 Assessment And Plan - Plan Physical Exam: GEN: Awake, NAD, cachectic. 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 repeat CXR 06/17: moderate R pleural effusion without significant changes. Small Left pleural effusion Patient is stable on room and appears asymptomatic. continue current dose Lasix Pneumonia CXR (06/12): Moderate opacification of the right lung, moderately worse relative to prior study. This probably represents a combination of infiltrate and right pleural fluid Blood cx (06/12): NGTD Patient completed ~10 days of IV zosyn (06/13-06/22) hx recurrent UTIs urine culture previously grew Enterobacter Cloaecae 06/01, similar to urine cx 05/11. Patient previously treated with Cipro x1 week, Bactrim x2 weeks respectively urine cx (06/13): 3+ yeast s/p 5 days of diflucan (06/15-06/20) Necrotic Stage 3 sacral decubitus ulcer, s/p I&D (06/18) Dr. Cervantes, General surgery evaluated patient s/p I&D (06/18); found to have necrotic tissue present continue local wound care with santyl packing. pressure offloading measures. Frequent turning Analgesics as needed. Recent Covid 19 Stable tested positive for covid on 06/12 She also reports testing positive for covid last month (05/23/2024) Patient is tolerating room air. 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 Encourage supplemental nutrition Pured diet. PT/OT. Fall Obtain pelvic x-ray to follow-up femoral fracture and to rule out any new fractures. Obtain left humerus x-ray to follow-up old humeral fracture and to rule out new fractures. Goals of care Patient is appropriate for hospice. Social service consulted to evaluate for hospice. VTE: Lovenox Code: Full Dispo: Home. Family wanting to take patient to [place] where son lives. caseworker protective services following.
--- NOTE | 2024-06-25 19:05 | RAD REPORT ---
EXAMINATION: XR LEFT HUMERUS HISTORY: Follow-up left humeral fracture TECHNIQUE: Multiple views of the left humerus were obtained. COMPARISON: None FINDINGS: Diffuse osteopenia. Fracture the proximal left humerus with significant bony bridging seen, indicating subacute to chronic timeframe. Acute fracture not appreciated.
--- NOTE | 2024-06-25 19:07 | RAD REPORT ---
EXAMINATION: XR PELVIS WITH BILATERAL HIPS CLINICAL INDICATION: Fall rule out fractures TECHNIQUE: AP Pelvis and bilateral hips examination was obtained. COMPARISON: No prior exam. FINDINGS: Diffuse osteopenia. Hardware is present proximal left femur. No fracture grossly appreciate d.
[2024-06-26] MEDS: KETOROLAC 30 MG/ML INJ IV PRN (00:47)
--- NOTE | 2024-06-26 17:13 | P.PN ---
Subjective Date of Service: 06/26/24 Chief Complaint: cough, sob Patient is complaining of abdominal pain today relates the pain to her hernia. No issues overnight. Physical Examination - Vital Signs Temperature: 98.1 F Blood Pressure: 111/83 Pulse: 79 Respirations: 15 Pulse Ox (%): 98 Assessment And Plan - Plan Physical Exam: GEN: Awake, NAD, cachectic. CV: Regular rate and rhythm, b/l edema Pulm: Nonlabored respirations on room air, diminished bilaterally R > L ABD: soft, nontender, nondistended, periumbilical hernia. 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 Radiology unable to perform US-guided thoracentesis d/t patient positioning. repeat CXR 06/17: moderate R pleural effusion without significant changes. Small Left pleural effusion Patient is stable on room and appears asymptomatic. continue current dose Lasix Pneumonia CXR (06/12): Moderate opacification of the right lung, moderately worse relative to prior study. This probably represents a combination of infiltrate and right pleural fluid Blood cx (06/12): NGTD Patient completed ~10 days of IV zosyn (06/13-06/22) hx recurrent UTIs urine culture previously grew Enterobacter Cloaecae 06/01, similar to urine cx 05/11. Patient previously treated with Cipro x1 week, Bactrim x2 weeks respectively urine cx (06/13): 3+ yeast s/p 5 days of diflucan (06/15-06/20) Necrotic Stage 3 sacral decubitus ulcer, s/p I&D (06/18) Dr. Cervantes, General surgery evaluated patient s/p I&D (06/18); found to have necrotic tissue present continue local wound care with santyl packing. pressure offloading measures. Frequent turning Analgesics as needed. Recent Covid 19 Stable tested positive for covid on 06/12 She also reports testing positive for covid last month (05/23/2024) Patient is tolerating room air. 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 Encourage supplemental nutrition Pured diet. PT/OT. Fall Obtain pelvic x-ray to follow-up femoral fracture and to rule out any new fractures. Obtain left humerus x-ray to follow-up old humeral fracture and to rule out new fractures. Abdominal hernia Symptomatic. Obtain CT abdomen pelvis to evaluate Analgesics as needed Goals of care Patient is appropriate for hospice. Discussed hospice with family-daughter and son and they want to consider it as an option. Social service consulted to evaluate for hospice. VTE: Lovenox Code: Full Dispo: Home. Family wanting to take patient to [place] where son lives. representative phlebotomy services following.
[2024-06-26 19:58] LABS: Anion Gap 10.3 mEq/L (5.0-15.0); Potassium 4.3 mEq/L (3.5-5.1)
--- NOTE | 2024-06-26 20:32 | RAD REPORT ---
EXAMINATION: CT Abdomen Pelvis W Contrast CLINICAL INDICATION: Female, 83 years old. hernia TECHNIQUE: CT abdomen and pelvis was performed, after the administration of IV contrast, as per [facility] protocol. Axial, sagittal and coronal reconstructions were obtained. One or more of the following dose reduction techniques were used: Automated exposure control, adjustment of the mA and k V according to patient size, and iterative reconstruction. Unless otherwise specified, incidental findings do not require dedicated imaging follow-up. COMPARISON: 06/12/2024 FINDINGS: LOWER CHEST: Large layering right and trace left pleural effusion, stable. LIVER: Normal in size and contour. No focal lesion. BILIARY SYSTEM: Prominent wall of the decompressed gallbladder, with trace pericystic fluid. SPLEEN: Normal size. No focal lesion. PANCREAS: Atrophic changes of head and proximal body of the pancreas, with stable prominent tortuous main duct, versus small cystic spaces related to the duct. No discrete mass or kristine-pancreatic fluid. ADRENALS: Normal; no mass. KIDNEYS: Normal size and contour. No hydronephrosis. URINARY BLADDER: Decompressed with Suero catheter in place. Limited volume of gas. GASTROINTESTINAL TRACT: Marked distention of the stomach with air-fluid level. Portion of the antrum and pylorus extending within a supraumbilical right para midline ventral hernia. Moderately distended distal transverse and ascending colon, and enterocolic anastomosis are also contained withi n the hernia. Relatively rapid caliber transition at the level of the 1st-2nd part of duodenum, which corresponds to the neck of the hernia. No evidence of free air, or localized fluid collection. Mild free pelvic ascites, improved since prior exam. APPENDIX: Appendix not visualized, but no inflammatory changes in region of appendix. LYMPH NODES: No lymphadenopathy. MUSCULOSKELETAL: Internally fixated left intertrochanteric fracture, stable. Healing or healed bilate ral lower rib fractures, stable. Multilevel wedge compression deformities of the lower thoracic and lumbar spine, stable. No acute or suspicious osseous abnormality. ADDITIONAL FINDINGS: Tortuosity of the upper abdominal aorta again seen. IMPRESSION: Marked distention of the stomach with air-fluid level. Portion of the antrum and the pylorus extend w ithin the cavity of a supraumbilical right para midline ventral hernia, a similar appearance to the prior exam, although the degree of distention of the proximal stomach is new. Relatively rapid calibe r transition at the neck of the hernia, at the level of the first-second part of the duodenum, probably relates to peristalsis rather than an obstruction. Gastroparesis should be considered. Moderate burden of stool within the proximal colon, mostly contained within the hernia as well, with burden slightly increased since prior exam. Improvement of free ascites, with residual trace pelvic ascites. Essentially stable bilateral pleural effusions larger on the right.
[2024-06-26] MEDS: ENSURE PLANT-BASED PROTEIN VANILLA 330 ML CAN PO SCH (21:00)
[2024-06-26] MEDS: ZINC OXIDE TOP PRN (21:43)
[2024-06-27 06:24] LABS: Absolute Basophils 0.1 K/uL (0-0.5); Absolute Eosinophils 0.6 K/uL (0-0.5); Absolute Lymphocytes (CBC) 0.6 K/uL (0.7-4.9); Absolute Monocytes 0.4 K/uL (0.1-1.3); Absolute Neutrophil 4.7 K/uL (1.8-8.0); Basophils % 0.8 % (0-1.3); Eosinophils % 9.5 % (0-4.4); Hematocrit 27.6 % (36.0-45.0); Hemoglobin 9.1 g/dL (12.0-15.0); Lymphocytes % 8.8 % (15.3-44.8); MCH 31.1 pg (27.0-35.0); MCHC 32.8 g/dL (32.0-36.0); MCV 94.7 fL (80-100); MPV 8.8 fL (7.6-11.3); Monocytes % 6.2 % (3.3-12.3); Neutrophils % 74.7 % (41.7-73.7); Nucleated Red Blood Cells % 0.1 % (0-0); Platelets 207 thou/uL (152-406); RBC Red Blood Cell Count 2.92 M/uL (3.86-4.86); Red Cell Distribution Width 19.4 % (12.1-15.2)
[2024-06-27 06:48] LABS: Anion Gap 9.1 mEq/L (5.0-15.0); Potassium 4.1 mEq/L (3.5-5.1)
--- NOTE | 2024-06-27 17:16 | P.PN ---
Subjective Date of Service: 06/27/24 Chief Complaint: cough, sob Patient is complaining of abdominal pain today relates the pain to her hernia. CT abdomen and pelvis done yesterday showed possible duodenal obstruction. Patient kept n.p.o. Physical Examination - Vital Signs Temperature: 97.7 F Blood Pressure: 127/48 Pulse: 82 Respirations: 18 Pulse Ox (%): 98 Assessment And Plan - Plan Physical Exam: GEN: Awake, NAD, cachectic. CV: Regular rate and rhythm, b/l edema Pulm: Nonlabored respirations on room air, diminished bilaterally R > L ABD: soft, nontender, nondistended, large periumbilical hernia. 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 Radiology unable to perform US-guided thoracentesis d/t patient positioning. repeat CXR 06/17: moderate R pleural effusion without significant changes. Small Left pleural effusion Patient is stable on room and appears asymptomatic. continue current dose Lasix Pneumonia CXR (06/12): Moderate opacification of the right lung, moderately worse relative to prior study. This probably represents a combination of infiltrate and right pleural fluid Blood cx (06/12): NGTD Patient completed ~10 days of IV zosyn (06/13-06/22) hx recurrent UTIs urine culture previously grew Enterobacter Cloaecae 06/01, similar to urine cx 05/11. Patient previously treated with Cipro x1 week, Bactrim x2 weeks respectively urine cx (06/13): 3+ yeast s/p 5 days of diflucan (06/15-06/20) Necrotic Stage 3 sacral decubitus ulcer, s/p I&D (06/18) Dr. Cervantes, General surgery evaluated patient s/p I&D (06/18); found to have necrotic tissue present continue local wound care with santyl packing. pressure offloading measures. Frequent turning Analgesics as needed. Recent Covid 19 Stable tested positive for covid on 06/12 She also reports testing positive for covid last month (05/23/2024) Patient is tolerating room air. 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 Encourage supplemental nutrition Pured diet. PT/OT. Fall Obtain pelvic x-ray to follow-up femoral fracture and to rule out any new fractures. Obtain left humerus x-ray to follow-up old humeral fracture and to rule out new fractures. Patient heels examined, no decreased ROM or tenderness with movement, no physical evidence of fracture. Abdominal hernia Symptomatic. CT abdomen pelvis report: Marked distention of the stomach with air-fluid level. Portion of the antrum and the pylorus extend within the cavity of a supraumbilical right para midline ventral hernia, a similar appearance to the prior exam, although the degree of distention of the proximal stomach is new. Relatively rapid caliber transition at the neck of the hernia, at the level of the first-second part of the duodenum, probably relates to peristalsis rather than an obstruction. General surgery Dr. Cervantes informed to evaluate. Analgesics as needed Keep n.p.o. for now Goals of care Patient is appropriate for hospice. Family declined hospice and requesting for SNF placement. Social service consulted to evaluate for hospice. VTE: Lovenox Code: Full Dispo: Home. Patient is being evaluated by social service for SNF placement.
[2024-06-28] MEDS: MORPHINE 2 MG/ML SYR IV ONE (07:45)
[2024-06-28] MEDS: NA CHLORIDE 0.9% 1,000 ML IV SCH (08:00)
--- NOTE | 2024-06-28 13:32 | CON ---
History Of Present Illness: The patient is known by us due to sacral decubitus ulcer. The consult a t this time is for abdominal wall hernia. This is the case of an 83-year-old patient with multiple m edical problems, seen by us for the last few years. At one point, the hernia, which is similar to wh at she has right now, was diagnosed and they were referred to [facility] for evaluation to see if it is possible, the family has been there, daughter, discussed the case with her in [place] and [place], bu t she has never been in a good medical condition or spirit to have this hernia repair. We have seen her before. The hernia today is similar to the previous ones with also the same CAT scan findings. They asked me to re-evaluate the area. Medical history, medications, allergies, family history, continue the same as before. Review of Systems: No shortness of breath. No chest pain. No abdominal pain. She has these chronic hernias. I am abl e to discuss this case in [place] since they are from [place]. The lady expressed her feelings t hat she has been the same thing all the time with no peritonitis or abdominal pain at this moment. T his bulge is reducible and has not increased in size since we saw her a year or two for that. Physical Examination: Vital Signs: Reviewed. General: The patient is awake, alert. Chest: Clear. Abdomen: Soft and depressible. There is a reducible ventral hernia. No incarceration. No crepitus . No guarding. No rebound. No peritoneal signs. No tenderness. Laboratory Data: WBC count of 6.2. Creatinine is 0.64. CAT scan of the abdomen and pelvis interpre antonette by Dr. Riley as distention of the stomach with fluid levels. The portion of the antrum and pylo junior extend within the hernia itself, which is a chronic finding in her case. At the level of the fir st part of the duodenum, there is some finding that the radiologist does not know if there is any obs truction or peristalsis and she might need a store hand to clarify that, the same with the ga stroparesis. In that hernia, also there is chronic content of colon and small bowel which is reducib le. No pneumatosis. Noticed in the past and the previous CT scans that the family knows about it, t here is also questionable in that abdominal x-ray of a colovaginal fistula. For that reason also she was referred to a wood crafter, but trying to get from the family they had been able to address that issue. She also has this ventral hernia containing large portion of viscus. That was as recent as 06/01/2024 to go back to 2021 and when you see right now you notice once again the ventral hernia con taining portions of antrum as well as portion of the large bowel. Once again, we addressed that issu e before we sent the patient to [facility] to see if there is any way of abdominal wall reconstruction s jeanna we specify the family that due to medical history and the complex of the surgery may need to go to a [facility]. Assessment: It is an -[id number] patient, we know her from February 2022. 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 They were sent to [facility] electively. They have come to office previousl y. What we see today has not changed from the previous one at least clinically. It is reducible. N o peritonitis. No abdominal pain. We encouraged this patient we are going to start feeding her righ t now and I once again encouraged the patient to as an outpatient visit the recommendations we gave h er before which are the doctors we gave the names before to once again re-evaluate this patient to se e if there is any fixable way of her hernia without attempting against her life in the sense of medic al complications. MANDO/MODL Voice ID: [id number] Report ID: [id number]
--- NOTE | 2024-06-28 16:11 | P.PN ---
Subjective Date of Service: 06/28/24 Chief Complaint: cough, sob No major issues from yesterday. Patient found sleeping comfortably. No recorded fever. Physical Examination - Vital Signs Temperature: 98.4 F Blood Pressure: 126/64 Pulse: 78 Respirations: 14 Pulse Ox (%): 97 Assessment And Plan - Plan Physical Exam: GEN: Awake, NAD, cachectic. CV: Regular rate and rhythm, b/l edema Pulm: Nonlabored respirations on room air, diminished bilaterally R > L ABD: soft, nontender, nondistended, large periumbilical hernia. 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 Radiology unable to perform US-guided thoracentesis d/t patient positioning. repeat CXR 06/17: moderate R pleural effusion without significant changes. Small Left pleural effusion Patient is stable on room and appears asymptomatic. continue current dose Lasix Pneumonia Blood cx (06/12): NGTD Patient completed ~10 days of IV zosyn (06/13-06/22) hx recurrent UTIs urine culture previously grew Enterobacter Cloaecae 06/01, similar to urine cx 05/11. Patient previously treated with Cipro x1 week, Bactrim x2 weeks respectively urine cx (06/13): 3+ yeast s/p 5 days of diflucan (06/15-06/20) Necrotic Stage 3 sacral decubitus ulcer, s/p I&D (06/18) Dr. Cervantes, General surgery evaluated patient s/p I&D (06/18); found to have necrotic tissue present continue local wound care with santyl packing. pressure offloading measures. Frequent turning Analgesics as needed. Recent Covid 19 Stable tested positive for covid on 06/12 She also reports testing positive for covid last month (05/23/2024) Patient is tolerating room air. 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 Encourage supplemental nutrition Pured diet. PT/OT. Fall Repeat pelvic x-ray and left humeral x-ray shows no new fracture. Patient was complaining of pain in both heels. Patient's heels examined, no decreased ROM or tenderness with movement, no physical evidence of fracture. Abdominal hernia Symptomatic. CT abdomen pelvis report: Marked distention of the stomach with air-fluid level. Portion of the antrum and the pylorus extend within the cavity of a supraumbilical right para midline ventral hernia, a similar appearance to the prior exam, although the degree of distention of the proximal stomach is new. Relatively rapid caliber transition at the neck of the hernia, at the level of the first-second part of the duodenum, probably relates to peristalsis rather than an obstruction. General surgery Dr. Cervantes evaluated patient. Patient has no signs of peritonitis, she continues to have bowel movements. Hernia is chronic and reducible. Resume full liquid diet and advance as needed per Dr. Cervantes. Analgesics as needed Monitor Goals of care Patient is appropriate for hospice. Family declined hospice and requesting for SNF placement. Social service assisting with arrangement for SNF placement. According to report, patient's second appeal against discharge from SNF was upheld. VTE: Lovenox Code: Full
--- NOTE | 2024-06-29 16:21 | P.PN ---
Subjective Date of Service: 06/29/24 Chief Complaint: cough, sob No major issues from yesterday. Patient sleeping comfortably. No recorded fever. She is tolerating diet. Physical Examination - Vital Signs Temperature: 97.7 F Blood Pressure: 124/52 Pulse: 79 Respirations: 18 Pulse Ox (%): 92 Assessment And Plan - Plan Physical Exam: GEN: Awake, NAD, cachectic. CV: Regular rate and rhythm, b/l edema Pulm: Nonlabored respirations on room air, diminished bilaterally R > L ABD: soft, nontender, nondistended, large periumbilical hernia. 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 Radiology unable to perform US-guided thoracentesis d/t patient positioning. repeat CXR 06/17: moderate R pleural effusion without significant changes. Small Left pleural effusion Patient is stable on room and appears asymptomatic. continue current dose Lasix Pneumonia Blood cx (06/12): NGTD Patient completed ~10 days of IV zosyn (06/13-06/22) hx recurrent UTIs urine culture previously grew Enterobacter Cloaecae 06/01, similar to urine cx 05/11. Patient previously treated with Cipro x1 week, Bactrim x2 weeks respectively urine cx (06/13): 3+ yeast s/p 5 days of diflucan (06/15-06/20) Necrotic Stage 3 sacral decubitus ulcer, s/p I&D (06/18) Dr. Cervantes, General surgery evaluated patient s/p I&D (06/18); found to have necrotic tissue present continue local wound care with santyl packing. pressure offloading measures. Frequent turning Analgesics as needed. Frequent turning. Recent Covid 19 Stable tested positive for covid on 06/12 She also reports testing positive for covid last month (05/23/2024) Patient is tolerating room air. 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 Encourage supplemental nutrition Patient is tolerating full liquid diet PT/OT. Fall Repeat pelvic x-ray and left humeral x-ray shows no new fracture. Patient was complaining of pain in both heels. Patient's heels examined, no decreased ROM or tenderness with movement, no physical evidence of fracture. Abdominal hernia Symptomatic. CT abdomen pelvis report: Marked distention of the stomach with air-fluid level. Portion of the antrum and the pylorus extend within the cavity of a supraumbilical right para midline ventral hernia, a similar appearance to the prior exam, although the degree of distention of the proximal stomach is new. Relatively rapid caliber transition at the neck of the hernia, at the level of the first-second part of the duodenum, probably relates to peristalsis rather than an obstruction. General surgery Dr. Cervantes evaluated patient. Patient has no signs of peritonitis, she continues to have bowel movements. Hernia is chronic and reducible. Resume full liquid diet and advance as needed per Dr. Cervantes. Analgesics as needed Monitor Goals of care Patient is appropriate for hospice. Family declined hospice and requesting for SNF placement. Social service assisting with arrangement for SNF placement. According to report, patient's second appeal against discharge from SNF was upheld. VTE: Lovenox Code: Full
[2024-06-30 07:00] LABS: Absolute Eosinophils 0.3 K/uL (0-0.5); Absolute Lymphocytes (CBC) 0.6 K/uL (0.7-4.9); Absolute Monocytes 0.5 K/uL (0.1-1.3); Absolute Neutrophil 2.3 K/uL (1.8-8.0); Eosinophils % 8.8 % (0-4.4); Hematocrit 30.4 % (36.0-45.0); Lymphocytes % 15.8 % (15.3-44.8); MCH 31.4 pg (27.0-35.0); MCV 94.9 fL (80-100); MPV 7.9 fL (7.6-11.3); Monocytes % 13.6 % (3.3-12.3); Neutrophils % 60.8 % (41.7-73.7); Nucleated Red Blood Cells % 0.2 % (0-0); Platelets 257 thou/uL (152-406); Red Cell Distribution Width 18.6 % (12.1-15.2)
--- NOTE | 2024-06-30 13:05 | P.PN ---
Subjective Date of Service: 06/30/24 Chief Complaint: cough, sob No major issues from last night. Patient has no new complaint. She is comfortable in bed, smiled at me, not in distress. No recorded fever. She is tolerating diet. Physical Examination - Vital Signs Temperature: 98.2 F Blood Pressure: 117/51 Pulse: 76 Respirations: 16 Pulse Ox (%): 98 Assessment And Plan - Plan Physical Exam: GEN: Awake, NAD, cachectic. CV: Regular rate and rhythm, b/l edema Pulm: Nonlabored respirations on room air, diminished bilaterally R > L ABD: soft, nontender, nondistended, large periumbilical hernia. 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 Radiology unable to perform US-guided thoracentesis d/t patient positioning. repeat CXR 06/17: moderate R pleural effusion without significant changes. Small Left pleural effusion Patient is stable on room and appears asymptomatic. continue current dose Lasix Pneumonia Blood cx (06/12): NGTD Patient completed ~10 days of IV zosyn (06/13-06/22) hx recurrent UTIs urine culture previously grew Enterobacter Cloaecae 06/01, similar to urine cx 05/11. Patient previously treated with Cipro x1 week, Bactrim x2 weeks respectively urine cx (06/13): 3+ yeast s/p 5 days of diflucan (06/15-06/20) Necrotic Stage 3 sacral decubitus ulcer, s/p I&D (06/18) Dr. Cervantes, General surgery evaluated patient s/p I&D (06/18); found to have necrotic tissue present continue local wound care with santyl packing. pressure offloading measures. Frequent turning Analgesics as needed. Frequent turning. Recent Covid 19 Stable tested positive for covid on 06/12 She also reports testing positive for covid last month (05/23/2024) Patient is tolerating room air. 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 Encourage supplemental nutrition Patient is tolerating soft diet. PT/OT. Fall Repeat pelvic x-ray and left humeral x-ray shows no new fracture. Patient was complaining of pain in both heels. Patient's heels examined, no decreased ROM or tenderness with movement, no physical evidence of fracture. Abdominal hernia Symptomatic. CT abdomen pelvis report: Marked distention of the stomach with air-fluid level. Portion of the antrum and the pylorus extend within the cavity of a supraumbilical right para midline ventral hernia, a similar appearance to the prior exam, although the degree of distention of the proximal stomach is new. Relatively rapid caliber transition at the neck of the hernia, at the level of the first-second part of the duodenum, probably relates to peristalsis rather than an obstruction. General surgery Dr. Cervantes evaluated patient. Patient has no signs of periton itis, she continues to have bowel movements. Hernia is chronic and reducible. Advance diet as tolerated per Dr. Cervantes. Analgesics as needed Monitor Goals of care Patient is appropriate for hospice. Family declined hospice and requesting for SNF placement. Social service assisting with arrangement for SNF placement. According to report, patient's second appeal against discharge from SNF was upheld. 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 Daughter stated she is working on getting a house at [employer]. VTE: Lovenox Code: Full
--- NOTE | 2024-07-01 10:57 | P.PN ---
Date of Service: 07/01/24 Subjective: no acute events overnight abdominal pain improving appetite okay ROS: 10 point ROS as noted above, otherwise negative Physical Exam: GEN: Awake, NAD, CV: Regular rate and rhythm, Pulm: Nonlabored respirations on room air, diminished bilaterally R > L ABD: soft, nontender, nondistended Integumentary: sacrum with dressing in place Problem List: Right Pleural effusion Acute on chronic diastolic heart failure Abdominal hernia, chronic Pneumonia Necrotic Stage 3 sacral decubitus ulcer, s/p I&D (06/18) Recent Covid 19 Severe protein calorie malnutrition h/o c diff infxn h/o left humerus fracture h/o left intertrochanteric femur fracture s/p surgery 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 repeat CXR 06/17: moderate R pleural effusion without significant changes. Small Left pleural effusion Patient is currently tolerating room air. Asymptomatic. continue home dose lasix Abdominal hernia, chronic Symptomatic. CT abd (06/26): Marked distention of the stomach with air-fluid level. Portion of the antrum and the pylorus extend within the cavity of a supraumbilical right para midline ventral hernia, a similar appearance to the prior exam, although the degree of distention of the proximal stomach is new. Relatively rapid caliber transition at the neck of the hernia, at the level of the first-second part of the duodenum, probably relates to peristalsis rather than an obstruction. Moderate stool burden within proximal colon. Patient evaluated by Dr. Cervantes, General surgeon Patient has no signs of peritonitis, she continues to have bowel movements. Hernia is chronic and reducible. Advance diet as tolerated per Dr. Cervantes. Analgesics as needed Continue to monitor Pneumonia Patient completed ~10 days of IV zosyn (06/13-06/22) Blood cx - NGTD hx recurrent UTIs urine cx (06/13): 3+ yeast s/p 5 days of diflucan (06/15-06/20) Necrotic Stage 3 sacral decubitus ulcer, s/p I&D (06/18) Dr. Cervantes, General surgery consulted s/p I&D (06/18); found to have necrotic tissue present continue local wound care with santyl packing if unable to arrange for wound vac. pressure offloading measures. Frequent turning pain control Recent Covid 19 tested positive for covid on 06/12 She also reports testing positive for covid last month (05/23/2024) Patient weaned off O2. 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 Encourage supplemental nutrition PT/OT Goals of care Family declined hospice and requesting for SNF placement. Social service assisting with arrangement for SNF placement. According to report, patient's second appeal against discharge from SNF was upheld. airplane woodworker is following for disposition. Daughter stated she is working on getting a house at [employer]. VTE: Lovenox Code: Full Dispo: Home with HH. Daughter stated she is working on getting a house at [employer]. Time Spent Managing Pts Care (In Minutes): 55
[2024-07-02 04:59] LABS: Anion Gap 8.1 mEq/L (5.0-15.0); Potassium 4.1 mEq/L (3.5-5.1)
--- NOTE | 2024-07-02 11:17 | P.PN ---
Date of Service: 07/02/24 Subjective: no acute events overnight abdominal pain seems to be improving occasionally she is moaning in pain when walking by her room, and at times seems to be resting comfortably afebrile, but tmax up to 99.4 today ROS: 10 point ROS as noted above, otherwise negative Physical Exam: GEN: Awake, NAD, CV: Regular rate and rhythm, Pulm: Nonlabored respirations on room air, diminished bilaterally R > L ABD: soft, nontender, nondistended Integumentary: sacrum with dressing in place Problem List:[id number] Right Pleural effusion Acute on chronic diastolic heart failure Abdominal hernia, chronic Pneumonia Necrotic Stage 3 sacral decubitus ulcer, s/p I&D (06/18) Recent Covid 19 Severe protein calorie malnutrition h/o c diff infxn h/o left humerus fracture h/o left intertrochanteric femur fracture s/p surgery 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 repeat CXR 06/17: moderate R pleural effusion without significant changes. Small Left pleural effusion Patient is currently tolerating room air. Asymptomatic. continue home dose lasix Abdominal hernia, chronic Symptomatic. CT abd (06/26): Marked distention of the stomach with air-fluid level. Portion of the antrum and the pylorus extend within the cavity of a supraumbilical right para midline ventral hernia, a similar appearance to the prior exam, although the degree of distention of the proximal stomach is new. Relatively rapid caliber transition at the neck of the hernia, at the level of the first-second part of the duodenum, probably relates to peristalsis rather than an obstr uction. Moderate stool burden within proximal colon. Patient evaluated by Dr. Cervantes, General surgeon Patient has no signs of peritonitis, she continues to have bowel movements. Hernia is chronic and reducible. Advance diet as tolerated per Dr. Cervantes. Analgesics as needed Continue to monitor Pneumonia Patient completed ~10 days of IV zosyn (06/13-06/22) Blood cx - NGTD hx recurrent UTIs urine cx (1/10): 3+ yeast s/p 5 days of diflucan (06/15-06/20) Necrotic Stage 3 sacral decubitus ulcer, s/p I&D (06/18) Dr. Cervantes, General surgery consulted s/p I&D (06/18); found to have necrotic tissue present continue local wound care with santyl packing if unable to arrange for wound vac. pressure offloading measures. Frequent turning pain control Recent Covid 19 tested positive for covid on 06/12 She also reports testing positive for covid last month (05/23/2024) Patient weaned off O2. 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 Encourage supplemental nutrition PT/OT Goals of care Family declined hospice and requesting for SNF placement. Social service assisting with arrangement for SNF placement. According to report, patient's second appeal against discharge from SNF was upheld. home mission worker is following for disposition. Daughter stated she is working on getting a house at [place]. VTE: Lovenox Code: Full Dispo: Home with HH. Daughter stated she is working on getting a house at [place]. Time Spent Managing Pts Care (In Minutes): 45
[2024-07-03 04:22] LABS: Absolute Eosinophils 0.5 K/uL (0-0.5); Absolute Lymphocytes (CBC) 0.6 K/uL (0.7-4.9); Absolute Monocytes 0.4 K/uL (0.1-1.3); Absolute Neutrophil 3.1 K/uL (1.8-8.0); Basophils % 0.8 % (0-1.3); Eosinophils % 11.1 % (0-4.4); Hematocrit 28.7 % (36.0-45.0); Hemoglobin 9.8 g/dL (12.0-15.0); Lymphocytes % 11.8 % (15.3-44.8); MCH 31.5 pg (27.0-35.0); MCHC 33.9 g/dL (32.0-36.0); MPV 8.4 fL (7.6-11.3); Monocytes % 9.4 % (3.3-12.3); Neutrophils % 66.9 % (41.7-73.7); Nucleated Red Blood Cells % 0.2 % (0-0); Platelets 203 thou/uL (152-406); RBC Red Blood Cell Count 3.09 M/uL (3.86-4.86); Red Cell Distribution Width 18.5 % (12.1-15.2)
[2024-07-03 04:35] LABS: Anion Gap 8.2 mEq/L (5.0-15.0); Magnesium 2.1 mg/dL (1.6-2.4); Potassium 4.2 mEq/L (3.5-5.1)
[2024-07-03] MEDS: HYDROCODONE/APAP 5/325 MG TAB PO ONE (10:13)
--- NOTE | 2024-07-03 11:35 | P.PN ---
Date of Service: 07/03/24 Subjective: no acute events overnight family looking into getting a house in [facility] now agreeable to attempt getting patient to [facility] ROS: 10 point ROS as noted above, otherwise negative Physical Exam: GEN: Awake, intermittent pain CV: Regular rate and rhythm, Pulm: Nonlabored respirations on room air, diminished bilaterally R > L ABD: soft, nontender, nondistended Integumentary: sacrum with dressing in place Problem List: Right Pleural effusion Acute on chronic diastolic heart failure Abdominal hernia, chronic Pneumonia Necrotic Stage 3 sacral decubitus ulcer, s/p I&D (06/18) Recent Covid 19 Severe protein calorie malnutrition h/o c diff infxn h/o left humerus fracture h/o left intertrochanteric femur fracture s/p surgery 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 repeat CXR 06/17: moderate R pleural effusion without significant changes. Small Left pleural effusion Patient is currently tolerating room air. Asymptomatic. continue home dose lasix Abdominal hernia, chronic Symptomatic. CT abd (06/26): Marked distention of the stomach with air-fluid level. Portion of the antrum and the pylorus extend within the cavity of a supraumbilical right p dianne midline ventral hernia, a similar appearance to the prior exam, although the degree of distention of the proximal stomach is new. Relatively rapid caliber transition at the neck of the hernia, at the level of the first-second part of the duodenum, probably relates to peristalsis rather than an obstruction. Moderate stool burden within proximal colon. Patient evaluated by Dr. Cervantes, General surgeon Patient has no signs of peritonitis, she continues to have bowel movements. Hernia is chronic and reducible. Advance diet as tolerated per Dr. Cervantes. Analgesics as needed Continue to monitor Pneumonia Patient completed ~10 days of IV zosyn (06/13-06/22) Blood cx - NGTD hx recurrent UTIs urine cx (06/13): 3+ yeast s/p 5 days of diflucan (06/15-06/20) Necrotic Stage 3 sacral decubitus ulcer, s/p I&D (06/18) Dr. Cervantes, General surgery consulted s/p I&D (06/18); found to have necrotic tissue present continue local wound care with santyl packing if unable to arrange for wound vac. pressure offloading measures. Frequent turning pain control Recent Covid 19 tested positive for covid on 06/12 She also reports testing positive for covid last month (05/23/2024) Patient weaned off O2. 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 Encourage supplemental nutrition PT/OT Goals of care Family declined hospice and requesting for SNF placement. Social service assisting with arrangement for SNF placement. According to report, patient's second appeal against discharge from SNF was upheld (in agreement of appeal) tear down worker is following for disposition. Daughter stated she is working on getting a house at [place]. now agreeable to attempt getting patient to [facility] [place] PT re-eval VTE: Lovenox Code: Full Dispo: Home with HH vs SNF Daughter stated she is working on getting a house at [place]. Referral to SNF - [place] sent Time Spent Managing Pts Care (In Minutes): 45
[2024-07-04] MEDS: FENTANYL 25 MCG/PATCH TD SCH (10:34)
--- NOTE | 2024-07-04 11:40 | P.PN ---
Date of Service: 07/04/24 Subjective: no acute events doing okay ROS: 10 point ROS as noted above, otherwise negative Physical Exam: GEN: Awake, intermittent pain CV: Regular rate and rhythm, Pulm: Nonlabored respirations on room air, diminished bilaterally R > L ABD: soft, nontender, nondistended Integumentary: sacrum with dressing in place Problem List: Right Pleural effusion Acute on chronic diastolic heart failure Abdominal hernia, chronic Pneumonia Necrotic Stage 3 sacral decubitus ulcer, s/p I&D (06/18) Recent Covid 19 Severe protein calorie malnutrition h/o c diff infxn h/o left humerus fracture h/o left intertrochanteric femur fracture s/p surgery 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 repeat CXR 06/17: moderate R pleural effusion without significant changes. Small Left pleural effusion repeat CXR (07/04): right hemithorax has become more hazy which probably indicates enlargement of the right pleural effusion Patient is currently tolerating room air. Asymptomatic. continue home dose lasix Abdominal hernia, chronic Symptomatic. CT abd (06/26): Marked distention of the stomach with air-fluid level. Portion of the antrum and the pylorus extend within the cavity of a supraumbilical right para midline ventral hernia, a similar appearance to the prior exam, although the degree of distention of the proximal stomach is new. Relatively rapid caliber transition at the neck of the hernia, at the level of the first-second part of the duodenum, probably relates to peristalsis rather than an obstruction. Moderate stool burden within proximal colon. Patient evaluated by Dr. Cervantes, General surgeon Patient has no signs of peritonitis, she continues to have bowel movements. Hernia is chronic and reducible. Advance diet as tolerated per Dr. Cervantes. Analgesics as needed Continue to monitor Pneumonia Patient completed ~10 days of IV zosyn (06/13-06/22) Blood cx - NGTD hx recurrent UTIs urine cx (06/13): 3+ yeast s/p 5 days of diflucan (06/15-06/20) Necrotic Stage 3 sacral decubitus ulcer, s/p I&D (06/18) Dr. Cervantes, General surgery consulted s/p I&D (06/18); found to have necrotic tissue present continue local wound care with santyl packing if unable to arrange for wound vac. pressure offloading measures. Frequent turning Fentanyl patch added (07/04) Recent Covid 19 tested positive for covid on 06/12 She also reports testing positive for covid last month (05/23/2024) Patient weaned off O2. 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 Encourage supplemental nutrition Fentanyl patch added (07/04) PT/OT Goals of care Family declined hospice and requesting for SNF placement. Social service assisting with arrangement for SNF placement. According to report, patient's second appeal against discharge from SNF was upheld (in agreement of appeal) tie worker is following for disposition. Daughter stated she is working on getting a house at [place]. now agreeable to attempt getting patient to [facility] [place] PT re-eval VTE: Lovenox Code: Full Dispo: Home with HH vs SNF Daughter stated she is working on getting a house at [place]. Referral to [facility] [place] sent Time Spent Managing Pts Care (In Minutes): 45
--- NOTE | 2024-07-04 12:27 | RAD REPORT ---
Procedure: Chest Single View HISTORY: Cough COMPARISON: June 24, 2024 FINDINGS: The right hemithorax has become more hazy. Left lung appears clear of acute infiltrate. The heart is normal size. IMPRESSION: The right hemithorax has become more hazy which probably indicates enlargement of the right pleural e ffusion with atelectasis
--- NOTE | 2024-07-05 10:29 | P.PN ---
Date of Service: 07/05/24 Subjective: no acute events doing okay seems more comfortable ROS: 10 point ROS as noted above, otherwise negative Physical Exam: GEN: Awake, intermittent pain CV: Regular rate and rhythm Pulm: Nonlabored respirations on room air, diminished bilaterally R > L ABD: soft, nontender, nondistended Integumentary: sacrum with dressing in place Problem List: Right Pleural effusion Acute on chronic diastolic heart failure Abdominal hernia, chronic Pneumonia, resolved Necrotic Stage 3 sacral decubitus ulcer, s/p I&D (06/18) Recent Covid 19 Severe protein calorie malnutrition h/o c diff infxn h/o left humerus fracture h/o left intertrochanteric femur fracture s/p surgery 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 repeat CXR 06/17: moderate R pleural effusion without significant changes. Small Left pleural effusion repeat CXR (07/04): right hemithorax has become more hazy which probably indicates enlargement of the right pleural effusion Patient is currently tolerating room air. Asymptomatic. feels breathing is ok continue home dose lasix Abdominal hernia, chronic Symptomatic. CT abd (06/26): Marked distention of the stomach with air-fluid level. Portion of the antrum and the pylorus extend within the cavity of a supraumbilical right para midline ventral hernia, a similar appearance to the prior exam, although the degree of distention of the proximal stomach is new. Relatively rapid caliber transition at the neck of the hernia, at the level of the first-second part of the duodenum, probably relates to peristalsis rather than an obstruction. Moderate stool burden within proximal colon. Patient evaluated by Dr. Cervantes, General surgeon Patient has no signs of peritonitis, she continues to have bowel movements. Hernia is chronic and reducible. Advanced diet as tolerated per Dr. Cervantes. Analgesics as needed Continue to monitor Pneumonia, resolved Patient completed ~10 days of IV zosyn (06/13-06/22) Blood cx - NGTD hx recurrent UTIs urine cx (06/13): 3+ yeast s/p 5 days of diflucan (06/15-06/20) Necrotic Stage 3 sacral decubitus ulcer, s/p I&D (06/18) Dr. Cervantes, General surgery consulted s/p I&D (06/18); found to have necrotic tissue present continue local wound care with santyl packing if unable to arrange for wound vac. pressure offloading measures. Frequent turning Fentanyl patch added (07/04) Recent Covid 19 tested positive for covid on 06/12 She also reports testing positive for covid last month (05/23/2024) Patient weaned off O2. 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 Encourage supplemental nutrition Fentanyl patch added (07/04) PT/OT Goals of care Family declined hospice and requesting for SNF placement. Social service assisting with arrangement for SNF placement. According to report, patient's second appeal against discharge from SNF was upheld (in agreement of appeal) plate take out worker is following for disposition. Daughter stated she is working on getting a house at [place]. now agreeable to attempt getting patient to [facility] [place] PT re-eval VTE: Lovenox Code: Full Dispo: Home with HH vs SNF Daughter stated she is working on getting a house at [place]. Referral to [facility] [place] sent Time Spent Managing Pts Care (In Minutes): 45
[2024-07-06 05:05] LABS: Hematocrit 28.8 % (36.0-45.0); Hemoglobin 9.6 g/dL (12.0-15.0); MCH 31.1 pg (27.0-35.0); MCHC 33.4 g/dL (32.0-36.0); MCV 92.9 fL (80-100); MPV 8.5 fL (7.6-11.3); Platelets 192 thou/uL (152-406)
[2024-07-06 05:25] LABS: Anion Gap 8.1 mEq/L (5.0-15.0); Magnesium 1.9 mg/dL (1.6-2.4); Potassium 4.1 mEq/L (3.5-5.1)
--- NOTE | 2024-07-06 10:06 | P.PN ---
Date of Service: 07/06/24 Subjective: family updated at bedside patient agitated intermittently no fever or low grade temps in > 48 hours Pending SNF - family agreeable ROS: 10 point ROS as noted above, otherwise negative Physical Exam: GEN: Awake, intermittent pain CV: Regular rate and rhythm Pulm: Nonlabored respirations on room air, diminished bilaterally R > L ABD: soft, nontender, nondistended Integumentary: sacrum with dressing in place Problem List: Right Pleural effusion Acute on chronic diastolic heart failure Abdominal hernia, chronic Pneumonia, resolved Necrotic Stage 3 sacral decubitus ulcer, s/p I&D (06/18) Recent Covid 19 Severe protein calorie malnutrition h/o c diff infxn h/o left humerus fracture h/o left intertrochanteric femur fracture s/p surgery 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 repeat CXR 06/17: moderate R pleural effusion without significant changes. Small Left pleural effusion repeat CXR (07/04): right hemithorax has become more hazy which probably indicates enlargement of the right pleural effusion Patient is currently tolerating room air. Asymptomatic. feels breathing is ok continue home dose Lasix Abdominal hernia, chronic Symptomatic. CT abd (06/26): Marked distention of the stomach with air-fluid level. Portion of the antrum and the pylorus extend within the cavity of a supraumbilical right para midline ventral hernia, a similar appearance to the prior exam, although the degree of distention of the proximal stomach is new. Relatively rapid caliber transition at the neck of the hernia, at the level of the first-second part of the duodenum, probably relates to peristalsis rather than an obstruction. Moderate stool burden within proximal colon. Patient evaluated by Dr. Cervantes, General surgeon Patient has no signs of peritonitis, she continues to have bowel movements. Hernia is chronic and reducible. Advanced diet as tolerated per Dr. Cervantes. Analgesics as needed Continue to monitor Pneumonia, resolved Patient completed ~10 days of IV zosyn (06/13-06/22) Blood cx - NGTD hx recurrent UTIs urine cx (06/13): 3+ yeast s/p 5 days of diflucan (06/15-06/20) Necrotic Stage 3 sacral decubitus ulcer, s/p I&D (06/18) Dr. Cervantes, General surgery consulted s/p I&D (06/18); found to have necrotic tissue present continue local wound care with santyl packing if unable to arrange for wound vac. pressure offloading measures. Frequent turning Fentanyl patch added (07/04) Recent Covid 19 tested positive for covid on 06/12 She also reports testing positive for covid last month (05/23/2024) Patient weaned off O2. 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 Encourage supplemental nutrition Fentanyl patch added (07/04) PT/OT Goals of care Family declined hospice and requesting for SNF placement. Social service assisting with arrangement for SNF placement. According to report, patient's second appeal against discharge from SNF was upheld (in agreement of appeal) auto body worker is following for disposition. Daughter stated she is working on getting a house at [place]. now agreeable to attempt getting patient to [facility] [place] PT re-eval VTE: Lovenox Code: Full Dispo: SNF Daughter stated she is working on getting a house at [place]. Referral to [facility] [place] sent Time Spent Managing Pts Care (In Minutes): 45
--- NOTE | 2024-07-07 11:36 | P.PN ---
Date of Service: 07/07/24 Subjective: no acute events overnight no changes ROS: 10 point ROS as noted above, otherwise negative Physical Exam: GEN: Awake, intermittent pain CV: Regular rate and rhythm Pulm: Nonlabored respirations on room air, diminished bilaterally R > L ABD: soft, nontender, nondistended Integumentary: sacrum with dressing in place Problem List: Right Pleural effusion Acute on chronic diastolic heart failure Abdominal hernia, chronic Pneumonia, resolved Necrotic Stage 3 sacral decubitus ulcer, s/p I&D (06/18) Recent Covid 19 Severe protein calorie malnutrition h/o c diff infxn h/o left humerus fracture h/o left intertrochanteric femur fracture s/p surgery 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 repeat CXR 06/17: moderate R pleural effusion without significant changes. Small Left pleural effusion repeat CXR (07/04): right hemithorax has become more hazy which probably indicates enlargement of the right pleural effusion Patient is currently tolerating room air. Asymptomatic. feels breathing is ok continue home dose Lasix Abdominal hernia, chronic Symptomatic. CT abd (06/26): Marked distention of the stomach with air-fluid level. Portion of the antrum and the pylorus extend within the cavity of a supraumbilical right para midline ventral hernia, a similar appearance to the prior exam, although the degree of distention of the proximal stomach is new. Relatively rapid caliber transition at the neck of the hernia, at the level of the first-second part of the duodenum, probably relates to peristalsis rather than an obstruction. Moderate stool burden within proximal colon. Patient evaluated by Dr. Cervantes, General surgeon Patient has no signs of peritonitis, she continues to have bowel movements. Hernia is chronic and reducible. Advanced diet as tolerated per Dr. Cervantes. Analgesics as needed Continue to monitor Pneumonia, resolved Patient completed ~10 days of IV zosyn (06/13-06/22) Blood cx - NGTD hx recurrent UTIs urine cx (06/13): 3+ yeast s/p 5 days of diflucan (06/15-06/20) Necrotic Stage 3 sacral decubitus ulcer, s/p I&D (06/18) Dr. Cervantes, General surgery consulted s/p I&D (06/18); found to have necrotic tissue present continue local wound care with santyl packing if unable to arrange for wound vac. pressure offloading measures. Frequent turning Fentanyl patch added (07/04) Recent Covid 19 tested positive for covid on 06/12 She also reports testing positive for covid last month (05/23/2024) Patient weaned off O2. 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 Encourage supplemental nutrition Fentanyl patch added (07/04) PT/OT Goals of care Family declined hospice and requesting for SNF placement. Social service assisting with arrangement for SNF placement. According to report, patient's second appeal against discharge from SNF was upheld (in agreement of appeal) suction worker is following for disposition. Daughter stated she is working on getting a house at [place]. now agreeable to attempt getting patient to [facility] [place] PT re-eval VTE: Lovenox Code: Full Dispo: SNF Daughter stated she is working on getting a house at [place]. Referral to [facility] [place] sent Time Spent Managing Pts Care (In Minutes): 45
--- NOTE | 2024-07-08 16:58 | P.PN ---
Subjective Date of Service: 07/08/24 Chief Complaint: cough, sob No new complain She is comfortable in bed, not in distress. No recorded fever. She is tolerating diet. Physical Examination - Vital Signs Temperature: 97.9 F Blood Pressure: 104/48 Pulse: 67 Respirations: 16 Pulse Ox (%): 98 Assessment And Plan - Plan Physical Exam: GEN: Awake, intermittent pain CV: Regular rate and rhythm Pulm: Nonlabored respirations on room air, diminished bilaterally R > L ABD: soft, nontender, nondistended Integumentary: sacrum with dressing in place Problem List: Right Pleural effusion Acute on chronic diastolic heart failure Abdominal hernia, chronic Pneumonia, resolved Necrotic Stage 3 sacral decubitus ulcer, s/p I&D (06/18) Recent Covid 19 Severe protein calorie malnutrition h/o c diff infxn h/o left humerus fracture h/o left intertrochanteric femur fracture s/p surgery 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 repeat CXR 06/17: moderate R pleural effusion without significant changes. Small Left pleural effusion repeat CXR (07/04): right hemithorax has become more hazy which probably indicates enlargement of the right pleural effusion Patient is currently tolerating room air. Asymptomatic. continue home dose Lasix Abdominal hernia, chronic Symptomatic. CT abd (06/26): Marked distention of the stomach with air-fluid level. Portion of the antrum and the pylorus extend within the cavity of a supraumbilical right para midline ventral hernia, a similar appearance to the prior exam, although the degree of distention of the proximal stomach is new. Relatively rapid caliber transition at the neck of the hernia, at the level of the first-second part of the duodenum, probably relates to peristalsis rather than an obstruction. Moderate stool burden within proximal colon. Patient evaluated by Dr. Cervantes, General surgeon Patient has no signs of peritonitis, she continues to have bowel movements. Hernia is chronic and reducible. Advanced diet as tolerated per Dr. Cervantes. Analgesics as needed Pneumonia, resolved Patient completed ~10 days of IV zosyn (06/13-06/22) Blood cx - NGTD hx recurrent UTIs urine cx (06/13): 3+ yeast s/p 5 days of diflucan (06/15-06/20) Necrotic Stage 3 sacral decubitus ulcer, s/p I&D (06/18) Dr. Cervantes, General surgery consulted s/p I&D (06/18); found to have necrotic tissue present continue local wound care with santyl packing if unable to arrange for wound vac. pressure offloading measures. Frequent turning Fentanyl patch added (07/04) Recent Covid 19 tested positive for covid on 06/12 She also reports testing positive for covid last month (05/23/2024) Patient weaned off O2. 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 Encourage supplemental nutrition Fentanyl patch added (07/04) PT/OT Goals of care Family declined hospice and requesting for SNF placement. Social service assisting with arrangement for SNF placement. According to report, patient's second appeal against discharge from SNF was upheld (in agreement of appeal) fabric worker foreman is following for disposition. now agreeable to attempt getting patient to SNF - [facility] VTE: Lovenox Code: Full Dispo: SNF Time Spent Managing Pts Care (In Minutes): 29
[2024-07-09 05:59] LABS: Absolute Eosinophils 0.3 K/uL (0-0.5); Absolute Lymphocytes (CBC) 0.6 K/uL (0.7-4.9); Absolute Monocytes 0.5 K/uL (0.1-1.3); Absolute Neutrophil 6.7 K/uL (1.8-8.0); Basophils % 0.3 % (0-1.3); Eosinophils % 3.6 % (0-4.4); Hematocrit 29.1 % (36.0-45.0); Hemoglobin 9.7 g/dL (12.0-15.0); Lymphocytes % 7.8 % (15.3-44.8); MCH 30.7 pg (27.0-35.0); MCHC 33.3 g/dL (32.0-36.0); MCV 92.3 fL (80-100); MPV 8.5 fL (7.6-11.3); Monocytes % 5.9 % (3.3-12.3); Neutrophils % 82.4 % (41.7-73.7); Platelets 196 thou/uL (152-406); RBC Red Blood Cell Count 3.15 M/uL (3.86-4.86); Red Cell Distribution Width 17.9 % (12.1-15.2)
[2024-07-09 06:49] LABS: Anion Gap 7.9 mEq/L (5.0-15.0); Potassium 3.9 mEq/L (3.5-5.1)
[2024-07-09] MEDS: MORPHINE 2 MG/ML SYR IV ONE (13:46)
[2024-07-09 15:00] VITALS: O2SAT 94
--- NOTE | 2024-07-09 15:36 | P.PN ---
Subjective Date of Service: 07/09/24 Chief Complaint: cough, sob Patient complaining of uncontrolled pain today No recorded fever. She is tolerating diet. She participated in physical therapy. Physical Examination - Vital Signs Temperature: 97.8 F Blood Pressure: 117/58 Pulse: 71 Respirations: 14 Pulse Ox (%): 94 Assessment And Plan - Plan Physical Exam: GEN: Awake, mild distress due to pain. 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 repeat CXR 06/17: moderate R pleural effusion without significant changes. Small Left pleural effusion repeat CXR (07/04): right hemithorax has become more hazy which probably indicates enlargement of the right pleural effusion Patient is currently tolerating room air. Asymptomatic. continue home dose Lasix Abdominal hernia, chronic Symptomatic. CT abd (06/26): Marked distention of the stomach with air-fluid level. Portion of the antrum and the pylorus extend within the cavity of a supraumbilical right para midline ventral hernia, a similar appearance to the prior exam, although the degree of distention of the proximal stomach is new. Relatively rapid caliber transition at the neck of the hernia, at the level of the first-second part of the duodenum, probably relates to peristalsis rather than an obstruction. Moderate stool burden within proximal colon. Patient evaluated by Dr. Cervantes, General surgeon Patient has no signs of peritonitis, she continues to have bowel movements. Hernia is chronic and reducible. Advanced diet as tolerated per Dr. Cervantes. Analgesics as needed Pneumonia, resolved Patient completed ~10 days of IV zosyn (06/13-06/22) Blood cx - NGTD hx recurrent UTIs urine cx (06/13): 3+ yeast s/p 5 days of diflucan (06/15-06/20) Necrotic Stage 3 sacral decubitus ulcer, s/p I&D (06/18) Dr. Cervantes, General surgery consulted s/p I&D (06/18); found to have necrotic tissue present continue local wound care with santyl packing if unable to arrange for wound vac. pressure offloading measures. Frequent turning Fentanyl patch added (07/04) Recent Covid 19 tested positive for covid on 06/12 She also reports testing positive for covid last month (05/23/2024) Patient weaned off O2. 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 Encourage supplemental nutrition Fentanyl patch added (07/04) PT/OT Goals of care Family declined hospice and requesting for SNF placement. Social service assisting with arrangement for SNF placement. According to report, patient's second appeal against discharge from SNF was upheld (in agreement of appeal) Disposition to SNF-would like pending insurance authorization. VTE: Lovenox Code: Full Dispo: SNF
--- NOTE | 2024-07-10 08:55 | P.DS ---
Admission Date: 06/12/24 Discharge Date: 07/10/24 Disposition: TRANSFER TO SNF - MEDICAL Discharge Condition: FAIR Reason for Admission: cough, sob Hospital Course: Right Pleural effusion Acute on chronic diastolic heart failure On admission, patient presented with worsening shortness of breath, cough. She was noted to test positive for covid in ED. Initial ultrasound noted right moderate pleural effusion. An attempt was made to perform US-guided thoracentesis however was unsuccessful d/t patient positioning. She felt improvement with diuresis. She was eventually weaned off oxygen and has been tolerating room air since. repeat CXR (07/04): right hemithorax has become more hazy which probably indicates enlargement of the right pleural effusion Abdominal hernia, chronic Patient has no signs of peritonitis, she continues to have bowel movements. Hernia is chronic and reducible. Patient was evaluated by Dr. Cervantes, General surgeon who recommended medical management. Her diet was advanced as tolerated. She has been tolerating pureed diet without issues since. Pneumonia There was some concern for possible superimposed pneumonia during her early hospitalization. Chest xray on admission noted moderate opacification of the right lung, moderately worse relative to prior study. This probably represents a combination of infiltrate and right pleural fluid. CT chest noted moderate to large right pleural effusion and small left pleural effusion Patient completed 10 days of IV zosyn to treat possible superimposed pneumonia (06/13-06/22) Blood cultures were without growth this hospitalization. hx recurrent UTIs Patient noted to have recent UTI. Urine culture had previously grew Enterobacter Cloaecae 06/01. Urine culture this hospitalization was without any bacterial growth, but did have some yeast. She was treated with diflucan. Necrotic Stage 3 sacral decubitus ulcer, s/p I&D (06/18) She was noted to have a sacral pressure ulcer present on admission. She was evaluated by Dr. Cervantes, general surgeon and underwent I&D on 06/18. She was found to have necrotic tissue during surgery. She was treated with local wound care in addition to several days of antibiotics as noted above. Her pain was well managed with oral pain medication. She had Fentanyl patch added. wound care with Santyl. Recent Covid 19 Patient was noted to test positive for covid on 06/12/24. She also reports testing positive for covid last month (05/23/2024) Patient was eventually weaned off O2 and has been tolerating room air for several days now. Vital Signs/Physical Exam: Temp Pulse Resp BP Pulse Ox 98.5 F 80 20 91/42 L 95 07/10/24 08:00 07/10/24 08:00 07/10/24 08:00 07/10/24 08:00 07/10/24 08:00 Laboratory Data at Discharge: WBC 8.10 thou/uL (4.3-10.9) 07/09/24 05:45 Hgb 9.7 g/dL (12.0-15.0) L 07/09/24 05:45 Hct 29.1 % (36.0-45.0) L 07/09/24 05:45 Plt Count 196 thou/uL (152-406) 07/09/24 05:45 PT 13.5 SECONDS (9.4-12.5) H 06/12/24 17:35 INR 1.21 06/12/24 17:35 APTT 26.4 SECONDS (24.3-36.9) 06/12/24 17:35 Sodium 134 mEq/L (136-145) L 07/09/24 05:45 Potassium 3.9 mEq/L (3.5-5.1) 07/09/24 05:45 BUN 26 mg/dL (7-18) H 07/09/24 05:45 Creatinine 0.45 mg/dL (0.55-1.02) L 07/09/24 05:45 Glucose 103 mg/dL (74-106) 07/09/24 05:45 Phosphorus 2.6 mg/dL (2.5-4.9) 06/18/24 07:18 Magnesium 1.9 mg/dL (1.6-2.4) 07/06/24 04:32 Total Bilirubin 0.7 mg/dL (0.2-1.0) 06/22/24 04:56 AST 189 U/L (15-37) H 06/22/24 04:56 ALT 82 U/L (13-56) H 06/22/24 04:56 Alkaline Phosphatase 1350 U/L (45-117) H 06/22/24 04:56 Home Medications: Acetaminophen [Tylenol] 650 mg PO Q6H PRN 05/11/24 Famotidine [Pepcid AC] 20 mg PO BID 05/11/24 Gabapentin [Neurontin*] 100 mg PO BEDTIME 05/11/24 Lactobacillus Acidophilus [Acidophilus] 2 each PO DAILY 05/11/24 Lactulose 20 gm PO BID 05/11/24 Ascorbic Acid [C-1000] 500 mg PO BID 06/13/24 Multivitamin [Multiple Vitamins] 1 each PO DAILY 06/13/24 Protein Supplement [Promod] 30 ml PO BID 06/13/24 Zinc Citrate [Zinc] 11 mg PO DAILY 06/13/24 Dorzolamide HCl [Trusopt] 1 drops RIGHT EYE BID 06/16/24 Albuterol Neb [Proventil 0.083% Neb Soln] 2.5 mg NEB [id number] PRN amp 07/10/24 Collagenase [Santyl Ointment*] 1 appl TOP DAILY tube 07/10/24 Furosemide [Lasix*] 40 mg PO DAILY tab 07/10/24 Hydrocodone 5/APAP 325 [[place] 5/325*] 1 tab PO Q6H PRN #12 tab 07/10/24 Matthew [Matthew*] 1 pkt PO BID 07/10/24 Mag Hydroxide 8% [Milk Of Magnesia*] 30 ml PO DAILYPRN PRN 07/10/24 Melatonin 5 mg PO BEDTIME PRN 07/10/24 Nutritional Supplement/Fiber [Ensure Plant-Based Protein Vanilla] 330 ml PO BID can 07/10/24 fentaNYL [Fentanyl] 25 each TD Q72H #3 patch 07/10/24 New Medications: fentaNYL [Fentanyl] 25 each TD Q72H #3 patch Hydrocodone 5/APAP 325 [[place] 5/325*] 1 tab PO Q6H PRN #12 tab PRN Reason: Pain Scale 5-7 (Moderate) Physician Discharge Instructions: Right Pleural effusion Acute on chronic diastolic heart failure On admission, patient presented with worsening shortness of breath, cough. She was noted to test positive for covid in ED. Initial ultrasound noted right moderate pleural effusion. An attempt was made to perform US-guided thoracentesis however was unsuccessful d/t patient positioning. She felt improvement with diuresis. She was eventually weaned off oxygen and has been tolerating room air since. repeat CXR (07/04): right hemithorax has become more hazy which probably indicates enlargement of the right pleural effusion Abdominal hernia, chronic Patient has no signs of peritonitis, she continues to have bowel movements. Hernia is chronic and reducible. Patient was evaluated by Dr. Cervantes, General surgeon who recommended medical management. Her diet was advanced as tolerated. She has been tolerating pureed diet without issues since. Pneumonia There was some concern for possible superimposed pneumonia during her early hospitalization. Chest xray on admission noted moderate opacification of the right lung, moderately worse relative to prior study. This probably represents a combination of infiltrate and right pleural fluid. CT chest noted moderate to large right pleural effusion and small left pleural effusion Patient completed 10 days of IV zosyn to treat possible superimposed pneumonia (06/13-06/22) Blood cultures were without growth this hospitalization. hx recurrent UTIs Patient noted to have recent UTI. Urine culture had previously grew Enterobacter Cloaecae 06/01. Urine culture this hospitalization was without any bacterial growth, but did have some yeast. She was treated with diflucan. Necrotic Stage 3 sacral decubitus ulcer, s/p I&D (06/18) She was noted to have a sacral pressure ulcer present on admission. She was evaluated by Dr. Cervantes, general surgeon and underwent I&D on 06/18. She was found to have necrotic tissue during surgery. She was treated with local wound care in addition to several days of antibiotics as noted above. Her pain was well managed with oral pain medication. She had Fentanyl patch added. wound care with Santyl. Recent Covid 19 Patient was noted to test positive for covid on 06/12/24. She also reports testing positive for covid last month (05/23/2024) Patient was eventually weaned off O2 and has been tolerating room air for several days now. Wound care: santyl with gauze to sacrum daily Diet: Regular (Pureed) Activity: Fall precautions Followup: Swathi Brar PA [Primary Care Provider] -
[2024-07-10 16:22] VITALS: BP 116/57; TEMP 98.2
== END 2024-07-10 16:34 | DRG 166 ==
LOC: ER 15:52 → ERHOLD 21:58 → 2ND 23:15
PROVIDERS: ADMIT Internal Medicine; ATTEND Internal Medicine
PROC: 02HV33Z Insertion of Infusion Device into Superior Vena Cava, Percutaneous Approach (ICD-10-PCS; 2024-06-18)
PROC: 0JB70ZZ Excision of Back Subcutaneous Tissue and Fascia, Open Approach (ICD-10-PCS; principal; 2024-06-18 10:15)
DX: U07.1 COVID-19 (principal); E43 Unspecified severe protein-calorie malnutrition; I50.33 Acute on chronic diastolic (congestive) heart failure; J18.9 Pneumonia, unspecified organism; R64 Cachexia; Z68.1 Body mass index [BMI] 19.9 or less, adult; I69.351 Hemiplegia and hemiparesis following cerebral infarction affecting right dominant side; R18.8 Other ascites; I96 Gangrene, not elsewhere classified; I11.0 Hypertensive heart disease with heart failure; L89.152 Pressure ulcer of sacral region, stage 2; K74.60 Unspecified cirrhosis of liver; E78.00 Pure hypercholesterolemia, unspecified; K43.9 Ventral hernia without obstruction or gangrene; S42.302D Unspecified fracture of shaft of humerus, left arm, subsequent encounter for fracture with routine healing; Z23 Encounter for immunization; Z74.01 Bed confinement status; Z79.82 Long term (current) use of aspirin; Z90.49 Acquired absence of other specified parts of digestive tract; Z85.038 Personal history of other malignant neoplasm of large intestine; Z79.899 Other long term (current) drug therapy; Y95 Nosocomial condition
CPT/HCPCS: 36415; 71045; 71260; 73521; 74177; 76604; 80048; 80053; 81001; 83605; 83735; 84080; 84100; 85025; 85027; 85610; 85730; 87040; 87086; 87088; 87804; 87807; 87811; 93005; 94010; 96365; 96375; 97110; 97161; 97530; 99285; J0696; J1650; J1940; J2250; J2270; J2543; J3010; J3590; J7030; J7050; Q9967

== ENCOUNTER 2024-07-14 00:54 | Emergency (ER) | payer OTHER ==
--- NOTE | 2024-07-14 03:30 | RAD REPORT ---
EXAM: 1. CT scan of the CHEST without intravenous contrast. 2. CT scan of the ABDOMEN AND PELVIS without intravenous contrast CLINICAL DATA: 83 years Female FALL FROM BED. TECHNICAL DATA: CT imaging of the chest, abdomen and pelvis without intravenous contrast administration. Sagittal and coronal reconstructed images were performed. The CT study is performed according to ALARA (as low as reasonably achievable) or ALARA/IMAGE GENTLY, with automatic adjustment of mA and/or kV according to patient size. Performed on: 07/14/2024 at 2:06 AM Comparisons: CT abdomen and pelvis with contrast performed on 06/26/2019 5T scan of the chest, abdomen and pelvis with contrast performed on 06/12/2024. FINDINGS: CHEST: Lungs: There is a persistent moderate right pleural effusion with mild right basilar atelectasis. The previously noted small left pleural effusion has resolved. Heart: The heart is normal in size. There are moderate to marked coronary artery calcifications. Th ere is no pericardial effusion. Mediastinum: The mediastinum is unremarkable. The mediastinal vessels are normal in caliber and con tour. There are moderate atherosclerotic calcifications along the thoracic aorta. Bones: No acute osseous abnormalities are identified. There are chronic moderate to severe compressio n fractures of T6, T7 and T11 most consistent with benign osteoporotic fractures. There are occasional old bilateral lower rib fractures. There appears to be an old fracture of the left humeral neck. Soft tissues: No focal soft tissue abnormalities are identified. Lymphadenopathy: No pathologic hilar, mediastinal or axillary lymphadenopathy is identified. ABDOMEN/PELVIS: Liver: The liver is normal in size and configuration. No focal hepatic abnormalities are identified. Liver attenuation is within normal limits. Spleen: The spleen is top normal in size and is normal in configuration and attenuation. Gallbladder and bile duct: The gallbladder is well-distended. There is a linear area of increased d ensity in the dependent portion of the gallbladder lumen which may represent layering stones. There is no biliary ductal dilatation. Pancreas: The pancreas is grossly normal in size and configuration. Adrenal Glands: The adrenal glands are normal in size and configuration. Kidneys: The kidneys are normal in size and configuration. There is no evidence of hydronephrosis. Th ere is no evidence of nephrolithiasis. No definite solid or cystic renal mass lesions are identified. Stomach: The stomach is grossly normal. There is no definite hiatal hernia. Bowel: Again demonstrated is a ventral abdominal wall hernia to the right of midline which contains n ondilated colonic and small bowel loops without evidence of proximal obstruction. There is moderate fecal residue scattered throughout the colon. Appendix: The appendix is not clearly identified on this study. There is no CT evidence of acute appe ndicitis. Free air: There is no evidence of free air. Free fluid: There is no evidence of free fluid. Vasculature: The aorta is normal in caliber. There is tortuosity of the abdominal aorta and there are moderate atherosclerotic calcifications along the course of the aorta and major branch vessels. The inferior vena cava is grossly unremarkable. Lymphadenopathy: No pathologic lymphadenopathy is identified. Bladder: The bladder is decompressed due to the presence of a Suero catheter. There is air in the bibiana dder which is likely iatrogenic in nature related to instrumentation. Reproductive: The uterus is normal in size and configuration. There is air in the uterine fundus whic h may be related to a rectovaginal fistula. Bones: Again demonstrated are multiple chronic compression fractures throughout the lumbar spine best appreciated at L1, L3 and L4 consistent with benign osteoporotic fractures. There are remote postsurgical changes of the left femur consistent with prior open reduction and internal fixation. Soft tissues: No focal soft tissue abnormalities are identified. IMPRESSION: CT CHEST: 1. Persistent moderate right pleural effusion with mild right basilar atelectasis. The previously n oted small left pleural effusion has resolved. 2. Moderate to marked coronary artery calcifications. 3. Chronic moderate to severe compression fractures of T6, T7 and T11 most consistent with benign o steoporotic fractures. Suspect chronic fracture of the left humeral neck and old bilateral rib fractures. CT ABDOMEN AND PELVIS: 1. No definite acute intra-abdominal or intrapelvic pathology. Evaluation is limited without intrav enous or oral contrast. 2. Grossly stable ventral abdominal wall hernia to the right of midline which contains nondilated c olonic and small bowel loops without evidence of proximal obstruction. 3. Moderate fecal residue scattered throughout the colon. 4. Air in the uterine fundus which may be related to a rectovaginal fistula. 5. Suspect cholelithiasis. 6. 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 Electronically signed by: Christina Akers DO 07/14/2024 03:24 AM [facility] Due to temporary technical issues with the [employer] reporting system, reports are being nadiya d by the in-house radiologist without review as a courtesy to ensure prompt reporting the interpreting radiologist is fully responsible for the content of the report. Transcribed Date/Time: 07/14/2024 3:30 AM
--- NOTE | 2024-07-14 03:30 | RAD REPORT ---
PROCEDURE: CT HEAD AND CERVICAL SPINE WITHOUT CONTRAST INDICATION: Fall from bed. TECHNIQUE: CT images of the head and cervical spine were obtained without contrast. Multiplanar refor mats were provided. Dose lowering techniques such as automated exposure control, iterative reconstruction, and mA and/or kV adjustment for patient size was utilized for this examination. FINDINGS: CT HEAD: PARENCHYMA: No acute arterial territory infarct or hemorrhage. No mass effect or midline shift. VENTRICLES: Normal in size for patient's age. EXTRA-AXIAL: No focal collection. Patent basilar cisterns. ORBITS: Unremarkable. BONES: No acute finding. PARANASAL SINUSES: clear. MASTOIDS/MIDDLE EARS: Clear. SOFT TISSUES: No acute findings. OTHER: None. CT CERVICAL SPINE: ALIGNMENT: Normal lordosis of the cervical spine. No spondylolisthesis. BONES: No acute fractures. No compression deformity. SPONDYLOSIS: Unremarkable. POSTERIOR FOSSA: Unremarkable. SOFT TISSUES: Unremarkable. LUNG APICES: Clear. OTHER: None. IMPRESSION: 1. No acute intracranial abnormality. 2. No CT evidence of acute traumatic injury of cervical spine. Electronically signed by: Jazzmine Vee MD 07/14/2024 03:01 AM [facility] Due to temporary technical issues with the PACS/[employer] reporting system, reports are being nadiya d by the in-house radiologist without review as a courtesy to ensure prompt reporting the interpreting radiologist is fully responsible for the content of the report. Transcribed Date/Time: 07/14/2024 3:30 AM
--- NOTE | 2024-07-14 03:39 | ER ---
Nurse's Notes [facility] Name: Gayla Greene Age: 83 yrs Sex: Female : 1940 Arrival Date: 07/14/2024 Time: 00:54 Bed 15 Private MD: Diagnosis: Fall from bed, initial encounter;Pain in left hip Presentation: 07/14 01:00 Chief complaint: EMS states: patient had a fall from bed about 1 foot high ! hr SIDEHAND, rg5 she was found lying on floor on her left side. 01:00 Care prior to arrival: None. Mechanism of Injury: Fall out of bed approximately 1 feet. rg5 Trauma event details: Injury occurred in the [facility], Injury occurred: at home. Injury occurred: July 14, 2024. Activity prior to arrival: None. 01:00 Acuity: TOMY 3 rg5 01:00 Method Of Arrival: EMS: [facility] rg5 01:00 Coronavirus screen: Vaccine status: Client denies travel out of the [place] in the last 14 rg5 days. Risk Assessment: Do you want to hurt yourself or someone else?. 01:00 Ebola Screen: Patient negative for fever greater than or equal to 101.5 degrees rg5 Fahrenheit, and additional compatible Ebola Virus Disease symptoms Patient denies exposure to infectious person. Patient denies travel to an Ebola-affected area in the 21 days before illness onset. Initial Sepsis Screen: Does the patient meet any 2 criteria? No. Patient's initial sepsis screen is negative. Does the patient have a suspected source of infection? No. Patient's initial sepsis screen is negative. Onset of symptoms was July 14, 2024. Historical: - Allergies: 01:00 Aspirin; rg5 - PMHx: 01:00 abdominal hernia (Unknown); cirrhosis of liver; colon cancer; Congestive heart failure; rg5 Hypercholesterolemia; Hypertensive disorder; Osteopenia; - PSHx: 01:00 hernia repair; rg5 - Immunization history: Last tetanus immunization: unknown. - Infectious Disease History:: Denies. - Social history:: Smoking status: unknown. Screenin:00 Abuse screen: Denies threats or abuse. Tuberculosis screening: No symptoms or risk rg5 factors identified. 01:00 [facility] ED Fall Risk Assessment (Adult) History of falling in the last 3 months, rg5 including since admission Yes- single mechanical fall (1 pt) Confusion or Disorientation No (0 pts) Intoxicated or Sedated No (0 pts) Impaired Gait Yes (1 pt) Mobility Assist Device Used Yes (1 pt) Altered Elimination Yes (1 pt) Score/Fall Risk Level 3 or more points = High Risk Oriented to surroundings, Maintained a safe environment, Hourly rounding (assess needs \T\ fall precautionary measures) done. Nutritional screening: No deficits noted. Primary Survey: 01:00 NO uncontrolled hemorrhage observed. A: The client is awake and alert. The airway is rg5 patent. Breathing/Chest: Spontaneous respiratory effort, equal unlabored respirations, breath sounds clear bilaterally, regular pattern, symmetrical chest rise and fall. Circulation: No external hemorrhage present. Regular and strong central pulse, skin warm/dry/normal color. Disability Pupils are equal, round, reactive to light and accommodation. Client is alert. Exposure/Environment: All clothing and personal items were removed. Forensic evidence collection is not deemed to be indicated at this time. Items placed in patient belonging bag. There is no evidence of uncontrolled external bleeding. 02:00 Reassessment Alertness and Airway: Awake and alert. The airway is patent. Breathing: rg5 Spontaneous respiratory effort, equal unlabored respirations, breath sounds clear bilaterally, regular pattern with symmetrical chest rise and fall. Respiratory effort Spontaneous Circulation: No external hemorrhage noted. Regular and strong central pulse, skin warm/dry/normal color. Assessment: 01:00 General: Appears in no apparent distress. Behavior is calm, cooperative, appropriate rg5 for age. Pain: Complains of pain in left hip Pain currently is 6 out of 10 on a pain scale. Quality of pain is described as aching, Pain began 1 hour ago. Neuro: Level of Consciousness is awake, alert, Oriented to person, place. EENT: No signs and/or symptoms were reported regarding the EENT system. Cardiovascular: Denies chest pain. Respiratory: Airway is patent Trachea midline Respiratory effort is even, unlabored, Respiratory pattern is regular, symmetrical. GI: Abdomen is flat, non-distended. : Suero in place to gravity drainage. Derm: Skin is intact, Skin is dry, Skin is normal, Skin temperature is warm. Musculoskeletal: Circulation, motion, and sensation intact. 02:36 Reassessment: No changes from previously documented assessment. Patient and/or family rg5 updated on plan of care and expected duration. Pain level reassessed. 03:41 Reassessment: No changes from previously documented assessment. Patient and/or family rg5 updated on plan of care and expected duration. Pain level reassessed. Patient is alert, oriented x 3, equal unlabored respirations, skin warm/dry/pink. Patient states feeling better. General: Appears in no apparent distress. comfortable, Behavior is calm, cooperative, appropriate for age. Neuro: Oriented to person, place. Vital Signs: 01:00 BP 121 / 55; Pulse 74; Resp 17; Temp 97.7; Pulse Ox 99% on R/A; Weight 43 kg; Height 5 rg5 ft. 1 in. ; Pain 7/10; 02:41 BP 107 / 43; Pulse 67; Resp 17; Pulse Ox 98% on R/A; rg5 03:40 BP 106 / 53; Pulse 65; Resp 18; Pulse Ox 97% on R/A; rg5 01:00 Body Mass Index 17.91 (43.00 kg, 154.94 cm) rg5 01:00 Pain Scale: Adult rg5 Sidney Coma Score: 01:00 Eye Response: spontaneous(4). Motor Response: obeys commands(6). Verbal Response: rg5 oriented(5). Total: 15. Trauma Score (Adult): 01:00 Eye Response: spontaneous(1); Verbal Response: oriented(1); Motor Response: obeys rg5 commands(2); Systolic BP: > 89 mm Hg(4); Respiratory Rate: 10 to 29 per min(4); [place] Score: 15; Trauma Score: 12 ED Course: 00:55 Patient arrived in ED. jj6 00:59 Favian Celestin PA is PHCP. cp 00:59 Favian Swann MD is Attending Physician. cp 01:00 Patient has correct armband on for positive identification. Placed in gown. Bed in low rg5 position. Call light in reach. Side rails up X 1. Patient maintains SpO2 saturation greater than 95% on room air. 01:00 Client placed on continuous cardiac and pulse oximetry monitoring. NIBP monitoring rg5 applied. groundwater monitoring technician on. Pulse ox on. Door closed. Noise minimized. Warm blanket given. Verbal reassurance given. 01:00 Arm band placed on right wrist. rg5 01:00 Patient maintains SpO2 saturation greater than 95% on room air. rg5 01:00 No provider procedures requiring assistance completed. rg5 01:09 Patrick Harmon, RN is Primary Nurse. rg5 01:16 Triage completed. rg5 02:04 Chest Abd Pelvis Wo Con In Process Unspecified. EDMS 02:04 Head C Spine Mpr Wo Con In Process Unspecified. EDMS 03:41 Provided Education on: post er care. rg5 03:41 Patient did not have IV access during this emergency room visit. rg5 Administered Medications: 03:16 Drug: traMADol PO 50 mg PO once Route: PO; rg5 03:43 Follow up: Response: No adverse reaction; Pain is decreased rg5 03:16 Drug: Acetaminophen PO 500 mg PO once Route: PO; rg5 03:42 Follow up: Response: No adverse reaction; Pain is decreased rg5 Medication: 01:00 VIS not applicable for this client. rg5 Intake: 01:00 PO: 0ml; Total: 0ml. rg5 Outcome: 03:39 Discharge ordered by . cp 04:12 Patient left the ED. rg5 Signatures: Dispatcher [employer] EDMS Favian Celestin PA PA Alma Enriquez jj6 Patrick Harmon, RN RN rg5
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
[2024-07-14 04:37] VITALS: TEMP 97.7
[2024-07-14 04:39] VITALS: BP 106/53; O2SAT 97
== END 2024-07-14 04:12 | disposition home or self-care (01) ==
LOC: ER 00:54
DX: M25.552 Pain in left hip (principal); W06.XXXA Fall from bed, initial encounter
CPT/HCPCS: 70450; 71250; 72125; 74176; 99284

== ENCOUNTER 2024-07-21 19:24 | Emergency (ER) | payer OTHER ==
[2024-07-21 21:00] LABS: Absolute Eosinophils 0.3 K/uL (0-0.5); Absolute Lymphocytes (CBC) 0.5 K/uL (0.7-4.9); Absolute Monocytes 0.5 K/uL (0.1-1.3); Absolute Neutrophil 6.3 K/uL (1.8-8.0); Basophils % 0.1 % (0-1.3); Eosinophils % 3.5 % (0-4.4); Hematocrit 34.5 % (36.0-45.0); Hemoglobin 11.2 g/dL (12.0-15.0); Lymphocytes % 6.6 % (15.3-44.8); MCH 30.7 pg (27.0-35.0); MCHC 32.5 g/dL (32.0-36.0); MCV 94.4 fL (80-100); MPV 8.1 fL (7.6-11.3); Monocytes % 6.3 % (3.3-12.3); Neutrophils % 83.5 % (41.7-73.7); Nucleated Red Blood Cells % 0.1 % (0-0); Platelets 227 thou/uL (152-406); RBC Red Blood Cell Count 3.66 M/uL (3.86-4.86); Red Cell Distribution Width 18.2 % (12.1-15.2)
[2024-07-21 21:02] LABS: Specific Gravity 1.013 (1.005-1.030); Sqamous Epithelial <5 /HPF (None Seen); Urine Bacteria <20 /HPF (<20); Urine Bilirubin NEGATIVE (Negative); Urine Blood Negative (Negative); Urine Clarity Extremely Turbid (Clear); Urine Color Light-Yellow (Yellow); Urine Crystals Unidentified Few /HPF (None Seen); Urine Culture Reflex Order REFLEXED; Urine Glucose NEGATIVE (Negative); Urine Ketones NEGATIVE (Negative); Urine Microscopic Reflex YN ORDER UMIC; Urine Nitrite NEGATIVE (Negative); Urine Protein NEGATIVE (Negative); Urine Urobilinogen Normal (Normal); Urine WBC >50 /HPF (<5); Urine Yeast (Budding) Few /HPF (None Seen); Urine pH 6.5 (5.0-7.0)
[2024-07-21 21:24] LABS: Albumin/Globulin Ratio 0.3 (1.1-1.8); Bilirubin Total 0.9 mg/dL (0.2-1.0); Globulin 5.9 g/dL (2.3-3.5); Protein, Total 7.9 g/dL (6.4-8.2)
[2024-07-21 21:33] LABS: Anion Gap 7.2 mEq/L (5.0-15.0)
[2024-07-21 21:38] LABS: Potassium 4.2 mEq/L (3.5-5.1)
--- NOTE | 2024-07-21 21:42 | RAD REPORT ---
EXAMINATION: CT HEAD WITHOUT CONTRAST CT CERVICAL SPINE WITHOUT CONTRAST CLINICAL INDICATION: Head and neck pain TECHNIQUE: Axial CT images from the skull base to the vertex without intravenous contrast. Axial CT i mages through the cervical spine were obtained without intravenous contrast. Sagittal and coronal reformatted images were created from the data set. Coronal and sagittal reformatted images were creat ed from the data set. One or more of the following dose reduction techniques were used: Automated exposure control, adjustment of the mA and/or kV according to patient size, and/or iterative reconstr uction. Unless otherwise specified, incidental findings do not require dedicated imaging follow-up. [id number]. Comparison: July 14, 2024 FINDINGS: An intracranial bleed is not seen. Ventricles are normal in caliber. No significant hypodensity within the brain No extra-axial fluid collection. No fluid within the sinuses/mastoids No fracture or dislocation is seen involving the cervical spine. IMPRESSION: No acute intracranial abnormality noted A cervical fracture is not seen. If the patient continues to have symptoms to suggest acute [employer]/spinal pathology then MRI would be rec ommended
[2024-07-21] MEDS ORDERED: ONDANSETRON 4 MG/2 ML VIAL ONE (21:58)
--- NOTE | 2024-07-21 21:58 | RAD REPORT ---
EXAMINATION: CT ABDOMEN AND PELVIS WITH CONTRAST CLINICAL INDICATION: Abdominal pain TECHNIQUE: CT abdomen and pelvis was performed, after the administration of 100 cc Isovue-300.. Sagit geronimo and coronal reconstructions were obtained. One or more of the following dose reduction techniques were used: Automated exposure control, adjustment of the mA and kV according to patient si ze, and iterative reconstruction. Unless otherwise specified, incidental findings do not require dedicated imaging follow-up. [id number]. Oral contrast was not given which limits evaluation of bowel and appendix. COMPARISON: .June 2024 FINDINGS: Small to moderate right pleural effusion mildly diminished the prior exam. Small left pleural effusio n. Cirrhotic liver. The portal vein is patent. Cholelithiasis. Spleen is upper limits normal size. The pancreas is atrophic. The pancreatic neck and head are edemat ous. Adrenals unremarkable. Suero catheter is present within the bladder. Kidneys unremarkable. Large right anterolateral ventral hernia contains stomach, duodenum, small and large bowel.. The stom ach is moderately distended. Additional ventral hernia to the right of midline periumbilical region contains small bowel. No obstr uction noted. Diffuse edema within the subcutaneous tissues. No change in the appearance of the compression screw and intramedullary marcia affixing left femoral fra cture. No evidence of diverticulitis. Vertebral compression fractures involving lower thoracic and lumbar vertebral bodies unchanged. No ac viejas fracture visualized Air within the vagina and an endometrial canal. : IMPRESSION: Pancreatic head and neck are edematous probably indicating pancreatitis. Hernias as described above Air within the vagina endometrial canal raises suspicion of a fistula between the rectum which be cor related clinically
[2024-07-21] MEDS ORDERED: MORPHINE 2 MG/ML SYR ONE (21:59)
--- NOTE | 2024-07-22 00:44 | RAD REPORT ---
EXAM: US Abdomen Limited, Gallbladder CLINICAL HISTORY: The patient is 83 years old and is Female; gallbladder TECHNIQUE: Real-time ultrasound of the right upper quadrant with image documentation. COMPARISON: No relevant prior studies available. FINDINGS: Limitations: Evaluation limited by patient movement and positioning. Gallbladder: Cholelithiasis. No gallbladder wall thickening. No pericholecystic fluid. Common bile duct: Common bile duct is not seen. IMPRESSION: Cholelithiasis. No gallbladder wall thickening. No pericholecystic fluid. Electronically signed by: Crow Guzman MD 07/22/2024 12:36 AM [facility] 8 Due to temporary technical issues with the [email or web address] scribe reporting system, reports are being signed by the in-house radiologist without review as a courtesy to ensure prompt reporting the interpreting radiologist is fully responsible for the content of the report. Transcribed Date/Time: 07/22/2024 12:43 AM
--- NOTE | 2024-07-22 00:51 | EDPHYS ---
Physician Documentation [facility] Name: Gayla Greene Age: 83 yrs Sex: Female : 1940 Arrival Date: 07/21/2024 Time: 19:24 Bed 16 Private MD: ED Physician Swathi Larkin HPI: 07/21 19:45 This 83 yrs old Female presents to ER via EMS with complaints of Fistula. cp 19:45 The patient presents with abdominal pain. cp 19:45 Onset: The symptoms/episode began/occurred today. Associated signs and symptoms: cp Pertinent positives: headache and right side neck pain, Pertinent negatives: chest pain, fever, vomiting. Patient accompanied to ED by daughter who reports while changing patient and wiping vaginal area she noticed stool from coming out of vagina. Historical: - Allergies: 19:29 Aspirin; cp4 19:29 Ibuprofen; cp4 - PMHx: 19:29 abdominal hernia (Unknown); cirrhosis of liver; colon cancer; Congestive heart failure; cp4 Hypercholesterolemia; Hypertensive disorder; Osteopenia; 20:55 colovaginal fistula; kl - PSHx: 19:29 hernia repair; cp4 - Immunization history:: Adult Immunizations up to date. - Infectious Disease History:: Denies. - Social history:: Smoking status: Patient denies any tobacco usage or history of. ROS: 19:50 Abdomen/GI: Positive for abdominal pain, Negative for vomiting, diarrhea, constipation, cp 19:50 Cardiovascular: Negative for chest pain, cp 19:50 Eyes: Negative for injury, pain, redness, and discharge, cp 19:50 Constitutional: Negative for body aches, chills, fever, poor PO intake, 19:50 Neck: Positive for pain with movement, pain at rest, 19:50 Respiratory: Negative for cough, shortness of breath, wheezing, 19:50 Neuro: Positive for headache, 19:50 All other systems are negative, cp Exam: 19:55 Constitutional: The patient appears in no acute distress, alert, awake, cp non-diaphoretic, non-toxic, well developed, frail, 19:55 Head/Face: Normocephalic, atraumatic. cp 19:55 Eyes: Periorbital structures: appear normal, Conjunctiva: normal, no exudate, no injection, Sclera: no appreciated abnormality, Lids and lashes: appear normal, bilaterally, 19:55 ENT: External ear(s): are unremarkable, Nose: is normal, Mouth: Lips: moist, Oral mucosa: moist, 19:55 Chest/axilla: Inspection: normal, Palpation: is normal, no crepitus, no tenderness, cp 19:55 Cardiovascular: Rate: normal, Rhythm: regular, Edema: is not appreciated, JVD: is not appreciated, 19:55 Respiratory: the patient does not display signs of respiratory distress, Respirations: normal, no use of accessory muscles, no retractions, labored breathing, is not present, Breath sounds: are clear throughout, no decreased breath sounds, no stridor, no wheezing, 19:55 Abdomen/GI: Bowel sounds: active, all quadrants, Palpation: soft, in all quadrants, moderate abdominal tenderness, in all quadrants, Hernia: noted in the paraumbilical area, large, 19:55 Neuro: Orientation: no acute changes, per family, Mentation: no acute changes, per family, Vital Signs: 19:27 BP 172 / 78; Pulse 87; Resp 16; Temp 97.4; Pulse Ox 100% ; Weight 41.73 kg; Height 5 cp4 ft. 3 in. ; Pain 0/10; 22:34 BP 132 / 62; Pulse 86; Resp 17; Pulse Ox 98% ; cp4 23:35 BP 157 / 67; Pulse 91; Resp 17; Pulse Ox 98% ; cp4 18 00:35 BP 130 / 57; Pulse 81; Resp 18; Pulse Ox 97% ; cp4 02:48 BP 131 / 58; Pulse 91; Resp 18; Pulse Ox 99% ; cp4 04:12 BP 124 / 51; Pulse 95; Resp 18; Pulse Ox 97% ; cp4 05:25 BP 149 / 58; Pulse 94; Resp 18; Pulse Ox 99% ; cp4 07/21 19:27 Body Mass Index 16.30 (41.73 kg, 160.02 cm) cp4 07/21 19:27 Pain Scale: Adult cp4 MDM: 07/21 19:50 Medical Screening Exam initiated cp 21:00 Differential diagnosis: bowel obstruction, gastritis, pancreatitis, Peritonitis, cp Pyelonephritis, Ureterolithiasis, urinary tract infection, sepsis. 07/22 00:50 Data reviewed: vital signs, nurses notes, lab test result(s), radiologic studies, CT cp scan, ultrasound, I have discussed the patient's presentation/case with the attending Emergency Department Physician;. 00:50 Management of patient was discussed with the following: Hospitalist: Rose White NP cp who requests transfer for GI services. I considered the following discharge prescriptions or medication management in the emergency department Medications were administered in the Emergency Department. See AUG. 01:50 ED course: consult with hospitalist DR Mccoy at [facility] who will accept patient cp after discussion. 07/21 19:40 Order name: CBC with Diff; Complete Time: 21:57 gb1 07/21 22:35 Interpretation: Normal except: RBC 3.66; HGB 11.2; HCT 34.5; RDW 18.2; YAMILET% 83.5; LYM% cp 6.6; LYMA 0.5. 07/21 19:40 Order name: CMP; Complete Time: 21:57 gb1 07/21 22:36 Interpretation: Normal except: NA 134; GLUC 144; GFR 83; ALT 74; ALB 2.0; GLOB 5.9; A/G cp 0.3; AST 123; ALK 1287. 07/21 19:40 Order name: Lipase; Complete Time: 21:57 gb1 07/21 22:37 Interpretation: Reviewed. 07/21 19:40 Order name: Urinalysis w/ reflexes; Complete Time: 21:57 gb1 07/21 22:37 Interpretation: Normal except: [facility] Extremely Turbid; UESTR 500; UWBC >50; URBC 5-10; cp BYST Few. 07/21 19:53 Order name: Lactate w/ 2H reflex if indic.; Complete Time: 21:57 07/21 21:13 Order name: Urine Culture [facility] 07/22 01:36 Order name: Blood Culture Adult (2) cp 07/21 19:40 Order name: CT Abd/Pelvis - IV Contrast Only; Complete Time: 22:33 gb1 07/21 20:34 Order name: CT Head C Spine; Complete Time: 21:57 cp 07/21 22:39 Order name: US Abdomen Limited 07/21 19:40 Order name: IV Saline Lock; Complete Time: 20:51 gb1 07/21 19:40 Order name: Labs collected and sent; Complete Time: 20:51 gb1 07/21 19:53 Order name: Cath; Complete Time: 20:51 cp 07/22 01:45 Order name: Nunn: please replace nunn catheter; Complete Time: 02:29 cp Administered Medications: 07/21 22:31 Drug: morphine IVP or IV 2 mg IVP once over 4 mins Route: IVP; Infused Over: 4 mins; cp4 Site: left forearm; 23:54 Follow up: Response: No adverse reaction cp4 23:54 Follow up: Response: Pain is decreased cp4 22:31 Drug: Ondansetron IVP 4 mg IVP once; over 2 minutes Route: IVP; Site: left forearm; cp4 23:54 Follow up: Response: No adverse reaction; Pain is decreased cp4 07/22 02:42 Drug: Ativan IVP 0.5 mg IVP once Route: IVP; Site: left forearm; cp4 03:52 Follow up: Response: No adverse reaction cp4 02:43 Drug: NS 0.9% IV 500 ml 500 ml IV at 1 bolus once; to be given as a bolus over 30 cp4 minutes Volume: 500 ml; Route: IV; Rate: 1 bolus; Site: left forearm; 03:53 Follow up: IV Status: Completed infusion cp4 02:43 Drug: morphine IVP or IV 2 mg IVP once over 4 mins Route: IVP; Infused Over: 4 mins; cp4 Site: left forearm; 03:53 Follow up: Response: No adverse reaction; Pain is decreased cp4 02:43 Drug: Rocephin IV 1 grams IV at calculated rate once; Given slow IV push per pharmacy cp4 instructions Route: IV; Rate: calculated rate; Site: left forearm; 03:52 Follow up: IV Status: Completed infusion cp4 03:53 Drug: NS 0.9% IV 500 ml 500 ml IV at 75 ml/hr once; to be given as a bolus over 30 cp4 minutes Volume: 500 ml; Route: IV; Rate: 75 ml/hr; Site: left forearm; 05:26 Follow up: IV Status: Infusion continued upon transfer cp4 Disposition Summary: 07/22/24 00:50 Transfer Ordered Notes: Transfer Location: [facility] cp Reason: Higher level of care cp Condition: Stable cp Problem: new cp Symptoms: have improved cp Accepting Physician: DR Mccoy(07/22/24 05:27) cp4 Diagnosis - Biliary acute pancreatitis cp Forms: - Medication Reconciliation Form cp - SBAR form cp Signatures: Dispatcher [employer] EDMS Dipti Mandel, RN RN Favian Malone PA PA cp Swathi Larkin MD MD gb1 Debbie Huerta cp4 Corrections: (The following items were deleted from the chart) 07/21 19:41 19:41 Abdomen Pelvis W Con+CT.RAD.BRZ ordered. EDMS EDMS 07/22 01:36 01:36 BLOOD CULTURE*+BA.LAB.BRZ ordered. EDMS EDMS 01:37 00:50 doctor cp cp 01:37 00:50 Acute pancreatitis without necrosis or infection, unspecified cp cp 01:37 01:37 DR Mccoy cp cp 05:27 01:37 DR Mccoy cp cp4
--- NOTE | 2024-07-22 00:51 | ER ---
Nurse's Notes [facility] Name: Gayla Greene Age: 83 yrs Sex: Female : 1940 Arrival Date: 07/21/2024 Time: 19:24 Bed 16 Private MD: Diagnosis: Biliary acute pancreatitis Presentation: 07/21 19:27 Chief complaint: EMS states: patient has problem with fistula that is causing fecal cp4 matter to come out of her vagina. Coronavirus screen: Client denies travel out of the [place] in the last 14 days. At this time, the client does not indicate any symptoms associated with coronavirus-19. Ebola Screen: Patient negative for fever greater than or equal to 101.5 degrees Fahrenheit, and additional compatible Ebola Virus Disease symptoms Patient denies exposure to infectious person. Patient denies travel to an Ebola-affected area in the 21 days before illness onset. No symptoms or risks identified at this time. Initial Sepsis Screen: Does the patient meet any 2 criteria? No. Patient's initial sepsis screen is negative. Does the patient have a suspected source of infection? No. Patient's initial sepsis screen is negative. Risk Assessment: Do you want to hurt yourself or someone else? Patient reports no desire to harm self or others. Onset of symptoms is unknown. 19:27 Method Of Arrival: EMS: [facility] 4 19:27 Acuity: TOMY 3 cp4 Triage Assessment: 19:29 General: Appears in no apparent distress. comfortable, Behavior is calm, cooperative, cp4 appropriate for age. Pain: Denies pain. EENT: No signs and/or symptoms were reported regarding the EENT system. Neuro: Level of Consciousness is awake, alert, obeys commands, Oriented to person, place, time, situation. Cardiovascular: Patient's skin is warm and dry. Respiratory: Airway is patent Respiratory effort is even, unlabored. GI: feces coming out of vagina. : No signs and/or symptoms were reported regarding the genitourinary system. Derm: No signs and/or symptoms reported regarding the dermatologic system. Musculoskeletal: No signs and/or symptoms reported regarding the musculoskeletal system. Historical: - Allergies: 19:29 Aspirin; cp4 19:29 Ibuprofen; cp4 - PMHx: 19:29 abdominal hernia (Unknown); cirrhosis of liver; colon cancer; Congestive heart failure; cp4 Hypercholesterolemia; Hypertensive disorder; Osteopenia; 20:55 colovaginal fistula; kl - PSHx: 19:29 hernia repair; cp4 - Immunization history:: Adult Immunizations up to date. - Infectious Disease History:: Denies. - Social history:: Smoking status: Patient denies any tobacco usage or history of. Screenin:[address] [facility] ED Fall Risk Assessment (Adult) History of falling in the last 3 months, cp4 including since admission No falls in past 3 months (0 pts) Confusion or Disorientation No (0 pts) Intoxicated or Sedated No (0 pts) Impaired Gait Yes (1 pt) Mobility Assist Device Used Yes (1 pt) Altered Elimination Yes (1 pt) Score/Fall Risk Level 3 or more points = High Risk Oriented to surroundings, Maintained a safe environment, Assessed \T\ reinforced patient's understanding of fall precautions, Hourly rounding (assess needs \T\ fall precautionary measures) done, Used ambulatory aids as needed (educated on \T\ assisted with), Implemented a Fall Risk Plan of Care, Apply high fall risk patient identification: yellow non skid footwear/ fall signage. Abuse screen: Denies threats or abuse. Denies injuries from another. Nutritional screening: No deficits noted. Tuberculosis screening: No symptoms or risk factors identified. Assessment: 19:31 Reassessment: No changes from previously documented assessment. cp4 21:00 Reassessment: Patient appears in no apparent distress at this time. Patient and/or cp4 family updated on plan of care and expected duration. Pain level reassessed. Patient is alert, oriented x 3, equal unlabored respirations, skin warm/dry/pink. 22:00 Reassessment: Patient appears in no apparent distress at this time. Patient and/or cp4 family updated on plan of care and expected duration. Pain level reassessed. Patient is alert, oriented x 3, equal unlabored respirations, skin warm/dry/pink. 23:53 Reassessment: Patient appears in no apparent distress at this time. Patient and/or cp4 family updated on plan of care and expected duration. Pain level reassessed. Patient is alert, oriented x 3, equal unlabored respirations, skin warm/dry/pink. 07/22 02:48 Reassessment: Patient appears in no apparent distress at this time. Patient and/or cp4 family updated on plan of care and expected duration. Pain level reassessed. Patient is alert, oriented x 3, equal unlabored respirations, skin warm/dry/pink. 04:12 Reassessment: Patient appears in no apparent distress at this time. Patient and/or cp4 family updated on plan of care and expected duration. Pain level reassessed. Patient is alert, oriented x 3, equal unlabored respirations, skin warm/dry/pink. Vital Signs: 07/21 19:27 BP 172 / 78; Pulse 87; Resp 16; Temp 97.4; Pulse Ox 100% ; Weight 41.73 kg; Height 5 cp4 ft. 3 in. ; Pain 0/10; 22:34 BP 132 / 62; Pulse 86; Resp 17; Pulse Ox 98% ; cp4 23:35 BP 157 / 67; Pulse 91; Resp 17; Pulse Ox 98% ; cp4 07/22 00:35 BP 130 / 57; Pulse 81; Resp 18; Pulse Ox 97% ; cp4 02:48 BP 131 / 58; Pulse 91; Resp 18; Pulse Ox 99% ; cp4 04:12 BP 124 / 51; Pulse 95; Resp 18; Pulse Ox 97% ; cp4 05:25 BP 149 / 58; Pulse 94; Resp 18; Pulse Ox 99% ; cp4 07/21 19:27 Body Mass Index 16.30 (41.73 kg, 160.02 cm) cp4 07/21 19:27 Pain Scale: Adult cp4 ED Course: 07/21 19:25 Patient arrived in ED. cp4 19:27 Debbie Huerta is Primary Nurse. cp4 19:29 Triage completed. cp4 19:29 Arm band placed on right wrist. Patient placed in an exam room, on a stretcher. cp4 19:31 Bed in low position. Call light in reach. Side rails up X2. Adult w/ patient. cp4 19:50 Favian Celestin PA is PHCP. cp 19:50 Swathi Larkin MD is Attending Physician. cp 20:34 Radiology exam delayed due to lab results not completed at this time. IV insertion jc4 attempt and/or patient not having appropriate IV at this time. 21:37 CT Abd/Pelvis - IV Contrast Only In Process Unspecified. EDMS 21:37 CT Head C Spine In Process Unspecified. EDMS 22:21 Repositioned patient. Cleaned of incontinence. Linen changed. cp4 23:24 US Abdomen Limited In Process Unspecified. EDMS 23:53 No provider procedures requiring assistance completed. Inserted saline lock: 22 gauge cp4 in left forearm, using aseptic technique. 07/22 00:58 Initiated transfer with Meryl at [facility]. rv1 01:24 Doc to Doc with hospitalist at [facility]. rv1 01:39 Meryl called and said the bed needed to be clean so she will call me back with rv1 approval once it is clean. 02:00 First set of blood cultures drawn by me. cp4 02:29 Suero cath inserted, using sterile technique, 16 Fr., by me, balloon inflated, to cp4 gravity drainage, Suero cath removed intact, balloon deflated. 02:45 Repositioned patient. Cleaned of incontinence. Linen changed. cp4 03:44 Called to check on bed status for transfer. Meryl stated that she has been trying to rv1 contact the [employer] multiple times about bed but has not heard back. Messaged HS again for status update and will call back when she has a bed. 05:27 Provided Education on: transfer. cp4 05:27 Patient transferred, IV remains in place. cp4 Administered Medications: 07/21 22:31 Drug: morphine IVP or IV 2 mg IVP once over 4 mins Route: IVP; Infused Over: 4 mins; cp4 Site: left forearm; 23:54 Follow up: Response: No adverse reaction cp4 23:54 Follow up: Response: Pain is decreased cp4 22:31 Drug: Ondansetron IVP 4 mg IVP once; over 2 minutes Route: IVP; Site: left forearm; cp4 23:54 Follow up: Response: No adverse reaction; Pain is decreased cp4 07/22 02:42 Drug: Ativan IVP 0.5 mg IVP once Route: IVP; Site: left forearm; cp4 03:52 Follow up: Response: No adverse reaction cp4 02:43 Drug: NS 0.9% IV 500 ml 500 ml IV at 1 bolus once; to be given as a bolus over 30 cp4 minutes Volume: 500 ml; Route: IV; Rate: 1 bolus; Site: left forearm; 03:53 Follow up: IV Status: Completed infusion cp4 02:43 Drug: morphine IVP or IV 2 mg IVP once over 4 mins Route: IVP; Infused Over: 4 mins; cp4 Site: left forearm; 03:53 Follow up: Response: No adverse reaction; Pain is decreased cp4 02:43 Drug: Rocephin IV 1 grams IV at calculated rate once; Given slow IV push per pharmacy cp4 instructions Route: IV; Rate: calculated rate; Site: left forearm; 03:52 Follow up: IV Status: Completed infusion cp4 03:53 Drug: NS 0.9% IV 500 ml 500 ml IV at 75 ml/hr once; to be given as a bolus over 30 cp4 minutes Volume: 500 ml; Route: IV; Rate: 75 ml/hr; Site: left forearm; 05:26 Follow up: IV Status: Infusion continued upon transfer cp4 Medication: 07/21 19:31 VIS not applicable for this client. cp4 Outcome: 07/22 00:50 ER care complete, transfer ordered by MD. cp 05:27 Transferred by ground EMS to [facility], Transfer form completed. cp4 X-rays sent w/ patient. 05:27 Condition: stable 05:27 Instructed on the need for transfer, 05:27 Patient left the ED. cp4 Signatures: Dispatcher [employer] Dipti Mann RN RN Favian Malone PA PA cp Villegas, Rebecca rv1 Potter, Christina cp4 Miguel Faulkner4
[2024-07-22] MEDS ORDERED: LORazepam 2 MG/ML VIAL ONE (02:33)
[2024-07-22] MEDS ORDERED: CEFTRIAXONE 1000 MG/VIAL ONE (02:33)
[2024-07-22] MEDS ORDERED: NA CHLORIDE 0.9% 1,000 ML ONE (02:34)
[2024-07-22] MEDS ORDERED: MORPHINE 2 MG/ML SYR ONE (02:34)
[2024-07-22 07:43] VITALS: TEMP 97.4
[2024-07-22 07:50] VITALS: BP 149/58; O2SAT 99
== END 2024-07-22 05:27 | disposition short-term general hospital (02) ==
LOC: ER 19:24
DX: K85.10 Biliary acute pancreatitis without necrosis or infection (principal); R51.9 Headache, unspecified; M54.2 Cervicalgia; Z85.038 Personal history of other malignant neoplasm of large intestine
CPT/HCPCS: 87040 ×2; 87088; 85025; 81001; 87086; 36415; 83605; 83690; 80053; 70450; 72125; 74177; 76705; Q9967; J2270 ×2; J2405; J7030; J0696